=== PATIENT | female | born 1975 | race Two or more races ===

== ENCOUNTER 2021-03-31 11:03 | Outpatient (REF) | payer OTHER, SELFPAY ==
[2021-03-31 14:01] LABS: MANUAL DIFF FLAG NO
[2021-03-31 14:10] LABS: Basophils Percent Auto 0.3 % (0-2); Eosinophils Absolute Auto 0.2 X10*3/uL (0.0-0.4); Eosinophils Percent Auto 2.6 % (0-4); Hematocrit 41.7 % (37-47); Hemoglobin 14.5 g/dl (12.0-16.0); Imm Gran Abs Auto 0.04 X10*3/uL (0.00-0.03); Imm Gran Pct Auto 0.5 % (0.0-0.4); Lymphocytes Percent Auto 34.3 % (20-40); Mean Corpuscular HGB Conc 34.8 g/dl (31.0-35.0); Mean Corpuscular Hemoglobin 31.8 pg (27.0-33.0); Mean Corpuscular Volume 91.4 fL (80-98); Mean Platelet Volume 10.2 fL (9.4-12.3); Monocytes Absolute Auto 0.6 X10*3/uL (0.1-1.2); Monocytes Percent Auto 6.4 % (2-11); Neutrophils Absolute Auto 4.9 X10*3/uL (2.0-8.3); Neutrophils Percent Auto 55.9 % (45-73); Platelet Count 331 X10*3/uL (160-400); Red Blood Count 4.56 X10*6/uL (4.20-5.50); Red Cell Distribution Width 13.2 % (11.0-16.0); White Blood Count 8.7 X10*3/uL (4.8-10.8)
[2021-03-31 14:22] LABS: Alanine Aminotransferase 17 U/L (0-31); Anion Gap 13 (12-20); Aspartate Amino Transferase 17 U/L (5-31); Blood Urea Nitrogen 10 mg/dL (9-16); Calcium 9.4 mg/dL (8.4-10.2); Carbon Dioxide 21 mmol/L (22-29); Chloride 107 mmol/L (96-108); Cholesterol 233 mg/dL; Estimated Glomerular Filt Rate > 60; Glucose Fasting 114 mg/dL (60-99); HDL Cholesterol 26 mg/dL; Potassium 3.9 mmol/L (3.3-5.1); Sodium 137 mmol/L (135-145); Triglycerides 992 mg/dL
[2021-03-31 14:36] LABS: TSH reflex Free T4 0.35 uIU/mL (0.32-4.0); Vitamin D 25-OH Total 14.8 ng/mL (>30)
== END 2021-03-31 11:04 | disposition home or self-care (01) ==
LOC: HO.HMGCLDS 11:03
PROVIDERS: PCP Internal Medicine; Visit Provider Internal Medicine
DX: E66.01 Morbid (severe) obesity due to excess calories (principal); I10 Essential (primary) hypertension; R73.01 Impaired fasting glucose; E78.01 Familial hypercholesterolemia; Z00.01 Encounter for general adult medical examination with abnormal findings
CPT/HCPCS: 36415; 80048; 80061; 82306; 84443; 84450; 84460; 85025

== ENCOUNTER 2021-09-06 12:15 | Outpatient (REF) | payer OTHER, SELFPAY ==
[2021-09-06 14:06] LABS: Estimated Average Glucose 114 mg/dL; Hemoglobin A1c % 5.6 %
[2021-09-06 14:36] LABS: Alanine Aminotransferase 21 U/L (0-31); Anion Gap 13 (12-20); Aspartate Amino Transferase 18 U/L (5-31); Blood Urea Nitrogen 8 mg/dL (9-16); Calcium 9.5 mg/dL (8.4-10.2); Carbon Dioxide 22 mmol/L (22-29); Chloride 106 mmol/L (96-108); Cholesterol 228 mg/dL; Estimated Glomerular Filt Rate > 60; Glucose Fasting 120 mg/dL (60-99); HDL Cholesterol 31 mg/dL; Sodium 137 mmol/L (135-145); Triglycerides 607 mg/dL
[2021-09-07 13:46] LABS: LDL Cholesterol Direct 94 mg/dL (<100)
== END 2021-09-06 12:16 | disposition home or self-care (01) ==
LOC: HO.HMGCLDS 12:15
PROVIDERS: PCP Internal Medicine; Visit Provider Internal Medicine
DX: E66.01 Morbid (severe) obesity due to excess calories (principal); E78.01 Familial hypercholesterolemia; I10 Essential (primary) hypertension; R73.01 Impaired fasting glucose; E55.9 Vitamin D deficiency, unspecified
CPT/HCPCS: 36415; 80048; 80061; 82306; 83036; 83721; 84450; 84460

== ENCOUNTER 2022-03-24 10:16 | Outpatient (REF) | payer OTHER, SELFPAY ==
[2022-03-24 11:34] LABS: Estimated Average Glucose 103 mg/dL; Hemoglobin A1c % 5.2 %
[2022-03-24 11:46] LABS: Alanine Aminotransferase 21 U/L (0-31); Anion Gap 10 (12-20); Aspartate Amino Transferase 16 U/L (5-31); Blood Urea Nitrogen 8 mg/dL (9-16); Calcium 9.6 mg/dL (8.4-10.2); Carbon Dioxide 26 mmol/L (22-29); Chloride 105 mmol/L (96-108); Cholesterol 254 mg/dL; Estimated Glomerular Filt Rate > 60; Glucose Fasting 98 mg/dL (60-99); HDL Cholesterol 37 mg/dL; LDL Cholesterol Calculated 186 mg/dl; Sodium 137 mmol/L (135-145); Triglycerides 155 mg/dL
[2022-03-24 12:10] LABS: Vitamin D 25-OH Total 29.5 ng/mL (>30)
[2022-03-24 12:11] LABS: Folate > 20.0 ng/mL (> or = 4.0); Vitamin B12 660 pg/mL (200-900)
== END 2022-03-24 10:17 | disposition home or self-care (01) ==
LOC: HO.HMGCLDS 10:16
PROVIDERS: PCP Internal Medicine; Visit Provider Internal Medicine
DX: E55.9 Vitamin D deficiency, unspecified (principal); E78.1 Pure hyperglyceridemia; I10 Essential (primary) hypertension; R73.01 Impaired fasting glucose; Z98.84 Bariatric surgery status
CPT/HCPCS: 36415; 80048; 80061; 82306; 82607; 82746; 83036; 84450; 84460

== ENCOUNTER 2022-10-04 11:14 | Outpatient (REF) | payer OTHER, SELFPAY ==
[2022-10-04 13:50] LABS: MANUAL DIFF FLAG NO
[2022-10-04 13:58] LABS: Basophils Percent Auto 0.5 % (0-2); Eosinophils Absolute Auto 0.1 X10*3/uL (0.0-0.4); Eosinophils Percent Auto 1.9 % (0-4); Hematocrit 41.7 % (37.0-47.0); Hemoglobin 14.1 g/dl (12.0-16.0); Imm Gran Abs Auto 0.02 X10*3/uL (0.00-0.03); Imm Gran Pct Auto 0.3 % (0.0-0.4); Lymphocytes Absolute Auto 1.2 X10*3/uL (1.2-4.9); Lymphocytes Percent Auto 18.5 % (20-40); Mean Corpuscular HGB Conc 33.8 g/dl (31.0-35.0); Mean Corpuscular Hemoglobin 31.5 pg (27.0-33.0); Mean Corpuscular Volume 93.3 fL (80.0-98.0); Mean Platelet Volume 9.6 fL (9.4-12.3); Monocytes Absolute Auto 0.7 X10*3/uL (0.1-1.2); Monocytes Percent Auto 10.5 % (2-11); Neutrophils Absolute Auto 4.2 x10*3/uL (2.0-8.3); Neutrophils Percent Auto 68.3 % (45-73); Platelet Count 302 X10*3/uL (160-400); Red Blood Count 4.47 X10*6/uL (4.20-5.50); Red Cell Distribution Width 12.5 % (11.0-16.0); White Blood Count 6.2 X10*3/uL (4.8-10.8)
[2022-10-04 14:30] LABS: Cholesterol 256 mg/dL; HDL Cholesterol 41 mg/dL; LDL Cholesterol Calculated 186 mg/dl; TSH reflex Free T4 0.16 uIU/mL (0.32-4.0); Triglycerides 146 mg/dL; Vitamin D 25-OH Total 41.1 ng/mL (>30)
[2022-10-04 14:41] LABS: Folate 10.2 ng/mL (> or = 4.0); Vitamin B12 742 pg/mL (200-900)
[2022-10-04 15:42] LABS: Free T4 (Free Thyroxine) 0.87 ng/dL (0.71-1.85)
== END 2022-10-04 11:15 | disposition home or self-care (01) ==
LOC: HO.HMGCLDS 11:14
PROVIDERS: PCP Internal Medicine; Visit Provider Internal Medicine
DX: Z00.01 Encounter for general adult medical examination with abnormal findings (principal); E78.01 Familial hypercholesterolemia; F41.1 Generalized anxiety disorder; G47.00 Insomnia, unspecified; M25.50 Pain in unspecified joint; E55.9 Vitamin D deficiency, unspecified
CPT/HCPCS: 36415; 80061; 82306; 82607; 82746; 84439; 84443; 85025

== ENCOUNTER 2023-01-29 08:55 | Outpatient (REF) | payer OTHER, SELFPAY ==
[2023-01-29 12:16] LABS: Alanine Aminotransferase 14 U/L (0-31); Aspartate Amino Transferase 12 U/L (5-31); Cholesterol 276 mg/dL; Glucose Fasting 85 mg/dL (60-99); HDL Cholesterol 45 mg/dL; LDL Cholesterol Calculated 185 mg/dl; Triglycerides 231 mg/dL
[2023-01-29 12:38] LABS: Folate 7.7 ng/mL (> or = 4.0); Vitamin B12 868 pg/mL (200-900); Vitamin D 25-OH Total 36.8 ng/mL (>30)
== END 2023-01-29 08:56 | disposition home or self-care (01) ==
LOC: HO.HMGCLDS 08:55
PROVIDERS: PCP Internal Medicine; Visit Provider Internal Medicine
DX: E78.5 Hyperlipidemia, unspecified (principal); Z90.3 Acquired absence of stomach [part of]
CPT/HCPCS: 36415; 80061; 82306; 82607; 82746; 82947; 84450; 84460

== ENCOUNTER 2023-07-26 14:40 | Outpatient (AMB) | payer OTHER, SELFPAY ==
[2023-07-26 15:30] VITALS: BP 120/78; PULSE 67; O2SAT 96; BMI 28.7
--- NOTE | 2023-07-26 15:30 | A.OFFPC_ITS ---
Vital Signs 07/26/23 15:30 Height 5 ft 6 in Weight 178 lb BMI 28.7 BP 120/78 Blood Pressure Location Rt brachial Position Sitting Pulse 67 Pulse Source Pulse Oximeter Pulse Oximetry (%) 96 Oxygen Delivery Method Room Air Intake Visit Reasons: Anxiety follow up Intake Note: pt is here follow up for her anxiety Allergies acetaminophen [From PERCOCET] Allergy (Severe, Verified 07/26/23 16:03) ANAPHYLAXIS morphine [MORPHINE] Allergy (Severe, Verified 07/26/23 16:03) ANAPHYLAXIS, hives, redness and itching oxycodone [From PERCOCET] Allergy (Severe, Verified 07/26/23 16:03) ANAPHYLAXIS barium sulfate Adverse Reaction (Unknown, Verified 07/26/23 16:03) couldn't sleep, weird dreams, sleep walking eszopiclone [From Lunesta] Adverse Reaction (Verified 07/26/23 16:03) Vomiting Lipitor Allergy (Mild, Uncoded 07/26/23 16:03) hives Medication List - Last Reconciled 07/26/23 by Mayela Armijo MD cholecalciferol (vitamin D3) 250 mcg PO lorazepam 1 mg PO DAILY PRN pantoprazole 20 mg PO DAILY PRN rosuvastatin 5 mg PO DAILY triamcinolone acetonide 0.1% 1 appl topical BID 10 days zolpidem ER 12.5 mg PO BEDTIME PRN Tobacco use date assessed: 07/26/23 Dental Screening Dental Screen Date: 07/26/23 Did you have a dental visit in the last 12 months?: Yes Did you have a dental problem in the last 6 months where you did not have access to dental care?: No Was dental information given to patient?: Patient has dentist HPI Anxiety follow up HPI Details 47-year-old lady here today for follow-u p regarding her generalized anxiety disorder. She has tried SSRIs in the past, but that has not helped and is afraid of the side effects of the medication, and also has tried buspirone in the past which has not helped . She has just been taking lorazepam 1 mg per tablet, sometimes would take half a tablet sometimes would take a whole tablet usually at night to help her relax and help her sleep. There are days when she would not take it. Patient is aware of the addictive potential of the medication. [facility] Medical History Dyslipidemia Condyloma acuminata Flexor tenosynovitis of finger Insomnia Generalized anxiety disorder Family history of lupus erythematosus Polyarthralgia Eczema Vitamin D deficiency Familial hypercholesterolemia Morbid obesity due to excess calories Surgical History S/P gastric sleeve procedure History of loop electrical excision procedure (LEEP) History of tonsillectomy Hx of colonoscopy Family History Father Ischemic heart disease Diabetes mellitus Mental health disorder Brother Mental health disorder Mother Mental health disorder Sister Mental health disorder Social History Housing: House Patient Tobacco Use Status: Current someday Tobacco user Cigarettes Per Day: 10 e-Cigarette/Vaping Use: Never Used service: No Current occupational status: employed Current occupation: Home [employer] Current occupational exposures/hazards: Yes Cognitive needs: No Hearing needs: No Vision needs: No Questionnaire PHQ-9 Over the last 2 weeks, how often have you been bothered by any of the following problems? 1. Little interest or pleasure in doing things: not at all 2. Feeling down, depressed, or hopeless: not at all 3. Trouble falling or staying asleep, or sleeping too much: several days 4. Feeling tired or having little energy: not at all 5. Poor appetite or overeating: several days 6. Feeling bad about yourself - or that you are a failure or have let yourself or your family down: not at all 7. Trouble concentrating on things, such as reading the newspaper or watching television: not at all 8. Moving or speaking so slowly that other people could have noticed. Or the opposite - being so fidgety or restless that you have been moving around a lot more than usual: not at all 9. Thoughts that you would be better off or of hurting yourself in some way: not at all Total score: 2 Depression Screening Interpretation: Negative Depression Screening Done: Yes 44689 - PHQ-9 Billing: Yes Source: Developed by Drs. Rito Jamil, Myah BSukhdeep Guerrero and colleagues, with an educational zaki from [employer]. Thrive Questionnaire Date Thrive assessed: 03/30/23 NITA-7 AMB Questionnaire NITA-7 Date NITA - 7 assessed: 07/26/23 Feeling nervous, anxious, or on edge: 1 = Several days Not being able to stop or control worryin = Several days Worrying too much about different things: 1 = Several days Trouble relaxin = Not at all Being so restless that it is hard to sit still: 0 = Not at all Becoming easily annoyed or irritable: 0 = Not at all Feeling afraid as if something awful might happen: 0 = Not at all Total NITA-7 score (0-4 normal; 5-9 mild; 10-14 moderate; 15-21 severe): 3 Source: Developed by Drs. Rito Jamil, Sukhdeep Connolly and colleagues, with an educational zaki from [employer]. NITA-7 Assessment Billing NITA-7 Assessment Tool: NITA-7 Assessment 24365 Review of Systems Const All systems reviewed & are unremarkable except as noted in HPI and below ENT Reports Normal hearing present Neuro Reports Normal hearing present and Denies Sensory deficit (Neuro) Physical exam (Primary Care) Vital Signs: Last Vital Signs Pulse 67 07/26/23 15:30 BP 120/78 07/26/23 15:30 Pulse Ox 96 07/26/23 15:30 Oxygen Delivery Method Room Air 07/26/23 15:30 BMI result Body Mass Index 28.7 Tobacco/Smoking Status: Tobacco use Status Tobacco use date assessed 07/26/23 07/26/23 15:55 Patient Tobacco Use Status Current someday Tobacco 07/26/23 15:30 e-Cigarette/Vaping Use Never Used 07/26/23 15:30 Depression Screening Interpretation: Negative Thrive Assessment: Date of Thrive Assessment Date Thrive assessed 03/30/23 07/26/23 15:30 Const General: comfortable and no acute distress Nutritional Appearance: overweight Orientation/consciousness: patient oriented x3 HENMT Head: Yes normocephalic and Yes atraumatic General nose exam: Normal external nose present Mouth: moist mucous membranes Eyes General: appearance normal, both eyes and all related structures Neck Other: Supple, no lymphadenopathy, thyroid gland nonpalpable Neck: Yes full ROM and Yes supple Thyroid: Thyroid normal (Nonpalpable) Resp Auscultation: clear to auscultation bilaterally Cardio Other: S1-S2 present regular rate and rhythm GI Other: well healed laparoscopic sx scar for gastric sleeve procedure Palpation (GI): Soft to palpation, nontender and no guarding Auscultation: normal bowel sounds General: Yes no CVA tenderness Back/Spine/Pelvis Back: no CVA tenderness and No back tenderness Neuro General: patient oriented x3, gait normal, tone normal, moves all extremities, Normal light touch and pain sensation and no focal motor deficits Cranial nerves: Yes Normal hearing present Sensory Exam: No Sensory deficit (Neuro) Extrem Other: No gross bone deformity or joint swelling seen, slight ulnar deviation of fingers in both hands Psych Appearance: grossly normal and well kempt Mental Status: mental status grossly normal Speech and movement: Normal speech and movement present Affect: normal affect Attitude: cooperative Thought process: Normal thought process present Thought content: Normal thought content present Assessment and Plan Assessment & Plan (1) Generalized anxiety disorder: Code(s): F41.1 - Generalized anxiety disorder Plan: Does not want to start taking any maintenance medication at this time, afraid of taking SSRIs and her possible side effects. Has tried buspirone in the past which has not been effective in controlling anxiety attacks. Prescription sent for lorazepam 1 mg per tablet, to take half a tablet to a whole tablet, only as needed for acute anxiety attacks anxiety and insomnia, discussed use and side effects of medication, Pt instructed to take medicines exactly as directed and that these medications can be habit forming. Declined referral for counseling Discussed other ways to relieve stress including : exercise or a massage, Get enough rest, Avoid alcohol, caffeine, nicotine, and illegal drugs which can increase your anxiety level and cause sleep problems. Medications: Refilled lorazepam 1 mg PO DAILY PRN 30 tabs 0RF anxiety Coding Level of Care Code Est Pt Level 3 (96730) Diagnoses Generalized anxiety disorder F41.1 Additional Codes NITA-7 Assessment Billing - NITA-7 Assessment Tool: NITA-7 Assessment 20879 ([id number])
== END 2023-07-26 16:20 | disposition home or self-care (01) ==
PROVIDERS: PCP Internal Medicine; Visit Provider Internal Medicine
DX: F41.1 Generalized anxiety disorder (principal)
CPT/HCPCS: 99213

== ENCOUNTER 2023-11-12 11:29 | Outpatient (AMB) | payer OTHER, SELFPAY ==
[2023-11-12 12:18] VITALS: BP 110/68; PULSE 70; O2SAT 97; BMI 29.7
--- NOTE | 2023-11-12 12:18 | MHC.PC.OV ---
Vital Signs 11/12/23 12:18 Height 5 ft 6 in Weight 184 lb BMI 29.7 BP 110/68 Blood Pressure Location Rt brachial Position Sitting Pulse 70 Pulse Source Pulse Oximeter Pulse Oximetry (%) 97 Oxygen Delivery Method Room Air Intake Visit Reasons: FMLA-Anxiety Intake Note: Pt is here today for a FMLA/ anxiety Allergies acetaminophen [From PERCOCET] Allergy (Severe, Verified 11/12/23 12:34) ANAPHYLAXIS morphine [MORPHINE] Allergy (Severe, Verified 11/12/23 12:34) ANAPHYLAXIS, hives, redness and itching oxycodone [From PERCOCET] Allergy (Severe, Verified 11/12/23 12:34) ANAPHYLAXIS barium sulfate Adverse Reaction (Unknown, Verified 11/12/23 12:34) couldn't sleep, weird dreams, sleep walking eszopiclone [From Lunesta] Adverse Reaction (Verified 11/12/23 12:34) Vomiting Lipitor Allergy (Mild, Uncoded 11/12/23 12:34) hives Medication List - Last Reconciled 11/12/23 by Mayela Armijo MD cholecalciferol (vitamin D3) 250 mcg PO lorazepam 1 mg PO DAILY PRN pantoprazole 20 mg PO DAILY PRN rosuvastatin 5 mg PO DAILY triamcinolone acetonide 0.1% 1 appl topical BID 10 days zolpidem 10 mg PO BEDTIME PRN Tobacco use date assessed: 11/12/23 Dental Screening Dental Screen Date: 11/12/23 Did you have a dental visit in the last 12 months?: Yes Did you have a dental problem in the last 6 months where you did not have access to dental care?: No Was dental information given to patient?: Patient has dentist HPI FMLA-Anxiety HPI Details 48 year old lady with generalized anxiety disorder, currently taking only lorazepam 1 mg once a day as needed, has primary insomnia currently taking zolpidem 10 mg at bedtime as needed, which he states is not helping anymore, here for follow-up visit and to get her FMLA application completed.. 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 [facility] Medical History Dyslipidemia Condyloma acuminata Flexor tenosynovitis of finger Insomnia Generalized anxiety disorder Family history of lupus erythematosus Polyarthralgia Eczema Vitamin D deficiency Familial hypercholesterolemia Morbid obesity due to excess calories Surgical History S/P gastric sleeve procedure History of loop electrical excision procedure (LEEP) History of tonsillectomy Hx of colonoscopy Family History Father Ischemic heart disease Diabetes mellitus Mental health disorder Brother Mental health disorder Mother Mental health disorder Sister Mental health disorder Social History Housing: House Patient Tobacco Use Status: Current someday Tobacco user Cigarettes Per Day: 10 e-Cigarette/Vaping Use: Never Used service: No Current occupational status: employed Current occupation: Home [employer] Current occupational exposures/hazards: Yes Cognitive needs: No Hearing needs: No Vision needs: No Questionnaire PHQ-9 Over the last 2 weeks, how often have you been bothered by any of the following problems? 1. Little interest or pleasure in doing things: several days 2. Feeling down, depressed, or hopeless: several days 3. Trouble falling or staying asleep, or sleeping too much: nearly every day 4. Feeling tired or having little energy: nearly every day 5. Poor appetite or overeating: not at all 6. Feeling bad about yourself - or that you are a failure or have let yourself or your family down: several days 7. Trouble concentrating on things, such as reading the newspaper or watching television: more than half the days 8. Moving or speaking so slowly that other people could have noticed. Or the opposite - being so fidgety or restless that you have been moving around a lot more than usual: several days 9. Thoughts that you would be better off or of hurting yourself in some way: not at all Total score: 12 Depression Screening Interpretation: Positive Depression Screening Done: Yes 27751 - PHQ-9 Billing: Yes Source: Developed by Drs. Rito Jamil, Myah Mora, Sukhdeep Dailey and colleagues, with an educational zaki from [employer]. Thrive Questionnaire Date Thrive assessed: 11/12/23 I am a: Patient Within the past 12 months, did the food you bought not last and you didn't have the money to get more?: Never true Within the past 12 months, did you worry whether your food would run out before you got money to buy more?: Never true Do you have trouble paying for medicines?: No Do you have trouble getting transportation to medical appointments?: No Do you have trouble paying your heating and electricity bill?: No Do you have trouble taking care of your child, family member or friend?: No Do you have trouble with day-to-day activities such as bathing, preparing meals, shopping, managing finances, etc.?: No Are you currently unemployed and looking for a job?: No Are you interested in more education?: No THRIVE Score: 0 AUDIT C Alcohol Use Questionnaire (AUDIT-C) 1. How often do you have a drink containing alcohol?: Never Total Score: 0 NITA-7 AMB Questionnaire NITA-7 Date NITA - 7 assessed: 11/12/23 Feeling nervous, anxious, or on edge: 3 = Nearly every day Not being able to stop or control worryin = Nearly every day Worrying too much about different things: 3 = Nearly every day Trouble relaxin = Nearly every day Being so restless that it is hard to sit still: 2 = More than half the days Becoming easily annoyed or irritable: 2 = More than half the days Feeling afraid as if something awful might happen: 0 = Not at all Total NITA-7 score (0-4 normal; 5-9 mild; 10-14 moderate; 15-21 severe): 16 Source: Developed by Drs. Rito Jamil, Myah Mora, Sukhdeep Dailey and colleagues, with an educational zaki from [employer]. NITA-7 Assessment Billing NITA-7 Assessment Tool: NITA-7 Assessment 86632 Review of Systems Const All systems reviewed & are unremarkable except as noted in HPI and below ENT Reports Normal hearing present Card Denies chest pain at rest, Denies chest pain with activity, Reports rapid heart rate, Denies irregular heart rhythm and Reports lightheadedness Resp Reports no additional complaints GI Reports no additional complaints Reports no additional complaints Musc Denies abnormal gait Neuro Reports Normal hearing present, Denies abnormal gait, Denies behavioral changes and Denies Sensory deficit (Neuro) Psych Denies behavioral changes Endo Reports no additional complaints Physical exam (Primary Care) Vital Signs: Last Vital Signs Pulse 70 11/12/23 12:18 BP 110/68 11/12/23 12:18 Pulse Ox 97 11/12/23 12:18 Oxygen Delivery Method Room Air 11/12/23 12:18 BMI result Body Mass Index 29.7 Tobacco/Smoking Status: Tobacco use Status Tobacco use date assessed 11/12/23 11/12/23 12:19 Patient Tobacco Use Status Current someday Tobacco 11/12/23 12:19 e-Cigarette/Vaping Use Never Used 11/12/23 12:19 PHQ-9: PHQ-9 Score PHQ-9: Total score 16 11/12/23 13:10 Depression Screening Interpretation: Positive Thrive Assessment: Date of Thrive Assessment Date Thrive assessed 11/12/23 11/12/23 13:10 Const General: comfortable and no acute distress Nutritional Appearance: overweight Orientation/consciousness: patient oriented x3 HENMT Head: Yes normocephalic and Yes atraumatic General nose exam: Normal external nose present Mouth: moist mucous membranes Eyes General: appearance normal, both eyes and all related structures Neck Other: Supple, no lymphadenopathy, thyroid gland nonpalpable Neck: Yes full ROM and Yes supple Thyroid: Thyroid normal (Nonpalpable) Resp Auscultation: clear to auscultation bilaterally Cardio Other: S1-S2 present regular rate and rhythm GI Other: well healed laparoscopic sx scar for gastric sleeve procedure Palpation (GI): Soft to palpation, nontender and no guarding Auscultation: normal bowel sounds General: Yes no CVA tenderness Back/Spine/Pelvis Back: no CVA tenderness and No back tenderness Neuro General: patient oriented x3, gait normal, tone normal, moves all extremities, Normal light touch and pain sensation and no focal motor deficits Cranial nerves: Yes Normal hearing present Sensory Exam: No Sensory deficit (Neuro) Extrem Other: No gross bone deformity or joint swelling seen, slight ulnar deviation of fingers in both hands Psych Appearance: grossly normal and well kempt Mental Status: mental status grossly normal Speech and movement: Normal speech and movement present Affect: normal affect Attitude: cooperative Thought process: Normal thought process present Thought content: Normal thought content present Assessment and Plan Assessment & Plan (1) Generalized anxiety disorder: Code(s): F41.1 - Generalized anxiety disorder Plan: Will continue on lorazepam 1 mg to take once a day only for acute attacks of anxiety, declines starting any new medication at present time, total about different behavioral techniques to control her anxiety symptoms. FMLA application discussed with patient and completed today on this visit and given back to her. (2) Insomnia: Code(s): G47.00 - Insomnia, unspecified Qualifiers: Insomnia type: primary Qualified Code(s): F51.01 - Primary insomnia Plan: Discontinue zolpidem and will try on eszopiclone 3 mg per tablet to take 1 tablet at bedtime as needed for insomnia Medications: New eszopiclone 3 mg PO BEDTIME 30 tabs 0RF insomnia Refilled lorazepam 1 mg PO DAILY PRN 30 tabs 0RF anxiety Discontinued zolpidem Discontinued Reason: Doctor's Order 10 mg PO BEDTIME PRN 30 tabs 0RF sleep Coding Level of Care Code Est Pt Level 3 (08657) Diagnoses Generalized anxiety disorder F41.1 Primary insomnia F51.01 Insomnia type: primary Additional Codes NITA-7 Assessment Billing - NITA-7 Assessment Tool: NITA-7 Assessment 16900 ([id number])
== END 2023-11-12 13:00 | disposition home or self-care (01) ==
PROVIDERS: PCP Internal Medicine; Visit Provider Internal Medicine
DX: F41.1 Generalized anxiety disorder (principal); F51.01 Primary insomnia
CPT/HCPCS: 99213

== ENCOUNTER 2024-04-02 09:07 | Outpatient (AMB) | payer OTHER, SELFPAY ==
--- NOTE | 2024-04-02 10:34 | A.OFFPC_ITS ---
Vital Signs 04/02/24 10:36 Height 5 ft 6 in Weight 185 lb BMI 29.9 BP 136/90 H Blood Pressure Location Lt brachial Position Sitting Pulse 84 Pulse Source Pulse Oximeter Pulse Oximetry (%) 98 Oxygen Delivery Method Room Air Intake Visit Reasons: Annual PE Intake Note: Pt is here today for her PE: cologuard 04/13/22, /12/21 Allergies morphine [MORPHINE] Allergy (Severe, Verified 04/02/24 10:36) ANAPHYLAXIS, hives, redness and itching barium sulfate Adverse Reaction (Unknown, Verified 04/02/24 11:17) couldn't sleep, weird dreams, sleep walking Lipitor Allergy (Mild, Uncoded 04/02/24 11:17) hives Medication List - Last Reconciled 04/02/24 by Mayela Armijo MD buspirone 5 mg PO TID cholecalciferol (vitamin D3) 250 mcg PO eszopiclone 2 mg PO BEDTIME lorazepam 1 mg PO DAILY PRN triamcinolone acetonide 0.1% 1 appl topical BID 10 days zolpidem 10 mg PO BEDTIME PRN Tobacco use date assessed: 04/02/24 Dental Screening Dental Screen Date: 04/02/24 Did you have a dental visit in the last 12 months?: Yes Did you have a dental problem in the last 6 months where you did not have access to dental care?: No Was dental information given to patient?: Patient has dentist HPI Annual PE HPI Details 48-year-old lady here today for physical exam. She is up-to-date with her cervical cancer screening, done last 2020, and had colon cancer screening by [facility] testing done 04/13/2022 with negative findings. Patient however is overdue to get her screening mammogram, states that she gets it at [facility] ordered by her OBGYN. She has history of vertical sleeve gastrectomy, found to have a type 1 paraesophageal hernia and underwent laparoscopic paraesophageal hernia repair with partial gastrectomy completed on 03/01/2024. She is currently feeling well at present with no complaints. She has chronic insomnia, and was on zolpidem in the past which has not really been helping. It most likely is due to the medication not getting well absorbed due to her paraesophageal hernia. Would like to get off zolpidem and will try eszopiclone again. She has generalized anxiety disorder, currently taking lorazepam 1 mg almost on a daily basis. No maintenance medication for anxiety. [facility] Medical History Dyslipidemia Condyloma acuminata Flexor tenosynovitis of finger Insomnia Generalized anxiety disorder Family history of lupus erythematosus Polyarthralgia Eczema Vitamin D deficiency Familial hypercholesterolemia Morbid obesity due to excess calories Surgical History S/P gastric sleeve procedure History of loop electrical excision procedure (LEEP) History of tonsillectomy Hx of colonoscopy Family History Father Ischemic heart disease Diabetes mellitus Mental health disorder Brother Mental health disorder Mother Mental health disorder Sister Mental health disorder Social History Housing: House Patient Tobacco Use Status: Current someday Tobacco user Cigarettes Per Day: 10 e-Cigarette/Vaping Use: Never Used service: No Current occupational status: employed 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 1. Little interest or pleasure in doing things: several days 2. Feeling down, depressed, or hopeless: several days 3. Trouble falling or staying asleep, or sleeping too much: nearly every day 4. Feeling tired or having little energy: nearly every day 5. Poor appetite or overeating: not at all 6. Feeling bad about yourself - or that you are a failure or have let yourself or your family down: several days 7. Trouble concentrating on things, such as reading the newspaper or watching television: more than half the days 8. Moving or speaking so slowly that other people could have noticed. Or the opposite - being so fidgety or restless that you have been moving around a lot more than usual: several days 9. Thoughts that you would be better off or of hurting yourself in some way: not at all Total score: 12 Depression Screening Interpretation: Positive Depression Screening Done: Yes 61509 - PHQ-9 Billing: Yes Source: Developed by Drs. Rito Jamil, Myah Mora, Sukhdeep Dailey and colleagues, with an educational zaki from [employer]. Thrive Questionnaire Date Thrive assessed: 04/02/24 I am a: Patient What is your living situation today?: I have a steady place to live Within the past 12 months, did the food you bought not last and you didn't have the money to get more?: Never true Within the past 12 months, did you worry whether your food would run out before you got money to buy more?: Never true Do you have trouble paying for medicines?: No Do you have trouble getting transportation to medical appointments?: No Do you have trouble paying your heating and electricity bill?: No Do you have trouble taking care of your child, family member or friend?: No Do you have trouble with day-to-day activities such as bathing, preparing meals, shopping, managing finances, etc.?: No Are you currently unemployed and looking for a job?: No Are you interested in more education?: No Please select the resources that you would like help with: None THRIVE Score: 0 AUDIT C Alcohol Use Questionnaire (AUDIT-C) 1. How often do you have a drink containing alcohol?: Monthly or less 2. How many drinks containing alcohol do you have on a typical day when you are drinking?: 1 or 2 3. How often do you have six or more drinks on one occasion?: Never Total Score: 1 NITA-7 AMB Questionnaire NITA-7 Date NITA - 7 assessed: 04/02/24 Feeling nervous, anxious, or on edge: 2 = More than half the days Not being able to stop or control worryin = More than half the days Worrying too much about different things: 2 = More than half the days Trouble relaxin = Nearly every day Being so restless that it is hard to sit still: 3 = Nearly every day Becoming easily annoyed or irritable: 2 = More than half the days Feeling afraid as if something awful might happen: 1 = Several days Total NITA-7 score (0-4 normal; 5-9 mild; 10-14 moderate; 15-21 severe): 15 Source: Developed by Drs. Rito Jamil, Myah Mora, Sukhdeep Dailey and colleagues, with an educational zaki from [employer]. NITA-7 Assessment Billing NITA-7 Assessment Tool: NITA-7 Assessment 82745 Review of Systems Const All systems reviewed & are unremarkable except as noted in HPI and below Eyes Denies change in vision ENT Reports no additional complaints and Reports Normal hearing present Card Denies chest pain, Denies chest pain at rest, Denies chest pain with activity, Denies rapid heart rate, Denies irregular heart rhythm and Denies lightheadedne ss Resp Reports no additional complaints GI Reports as per HPI Reports no additional complaints and Denies nipple discharge Musc Denies abnormal gait Skin/Breast Denies breast pain, Denies breast mass, Denies lesions, Denies nipple discharge and Denies rash Neuro Reports Normal hearing present, Denies abnormal gait and Denies Sensory deficit (Neuro) Psych Reports as per HPI Endo Reports no additional complaints Nando/Lymph Reports no additional complaints Aller/Immun Reports no additional complaints Physical exam (Primary Care) Vital Signs: Last Vital Signs Pulse 84 04/02/24 10:36 BP 136/90 H 04/02/24 10:36 Pulse Ox 98 04/02/24 10:36 Oxygen Delivery Method Room Air 04/02/24 10:36 BMI result Body Mass Index 29.9 Tobacco/Smoking Status: Tobacco use Status Tobacco use date assessed 04/02/24 04/02/24 10:38 Patient Tobacco Use Status Current someday Tobacco 04/02/24 10:34 e-Cigarette/Vaping Use Never Used 04/02/24 10:34 Depression Screening Interpretation: Positive Thrive Assessment: Date of Thrive Assessment Date Thrive assessed 04/02/24 04/02/24 10:57 Const General: comfortable and no acute distress Nutritional Appearance: overweight Orientation/consciousness: patient oriented x3 HENMT Head: Yes normocephalic and Yes atraumatic General nose exam: Normal external nose present Mouth: moist mucous membranes Eyes General: appearance normal, both eyes and all related structures Neck Other: Supple, no lymphadenopathy, thyroid gland nonpalpable Neck: Yes full ROM and Yes supple Thyroid: Thyroid normal (Nonpalpable) Chest Breast/axilla palpation: normal palpation of the breasts Resp Auscultation: clear to auscultation bilaterally Cardio Other: S1-S2 present regular rate and rhythm GI Other: well healed laparoscopic sx scar for gastric sleeve procedure Palpation (GI): Soft to palpation, nontender and no guarding Auscultation: normal bowel sounds General: Yes no CVA tenderness Back/Spine/Pelvis Back: no CVA tenderness and No back tenderness Skin General skin exam: no rashes or lesions noted Neuro General: patient oriented x3, gait normal, tone normal, moves all extremities, Normal light touch and pain sensation and no focal motor deficits Cranial nerves: Yes Normal hearing present Sensory Exam: No Sensory deficit (Neuro) Extrem Other: No gross bone deformity or joint swelling seen, slight ulnar deviation of fingers in both hands Psych Appearance: grossly normal and well kempt Mental Status: mental status grossly normal Speech and movement: Normal speech and movement present Affect: normal affect Attitude: cooperative Thought process: Normal thought process present Thought content: Normal thought content present Assessment and Plan Assessment & Plan (1) Annual visit for general adult medical examination with abnormal findings: Code(s): Z00.01 - Encounter for general adult medical examination with abnormal findings Plan: Will check appropriate labs. Continued record dental visit every 6 months and regular eye exams, at least every 2 years. Take adequate calcium in diet and vitamin-D 3 at 2000 IU per cap once a day, in addition to weight-bearing exercises to help maintain good muscle tone and weight control. Instructed to do self-breast exam, and recommended to get yearly mammogram, . She sees Dr. Soliz for her routine Pap and pelvic exam currently up-to-date . Colon cancer screening by [facility] is up-to-date. Has had COVID vaccinations in the past but does not want to booster, up-to-date with her flu shot and Tdap (2) Generalized anxiety disorder: Code(s): F41.1 - Generalized anxiety disorder Plan: Will start on buspirone 5 mg per tablet to take 1 tablet 3 times a day, may initially start taking just once at night and increase as needed up to 3 times a day. Take lorazepam only as needed for acute anxiety attacks.. Schedule telehealth in 4 weeks to see how she is doing on buspirone (3) Dyslipidemia: Code(s): E78.5 - Hyperlipidemia, unspecified Plan: Fasting lipid panel ordered (4) Insomnia: Code(s): G47.00 - Insomnia, unspecified Qualifiers: Insomnia type: primary Qualified Code(s): F51.01 - Primary insomnia Plan: Discontinue zolpidem and prescription sent for eszopiclone 2 mg per tablet to take 1 tablet at bedtime Orders: Orders 2 Complete Blood Count Auto Diff 04/02/24 E78.5 - Hyperlipidemia, unspecified, F41.1 - Generalized anxiety disorder, F51.01 - Primary insomnia Lipid Panel 04/02/24 E78.5 - Hyperlipidemia, unspecified, F41.1 - Generalized anxiety disorder, F51.01 - Primary insomnia Vitamin D 25-OH Total 04/02/24 E78.5 - Hyperlipidemia, unspecified, F41.1 - Generalized anxiety disorder, F51.01 - Primary insomnia TSH reflex Free T4 04/02/24 E78.5 - Hyperlipidemia, unspecified, F41.1 - Generalized anxiety disorder, F51.01 - Primary insomnia Comprehensive Singer. Panel Fast 04/02/24 E78.5 - Hyperlipidemia, unspecified, F41.1 - Generalized anxiety disorder, F51.01 - Primary insomnia Medications: New eszopiclone 2 mg PO BEDTIME 30 tabs 0RF buspirone 5 mg PO TID 90 tabs 0RF Coding Level of Care Code Est Pt Prev Care 40-64y(37083) Diagnoses Annual visit for general adult medical examination with abnormal findings Z00.01 Generalized anxiety disorder F41.1 Dyslipidemia E78.5 Primary insomnia F51.01 Insomnia type: primary Additional Codes NITA-7 Assessment Billing - NITA-7 Assessment Tool: NITA-7 Assessment [id number] ([id number])
[2024-04-02 10:36] VITALS: BP 136/90; PULSE 84; O2SAT 98; BMI 29.9
== END 2024-04-02 14:38 | disposition home or self-care (01) ==
PROVIDERS: PCP Internal Medicine; Visit Provider Internal Medicine
DX: Z00.01 Encounter for general adult medical examination with abnormal findings (principal); F41.1 Generalized anxiety disorder; E78.5 Hyperlipidemia, unspecified; F51.01 Primary insomnia
CPT/HCPCS: 96127; 99213; 99396

== ENCOUNTER 2024-04-23 10:04 | Outpatient (REF) | payer OTHER, SELFPAY ==
[2024-04-23 13:31] LABS: Alanine Aminotransferase 16 U/L (0-31); Albumin Level 4.1 g/dL (3.5-5.0); Alkaline Phosphatase 77 U/L (39-117); Anion Gap 9 (12-20); Aspartate Amino Transferase 12 U/L (5-31); Bilirubin Total 0.5 mg/dL (0.0-1.0); Blood Urea Nitrogen 13 mg/dL (9-16); Carbon Dioxide 27 mmol/L (22-29); Chloride 106 mmol/L (96-108); Cholesterol 230 mg/dL (<200); Estimated Glomerular Filt Rate > 60; Glucose Fasting 97 mg/dL (60-99); HDL Cholesterol 56 mg/dL (>40); LDL Cholesterol Calculated 150 mg/dL (<100); Potassium 4.3 mmol/L (3.3-5.1); Sodium 138 mmol/L (135-145); Total Protein 6.6 g/dL (6.5-8.0); Triglycerides 122 mg/dL (<150)
[2024-04-23 14:33] LABS: TSH reflex Free T4 0.37 uIU/mL (0.32-4.0); Vitamin D 25-OH Total 32.1 ng/mL (>30)
== END 2024-04-23 10:05 | disposition home or self-care (01) ==
LOC: HO.HMGCLDS 10:04
PROVIDERS: PCP Internal Medicine; Visit Provider Internal Medicine
DX: F41.1 Generalized anxiety disorder (principal); E78.5 Hyperlipidemia, unspecified; F51.01 Primary insomnia
CPT/HCPCS: 36415; 80053; 80061; 82306; 84443

== ENCOUNTER 2024-05-02 08:23 | Outpatient (AMB) | payer OTHER, SELFPAY ==
--- OUTSIDE RECORDS SUMMARY | 2024-05-02 08:24 | XMS_ITS | Continuity of Care Document ---
Author Organization [facility] Address [address] [place] [address]- Care Team Providers Care Statistical Geneticist Name Role Phone Ashwin PALMA, Audrey Primary Care Physician Encounter [facility] [id number] Date(s): 10/28/23 - 11/04/23 [facility] [address] [place] [address]- Attending Physician: Leticia Cole MD Referring Physician: Audrey Christopher MD Allergies, Adverse Reactions, Alerts Substance Reaction Severity Status morphine Hives Active oxycodone Hives Active scopolamine burning of skin Active Ortho-Novum 07/18 hives, rash, vomiting A ctive Percocet hives Active Medications Ambien 10 mg oral tablet 2 tablet = 20 mg, By Mouth, Daily at bedtime, 0 Refills, Maintenance, 05/28/14 5:52:54 EDT, Tablet Start Date: 05/28/14 Status: Ordered Colace sodium 100 mg oral capsule 100 mg, 1, capsule, By Mouth, 2 times a day, PRN, # 20 capsule, Refills 0, Tot. Refills 0, Maintenance, for constipation, 12/18/21 8:09:00 EDT, Route to Pharmacy Electronically, [facility], Partial fill upon patient request if the prescr... Start Date: 12/18/21 Stop Date: 12/28/21 Status: Ordered Lorazepam 0 Refills, Maintenance, 10/28/23 13:06:00 EST, Partial fill upon patient request if the prescription is for a schedule II opioid drug. Start Date: 10/28/23 Status: Ordered omeprazole 20 mg oral enteric coated capsule 1 capsule = 20 mg, By Mouth, Daily, PRN Indigestion, Maintenance, 11/25/20 18:23:00 EST, EC Capsule, Partial fill upon patient request if the prescription is for a schedule II opioid drug. Start Date: 11/25/20 Status: Ordered ondansetron 4 mg oral tablet, disintegrating 1 tablet = 4 mg, By Mouth, Every 8 hours, PRN as needed for nausea/vomiting, # 10 tablet, 0 Refills, Maintenance, 02/24/23 12:33:00 EDT, DIS Tablet, [facility], Partial fill upon patient request if the prescription is for a schedule II o... Start Date: 02/24/23 Status: Ordered pantoprazole 20 mg oral delayed release tablet 2 tablet = 40 mg, By Mouth, Daily, # 60 tablet, 0 Refills, Maintenance, 12/18/21 8:09:00 EDT, EC Tablet, 168, cm, 12/18/21 5:11:00 EDT, Height, 111.3, kg, 12/16/21 9:02:00 EST, Dry Weight Start Date: 12/18/21 Stop Date: 01/17/22 Status: Ordered Problem List Condition Confirmation Course Effective Dates Status H ealth Status Informant GERD (gastroesophageal reflux disease) Confirmed Active Hydronephrosis Confirmed Active Obese class II Confirmed Active Prediabetes Confirmed Active Vital Signs Most recent to oldest [Reference Range]: 1 Height 168 cm (10/28/23 1:07 PM) Oxygen Saturation [94-100 %] 98 % (10/28/23 1:07 PM) Pulse Rate [55-90 bpm] 103 bpm *H* (10/28/23 1:07 PM) Blood Pressure [90-138/55-84 mm Hg] 90/6 0mm Hg (10/28/23 1:07 PM) Respiratory Rate [16-30 br/min] 20 br/mi n (10/28/23 1:07 PM) Temperature [96.8-100.4 DegF] 99.2 DegF (10/28/23 1:07 PM) Mode of Delivery (Oxygen) Room air (10/28/23 1:07 PM) Blood pressure sites Arm, left (10/28/23 1:07 PM) Temperature Route Oral (10/28/23 1:07 PM) Social History Social History Type Response Smoking Status 5-9 cigarettes (betw een 1/4 to 1/2 pack)/day in last 30 days entered on: 12/08/19 Sex Note * Marly Golden: PERFORM, SIGN, VERIFY Event Display: Patient Education/Instruction Authored Date: [id number] [facility] *[facility] Clinical Summary Name OLIVIA MENDOZA Age 48 Years 1975 PCP Ashwin PALMA, Audrey PCP Visit Date 10/28/2023 12:15:00 Additional Instructions: Recommend drinking 8-10 8 ounce glasses of water daily. Taking Tylenol and ibuprofen as needed for pain and fever. Use Vicks medicated chest rub and Mucinex DM for cough and congestion. Use saline nasal spray for nasal congestion. For any worsening symptoms of high fever confusion worsening headache dizziness difficulty swallowing chest pain shortness breath nausea vomiting diarrhea follow-up forrepeat evaluation here in the ER. Scheduled Appointments?? Future Appointments ?No Future Appointments Scheduled Follow-Up Instructions ?? Diagnosis Medications: Please continue your medications until treatment is completed or stopped by your provider. Discuss any questions related to medications with your provider. Medications to Continue with No Changes These medications were not printed or sent to your pharmacy Docusate (Colace sodium 100 mg oral capsule) 1 capsule Oral twice a day as needed for constipation for 10 Days. Refills: 0. Next Dose: Lorazepam Next Dose: Omeprazole (omeprazole 20 mg oral enteric coated capsule) 1 capsule Oral Daily as needed Indigestion. Next Dose: Ondansetron (ondansetron 4 mg oral tablet, disintegrating) 1 tab(s) Oral every 8 hours as needed asneeded for nausea/vomiting. Refills: 0. Next Dose: Pantoprazole (pantoprazole 20 mg oral delayed release tablet) 2 tab(s) Oral Daily for 30 Days. Refills: 0. Next Dose: Zolpidem (Ambien 10 mg oral tablet) 2 tab(s) Oral Daily at Bedtime. Next Dose: Allergy Info:?? Percocet /325; Ortho-Novum 07/18; scopolamine; oxycodone; morphine Medications Given This Visit Future Orders ?COVID-19, RSV, and Flu A/B, Rapid PCR? Order Date:10/28/23?- Complete on or after?10/28/23 Vital Signs Height 168 cm Weight BMI Blood Pressure 90 mm Hg/60 mm Hg Temperature 99.2 DegF Pulse Rate 103 bpm Respiratory Rate 20 br/min 02 Sat Mode of Delivery 98 %/Room air You can now view a summary of your hospital visit from the comfort of your home through a free online portal called [employer]. [employer] is a website that allows you to securely view your medical information including discharge summary, medications and follow-up visits. ??You can alsosend a secure electronic message to your doctor???s office to request appointments, renew medications or just ask a question. You can enroll at [email or web address] or register during your next office visit. Disclaimer:?? The information provided is of a general nature and is intended to be used in conjunction with the recommendations and advice of your health care practitioner. ??Every effort has been made to ensure that the information provided is accurate and complete at the time it is provided to you however, as your needs change, or, as new ??information becomes available, different or additional instructions may be required. If you have questions, please consult with your primary care provider or pharmacist, as appropriate. ??This information is not intended to serve as substitution for assessment and evaluation by a qualified health care provider. If you do not have a primary care provider, you may find a [facility] provider by calling [facility] [employer] Link at [phone]. [facility], in keeping with [facility] guidance, no longer requires face masks for staff, patientsor visitors in most situations. Similar to time spent indoors at other locations, there is the chance that you were exposed to respiratory viruses during your time with us (such as flu or COVID-19).? If you develop symptoms concerning for a viral respiratory infection, please seek testing (and treatment if indicated) from your medical provider or home test kit. For information about the plan of care including goals and instructions for your diagnosis, please see the patient education orders section of this document. Patient Education Materials?? The content of this educational material or handout may have been modified, supplemented, or adapted from its original content and format to support your individualized medical care. Viral Upper Respiratory Illness (Adult) You have a viral upper respiratory illness (URI), which is another term for the common cold. This illness is contagious during the first few days. It is spread through the air by coughing and sneezing. It may also be spread by direct contact (touching the sick person and then touching your own eyes, nose, or mouth). Frequent handwashing will decrease risk of spread. Most viral illnesses go away within 7 to 10 days with rest and simple home remedies. Sometimes the illness may last for several weeks. Antibiotics will not kill a virus, and they are generally not prescribed for this condition. Home care ??? If symptoms are severe, rest at home for the first 2 to 3 days. When you resume activity, don'tlet yourself get too tired. ??? Avoid being exposed to cigarette smoke (yours or others???). ??? You may use acetaminophen or ibuprofen to control pain and fever, unless another medicine was prescribed. (Note: If you have chronic liver or kidney disease, have ever had a stomach ulcer or gastrointestinal bleeding, or are taking blood-thinning medicines, talk with your healthcare provider before using these medicines.) Aspirin should never be given to anyone under 18 years of age who is ill with a viral infection or fever. It may cause severe liver or brain damage. ??? Your appetite may be poor, so a light diet is fine. Avoid dehydration by drinking 6 to 8 glasses of fluids per day (water, soft drinks, juices, tea, or soup). Extra fluids will help loosen secretions in the nose and lungs. ??? Hlle-xjx-uepbrha cold medicines will not shorten the length of time you???re sick, but they maybe helpful for the following symptoms: cough, sore throat, and nasal and sinus congestion. (Note: Do not use decongestants if you have high blood pressure.) Follow-up care Follow up with your healthcare provider, or as advised. When to seek medical advice Call your healthcare provider right away if any of these occur: ??? Cough with lots of colored sputum (mucus) ??? Severe headache; face, neck, or ear pain ??? Difficulty??swallowing??due to throat pain ??? Fever of 100.4??F (38??C) Call 911, or get immediate medical care Call emergency services right away if any of these occur: ??? Chest pain, shortness of breath, wheezing, or difficulty breathing ??? Coughing up blood ??? Inability to swallow due to throat pain ?? 4688-0061 [employer]. [address] [place] [address]. All rights reserved. This information is not intended as a substitute for professional medical care. Always follow your healthcare professional's instructions. * aMrly Golden: PERFORM, SIGN, VERIFY Event Display: Patient Education/Instruction Authored Date: [id number] [facility] *[facility] Clinical Summary Name OLIVIA MENDOZA Age 48 Years 1975 PCP Ashwin PALMA, Asma PCP Visit Date 10/28/2023 12:15:00 Additional Instructions: Scheduled Appointments?? Future Appointments ?No Future Appointments Scheduled Follow-Up Instructions ?? Diagnosis Medications: Please continue your medications until treatment is completed or stopped by your provider. Discuss any questions related to medications with your provider. Medications to Continue with No Changes These medications were not printed or sent to your pharmacy Docusate (Colace sodium 100 mg oral capsule) 1 capsule Oral twice a day as needed for constipation for 10 Days. Refills: 0. Next Dose: Omeprazole (omeprazole 20 mg oral enteric coated capsule) 1 capsule Oral Daily as needed Indigestion. Next Dose: Ondansetron (ondansetron 4 mg oral tablet, disintegrating) 1 tab(s) Oral every 8 hours as needed asneeded for nausea/vomiting. Refills: 0. Next Dose: Pantoprazole (pantoprazole 20 mg oral delayed release tablet) 2 tab(s) Oral Daily for 30 Days. Refills: 0. Next Dose: Zolpidem (Ambien 10 mg oral tablet) 2 tab(s) Oral Daily at Bedtime. Next Dose: Allergy Info:?? Percocet ; Ortho-Novum 07/18; scopolamine; oxycodone; morphine Medications Given This Visit Future Orders ?No future orders Vital Signs Height Weight BMI Blood Pressure / Temperature Pulse Rate Respiratory Rate 02 Sat Mode of Delivery / You can now view a summary of your hospital visit from the comfort of your home through a free online portal called [employer]. [employer] is a website that allows you to securely view your medical information including discharge summary, medications and follow-up visits. ??You can alsosend a secure electronic message to your doctor???s office to request appointments, renew medications or just ask a question. You can enroll at [email or web address] or register during your next office visit. Disclaimer:?? The information provided is of a general nature and is intended to be used in conjunction with the recommendations and advice of your health care practitioner. ??Every effort has been made to ensure that the information provided is accurate and complete at the time it is provided to you however, as your needs change, or, as new ??information becomes available, different or additional instructions may be required. If you have questions, please consult with your primary care provider or pharmacist, as appropriate. ??This information is not intended to serve as substitution for assessment and evaluation by a qualified health care provider. If you do not have a primary care provider, you may find a [facility] provider by calling [facility] Link at [phone]. [facility], in keeping with [facility] guidance, no longer requires face masks for staff, patientsor visitors in most situations. Similar to time spent indoors at other locations, there is the chance that you were exposed to respiratory viruses during your time with us (such as flu or COVID-19).? If you develop symptoms concerning for a viral respiratory infection, please seek testing (and treatment if indicated) from your medical provider or home test kit. For information about the plan of care including goals and instructions for your diagnosis, please see the patient education orders section of this document. Patient Education Materials?? The content of this educational material or handout may have been modified, supplemented, or adapted from its original content and format to support your individualized medical care. Patient Care team information Care Team Personnel Name: Audrey Christopher MD Position: [facility] Physician - Primary Care Member Role: PCP Address: Address: [address] [place], [place] [address] Name: Govind Meyers RN Position: S RN Member Role: Primary Care Nurse Name: Priti Montaño RN Position: S RN Member Role: Primary Care Nurse Care Team Related Persons Name: CALVIN REYES Address: home [address] [place] [address] Name: JB UMAÑA Address: [address] [place] [address] Name: SORAYA ORTIZ Address: home [address] [place] [address]
--- OUTSIDE RECORDS SUMMARY | 2024-05-02 08:25 | XMS_ITS | Continuity of Care Document ---
Author Organization [facility] Address [address] [place] [address]- Care Team Providers Care Engineering Project Designer Name Role Phone Aleksander PALMA, Mayela Pisano Primary Care Physician Encounter [facility] Date(s): 02/24/23 - 02/24/[address] [address]- Discharge Disposition: A-D/C Home Attending Physician: Trenton Tovar DO Admitting Physician: Trenton Tovar DO Referring Physician: Not on Staff, Referring MD Allergies, Adverse Reactions, Alerts Substance Reaction [...] 12/18/21 8:09:00 EDT, Route to Pharmacy Electronically, [facility], Partial fill upon patient request if the prescr... Start Date: 12/18/21 Stop Date: 12/28/21 Status: Ordered omeprazole 20 mg oral enteric [...] Refills, Maintenance, 02/24/23 12:33:00 EDT, DIS Tablet, [facility], Partial fill upon patient request [...] Most recent to oldest [Reference Range]: 1 2 3 Oxygen Saturation [94-100 %] 100 % (02/24/23 12:39 PM) 97 % (02/24/23 11:38 AM) 100 % (02/24/23 10:17 AM) Pulse Rate [55-90 bpm] 78 bpm (02/24/23 12:39 PM) 95 bpm *H* (02/24/23 11:38 AM) 112 bpm *H* (02/24/23 10:17 AM) Blood Pressure [90-138/55-84 mm Hg] 123/98mm Hg (02/24/23 12:39 PM) 118/74mm Hg (02/24/23 11:38 AM) 125/74mm Hg (02/24/23 10:17 AM) Respiratory Rate [16-30 br/min] 18 br/min (02/24/23 12:39 PM) 18 br/min (02/24/23 11:38 AM) 18 br/min (02/24/23 10:17 AM) Temperature [96.8-100.4 DegF] 99.2 DegF (02/24/23 12:39 PM) 99.6 DegF (02/24/23 11:38 AM) 98.5 DegF (02/24/23 10:17 AM) Mode of Delivery (Oxygen) Room air (02/24/23 12:39 PM) Room air (02/24/23 11:38 AM) Room air (02/24/23 10:17 AM) Blood pressure sites Arm, left (02/24/23 12:39 PM) Arm, right (02/24/23 11:38 AM) Arm, left (02/24/23 10:17 AM) Temperature Route Oral (02/24/23 12:39 PM) Oral (02/24/23 11:38 AM) Oral (02/24/23 10:17 AM) Social History Social History Type Response Smoking Status 5-9 cigarettes (betw een 1/4 to 1/2 pack)/day in last 30 days entered on: 12/08/19 Sex Note * Julien Armijo DO: PERFORM Event Display: Patient Education Leaflets Authored Date: Viral Gastroenteritis (Adult) ?? [id number] Viral Gastroenteritis (Adult) Gastroenteritis is often called the stomach flu. But it has nothing to do with influenza. It's mostoften caused by a virus that affects the stomach and intestinal tract. Most bouts last from 2 to 7 days. Common viruses causing gastroenteritis include norovirus, rotavirus, and hepatitis A. Nonviralcauses of gastroenteritis include bacteria, parasites, and toxins. The danger from repeated vomiting or diarrhea is dehydration. This is when the body loses too??muchfluid. When this occurs, you must replace the body fluids. Antibiotics aren't an effective treatment for this condition because it's caused by a virus. Symptoms of viral gastroenteritis may include: ??? Watery, loose stools ??? Stomach pain or belly (abdominal) cramps ??? Fever and chills ??? Nausea and vomiting ??? Loss of bowel control ??? Headache Home care Gastroenteritis is spread by contact with the stool or vomit of an infected person. This can occur from person to person or from contact with a contaminated surface. Follow these guidelines when caring for yourself at home: ??? If symptoms are severe, rest at home for the next 24 hours or until you are feeling better. ???Wash your hands with soap and clean, running water or use alcohol-based director auto to prevent the spread of infection. Wash your hands after touching anyone who is sick. ??? Wash your hands or use alcohol-based director auto after using the toilet and before meals. Clean the toilet after each use. Remember these tips when preparing food: ??? People with diarrhea should not prepare or serve food??to others. When preparing foods, wash your hands before and after. ??? Wash your hands after using cutting boards, counter tops, knives, or utensils??that have been in contact with raw food. ??? Dry your hands with a single-use disposable towel. ??? Keep uncooked meats away from cooked and lppiy-jf-iej foods. Medicine Use acetaminophen or nonsteroidal anti-inflammatory drugs (NSAID) such as ibuprofen or naproxen to control fever, unless another medicine was given. If you have chronic liver or kidney disease, talk with your healthcare provider before using these medicines. Also talk with your provider if you've??had a stomach ulcer or??gastrointestinal bleeding. Don't give aspirin??to anyone under 18 years of age who is ill with a fever. It may result in a serious illness called Sherrie syndrome that may cause severe liver damage or even . Don't use NSAIDS if you're already taking one for another condition (like arthritis) or are on aspirin (such as for heart disease or after a stroke). If medicines for vomiting or diarrhea are prescribed, take these only as directed. Nausea and diarrhea medicines are generally OK unless you have bleeding, fever, or severe abdominal pain. Diet Follow these guidelines for??food: ??? Water and liquids are important so you don't get dehydrated. Drink small amounts often or suck on ice chips as tolerated if you are vomiting. ??? If you eat, stay away from fatty, greasy, spicy, or fried foods. ??? Don't eat dairy if you have diarrhea. This can make diarrhea worse. ??? Avoid tobacco, alcohol, and caffeine. These may worsen symptoms. During the first 24 hours (the first full day), follow the diet below: ??? Beverages. Sip sports drinks, soft drinks without caffeine, dariana jani, mineral water (plain orflavored), decaffeinated tea and coffee. If you are very dehydrated, sports drinks aren't a good choice. They have too much sugar and not enough electrolytes. In this case, use products called oral rehydration solutions. You can buy these at pharmacies and grocery stores. ??? Soups. Eat clear broth, consomm??, and bouillon. ??? Desserts. Eat gelatin, ice pops, and fruit juice bars. During the next 24 hours (the second day), you may add the following to the above: ??? Hot cereal, plain toast, bread, rolls, and crackers ??? Plain noodles, rice, mashed potatoes, chicken noodle or rice soup ??? Unsweetened canned fruit (avoid pineapple), bananas ??? Limit fat intake to less than 15 grams per day. Do this by avoiding margarine, butter, oils, mayonnaise, sauces, gravies, fried foods, peanut butter, meat, poultry, and fish. ??? Limit fiber and avoid raw or cooked vegetables, fresh fruits (except bananas), and bran cereals. ??? Limit caffeine and chocolate. Don't use spices or seasonings other than salt. ??? Limit dairy products. ??? Avoid alcohol. During the next 24 hours: ??? Gradually resume a normal diet as you feel better and your symptoms improve. ??? If at any time it starts getting worse again, go back to clear liquids until you feel better. ?? Follow-up care Follow up with your healthcare provider, or??as advised. Call your provider if you don't get betterwithin 24 hours or if diarrhea lasts more than a few days. It's also important to follow up if you can't keep down liquids, which can lead to becoming dehydrated. If a stool (diarrhea) sample was taken, call as directed for the results. ?? Call 911 Call 911 if any of these occur: ??? Trouble breathing ??? Chest pain ??? Confused ??? Severe drowsiness or trouble awakening ??? Fainting or loss of consciousness ??? Rapid heart rate ??? Seizure ???Stiff neck ?? When to get medical advice Call your healthcare provider right away if any of these occur: ??? Abdominal pain that gets worse ??? Continued vomiting (can't keep liquids down) ??? Frequent diarrhea (more than 5 times a day) ???Blood in vomit or stool (black or red color) ??? Dark urine, reduced urine output, or extreme thirst ??? Weakness or dizziness ??? Drowsiness ??? Fever of 100.4??F (38??C)??or higher, or as advised by your provider ??? New rash ?? Last Reviewed Date: 2021 ?? 3228-2382 [employer]. All rights reserved. This information is not intended as a substitute for professional medical care. Always follow your healthcare professional's instructions. ?? Patient Care team information Care Team Personnel Name: Aleksander PALMA , Mayela Pisano Position: Reference Physician Member Role: PCP Address: Address: [address] [place] [address]- Name: Govind Meyers RN Position: [facility] RN Member Role: Primary Care Nurse Name: Priti Montaño RN Position: [facility] RN Member Role: Primary Care Nurse Name: Azucena Gomez RN Position: [facility] RN Member Role: Primary Care Nurse Name: Trenton Tovar DO Position: [facility] ED Medicine MD Member Role: Admitting Physician Address: Address: [address] [place] [id number] Name: Albert Brooks Position: [facility] ED [facility] Member Role: Tank Car Cleaner Name: Julien Armijo DO Position: [facility] Resident Member Role: ED Resident Address: Address: [address] [place] [id number] Care Team Related Persons Name: CALVIN REYES Address: home [address] [place] [address] Name: JB UMAÑA Address: [address] [place] [address] Name: SORAYA ORTIZ Address: [address] [place] [address]
--- OUTSIDE RECORDS SUMMARY | 2024-05-02 08:25 | XMS_ITS | Continuity of Care Document ---
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 Name Role Phone Ashwin PALMA, Asma Primary Care Physician [phone] Encounter [facility] [place] Date(s): 10/28/23 - 11/27/23 [facility] [address] [place] [address]- Attending Physician: Te Dave Admitting Physician: AdmTe salgado Referring Physician: AdmtrTe Allergies, Adverse Reactions, Alerts Substance Reaction Severity [...] 12/18/21 8:09:00 EDT, Route to Pharmacy Electronically, [facility], Partial fill upon patient [...] Refills, Maintenance, 02/24/23 12:33:00 EDT, DIS Tablet, [facility], Partial fill upon patient request if [...] class II Confirmed Active Prediabetes Confirmed Active Social History Social History Type Response Smoking Status 5-9 cigarettes (betw een 1/4 to 1/2 pack)/day in last 30 days entered on: 12/08/19 Sex Patient Care team information Care Team Personnel Name: Ashwin PALMA, Audrey Position: [facility] Physician - Primary Care Member Role: PCP Address: Address: [address] [place] [address]- Name: Govind Meyers RN Position: S RN Member Role: Primary Care Nurse Name: Priti Montaño RN Position: S RN Member Role: Primary Care Nurse Care Team Related Persons Name: CALVIN REYES Address: home [address] [place] [address] Name: LEEROY JB Address: [address] [place] [address] Name: SORAYA ORTIZ Address: [address] [place] [address]
--- OUTSIDE RECORDS SUMMARY | 2024-05-02 08:25 | XMS_ITS | Continuity of Care Document ---
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 Name Role Phone Ashwin PALMA, Audrey Primary Care Physician Encounter [facility] Date(s): 12/26/23 - 01/02/24 [facility] [address] [place] [address]- Encounter Diagnosis URI (upper respiratory infection)(Discharge Diagnosis) - 12/26/23 Attending Physician: Stephen PALMA, Augusta Y Referring Physician: Ashwin PALMA, Audrey Allergies, Adverse Reactions, Alerts Substance Reaction Severity [...] 12/18/21 8:09:00 EDT, Route to Pharmacy Electronically, [facility], Partial fill upon patient [...] 11/25/20 Status: Ordered ondansetron 4 mg oral tablet 1 tablet = 4 mg, By Mouth, Every 8 hours, PRN Nausea, # 12 tablet, 0 Refills, Maintenance, 12/25/2412:22:00 EDT, Tablet, [id number], Partial fill upon patient request if the prescription is for a schedule II opioid drug., 168, cm, 03... Start Date: 12/26/23 Status: Ordered ondansetron 4 mg oral tablet, disintegrating 1 tablet = 4 mg, By Mouth, Every 8 hours, PRN as needed for nausea/vomiting, # 10 tablet, 0 Refills, Maintenance, 02/24/23 12:33:00 EDT, DIS Tablet, [facility], Partial fill upon patient request [...] class II Confirmed Active Prediabetes Confirmed Active Diagnosis Diagnosis Type Effective Dates Health Status Clinical Service Informant URI (upper respiratory infection) Discharge Diagnosis 12/26/23 Vital Signs Most recent to oldest [Reference Range]: 1 2 Height 168 cm (12/26/23 1:23 PM) 168 cm (12/26/23 12:55 PM) Oxygen Saturation [94-100 %] 100 % (12/26/23 12:55 PM) Pulse Rate [55-90 bpm] 94 bpm *H* (12/26/23 12:55 PM) Blood Pressure [90-138/55-84 mm Hg] 124/ 72mm Hg (12/26/23 1:23 PM) 89/60mm Hg *L* (12/26/23 12:55 PM) Respiratory Rate [16-30 br/min] 18 br/mi n (12/26/23 12:55 PM) Temperature [96.8-100.4 DegF] 99.1 DegF (12/26/23 12:55 PM) Mode of Delivery (Oxygen) Room air (12/26/23 12:55 PM) Blood pressure sites Arm, right (12/26/23 12:55 PM) Temperature Route Temporal (12/26/23 12:55 PM) Social History Social History Type Response Smoking Status 5-9 cigarettes (betw een 1/4 to 1/2 pack)/day in last 30 days entered on: 12/08/19 Sex Note * Marly Golden: PERFORM, SIGN, VERIFY Event Display: Patient Education/Instruction Authored Date: [id number] [facility] *[facility] Clinical Summary Name OLIVIA UMAÑA Age 48 Years 1975 PCP Ashwin PALMA, Audrey PCP Visit Date 12/26/2023 10:45:00 Additional Instructions: Scheduled Appointments?? Future Appointments ?No Future Appointments Scheduled Follow-Up Instructions ?? Diagnosis Acute upper respiratory infection, unspecified Medications: Please continue your medications until treatment is completed or stopped by your provider. Discuss any questions related to medications with your provider. New Medications [email or web address] #[email or web address], [address], [place] [id number], [phone] Amoxicillin-Clavulanate (amoxicillin-clavulanate 875 mg-125 mg oral tablet) 1 tab(s) Oral twice a day for 5 Days. Refills: 0. Next Dose: Medications to Continue Taking That Have Changed [email or web address] #[email or web address], [address], [place] [id number], [phone] - Ondansetron (ondansetron 4 mg oral tablet) 1 tab(s) Oral every 8 hours as needed Nausea. Refills:0. Next Dose: These medications were not printed or sent to your pharmacy - Ondansetron (ondansetron 4 mg oral tablet, disintegrating) 1 tab(s) Oral every 8 hours as needed as needed for nausea/vomiting. Refills: 0. Next Dose: Medications to Continue with No Changes These medications were not printed or sent to your pharmacy Docusate (Colace sodium 100 mg oral capsule) 1 capsule Oral twice a day as needed for constipation for 10 Days. Refills: 0. Next Dose: Lorazepam Next Dose: Omeprazole (omeprazole 20 mg oral enteric coated capsule) 1 capsule Oral Daily as needed Indigestion. Next Dose: Pantoprazole (pantoprazole 20 mg oral delayed release tablet) 2 tab(s) Oral Daily for 30 Days. Refills: 0. Next Dose: Zolpidem (Ambien 10 mg oral tablet) 2 tab(s) Oral Daily at Bedtime. Next Dose: Allergy Info:?? Percocet 5/325; Ortho-Novum 10/11; scopolamine; oxycodone; morphine Medications Given This Visit Future Orders ?No future orders Future Orders ?COVID-19, RSV, and Flu A/B, Rapid PCR? Order Date:12/26/23?- Complete within? Vital Signs Height 168 cm Weight BMI Blood Pressure 124 mm Hg/72 mm Hg Temperature 99.1 DegF Pulse Rate 94 bpm Respiratory Rate 18 br/min 02 Sat Mode of Delivery 100 %/Room air You can now view a summary of your hospital visit from the comfort of your home through a free online portal called [employer]. [employer] is a website that allows you to securely view your medical information including discharge summary, medications and follow-up visits. ??You can alsosend a secure electronic message to your doctor???s office to request appointments, renew medications or just ask a question. You can enroll at [email or web address] or register during your next office visit. [...] primary care provider, you may find a [facility] provider by calling [email or web address] Link at [phone]. [facility], in keeping with [facility] guidance, no longer requires face masks [...] Team Personnel Name: Audrey Christopher MD Position: [facility] Physician - Primary Care Member Role: PCP Address: Address: [address] [place], [place] [address] Name: Govind Meyers RN Position: S RN Member Role: Primary Care Nurse Name: Priti Montaño RN Position: S RN Member Role: Primary Care Nurse Care Team Related Persons Name: ERIC CALVIN Address: [address] [place] [address] Name: JB UMAÑA Address: [address] [place] [address] Name: SORAYA ORTIZ Address: [address] [place] [address]
--- OUTSIDE RECORDS SUMMARY | 2024-05-02 08:25 | XMS_ITS | Continuity of Care Document ---
Author Organization [facility] Address [address] [place] [address]- Care Team Providers Care Community Service Coordinator Name Role Phone Ashwin PALMA, Asma Primary Care Physician Encounter [facility] Date(s): 12/26/23 - 01/25/24 [facility] [address] [place] [address]- Attending Physician: Admnaomi, Mode8 Admitting Physician: Admtr, Ar8 Referring Physician: Admtr, Ar8 Allergies, Adverse Reactions, Alerts Substance Reaction Severity [...] 12/18/21 8:09:00 EDT, Route to Pharmacy Electronically, [facility], Partial fill upon patient request if [...] tablet, 0 Refills, Maintenance, 12/25/2412:22:00 EDT, [id number], Partial fill upon patient request if the prescription is for a schedule II opioid drug., 168, cm, 03... Start Date: 12/26/23 Status: Ordered ondansetron 4 mg oral tablet, disintegrating 1 tablet = 4 mg, By Mouth, Every 8 hours, PRN as needed for nausea/vomiting, # 10 tablet, 0 Refills, Maintenance, 02/24/23 12:33:00 EDT, DIS Tablet, [facility] 3, Partial fill upon patient request [...] Team Personnel Name: Ashwin PALMA, Audrey Position: S Physician - Primary Care Member Role: PCP Address: Address: [place] [address]- Name: Govind Meyers RN Position: [facility] RN Member Role: Primary Care Nurse Name: Priti Montaño RN Position: S RN Member Role: Primary Care Nurse Care Team Related Persons Name: CALVIN REYES Address: [address] [place] [address] Name: UMAÑA JB Address: [address] [place] [address] Name: SORAYA ORTIZ Address: [address] [place] [address]
--- OUTSIDE RECORDS SUMMARY | 2024-05-02 08:25 | XMS_ITS | Continuity of Care Document ---
Author Organization [facility] ter Address [address] [place] [id number]- Care Team Providers Care Activity Leader Name Role Phone Aleksander PALMA, Mayela Pisano Primary Care Physician [place] [facility] [place](s): 02/29/24 - 03/01/[address] [address]- Discharge Disposition: A-D/C Home Attending Physician: Raeann NY MD (Surgeon), Wili Admitting Physician: Raeann NY MD (Surgeon), Wili Referring Physician: Raeann NY MD (Surgeon), Wili Allergies, Adverse Reactions, Alerts Substance Reaction Severity Status morphine Hives Active scopolamine burning of skin Active Ortho-Novum 07/18 hives, rash, vomiting A ctive Percocet hives Active Medications acetaminophen 325 mg oral tablet 975 mg, Tablet, By Mouth, 03/01/24 6:00:00 EDT Start Date: 03/01/24 Stop Date: 03/01/24 Status: Completed acetaminophen 325 mg oral tablet 975 mg, By Mouth, Every 6 hours, Refills 0, Maintenance, 03/01/24 8:22:00 EDT, Partial fill upon patient request if the prescription is for a schedule II opioid drug. Start Date: 03/01/24 Status: Ordered Ambien 10 mg oral tablet 2 tablet = 20 mg, By Mouth, Daily at bedtime, 0 Refills, Maintenance, 05/28/14 5:52:54 EDT, Tablet Start Date: 05/28/14 Status: Ordered Colace sodium 100 mg oral capsule 100 mg, 1, capsule, By Mouth, 2 times a day, PRN, # 20 capsule, Refills 0, Tot. Refills 0, Maintenance, for constipation, 12/18/21 8:09:00 EDT, Route to Pharmacy Electronically, [facility], Partial fill upon patient request if the prescr... Start Date: 12/18/21 Stop Date: 12/28/21 Status: Ordered Lorazepam = 1 mg, By Mouth, Daily at bedtime, 0 Refills, Maintenance, 10/28/23 13:06:00 EST, Partial fill upon patient request if the prescription is for a schedule II opioid drug. Start Date: 10/28/23 Status: Ordered ondansetron 4 mg oral tablet 1 tablet = 4 mg, By Mouth, Every 8 hours, PRN Nausea, # 20 tablet, 0 Refills, Acute 03/27/24 8:21:00 EDT, 03/01/24 8:21:00 EDT, Tablet, [facility], Partial fill upon patient request if the prescription is for a schedule II opioid drug.,... Start Date: 03/01/24 Stop Date: 03/27/24 Status: Ordered oxyCODONE 5 mg oral tablet 10 mg, Tablet, By Mouth, Every 4 hours, PRN for Pain , Moderate, Routine, 02/29/24 15:48:00 EDT Start Date: 02/29/24 Stop Date: 03/01/24 Status: Discontinued oxyCODONE 5 mg oral tablet 10 mg, By Mouth, Every 6 hours, PRN, # 16 tablet, Refills 0, Tot. Refills 0, Acute 03/18/24 8:19:00EDT, Pain , Severe, 03/01/24 8:18:00 EDT, Route to Pharmacy Electronically, [facility], Partial fill upon patient request if the prescrip... Start Date: 03/01/24 Stop Date: 03/18/24 Status: Ordered pantoprazole 20 mg oral delayed [...] reflux disease) Confirmed Active Hydronephrosis Confirmed Active Prediabetes Confirmed Active Vital Signs Most recent to oldest [Reference Range]: 1 2 3 Height 168 cm (03/01/24 7:22 AM) 168 cm (03/01/24 5:00 AM) 168 cm (03/01/24 12:50 AM) Weight 84.4 kg (02/29/24 6:03 PM) 84.4 kg (02/29/24 11:22 AM) 84 kg (02/26/24 2:33 PM) Oxygen Saturation [94-100 %] 97 % (03/01/24:22 AM) 98 % (03/01/24 5:00 AM) 100 % (03/01/24 12:50 AM) Pulse Rate [55-90 bpm] 61 bpm (03/01/24:22 AM) 57 bpm (03/01/24 5:00 AM) 69 bpm (03/01/24 12:50 AM) Body Mass Index [18.5-24.99 kg/m2] 29.9 kg/m2 *H* (02/29/24 6:03 PM) 29.9 kg/m2 *H* (02/29/24 11:22 AM) 29.76 kg/m2 *H* (02/26/24 2:33 PM) Blood Pressure [90-138/55-84 mm Hg] 144/86mm Hg *H* (03/01/24 7:22 AM) 143/87mm Hg *H* (03/01/24 5:00 AM) 138/97mm Hg (03/01/24 12:50 AM) Respiratory Rate [16-30 br/min] 16 br/min (03/01/24 7:29 AM) 16 br/min (03/01/24 7:29 AM) 17 br/min (03/01/24 7:22 AM) Temperature [96.8-100.4 DegF] 98.1 DegF (03/01/24 7:22 AM) 98 DegF (03/01/24 5:00 AM) 98.2 DegF (02/29/24 7:25 PM) Liters per Minute 4 L/min (02/29/24 3:15 PM) Mode of Delivery (Oxygen) Room air (03/01/24 7:22 AM) Room air (03/01/24 5:00 AM) Room air (03/01/24 12:50 AM) Blood pressure sites Arm, left (03/01/24 7:22 AM) Arm, left (03/01/24 5:00 AM) Arm, right (03/01/24 12:50 AM) Temperature Route Oral (03/01/24 7:22 AM) Oral (03/01/24 5:00 AM) Oral (02/29/24 7:25 PM) Dry Weight 84.4 kg (02/29/24 6:03 PM) 84.4 kg (02/29/24 11:22 AM) 84 kg (02/26/24 2:33 PM) Weight Obtained Via Patient/family state d (02/26/24 2:33 PM) Dry Weight Obtained Via Standing scale (02/29/24 11:22 AM) Patient/family stated (02/26/24 2:33 PM) Social History Social History Type Response Smoking Status 5-9 cigarettes (betw een 1/4 to 1/2 pack)/day in last 30 days entered on: 12/08/19 Sex History and physical note * Event Display: History and Physical Hospital Authored Date: * Event Display: History and Physical Hospital Authored Date: Cardiology * Event Display: Cardiac Rhythm Strips Authored Date: Hospital Progress note * Cass Garcia RN: PERFORM, SIGN, VERIFY Event Display: Progress Note Hospital Authored Date: Patient: OLIVIA UMAÑA Age: 48 years Sex: Female : 1975 Associated Diagnoses: None Author: Cass Garcia RN Findings Evaluation Patient alert and oriented x 4. VSS, Reports 4/10 pain. Oxycodone given with adequate relief. Lungsare clear to auscultation bilaterally. Denies chest pain/SOB. Demonstrates proper use of incentive spirometer. Denies numbness/tingling. + pedal pulses, + CMS, no edema noted in bilateral upper/lowerextremities. Abdomen is soft, round and tender with + bowel sounds x 4. + flatus. Denies vomiting. Reports nausea. Zofran given with adequate relief. Last bowel movement 02/27. Ambulates independentlyin room and around unit. Voiding adequate amounts of CYU. Abdomen with 5 lap sites and Band-Aids all c/d/i. Patient resting comfortably in bed with call alves within reach. Bed in lowest locked position.. Discharge Information Case Management Discharge Plan : Case Management Discharge Plan Data 03/01/2024 11:50 EDT Discharge Level of Care at Discharge Home/Skilled Nursing/Foster Care * Mildred Pagan RN: PERFORM, MODIFY, SIGN, VERIFY Event Display: Progress Note Hospital Authored Date: [id number] Patient: OLIVIA UMAÑA Age: 48 years Sex: Female : 1975 Associated Diagnoses: None Author: Mildred Pagan RN Findings Problem Related to Alteration in Gastrointestinal : Alteration in Gastrointestinal Func/new 02/29/2024 20:00 EDT Alteration in GI status Related to Other: Hiatal hernia repair +partial gastrectomy 03/01 (Modified) Goals & Outcomes, Gastrointestinal Establish a regular pattern of elimination for pt, Nutritional intake is adequate for metabolic needs, Pt will achieve normal/improved fluid balance, Pt will have a bowel movement prior to discharge, Pt will maintain adequate GI function appropriate for pt, Ptwill maintain normal elimination patterns, Pt will resume/maintain adequate hemodynamic status, Pt w ill tolerate age appropriate diet prior to discharge Interventions, Gastrointestinal Assess/monitor abdomen for distention, tenderness, Assess/monitor abdominal girth & bowel function, Assess/monitor bowel pattern, bowel sounds, flatus, Assess/monitor number of bowel movements, Assess/monitor color, quantity, quality, consistency of stoo, Assess/monitor pt for nausea, vomiting, Assess/monitor effects of re-hydration, Assess/monitor intake &output, Assess if pt tolerating diet, DVT prophylaxis as ordered, Taking PO: Encourage/monitor intake & swallowing ability, Teach/encourage deep breath & cough exercises, Teach/encourage use of incentive spirometer Goals/Interventions, Gastrointestinal Yes Gastrointestinal, Problem Start 02/29/2024 19:55 Reviewed plan with, Gastrointestinal Patient Patient Progression, Gastrointestinal Plan Initiation . Narrative/Incidental P: Alteration to Gastrointestinal Function I: See interventions listed above E: Pt is alert and oriented x4, VSS. Pain 10/10, see MAR for medications given. Denies dizziness, numbness, and tingling. Positive CMS, good capillary refill and pedal pulses. No edema present, SCDs not in use however fully ambulatory. Lungs were clear to auscultation, denies shortness of breath and chest pain. Pt seen using IS frequently. Hypoactive bowel sounds. Abdomen soft, round, and tender to all 4 quadrants. Passing gas, denies nausea and vomiting. Tolerating p.o fluid intake, last bowelmovement 02/27. Pt is voiding and ambulates independently with a steady gait. Pt has ambulated x8 around the unit thus far overnight. x5 abdominal lap sites with Band-Aids, clean dry and intact. Per MD Gagnon, IVF can be d/c and additional pain meds added as pain is uncontrolled at this time. Pt is currently resting comfortably. See CIS for full assessment. Call alves is within reach and bed set to the lowest position.. * Brea Gagnon MD: PERFORM, SIGN, VERIFY Event Display: Progress Note Hospital Authored Date: Patient: OLIVIA UMAÑA Age: 48 years Sex: Female : 1975 Associated Diagnoses: None Author: Brea Gagnon MD Subjective Patient seen and examined at bedside for post-op check. Tolerated procedure well with no apparent complications. Still endorsing significant pain despite oral pain medications. Tolerating clear liquids without nausea or vomiting. Voiding without difficulty. Has been OOB and ambulating.??Denies nausea, vomiting, fever, chills, chest pain, shortness of breath. Objective General: no acute distress, awake, alert HEENT: trachea midline Cardio: RRR Pulm: no increased work of breathing Abd: soft, nondistended, appropriate marie-incisional tenderness to palpation, bandaids over port sites c/d/i Ext: no bilateral LE edema, moving all extremities equally Neuro: AAOx3 Assessment Patient is a 48 year old female, now s/p laparoscopic hiatal hernia repair and partial gastrectomy with Dr. Cary (02/28). Patient tolerated the procedure well without complications. Overall, she is recovering well with appropriate post- operative pain. Plan - CLD - Transition to soft diet x2 wks on discharge - D/c IVFs - Pain control PRN - Anti-emetics PRN - Home meds as appropriate - OOB, ambulation - DVT ppx [facility] [id number] Note * Cass Garcia RN: PERFORM Event Display: Discharge/Transfer Note Hospital Authored Date: [id number] Nursing Discharge Note Entered On: 03/01/2024 11:50 EDT Performed On: 03/01/2024 11:50 EDT by Cass Garcia RN Nursing Discharge Note 2 Discharge Time : 03/01/2024 11:45 EDT Discharge Level of Care at Discharge : Home/Skilled Nursing/Foster Care Patient Left Unit Via : Ambulatory Patient Accompanied Off Unit with : Significant other DC Instructions Provided & Signed by Pt : Yes Patient Understands D/C Instructions : Yes Patient Instructions Discharge Signed : Yes Did Pt have Specialty Bed or Wound Vac : No Cass Garcia RN - 03/01/2024 11:50 EDT * Cam Nick MD: PERFORM Event Display: Discharge/Transfer Note Hospital Authored Date: [id number] Patient: ??OLIVIA UMAÑA ? Age:??48 Years?Sex:??Female?:??1975?? Admit Date Admission Date: 02/29/2024 Discharge Date March 01, 2024 Discharge Diagnoses Hiatal hernia Hospital Course [facility]??is a 48-year-old woman with past medical history of vertical sleeve gastrectomy.?? She wasfound to have a type I paraesophageal hernia.?? Therefore, a laparoscopic paraesophageal??hernia repair with partial gastrectomy??was completed??on March 01, 2024.?? Postoperatively, she did recover??well. ??She is utilizing multimodal symptom management regimen. ??She was ambulating??without difficulty. ??She tolerated??clears thus far. ??She understands??instructions for??soft diet x 2 weeks.?? She is excited to go home.?? Of note,??leukocytosis on day of discharge is attributed to??postoperative status. Objective/Physical Exam on Day of Discharge Vitals & Measurements T:??98.1?F?? HR:??61??(Peripheral)?? RR:??16?? RR:??16?? BP:??144/86?? SpO2:??97%?? HT:??168??cm?? WT:??84.4??kg?? BMI:??29.9?? General: no acute distress, awake, alert, standing without difficulty HEENT: trachea midline Cardio: Regular rate Pulm: no increased work of breathing Abd: soft, nondistended, appropriate marie-incisional tenderness to palpation, bandaids over port sites c/d/i Ext: no bilateral LE edema, moving all extremities equally, ambulating without difficulty Neuro: AAOx3 Assessment/Plan Status post elective paraesophageal hernia repair with partial gastrectomy. ??Tolerated procedure well. ??Hemodynamically stable and appropriate for discharge.?? Multimodal symptom management continued at time of discharge.?? Soft diet x 2 weeks. ?? Future Appointments Please attend your follow-up as scheduled. ??If there is no follow-up scheduled, please call office. PCP Follow-Up/Heads-Up Status post paraesophageal hernia repair Patient Discharge Condition Improved Discharge Disposition Home Procedures Performed This Visit Repair Hernia Hiatal Laparoscopic Inpatient Medications Medications (12) Active SCHEDULED: (4) Acetaminophen 325 mg Tablet (acetaminophen 325 mg oral tablet) ??975 mg, By Mouth, Every 6 hours Enoxaparin 40 mg Inj (Enoxaparin Inj) ??40 mg 0.4 mL, Subcutaneous Injection, Daily Lorazepam 1 mg Tablet (Ativan 1 mg oral tablet) ??1 mg, By Mouth, Daily at bedtime Pantoprazole 40 mg EC Tablet (pantoprazole 20 mg oral delayed release tablet) ??40 mg, By Mouth, Daily CONTINUOUS: (0) PRN: (8) diphenhydrAMINE 50 mg/mL Inj (DiphenhydrAMINE Inj (PACU ONLY)) ??12.5 mg 0.25 mL, IV Push, Once diphenhydrAMINE 50 mg/mL Inj (DiphenhydrAMINE Inj) ??12.5 mg 0.25 mL, IV Push, Every 6 hours Docusate Sodium 100 mg Capsule (Colace sodium 100 mg oral capsule) ??100 mg 1 capsule, By Mouth, 2 times a day Haloperidol Lactate 5 mg/mL Inj (1 mL) (Haloperidol LACTATE Inj) ??1 mg 0.2 mL, IV Push, Every 6 hours nalOXONE ??400mcg/mL Inj (nalOXONE Inj) ??0.04 mg 0.1 mL, IV Push, Every 5 minutes Ondansetron 2mg/mL Inj (2mL Vial) (Ondansetron Inj) ??4 mg, IV Push, Every 6 hours OxyCODONE 5 mg IR Tablet (oxyCODONE 5 mg oral tablet) ??10 mg, By Mouth, Every 4 hours Zolpidem 5 mg Tablet (Ambien 5 mg oral tablet) ??10 mg, By Mouth, Daily at bedtime Discharge Medications Acetaminophen (acetaminophen 325 mg oral tablet)?975?Milligram?By Mouth?Every 6 hours Docusate (Colace sodium 100 mg oral capsule)?100?Milligram?1?capsule?By Mouth?2 times a day?as needed?for 10?Days?for constipation Lorazepam?1?Milligram?By Mouth?Daily at bedtime Ondansetron (ondansetron 4 mg oral tablet)?1?tab(s)?4?Milligram?By Mouth?Every 8 hours?as needed?Nausea Oxycodone (oxyCODONE 5 mg oral tablet)?10?Milligram?By Mouth?Every 6 hours?as needed?Pain , Severe Pantoprazole (pantoprazole 20 mg oral delayed release tablet)?2?tab(s)?40?Milligram?By Mouth?Daily?for 30?Days Zolpidem (Ambien 10 mg oral tablet)?2?tab(s)?20?Milligram?By Mouth?Daily at bedtime Labs Last 24 Hours BLOOD COUNT & DIFF ? Event Name?? Event Result?? Date/Time?? WBC 16.8 k/mm3??High 03/01/24 04:57:00 RBC 4.57 m/mm3 03/01/24 04:57:00 Hgb 14.4 Gm/dL 03/01/24 04:57:00 Hct 41.8 % 03/01/24 04:57:00 MCV 91.5 femtoliters 03/01/24 04:57:00 MCH 31.5 pg 03/01/24 04:57:00 MCHC 34.4 g/dL 03/01/24 04:57:00 Platelet Count 316 k/mm3 03/01/24 04:57:00 MPV 8.9 femtoliters??Low 03/01/24 04:57:00 Nucleated RBC (Automated) 0 #/100 WBC'S 03/01/24 04:57:00 ? CHEM GENERAL ? Event Name?? Event Result?? Date/Time?? Sodium 137 mmol/L 03/01/24 04:57:00 Chloride 103 mmol/L 03/01/24 04:57:00 Bicarbonate Level 22 mmol/L 03/01/24 04:57:00 Anion Gap 12 03/01/24 04:57:00 BUN 8 mg/dL 03/01/24 04:57:00 Creatinine-Blood 0.73 mg/dL 03/01/24 04:57:00 ? Patient Instructions Discharge Instructions? If you develop fever, chills, increased pain, nausea, vomiting, bleeding, or increased redness or pus around the wound please call??Dr. Cary's office at [phone]. ?? A narcotic was prescribed to help reduce your pain. Take only as needed for your pain; you may choose to fill the prescription in a lesser amount. When taking opioids, there is an increase chance of abuse and/or overdose. Other side effects/complications include nausea, vomiting, difficulty breathing, sedation and constipation.? You may continue to take Tylenol. ?? You??may remove the bandages??48 hours after surgery. ??If Steri-Strips are in place, they will fall off with time. ?? Please continue a??soft??diet for 2 weeks. ??Please attend your scheduled follow-up. ?? Activity Instructions ?? -No heavy lifting >10 lbs -Increase activity as tolerated -Encourage coughing and deep breathing, use of incentive spirometer -No tub baths until incision(s) has/have healed -No driving until off narcotics and cleared by Surgery?? * Cass Garcia RN: PERFORM Event Display: Patient Education/Instruction Authored Date: [id number] Inpatient Adult Discharge Instructions. [address] [address] Name: OLIVIA UMAÑA : 1975?? Visit: 02/29/2024 10:00?? Current Date: 03/01/2024 08:32 ?? Account: [id number]?? Inpatient Adult Discharge Instructions We would like to thank you for allowing us to assist you with your healthcare needs. The following includes patient education materials and information regarding your injury/illness. Our entire staffstrives to provide an excellent experience for our patients and their families. PLEASE ENSURE YOU FOLLOW-UP PER THE INSTRUCTIONS BELOW! ?? YOUR OPINION IS IMPORTANT TO US! Please complete the survey you may receive by mail or email. Your feedback will be used to make improvements to the healthcare experiences of our patients and their families. Surveys are administered by [employer] ?? If further treatment with your primary care physician or another doctor is recommended, it is important for you to keep the appointment. Call your primary care physician or return to the Emergency Department immediately if your condition worsens, fails to improve, or new symptoms develop. If you need to find a doctor, you can call [facility] for a referral at [phone] or toll free at [phone] [phone]) or log in to [email or web address].. ?? [facility], in keeping with [facility] guidance, no longer requires face masks for staff, patientsor visitors in most situations. Similiar to time spent indoors at other locations, there is the chance that you were exposed to repiratory viruses during your time with us (such as flu or COVID-19). If you develop symptoms concerning for a viral respiratory infection, please seek testing (and treatment if indicated) from your medical provider or home test kit. ?? You can view and manage your care through the patient portal or by using a health care cullen of your choosing. [employer] is a website that allows you to securely view your medical information including your hospital discharge summary, office visit summaries, medications and follow-up visits. You can also request appointments, renew medications, and request access to your medical information using a health care cullen of your choosing, or just ask a question. You can enroll at [email or web address] or register during your next office visit. You have been discharged from [facility], Patient Care Unit: SW6??. If you have any questions regarding these instructions, including results of studies pending, afteryou leave, please call us and we will be happy to assist you 30/04. [facility] Your Care Team Attending Physician Raeann NY MD (Surgeon), Wili?? Consulting Providers Raeann NY MD (Surgeon)Wili?? Discharging Providers Cam Nick MD Tests Performed Below is a partial list of the tests performed during your hospitalization. You may have had other tests and procedures not included in this list. Please discuss all test results with your provider. BUN CBC w/ Differential Creatinine Electrolytes CBC?? Pathology Tissue Request ()?? Primary Care Provider Aleksander PALMA , Mayela Pisano? Advance Directive Health Care Proxy on File Yes - Health Care Proxy Discharge Vitals Temperature: 98.1 DegF Height: 168 cm Pulse Rate: 61 bpm Weight: 84.4 kg Respiratory Rate: 16 br/min Body Mass Index:??29.9 kg/m2??High Respiratory Rate: 16 br/min Body surface area: 1.98 Systolic Blood Pressure:??144 mm Hg??High ?? Diastolic Blood Pressure:??86 mm Hg??High ?? Oxygen Saturation: 97 % ?? Studies Pending All studies ordered during this hospital stay have been completed unless listed below. Please discuss all pending results with your provider listed above in these instructions. ?? CBC?? Pathology Tissue Request ()?? What to do next Instructions From Your Doctor Discharge Instructions? If you develop fever, chills, increased pain, nausea, vomiting, bleeding, or increased redness or pus around the wound please call??Dr. Cary's office at [phone]. ?? A narcotic was prescribed to help reduce your pain. Take only as needed for your pain; you may choose to fill the prescription in a lesser amount. When taking opioids, there is an increase chance of abuse and/or overdose. Other side effects/complications include nausea, vomiting, difficulty breathing, sedation and constipation.? You may continue to take Tylenol. ?? You??may remove the bandages??48 hours after surgery. ??If Steri-Strips are in place, they will fall off with time. ?? Please continue a??soft??diet for 2 weeks. ??Please attend your scheduled follow-up. ?? Activity Instructions ?? -No heavy lifting >10 lbs -Increase activity as tolerated -Encourage coughing and deep breathing, use of incentive spirometer -No tub baths until incision(s) has/have healed -No driving until off narcotics and cleared by Surgery? Orders? 03/01/24 8:30:00 EDT?? Discharge Medications OLIVIA UMAÑA :1975 Visit Date:02/29/2024 Medications: Please continue your medications until treatment is completed or stopped by your provider. Medications not listed below should be discontinued. Discuss any questions related to medications with your provider. What How Much When Instructions Next Dose New Acetaminophen (acetaminophen 325 mg oral tablet) 975 Milligram Oral Every 6 hours as needed New Oxycodone (oxyCODONE 5 mg oral tablet) 10 Milligram Oral Every 6 hours as needed for Pain , Severe Pickup at [place] [address] 03/01 1230 Unchanged Docusate (Colace sodium 100 mg oral capsule) 1 capsule Oral Twice a day as needed for for constipation Duration: 10 Days as ordered Unchanged Lorazepam 1 Milligram Oral Daily at Bedtime as ordered Unchanged Ondansetron (ondansetron 4 mg oral tablet) 1 tab(s) Oral Every 8 hours as needed for Nausea Pickup at [place] [address] 03/01 1630 Unchanged Pantoprazole (pantoprazole 20 mg oral delayed release tablet) 2 tab(s) Oral Daily Duration: 30 Days 03/02 Unchanged Zolpidem (Ambien 10 mg oral tablet) 2 tab(s) Oral Daily at Bedtime 03/01 Pharmacy Information [facility]: [address], [place] [id number] [phone] Prescription Given During Visit Ondansetron (ondansetron 4 mg oral tablet) - 1 tablet = 4 mg, By Mouth, Every 8 hours, # 20 tablet,0 Refills, [facility], [address] [place] [phone]?? Oxycodone (oxyCODONE 5 mg oral tablet) - 10 mg, By Mouth, Every 6 hours, # 16 tablet, 0 Refills, [facility], [address] [place] [phone]?? Laboratory Results Below is a partial list of the most recent Laboratory test results done prior to this discharge. You may have had other tests and procedures not included in this list. Please discuss all test resultswith your provider. Est Creatinine Clearance - 89.68 mL/min (03/01/2024) BUN (03/01/2024) ???BUN - 8 mg/dL CBC w/ Differential (03/01/2024) ???WBC - 16.8 k/mm3???RBC - 4.57 m/mm3???Hgb - 14.4 Gm/dL???Hct - 41.8 %???MCV - 91.5 femtoliters???MCH - 31.5 pg???MCHC - 34.4 g/dL???Platelet Count - 316 k/mm3???RDW-SD - 46.0 femtoliters???MPV - 8.9 femtoliters???Nucleated RBC (Automated) - 0.0 #/100 WBC'S???Abs. NRBC - 0.0 k/mm3???Abs. Neut - 13.6 k/mm3???Abs. Lymph - 2.2 k/mm3???Abs. [place] - 1.0 k/mm3???Abs. Eo - 0.0 k/mm3???Abs. Baso - 0.0 k/mm3???Neut % - 80.8 %???Lymph % - 12.8 %???[place] % - 5.6 %???Eos % - 0.1 %???Baso % - 0.2 %???Imm Gran - 0.5 %???Abs. Imm Gran - 0.1 k/mm3 Creatinine (03/01/2024) ???Creatinine-Blood - 0.73 mg/dL???Estimated GFR Creatinine - 102 ML/MIN/1.73 M2 Electrolytes (03/01/2024) ???Sodium - 137 mmol/L???Potassium - 4.6 mmol/L???Chloride - 103 mmol/L???Bicarbonate Level - 22 mmol/L???Anion Gap - 12 Allergies (NKA means No Known Allergies) Ortho-Novum 07/18??(hives, rash, vomiting) Percocet ??(hives) morphine??(Hives) scopolamine??(burning of skin) Problems Active Problems??(3) GERD (gastroesophageal reflux disease)?? Hydronephrosis?? Prediabetes?? Education Materials Below is the list of Educational Leaflet Providered with your Discharge Instructions. Valuables and Belongings I fully understand and agree that [facility] accepts no responsibility for all my personal property including clothing, toilet articles, radios, jewelry, dentures, hearing aids, rings, money, or any other property that is in my possession or is brought to me after admission. I understand certain valuables may be placed in a hospital safe for a short period of time. I understand that the hospital is not liable for loss or damage due to accident, fire, or other natural occurrence while said property is in the safe. I accept full responsibility for any personal property that I keep with me, and will not hold the hospital responsible in case of loss or disappearance. I acknowledge that i have been encouraged to send valuables and belongings home. ?? Review of Valuable and Belonging List: With patient Disposition of Belongings: Other: PACU Date for Pt to Sign Valuables/Belongings: 02/29/24 18:01:00 ?? Other Discharge Information ? Pulmonary Rehab Status?? Pulmonary Rehab Discharge Status?? Respiratory Rate: 16 br/min Respiratory Rate: 16 br/min ? Common Emergency Awareness Tips IS IT A STROKE? Act FAST and Check for these signs: FACE Does the face look uneven? ARM Does one arm drift down? SPEECH Does their speech sound strange? TIME Call at any sign of stroke ?? Heart Attack Signs Chest discomfort: Most heart attacks involve discomfort in the center of the chest and lasts more than a few minutes, or goes away and comes back. It can feel like uncomfortable pressure, squeezing, fullness or pain. Discomfort in upper body: Symptoms can include pain or discomfort in one or both arms, back, neck, jaw or stomach. Shortness of breath: With or without discomfort. Other signs: Breaking out in a cold sweat, nausea, or lightheaded. Remember, MINUTES DO MATTER. If you experience any of these heart attack warning signs, call to get immediate medical attention! ?? Smoking can increase your chances of developing chronic health problems and can cause harmful effects to other family members in your house. If you smoke, you are strongly encouraged to quit. Please call [facility] Consumer Link at [phone] or 1-476-877Cartour ([phone]) or log in to [email or web address] for referrals to smoking cessation programs. ?? 822 Suicide & Crisis Lifeline is available 30/04 if you or someone you know needs to find a reason to keep living. By calling 495 you'll be connected to a skilled, trained counselor at a crisis center in your area. INPATIENT DISCHARGE INSTRUCTIONS SIGNATURE PAGE OLIVIA UMAÑA Location:[facility] Registration Date and Time:02/29/2024 10:00 EDT Primary Care Physician: Aleksander PALMA , Mayela Pisano, Attending Physician: Raeann NY MD (Surgeon), Wili, I OLIVIA UMAÑA, have received the above patient education materials/instructions and have verbalized understanding. If ambulance or transport services are being used I further acknowledge being given a choice of service. ?? If you need to contact me, please call me at this number: . Patient/Procedures Tech Name: Patient/Procedures Tech Signature: Relationship to Patient: Witness Name/Signature: Date: Patient Care team information Care Team Personnel Name: Aleksander PALMA , Mayela Pisano Position: Reference Physician Member Role: PCP Address: Address: [address] Name: Govind Meyers RN Position: S RN Member Role: Primary Care Nurse Name: Priti Montaño RN Position: S RN Member Role: Primary Care Nurse Name: Gus Bang RN Position: S RN Member Role: Primary Care Nurse Care Team Related Persons Name: CALVIN REYES Address: [address] [place] [address] Name: JB UMAÑA Address: [address] [place] [address] Name: SORAYA ORTIZ Address: [address] [place] [address]
--- OUTSIDE RECORDS SUMMARY | 2024-05-02 08:25 | XMS_ITS | Continuity of Care Document ---
Author Organization [facility] ter Address [address] [place] [address]- Care Team Providers Care Director Business Development Name Role Phone Aleksander PALMA, Mayela Pisano Primary Care Physician Encounter [facility] Date(s): 08/25/23 - 08/25/[address] [address]- Encounter Diagnosis Left thumb sprain(Final) - 08/25/23 Discharge Disposition: A-D/C Home Attending Physician: Kenan Almonte MD Admitting Physician: Kenan Almonte MD Referring Physician: Not on Staff, Referring MD [...] 12/18/21 8:09:00 EDT, Route to Pharmacy Electronically, [facility], Partial fill upon patient [...] Refills, Maintenance, 02/24/23 12:33:00 EDT, DIS Tablet, [facility], Partial fill upon patient request if [...] class II Confirmed Active Prediabetes Confirmed Active Results Radiology Reports * Exam Date Time Procedure Performing Provider Status 08/25/23 12:46 PM XR Hip w/Pelvis 2-3 View Left Razia Stringer; Eladia (Verified) Notes: (XR Hip w/Pelvis 2-3 View Left) Reason For Exam: With Pain;Trauma RESULT: XR Hip w/Pelvis 2-3 View Left XR Hip w/Pelvis 2-3 View Left Hx of Present Illness: pt states she was working on the floor was assisiting a patient bed was unlocked and pt fell no LOC no thinners pt c o left shoulder, left hip and left rib pain.; Reason: Trauma; With Pain; Clinical Question(s): Fracture COMPARISON: None. FINDINGS: There is no fracture or dislocation at the hip joint. No pelvic ring disruption. Mild degenerative changes at the sacroiliac joints and lower lumbar spine. Postsurgical changes at the lumbosacral junction, intervertebral disc level. IMPRESSION: No fracture or dislocation of the left hip. WSN: [id number] Ordering Physician: Carin Mccracken Dictated By: Sandra Mcpherson MD Dictated Date/Time: 08/25/23 12:56 p Reviewed By: Sandra Mcpherson MD Signed By: Sandra Mcpherson MD Signed Date/Time: 08/25/23 12:56 pm Transcribed By: JYOTI Transcribed Date/Time: 08/25/23 12:55 pm * Exam Date Time Procedure Performing Provider Status 08/25/23 12:46 PM Finger Thumb Left Hand Muna Bowen; Auth (Verified) Notes: (Finger Thumb Left Hand) Reason For Exam: with Pain;Trauma RESULT: Finger Thumb Left Hand Finger Thumb Left Hand, 3 views Hx of Present Illness: pt states she was working on the floor was assisiting a patient bed was unlocked and pt fell no LOC no thinners pt c o left shoulder, left hip and left rib pain.; Reason: Trauma; with Pain; Clinical Question(s): Fracture COMPARISON: None. FINDINGS: No fractures or bone lesions. Mild degenerative changes at the first carpometacarpal joint and minimal degenerative changes at the interphalangeal joint. Normal soft tissues. IMPRESSION: No acute fracture. WSN: [id number] Ordering Physician: Carin Mccracken Dictated By: Sandra Mcpherson MD Dictated Date/Time: 08/25/23 12:54 p Reviewed By: Sandra Mcpherson MD Signed By: Sandra Mcpherson MD Signed Date/Time: 08/25/23 12:54 pm Transcribed By: JYOTI Transcribed Date/Time: 08/25/23 12:53 pm * Exam Date Time Procedure Performing Provider Status 08/25/23 12:46 PM Elbow Min 3 Views Left Muna Bowen; Auth (Verified) Notes: (Elbow Min 3 Views Left) Reason For Exam: with Pain;Trauma RESULT: Elbow Min 3 Views Left Elbow Min 3 Views Left, 3 views Hx of Present Illness: pt states she was working on the floor was assisiting a patient bed was unlocked and pt fell no LOC no thinners pt c o left shoulder, left hip and left rib pain.; Reason: Trauma; with Pain; Clinical Question(s): Fracture COMPARISON: None. FINDINGS: There is no evidence of acute fracture or dislocation. There are minimal osteoarthritic changes with mild spurring. No joint effusion. IMPRESSION: Minimal osteoarthritic changes without evidence of acute fracture or dislocation. WSN: [id number] Ordering Physician: Carin Mccracken Dictated By: Phylicia Davis MD Dictated Date/Time: 08/25/23 12:52 p Reviewed By: Phylicia Davis MD Signed By: Phylicia Davis MD Signed Date/Time: 08/25/23 12:52 pm Transcribed By: JYOTI Transcribed Date/Time: 08/25/23 12:50 pm * Exam Date Time Procedure Performing Provider Status 08/25/23 12:46 PM Clavicle Complete Left Muna Bowen; Auth (Verified) Notes: (Clavicle Complete Left) Reason For Exam: with Pain;Trauma RESULT: Clavicle Complete Left Clavicle Complete Left Hx of Present Illness: pt states she was working on the floor was assisiting a patient bed was unlocked and pt fell no LOC no thinners pt c o left shoulder, left hip and left rib pain.; Reason: Trauma; with Pain; Clinical Question(s): Fracture COMPARISON: None. FINDINGS: No fractures or bone lesions. Mild to moderate acromial clavicular degenerative changes. No abnormal widening. Normal surrounding soft tissues. IMPRESSION: No acute fracture or abnormality. WSN: [id number] Ordering Physician: Carin Mccracken Dictated By: Sandra Mcpherson MD Dictated Date/Time: 08/25/23 1:29 pm Reviewed By: Sandra Mpcherson MD Signed By: Sandra Mcpherson MD Signed Date/Time: 08/25/23 1:29 pm Transcribed By: JYOTI Transcribed Date/Time: 08/25/23 12:49 pm * Exam Date Time Procedure Performing Provider Status 08/25/23 12:46 PM Shoulder Min 2 Views Left Razia Bowen; Auth (Verified) Notes: (Shoulder Min 2 Views Left) Reason For Exam: with Pain;Trauma RESULT: Shoulder Min 2 Views Left Shoulder Min 2 Views Left, 2 views Hx of Present Illness: pt states she was working on the floor was assisiting a patient bed was unlocked and pt fell no LOC no thinners pt c o left shoulder, left hip and left rib pain.; Reason: Trauma; with Pain; Clinical Question(s): Fracture COMPARISON: 08/18/2020 FINDINGS: No fracture or dislocation. Mild glenohumeral joint space narrowing and marginal spurring. Mild to moderate degenerative changes of the AC joint. The portion of the clavicle included on the exam is normal. Calcific density at the rotator cuff which can be seen with prior tendinosis or tendinitis. IMPRESSION: No acute fracture or dislocation. WSN: [id number] Ordering Physician: Carin Mccracken Dictated By: Sandra Mcpherson MD Dictated Date/Time: 08/25/23 12:49 p Reviewed By: Sandra Mcpherson MD Signed By: Sandra Mcpherson MD Signed Date/Time: 08/25/23 12:49 pm Transcribed By: JYOTI Transcribed Date/Time: 08/25/23 12:47 pm Vital Signs Most recent to oldest [Reference Range]: 1 2 3 Oxygen Saturation [94-100 %] 98 % (08/25/23 1:54 PM) 99 % (08/25/23 11:42 AM) 100 % (08/25/23 10:46 AM) Pulse Rate [55-90 bpm] 63 bpm (08/25/23 1:54 PM) 71 bpm (08/25/23 11:42 AM) 70 bpm (08/25/23 10:46 AM) Blood Pressure [90-138/55-84 mm Hg] 117/73mm Hg (08/25/23 1:54 PM) 127/78mm Hg (08/25/23 11:42 AM) 129/81mm Hg (08/25/23 10:46 AM) Respiratory Rate [16-30 br/min] 18 br/min (08/25/23 11:42 AM) 18 br/min (08/25/23 10:46 AM) 20 br/min (08/25/23 8:36 AM) Temperature [96.8-100.4 DegF] 98.1 DegF (08/25/23 1:54 PM) 98.6 DegF (08/25/23 10:46 AM) 98.6 DegF (08/25/23 8:36 AM) Mode of Delivery (Oxygen) Room air (08/25/23 1:54 PM) Room air (08/25/23 11:42 AM) Room air (08/25/23 10:46 AM) Blood pressure sites Arm, left (08/25/23 1:54 PM) Arm, right (08/25/23 11:42 AM) Arm, right (08/25/23 10:46 AM) Temperature Route Oral (08/25/23 1:54 PM) Oral (08/25/23 10:46 AM) Oral (08/25/23 8:36 AM) Social History Social History Type Response Smoking Status 5-9 cigarettes (betw een 1/4 to 1/2 pack)/day in last 30 days entered on: 12/08/19 Sex Note * Carin Martinez: PERFORM Event Display: Patient Education Leaflets Authored Date: [id number] Shoulder Sprain ?? [id number] Shoulder Sprain A sprain is a stretching or tearing of the ligaments that hold a joint together. A sprain may take up to 8 weeks or longer to fully heal, depending on how severe it is. Moderate to severe shoulder sprains are treated with a sling or shoulder immobilizer. Minor sprains can be treated without any special support. Home care The following guidelines will help you care for your injury at home: ??? If a sling was given to you, leave it in place for the time advised by your healthcare provider. If you aren???t sure how longto wear it, ask for advice. If the sling becomes loose, adjust it so that your forearm is parallel to the ground. Your shoulder should feel well supported. ??? Put an ice pack on the injured area for20 minutes every 1 to 2 hours the first day. You can make your own ice pack by putting ice cubes mayte plastic bag. A bag of frozen peas or something similar works well too. Wrap the bag in a thin towel. Continue with ice packs 3 to 4 times a day for the next 2 to 3 days. Then use the pack as neededto ease pain and swelling. ??? You may use acetaminophen or ibuprofen to control pain, unless another pain medicine was prescribed.??If you have chronic liver or kidney disease, talk with your healthcare provider before using these medicines. Also talk with your provider if you???ve had a stomach ulcer, have gastrointestinal bleeding, or take a blood thinner. ??? Shoulder joints become stiff if left in a sling for too long. You should start range of motion exercises usually about 7 to 10 days after the injury. Talk with your provider to find out what type of exercises to do and how soon to start. ?? Follow-up care Follow up with your healthcare provider, or as advised. Any X-rays you had today don???t show any broken bones, breaks, or fractures. Sometimes fractures don???t show up on the first X-ray. Bruises and sprains can sometimes hurt as much as a fracture. These injuries can take time to heal completely. If your symptoms don???t improve or they get worse, talk with your provider. You may need repeat X-rays or other treatments. ?? When to seek medical advice Call your healthcare provider right away??if any of the following occur: ??? Shoulder pain or swelling in your arm that gets worse ??? Fingers become cold, blue, numb, or tingly ??? Large amount of bruising of the shoulder or upper arm ??? Fever or chills ?? Last Reviewed Date: 2022 ?? 6315-4823 [employer]. All rights reserved. This information is not intended as a substitute for professional medical care. Always follow your healthcare professional's instructions. ?? * Carin Martinez: PERFORM Event Display: Patient Education Leaflets Authored Date: [id number] Finger Sprain ?? [id number] Finger Sprain A sprain is a stretching or tearing of the ligaments that hold a joint together. There are no broken bones. Sprains take 3 to 6 weeks or more to heal. A sprained finger may be treated with a splint or moon tape. This is when you tape the injured finger to the one next to it for support. Minor sprains may require no additional support. Home care ??? Keep your hand raised (elevated) to reduce pain and swelling. This is very important during the first 48 hours. ??? Apply an ice pack over the injured area for 15 to 20 minutes every 3 to 6 hours. You should do this for the first 24 to 48 hours. You can make an ice pack by filling a plastic bag that seals at the top with ice cubes and then wrapping it with a thin towel. Continue theuse of ice packs for relief of pain and swelling as needed. As the ice melts, be careful to avoid getting any wrap or splint wet. After 48 to 72 hours, or as directed by your healthcare provider, apply heat (warm shower or warm bath) for 15 to 20 minutes several times a day. Or you can switch between ice and heat. ??? If moon tape was applied and it becomes wet or dirty, change it. You may replace it with paper, plastic or cloth tape. Cloth tape and paper tapes must be kept dry. Apply gauze orcotton padding between the fingers, especially at the webbed space. This will help prevent the skinfrom getting moist and breaking down. Keep the moon tape in place for at least 4 weeks, or as instructed by your healthcare provider. ??? If a splint was applied, wear it for the time advised. ??? You may use jspw-wip-gldexlq pain medicine to control pain, unless another pain medicine was prescribed. If you have long-term (chronic) liver or kidney disease, ever had a stomach ulcer or gastrointestinal bleeding, or take blood thinners, talk with your healthcare provider before using these medicines. ?? Follow-up care Follow up with your healthcare provider as directed. Finger joints will become stiff if immobile for too long. If a splint was applied, ask your healthcare provider when it's safe to begin wwcms-vs-lovugs exercises. Sometimes fractures don???t show up on the first X-ray. Bruises and sprains can sometimes hurt as much as a fracture. These injuries can take time to heal completely. If your symptoms don???t improveor they get worse, talk with your healthcare provider. You may need a repeat X-ray. If X-rays were taken, you'll be told of any new findings that may affect your care. ?? When to get medical advice Call your healthcare provider right away if any of these occur: ??? Pain or swelling increases ??? Fingers or hand becomes cold, blue, numb, or tingly ?? Last Reviewed Date: 2021 ?? 6234-5896 [employer]. All rights reserved. This information is not intended as a substitute for professional medical care. Always follow your healthcare professional's instructions. ?? Patient Care team information Care Team Personnel Name: Aleksander PALMA , Mayela Pisano Position: Reference Physician Member Role: PCP Address: Address: [address] [place] [address]- Name: Govind Meyers RN Position: [facility] RN Member Role: Primary Care Nurse Name: Priti Montaño RN Position: [facility] RN Member Role: Primary Care Nurse Name: Milena Chase LPN Position: [facility] ED RN W/OE and Tasks Member Role: Patient Care Provider Name: Carin Martinez Position: [facility] Associate Professional Member Role: Physician Fish Straightener Address: Address: [address] [place] [address]- Name: Evangelina Nuñez Position: [facility] ED TA [facility] Member Role: Patient Care Provider Name: Kenan Almonte MD Position: [facility] ED Medicine MD Member Role: Admitting Physician Address: Address: [address] [place] [address]- Care Team Related Persons Name: ERIC CALVIN Address: home [address] [place] [address] Name: KENAN UMAÑA Address: [address] [place] [address] Name: SORAYA ORTIZ Address: [address] [place] [address]
--- OUTSIDE RECORDS SUMMARY | 2024-05-02 08:25 | XMS_ITS | Continuity of Care Document ---
Author Organization [facility] ter Address [address] [place] [address]- Care Team Providers Care Fitter Armament Name Role Phone Ashwin PALAM, Asma Primary Care Physician [phone] [id number] - 12/23/[address] [address]- Attending Physician: Alexander , Yudith Admitting Physician: Alexander Provider Referring Physician: Alexander , Provider Allergies, Adverse Reactions, Alerts Substance Reaction Severity [...] 12/18/21 8:09:00 EDT, Route to Pharmacy Electronically, [facility], Partial fill upon patient [...] Refills, Maintenance, 02/24/23 12:33:00 EDT, DIS Tablet, [facility], Partial fill upon patient request [...] Team Personnel Name: Ashwin PALMA, Audrey Position: [facility] Physician - Primary Care Member Role: PCP Address: Address: [address] [place] [address]- Name: Govind Meyers RN Position: S RN Member Role: Primary Care Nurse Name: Priti Montaño RN Position: S RN Member Role: Primary Care Nurse Care Team Related Persons Name: CALVIN REYES Address: home [address] [place] [address] Name: LEEROY JB Address: [address] [place] [address] Name: SORAYA ORTIZ Address: [address] [place] [address]
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
== END 2024-05-02 17:41 | disposition home or self-care (01) ==
LOC: HO.HMGC 08:23
PROVIDERS: PCP Internal Medicine; Visit Provider Internal Medicine
DX: M25.50 Pain in unspecified joint (principal); Z84.0 Family history of diseases of the skin and subcutaneous tissue; F51.01 Primary insomnia; F41.9 Anxiety disorder, unspecified; F32.A Depression, unspecified
CPT/HCPCS: 96127; 99214

== ENCOUNTER 2024-06-30 09:04 | Outpatient (AMB) | payer OTHER, SELFPAY ==
--- NOTE | 2024-06-30 09:15 | MHC.OFFVISPS ---
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 Allergies morphine [MORPHINE] Allergy (Severe, Verified 05/02/24 09:21) ANAPHYLAXIS, hives, redness and itching barium sulfate Adverse Reaction (Unknown, Verified 05/02/24 09:21) couldn't sleep, weird dreams, sleep walking Lipitor Allergy (Mild, Uncoded 05/02/24 09:21) hives Medication List - Last Reconciled 06/30/24 by Yvrose Franco APRN buspirone 10 mg PO BID 30 days cholecalciferol (vitamin D3) 250 mcg PO eszopiclone 3 mg PO BEDTIME PRN fluconazole 50 mg PO DAILY 14 days lorazepam 1 mg PO DAILY PRN triamcinolone acetonide 0.1% 1 appl topical BID 10 days HPI- Psychiatric Chief Complaint: consultation HPI Narrative: pt reports she is struggling with not sleeping; she is always on the go, works 12 hour shifts, her head /mind is always racing; she is thinking about all the things she has to do and her mind won't shut off; she is distracted, goes from one activity to another. she can not fall sleep at night for days at a time; she will rest but often doesn't fall into deep sleep. she was diagnosed with PTSD and ADHD as a child. Her mother did not want her to take medication as a child so her ADHD was never treated; she had therapy as a child. her mother had her in every sport when she was young to keep her active and busy; her days were highly structure and she did well with that. she got good grades and excelled in track, football, swim team. She had more trouble with restlessness and hyperactivity as a teen. 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 Pt tried buspar for anxiety but it made her gfeel flat and like a zombie. she felt overmedicated. she stopped it 2 weeks ago. she has taken ambien in the past and sleeps at least 4 hors with it; she has tried OTC meds including unisom, benadryl and melatonin and combinations fot these without any positive benefit; the Benadryl has caused a paradoxical effect and kept her awake and twitching. She has tried lunesta up to 3 mg without benefit and stopped this as well. she tried wellbutrin inpast for ADHD but it gave her terrible headaches. she tried trazodne for sleep but it made her tired all da . hydroxyzine caused a paradoxical effect. lorazepam helped her sleep longer but she doesn't want to take every day. Past Psychiatric History: outpatient during childhood- psychiatry and therapy; no IPLOC Subjective Subjective Subjective Medication Compliance: No Side effects from medications: Yes Review of Systems Medical Review of Systems: unchanged Mental Status Exam Mental Status Exam Patient Appearance: Well Grooomed and Appropriate Patient Orientation: Person, Place, Time and Situation Level of Consciousness: Awake, Appropriate and Alert Patient Behavior: Appropriate, Guarded, Talkative and Restless Mood Description: Anxious, Sad and Expansive Affect Description: Anxious, Sad and Expansive Patient Cognition Impaired: No Ability to Follow Directions: Fair Speech Pattern: Spontaneous Speech, Rapid (interrupts ) and Excessive Memory Description: Intact Hallucinations: None Delusions: Not Present Thought Process: Intact and Goal Oriented Thought Content: positive for Intact, positive for Goal Oriented and positive for Loose Associations Judgement: Good Assessment and Plan Assessment & Plan (1) Generalized anxiety disorder: Status: Acute Code(s): F41.1 - Generalized anxiety disorder (2) ADHD (attention deficit hyperactivity disorder), combined type: Status: Acute Code(s): F90.2 - Attention-deficit hyperactivity disorder, combined type Plan discussed option for treating ADHD including risk of stimulants worsening anxiety and alternatives to stimulants; discussed options for sleep; pt is reluctant to treat anxiety first as she believes the anxiety and even sleeplessness is due to untreated ADHD which may in fact be accurate; discussed risk vs benefits of treating ADHD first and agreed that we will try that and if not tolerated will need to circel back and treat anxiety first. Plan is to trial adderall IR 10mg bid 4 hours apart restart ambien 10mg at bedtime follow up in 3 weeks conside guanfacine if stimulants not helpful consider low dose lexapro if anxiety persists Medications: New zolpidem (Ambien) 10 mg PO BEDTIME 30 tabs 0RF sleep dextroamphetamine-amphetamine 10 mg (Adderall) administer doses at least 4 hours apart; Partial Fill upon patient request. 10 mg PO BID 60 tabs 0RF Discontinued eszopiclone Discontinued Reason: Doctor's Order 3 mg PO BEDTIME PRN 30 tabs 0RF insomnia F51.01 - Primary insomnia buspirone Discontinued Reason: Doctor's Order 10 mg PO BID 30 days 60 tabs 0RF Counseling and coordination of Care Pt. Self Management counseling: Exercise, Maintenance-social rhythm, Mindfulness, Mod caffeine/ETOH intake, Sleep hygiene, Behavior activation, Cognitive restructuring, General coping skills and Problem solving Medication management counseling: Effectiveness, Side effects, Dosing range, Duration, Drug interaction and Adherence Diagnosis and Prognosis Counseling: Accuracy of diagnosis, Prognosis over time, Impact of diagnosis on life functions, Impact of family relationship, Problematic behaviors secondary to diagnosis and Adequacy of current interventions Details: I spent 70 minutes reviewing the record, seeing the patient and documenting in the medical record. Counseling provided to the patient/caregiver as outlined below. Addressed patient/caregiver concerns regarding current medication regime including effective adherence. Addressed patient/caregiver concerns regarding diagnosis and prognosis including accuracy of diagnosis, prognosis over time, impact of diagnosis. Addressed patient/caregiver concerns regarding impact of recent stressors. [facility] Medical History Knee osteoarthritis Anxiety and depression Dyslipidemia Condyloma acuminata Flexor tenosynovitis of finger Insomnia Generalized anxiety disorder Family history of lupus erythematosus Polyarthralgia Eczema Vitamin D deficiency Familial hypercholesterolemia Morbid obesity due to excess calories Surgical History History of lumbar fusion History of carpal tunnel surgery Hx of lumbar discectomy History of S/P gastric sleeve procedure History of loop electrical excision procedure (LEEP) History of tonsillectomy Hx of colonoscopy Family History Father Ischemic heart disease Diabetes mellitus Mental health disorder Brother Mental health disorder Mother Mental health disorder Sister Mental health disorder Social History Housing: House Patient Tobacco Use Status: Current someday Tobacco user Cigarettes Per Day: 10 e-Cigarette/Vaping Use: Never Used service: No Current occupational status: employed Current occupation: Home [employer] Current occupational exposures/hazards: Yes Cognitive needs: No Hearing needs: No Vision needs: No Social History: lives with ; has 2 adult children and one 4 yo granddaughter Substance History: none Trauma History: yes Coding Level of Care Code Psych Diag Eval w/Med (53268) Diagnoses Generalized anxiety disorder F41.1 ADHD (attention deficit hyperactivity disorder), combined type F90.2
== END 2024-06-30 10:10 | disposition home or self-care (01) ==
LOC: HO.HOP 09:04
PROVIDERS: PCP Internal Medicine; Visit Provider Clinical Nurse Specialist Psychiatric/Mental Health
DX: F41.1 Generalized anxiety disorder (principal); F90.2 Attention-deficit hyperactivity disorder, combined type
CPT/HCPCS: 90792

== ENCOUNTER → 2024-06-30 09:04 | Outpatient (BNVA) | payer OTHER, SELFPAY | PROVIDERS: PCP Internal Medicine; Visit Provider Clinical Nurse Specialist Psychiatric/Mental Health | DX: F41.1 Generalized anxiety disorder (principal); F90.2 Attention-deficit hyperactivity disorder, combined type | CPT/HCPCS: 90792 ==

== ENCOUNTER 2024-07-24 09:46 | Outpatient (AMB) | payer OTHER, SELFPAY ==
--- NOTE | 2024-07-24 10:08 | A.OFFPSYCH_ITS ---
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 Allergies morphine [MORPHINE] Allergy (Severe, Verified 05/02/24 09:21) ANAPHYLAXIS, hives, redness and itching barium sulfate Adverse Reaction (Unknown, Verified 05/02/24 09:21) couldn't sleep, weird dreams, sleep walking Lipitor Allergy (Mild, Uncoded 05/02/24 09:21) hives Medication List - Last Reconciled 07/24/24 by Yvrose Franco APRN cholecalciferol (vitamin D3) 250 mcg PO dextroamphetamine-amphetamine 10 mg (Adderall) 10 mg PO BID fluconazole 50 mg PO DAILY 14 days lorazepam 1 mg PO DAILY PRN triamcinolone acetonide 0.1% 1 appl topical BID 10 days zolpidem (Ambien) 10 mg PO BEDTIME HPI- Psychiatric Chief Complaint: follow up HPI Narrative: Patient reports much better functioning with focus and concentration and completing tasks from starting the Adderall. She is taking Adderall 10 mg twice a day she is much calmer during the daytime she is able to start tasks but also not over focus and become obsessive or go from 1 activity to the other without finishing. No side effects from the Adderall. She is still not sleeping which has been a long and chronic problem she is taking Ambien 10 mg at bedtime. She states that she has even taken 20 mg since she still only sleeps 3-4 hours despite long days at work and feeling tired. She has good sleep hygiene. She does not use caffeine. She has tried hydroxyzine Benadryl trazodone. She has had a paradoxical were reaction to hydroxyzine and Benadryl and felt wide awake and agitated. On the trazodone she slept better but felt tired all day long and could not function. She has had a sleep study which showed no sleep apnea and no restless legs syndrome. Past Psychiatric History: outpatient during childhood- psychiatry and therapy; no IPLOC Subjective Subjective Subjective Medication Compliance: Yes Side effects from medications: No Review of Systems Medical Review of Systems: unchanged Mental Status Exam Mental Status Exam Patient Appearance: Well Grooomed and Appropriate Patient Orientation: Person, Place, Time and Situation Level of Consciousness: Awake and Appropriate Patient Behavior: Appropriate and Good Eye Contact Mood Description: Cheerful and Anxious Affect Description: Cheerful and Anxious Patient Cognition Impaired: No Ability to Follow Directions: Good Speech Pattern: Clear and Appropriate Memory Description: Intact Hallucinations: None Delusions: Not Present Thought Process: Intact and Goal Oriented Thought Content: positive for Intact and positive for Goal Oriented Judgement: Good Assessment and Plan Assessment & Plan (1) ADHD (attention deficit hyperactivity disorder), combined type: Status: Acute Code(s): F90.2 - Attention-deficit hyperactivity disorder, combined type (2) Insomnia: Status: Acute Qualifiers: Insomnia type: primary Qualified Code(s): F51.01 - Primary insomnia Code(s): G47.00 - Insomnia, unspecified Plan Discontinue the lorazepam as she is not using it Discontinue zolpidem IR 10 mg as it is ineffective Continue Adderall 10 mg b.i.d. Start clonidine 0.1 mg 2 hours before bedtime Start Ambien CR 12.5 mg 20-30 minutes before sleep. Encourage small snack and 4-6 oz of water before bedtime to reduce dehydration and low blood pressure. Medications: New zolpidem ER (Ambien CR) 12.5 mg PO BEDTIME 30 tabs 1RF clonidine HCl 0.1 mg PO BEDTIME 30 tabs 1RF Refilled dextroamphetamine-amphetamine 10 mg (Adderall) administer doses at least 4 hours apart; Partial Fill upon patient request. 10 mg PO BID 60 tabs 0RF Discontinued lorazepam Discontinued Reason: Doctor's Order 1 mg PO DAILY PRN 30 tabs 0RF anxiety Counseling and coordination of Care Pt. Self Management counseling: Maintenance-social rhythm, Mod caffeine/ETOH intake, Sleep hygiene, Behavior activation, Cognitive restructuring, General coping skills and Problem solving Medication management counseling: Effectiveness, Side effects, Dosing range, Duration, Drug interaction, Adherence and Other (review of sleep hygiene ) Diagnosis and Prognosis Counseling: Accuracy of diagnosis, Prognosis over time, Impact of diagnosis on life functions, Impact of family relationship, Problematic behaviors secondary to diagnosis and Adequacy of current interventions Details: I spent 45 minutes reviewing the record, seeing the patient and documenting in the medical record. Counseling provided to the patient/caregiver as outlined below. Addressed patient/caregiver concerns regarding current medication regime including effective adherence. Addressed patient/caregiver concerns regarding diagnosis and prognosis including accuracy of diagnosis, prognosis over time, impact of diagnosis. Addressed patient/caregiver concerns regarding impact of recent stressors. [facility] Medical History Knee osteoarthritis Anxiety and depression Dyslipidemia Condyloma acuminata Flexor tenosynovitis of finger Insomnia Generalized anxiety disorder Family history of lupus erythematosus Polyarthralgia Eczema Vitamin D deficiency Familial hypercholesterolemia Morbid obesity due to excess calories Surgical History History of lumbar fusion History of carpal tunnel surgery Hx of lumbar discectomy History of S/P gastric sleeve procedure History of loop electrical excision procedure (LEEP) History of tonsillectomy Hx of colonoscopy Family History Father Ischemic heart disease Diabetes mellitus Mental health disorder Brother Mental health disorder Mother Mental health disorder Sister Mental health disorder Social History Housing: House Patient Tobacco Use Status: Current someday Tobacco user Cigarettes Per Day: 10 e-Cigarette/Vaping Use: Never Used service: No Current occupational status: employed 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
== END 2024-07-24 10:54 | disposition home or self-care (01) ==
LOC: HO.HOP 09:46
PROVIDERS: PCP Internal Medicine; Visit Provider Clinical Nurse Specialist Psychiatric/Mental Health
DX: F90.2 Attention-deficit hyperactivity disorder, combined type (principal); F51.01 Primary insomnia
CPT/HCPCS: 90833; 99214

== ENCOUNTER → 2024-07-24 09:46 | Outpatient (BNVA) | payer OTHER, SELFPAY | PROVIDERS: PCP Internal Medicine; Visit Provider Clinical Nurse Specialist Psychiatric/Mental Health ==

== ENCOUNTER 2024-07-31 15:47 | Outpatient (AMB) | payer OTHER, SELFPAY ==
--- NOTE | 2024-07-31 16:16 | A.OFFPSYCH_ITS ---
Intake Intake Visit Reasons: f/u consultation Allergies morphine [MORPHINE] Allergy (Severe, Verified 05/02/24 09:21) ANAPHYLAXIS, hives, redness and itching barium sulfate Adverse Reaction (Unknown, Verified 05/02/24 09:21) couldn't sleep, weird dreams, sleep walking Lipitor Allergy (Mild, Uncoded 05/02/24 09:21) hives Medication List - Last Reconciled 07/31/24 by Yvrose Franco APRN cholecalciferol (vitamin D3) 250 mcg PO dextroamphetamine-amphetamine 10 mg (Adderall) 10 mg PO BID fluconazole 50 mg PO DAILY 14 days mirtazapine 7.5 mg PO BEDTIME triamcinolone acetonide 0.1% 1 appl topical BID 10 days zolpidem 10 mg PO BEDTIME PRN HPI- Psychiatric Chief Complaint: f/u consultation HPI Narrative: pt tried ambien CR 12.5 mg for past 4 days and has not slept at all; she called for sooner than scheduled appt due to lack of sleep effecting her functioning; she is very anxios; she has tried ambien, ambien CR, trazodone, benadryl, clonidine, propranolol, amitriptyline and hydroxyzine- none of whcih calmed her down or helped her sleep; she had paradoxical effect from benadryl and hydroxyzine; trazodone was too sedating in adaytime. Past Psychiatric History: outpatient during childhood- psychiatry and therapy; no IPLOC Subjective Subjective Subjective Medication Compliance: Yes Side effects from medications: No Review of Systems Medical Review of Systems: unchanged Mental Status Exam Mental Status Exam Patient Appearance: Well Grooomed and Appropriate Patient Orientation: Person, Place, Time and Situation Level of Consciousness: Awake Patient Behavior: Cooperative Mood Description: Anxious and Sad Affect Description: Anxious and Sad Patient Cognition Impaired: No Ability to Follow Directions: Good Speech Pattern: Clear Memory Description: Intact Hallucinations: None Delusions: Not Present Thought Process: Intact and Goal Oriented Thought Content: positive for Intact and positive for Goal Oriented Judgement: Fair Telehealth Telehealth Telehealth Platform: Other (please specify) ([email or web address]) Location of provider rendering services: practice address Location of patient: other (workplace in the [facility]) Patient Identification confirmed using: Name, : Yes Telehealth method: video Patient verbally consented to treatment: Yes Patient verbally consented to billing insurance company: Yes Patient informed of any privacy concerns related to visit: Yes Minutes spent on Phone/Video with Pt.: 20 Assessment and Plan Assessment & Plan (1) Insomnia: Status: Acute Qualifiers: Insomnia type: primary Qualified Code(s): F51.01 - Primary insomnia Code(s): G47.00 - Insomnia, unspecified Plan d/c clonidine and ambien cr restart ambien 10mg at bedtime trial of mirtazepine 7.5mg at bedtime consider low dose mood stabilizer if still can't sleep Medications: Discontinued zolpidem ER (Ambien CR) Discontinued Reason: Doctor's Order 12.5 mg PO BEDTIME 30 tabs 1RF clonidine HCl Discontinued Reason: Doctor's Order 0.1 mg PO BEDTIME 90 tabs 0RF Counseling and coordination of Care Pt. Self Management counseling: Mod caffeine/ETOH intake and Sleep hygiene Medication management counseling: Effectiveness, Side effects, Dosing range, Duration, Drug interaction and Adherence Diagnosis and Prognosis Counseling: Accuracy of diagnosis and Adequacy of current interventions Details: I spent 30 minutes reviewing the record, seeing the patient and documenting in the medical record. Counseling provided to the patient/caregiver as outlined below. Addressed patient/caregiver concerns regarding current medication regime including effective adherence. Addressed patient/caregiver concerns regarding diagnosis and prognosis including accuracy of diagnosis, prognosis over time, impact of diagnosis. Addressed patient/caregiver concerns regarding impact of recent stressors. [facility] Medical History Knee osteoarthritis Anxiety and depression Dyslipidemia Condyloma acuminata Flexor tenosynovitis of finger Insomnia Generalized anxiety disorder Family history of lupus erythematosus Polyarthralgia Eczema Vitamin D deficiency Familial hypercholesterolemia Morbid obesity due to excess calories Surgical History History of lumbar fusion History of carpal tunnel surgery Hx of lumbar discectomy History of S/P gastric sleeve procedure History of loop electrical excision procedure (LEEP) History of tonsillectomy Hx of colonoscopy Family History Father Ischemic heart disease Diabetes mellitus Mental health disorder Brother Mental health disorder Mother Mental health disorder Sister Mental health disorder Social History Housing: House Patient Tobacco Use Status: Current someday Tobacco user Cigarettes Per Day: 10 e-Cigarette/Vaping Use: Never Used service: No Current occupational status: employed Current occupation: Home [employer] Current occupational exposures/hazards: Yes Cognitive needs: No Hearing needs: No Vision needs: No Social History: lives with ; has 2 adult children and one 4 yo granddaughter Substance History: none Trauma History: yes Coding Level of Care Code Tele Est Pt Level 4 (50792) Diagnoses Primary insomnia F51.01 Insomnia type: primary
== END 2024-07-31 15:47 | disposition home or self-care (01) ==
LOC: HO.HOP 15:47
PROVIDERS: PCP Internal Medicine; Visit Provider Clinical Nurse Specialist Psychiatric/Mental Health
DX: F51.01 Primary insomnia (principal)
CPT/HCPCS: 99214

== ENCOUNTER → 2024-07-31 15:47 | Outpatient (BNVA) | payer OTHER, SELFPAY | PROVIDERS: PCP Internal Medicine; Visit Provider Clinical Nurse Specialist Psychiatric/Mental Health ==

== ENCOUNTER 2024-08-11 09:48 | Outpatient (AMB) | payer OTHER, SELFPAY ==
--- NOTE | 2024-08-11 09:58 | MHC.OFFVISPS ---
Intake Intake Visit Reasons: f/u consultation Provider Education Specialist Required: No Allergies morphine [MORPHINE] Allergy (Severe, Verified 05/02/24 09:21) ANAPHYLAXIS, hives, redness and itching barium sulfate Adverse Reaction (Unknown, Verified 05/02/24 09:21) couldn't sleep, weird dreams, sleep walking Lipitor Allergy (Mild, Uncoded 05/02/24 09:21) hives Medication List - Last Reconciled 08/11/24 by Yvrose Franco APRN cholecalciferol (vitamin D3) 250 mcg PO dextroamphetamine-amphetamine 10 mg (Adderall) 10 mg PO BID fluconazole 50 mg PO DAILY 14 days mirtazapine 7.5 mg PO BEDTIME triamcinolone acetonide 0.1% 1 appl topical BID 10 days zolpidem 10 mg PO BEDTIME PRN HPI- Psychiatric Chief Complaint: f/u consultation HPI Narrative: pt struggling with chronic insomnia; has been taking ambien for 15 years; she can only sleep 4 hours if she takes 20mg at bedtime and then she is awake for the rest of the night. Pt can not sleep at all without it; 3 weeks ago she went 4 days without sleeping. ambien CR did not work at all; she has tried ambien, ambien CR, trazodone, benadryl, clonidine, propranolol, amitriptyline and hydroxyzine- none of whcih calmed her down or helped her sleep; she had paradoxical effect from benadryl and hydroxyzine; trazodone was too sedating in daytime. discussed sleep hygiene; pt having no caffeine or stimulant after 3 pm. Past Psychiatric History: outpatient during childhood- psychiatry and therapy; no IPLOC Subjective Subjective Subjective Medication Compliance: Yes Side effects from medications: No Review of Systems Medical Review of Systems: unchanged Mental Status Exam Mental Status Exam Patient Appearance: Well Grooomed and Appropriate Patient Orientation: Person, Place, Time and Situation Level of Consciousness: Awake, Appropriate and Alert Patient Behavior: Appropriate and Cooperative Mood Description: Anxious Affect Description: Anxious Patient Cognition Impaired: No Ability to Follow Directions: Good Speech Pattern: Clear Memory Description: Intact Hallucinations: None Delusions: Not Present Thought Process: Intact Thought Content: positive for Intact Depressive Symptoms: Increased Anxiety Judgement: Good Assessment and Plan Assessment & Plan (1) ADHD (attention deficit hyperactivity disorder), combined type: Status: Acute Code(s): F90.2 - Attention-deficit hyperactivity disorder, combined type (2) Insomnia: Status: Acute Qualifiers: Insomnia type: primary Qualified Code(s): F51.01 - Primary insomnia Code(s): G47.00 - Insomnia, unspecified (3) Anxiety about health: Status: Acute Code(s): R45.89 - Other symptoms and signs involving emotional state Plan increased anxiety about not sleeping contiue good sleep hygiene behaviors stop ambien trial of rozerem 8 mg at bedtime ativan 1 mg take 1/2 tab 30 minutes before bedtime and may take an additional tablet daily prn panic consider CBT to address insomnia if not improved Medications: New ramelteon (Rozerem) 8 mg PO BEDTIME 30 tabs 1RF lorazepam (Ativan) 1 mg orally take 1/2 tablet 30 minutes before bedtime and take 1 tablet daily prn panic 45 tabs 2RF anxiety Refilled dextroamphetamine-amphetamine 10 mg (Adderall) administer doses at least 4 hours apart; Partial Fill upon patient request. 10 mg PO BID 60 tabs 0RF Discontinued mirtazapine Discontinued Reason: Doctor's Order 7.5 mg PO BEDTIME 30 tabs 0RF Counseling and coordination of Care Pt. Self Management counseling: Maintenance-social rhythm, Mod caffeine/ETOH intake and Sleep hygiene Medication management counseling: Effectiveness, Side effects, Dosing range, Duration, Drug interaction and Adherence Details-Med Mgmt counseling: sleep hygien counsleing Diagnosis and Prognosis Counseling: Accuracy of diagnosis, Prognosis over time, Impact of diagnosis on life functions, Impact of family relationship, Problematic behaviors secondary to diagnosis and Adequacy of current interventions Details: I spent 35 minutes reviewing the record, seeing the patient and documenting in the medical record. Counseling provided to the patient/caregiver as outlined below. Addressed patient/caregiver concerns regarding current medication regime including effective adherence. Addressed patient/caregiver concerns regarding diagnosis and prognosis including accuracy of diagnosis, prognosis over time, impact of diagnosis. Addressed patient/caregiver concerns regarding impact of recent stressors. [facility] Medical History Knee osteoarthritis Anxiety and depression Dyslipidemia Condyloma acuminata Flexor tenosynovitis of finger Insomnia Generalized anxiety disorder Family history of lupus erythematosus Polyarthralgia Eczema Vitamin D deficiency Familial hypercholesterolemia Morbid obesity due to excess calories Surgical History History of lumbar fusion History of carpal tunnel surgery Hx of lumbar discectomy History of S/P gastric sleeve procedure History of loop electrical excision procedure (LEEP) History of tonsillectomy Hx of colonoscopy Family History Father Ischemic heart disease Diabetes mellitus Mental health disorder Brother Mental health disorder Mother Mental health disorder Sister Mental health disorder Social History Housing: House Patient Tobacco Use Status: Current someday Tobacco user Cigarettes Per Day: 10 e-Cigarette/Vaping Use: Never Used service: No Current occupational status: employed Current occupation: [employer] Current occupational exposures/hazards: Yes Cognitive needs: No Hearing needs: No Vision needs: No Social History: lives with ; has 2 adult children and one 4 yo granddaughter Substance History: none Trauma History: yes Coding Level of Care Code Est Pt Level 4 (65510) Therapy 30m w/E&M (82205) Diagnoses ADHD (attention deficit hyperactivity disorder), combined type F90.2 Primary insomnia F51.01 Insomnia type: primary Anxiety about health R45.89
== END 2024-08-11 15:52 | disposition home or self-care (01) ==
LOC: HO.HOP 09:48
PROVIDERS: PCP Internal Medicine; Visit Provider Clinical Nurse Specialist Psychiatric/Mental Health
DX: F90.2 Attention-deficit hyperactivity disorder, combined type (principal); F51.01 Primary insomnia; R45.89 Other symptoms and signs involving emotional state
CPT/HCPCS: 90833; 99214

== ENCOUNTER → 2024-08-11 09:48 | Outpatient (BNVA) | payer OTHER, SELFPAY | PROVIDERS: PCP Internal Medicine; Visit Provider Clinical Nurse Specialist Psychiatric/Mental Health ==

== ENCOUNTER 2024-09-08 09:47 | Outpatient (AMB) | payer OTHER, SELFPAY ==
--- NOTE | 2024-09-08 10:04 | MHC.OFFVISPS ---
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 Allergies morphine [MORPHINE] Allergy (Severe, Verified 05/02/24 09:21) ANAPHYLAXIS, hives, redness and itching barium sulfate Adverse Reaction (Unknown, Verified 05/02/24 09:21) couldn't sleep, weird dreams, sleep walking Lipitor Allergy (Mild, Uncoded 05/02/24 09:21) hives Medication List - Last Reconciled 09/08/24 by Yvrose Franco APRN cholecalciferol (vitamin D3) 250 mcg PO dextroamphetamine-amphetamine 10 mg (Adderall) 10 mg PO BID fluconazole 50 mg PO DAILY 14 days lorazepam (Ativan) 1 mg PO BID-TID PRN ondansetron HCl 4 mg PO Q8H PRN triamcinolone acetonide 0.1% 1 appl topical BID 10 days zolpidem 10 mg PO BEDTIME PRN HPI- Psychiatric Chief Complaint: depression HPI Narrative: pt reports no change in sleep; rozerem not helpful. restarted ambiain but still only sleeps 4 hours despite taking 20mg at night. pt taking her adderall coniccitenly more than 4 hours before bedtime; pt has good sleep hygiene; she struggles with worried thinking related to sleep; she has hx of sleep problems since age 13. we reviewwd sleep meds she has tried inpast trazodone- too sedatng in am rozerem - ineffective benadryl and hydroxyzine - paradoxical effect clonidine - dropped BP seroquel - excesssive sedating lunesta- partially effective then stops working ambien- needs hghre than recommended dose propranolol- negtive remeron- negative Past Psychiatric History: outpatient during childhood- psychiatry and therapy; no IPLOC Subjective Subjective Subjective Medication Compliance: Yes Side effects from medications: No Review of Systems Medical Review of Systems: unchanged Mental Status Exam Mental Status Exam Patient Appearance: Well Grooomed, Fatigued and Appropriate Patient Orientation: Person, Place, Time and Situation Level of Consciousness: Awake and Appropriate Patient Behavior: Appropriate, Cooperative and Anxious Mood Description: Anxious Affect Description: Anxious Patient Cognition Impaired: No Ability to Follow Directions: Good Speech Pattern: Clear and Appropriate Memory Description: Intact Hallucinations: None Delusions: Not Present Thought Process: Intact and Goal Oriented Thought Content: positive for Intact and positive for Perseveration Judgement: Good Assessment and Plan Assessment & Plan (1) Anxiety about health: Status: Acute Code(s): R45.89 - Other symptoms and signs involving emotional state (2) ADHD (attention deficit hyperactivity disorder), combined type: Status: Acute Code(s): F90.2 - Attention-deficit hyperactivity disorder, combined type (3) Insomnia: Status: Acute Qualifiers: Insomnia type: primary Qualified Code(s): F51.01 - Primary insomnia Code(s): G47.00 - Insomnia, unspecified Plan stop ambiaien start daridorexant 25mg daily 30 minutes before bedtime restart lunesta 3 mg at bedtime prn sleep Medications: New daridorexant 25 mg PO BEDTIME 30 tabs 1RF eszopiclone (Lunesta) 3 mg PO BEDTIME 30 tabs 0RF Discontinued zolpidem Discontinued Reason: Doctor's Order 10 mg PO BEDTIME PRN 30 tabs 0RF sleep Counseling and coordination of Care Pt. Self Management counseling: Mod caffeine/ETOH intake, Sleep hygiene and General coping skills Medication management counseling: Effectiveness, Side effects, Dosing range, Duration, Drug interaction and Adherence Diagnosis and Prognosis Counseling: Accuracy of diagnosis, Impact of diagnosis on life functions, Impact of family relationship, Problematic behaviors secondary to diagnosis and Adequacy of current interventions Details: I spent 40 minutes reviewing the record, seeing the patient and documenting in the medical record. Counseling provided to the patient/caregiver as outlined below. Addressed patient/caregiver concerns regarding current medication regime including effective adherence. Addressed patient/caregiver concerns regarding diagnosis and prognosis including accuracy of diagnosis, prognosis over time, impact of diagnosis. Addressed patient/caregiver concerns regarding impact of recent stressors. [facility] Medical History Knee osteoarthritis Anxiety and depression Dyslipidemia Condyloma acuminata Flexor tenosynovitis of finger Insomnia Generalized anxiety disorder Family history of lupus erythematosus Polyarthralgia Eczema Vitamin D deficiency Familial hypercholesterolemia Morbid obesity due to excess calories Surgical History History of lumbar fusion History of carpal tunnel surgery Hx of lumbar discectomy History of S/P gastric sleeve procedure History of loop electrical excision procedure (LEEP) History of tonsillectomy Hx of colonoscopy Family History Father Ischemic heart disease Diabetes mellitus Mental health disorder Brother Mental health disorder Mother Mental health disorder Sister Mental health disorder Social History Housing: House Patient Tobacco Use Status: Current someday Tobacco user Cigarettes Per Day: 10 e-Cigarette/Vaping Use: Never Used service: No Current occupational status: employed Current occupation: [employer] Current occupational exposures/hazards: Yes Cognitive needs: No Hearing needs: No Vision needs: No Social History: lives with ; has 2 adult children and one 4 yo granddaughter Substance History: none Trauma History: yes Coding Level of Care Code Est Pt Level 4 (60073) Therapy 30m w/E&M (26826) Diagnoses Anxiety about health R45.89 ADHD (attention deficit hyperactivity disorder), combined type F90.2 Primary insomnia F51.01 Insomnia type: primary
== END 2024-09-08 15:24 | disposition home or self-care (01) ==
LOC: HO.HOP 09:47
PROVIDERS: PCP Internal Medicine; Visit Provider Clinical Nurse Specialist Psychiatric/Mental Health
DX: F90.2 Attention-deficit hyperactivity disorder, combined type (principal); F51.01 Primary insomnia; R45.89 Other symptoms and signs involving emotional state
CPT/HCPCS: 90833; 99214

== ENCOUNTER → 2024-09-08 09:47 | Outpatient (BNVA) | payer OTHER, SELFPAY | PROVIDERS: PCP Internal Medicine; Visit Provider Clinical Nurse Specialist Psychiatric/Mental Health ==

== ENCOUNTER 2024-09-22 10:45 | Outpatient (AMB) | payer OTHER, SELFPAY ==
--- NOTE | 2024-09-22 10:52 | A.OFFPSYCH_ITS ---
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 Allergies morphine [MORPHINE] Allergy (Severe, Verified 05/02/24 09:21) ANAPHYLAXIS, hives, redness and itching suvorexant [From Belsomra] Allergy (Severe, Verified 09/22/24 11:14) Facial Swelling daridorexant [From Quviviq] Allergy (Verified 09/22/24 11:14) Facial Swelling barium sulfate Adverse Reaction (Unknown, Verified 05/02/24 09:21) couldn't sleep, weird dreams, sleep walking Lipitor Allergy (Mild, Uncoded 05/02/24 09:21) hives Medication List - Last Reconciled 09/22/24 by Yvrose Franco APRN cholecalciferol (vitamin D3) 250 mcg PO dextroamphetamine-amphetamine 10 mg (Adderall) 10 mg PO BID lorazepam (Ativan) 1 mg PO BID-TID PRN ondansetron HCl 4 mg PO Q8H PRN triamcinolone acetonide 0.1% 1 appl topical BID 10 days HPI- Psychiatric Chief Complaint: f/u consultation HPI Narrative: pt worsened; had allergic reaction to belsomra; lips and face swelling with rash; took benadryl which helped; she had sleep paralysis from it too. she feels scared to try anything else; she met with her GI surgeon and he told her she can take extended release medications now that is has been 3 yrs since bariatric s urgery no SI or HI. Past Psychiatric History: outpatient during childhood- psychiatry and therapy; no IPLOC Subjective Subjective Subjective Medication Compliance: Yes Side effects from medications: No Review of Systems Medical Review of Systems: unchanged Mental Status Exam Mental Status Exam Patient Appearance: Well Grooomed and Appropriate Patient Orientation: Person, Place, Time and Situation Level of Consciousness: Awake, Appropriate and Alert Patient Behavior: Appropriate and Cooperative Mood Description: Appropriate Affect Description: Appropriate Patient Cognition Impaired: No Ability to Follow Directions: Good Speech Pattern: Clear Memory Description: Intact Hallucinations: None Delusions: Not Present Thought Process: Intact and Goal Oriented Thought Content: positive for Intact and positive for Goal Oriented Judgement: Good Assessment and Plan Assessment & Plan (1) Generalized anxiety disorder: Status: Acute Code(s): F41.1 - Generalized anxiety disorder (2) ADHD (attention deficit hyperactivity disorder), combined type: Status: Acute Code(s): F90.2 - Attention-deficit hyperactivity disorder, combined type (3) Insomnia: Status: Acute Qualifiers: Insomnia type: primary Qualified Code(s): F51.01 - Primary insomnia Code(s): G47.00 - Insomnia, unspecified (4) Anxiety about health: Status: Acute Code(s): R45.89 - Other symptoms and signs involving emotional state Plan stop daridorexant 25mg daily 30 minutes before bedtime trial ambien CR 12.5 mg at bedtime if can't sleep more than 5=4 hours that can take temazepam 7.5mg at bedtime and then take ambien 30-60 min after do not take ativan within 4 hours of bedtime meds Medications: New temazepam 7.5 mg PO BEDTIME PRN 30 caps 2RF sleep zolpidem ER (Ambien CR) 12.5 mg PO BEDTIME 30 tabs 2RF Counseling and coordination of Care Pt. Self Management counseling: Mod caffeine/ETOH intake, Sleep hygiene and General coping skills Medication management counseling: Effectiveness, Side effects, Dosing range, Duration, Drug interaction and Adherence Diagnosis and Prognosis Counseling: Accuracy of diagnosis, Impact of diagnosis on life functions, Impact of family relationship, Problematic behaviors secondary to diagnosis and Adequacy of current interventions Details: I spent 35 minutes reviewing the record, seeing the patient and documenting in the medical record. Counseling provided to the patient/caregiver as outlined below. Addressed patient/caregiver concerns regarding current medication regime including effective adherence. Addressed patient/caregiver concerns regarding diagnosis and prognosis including accuracy of diagnosis, prognosis over time, impact of diagnosis. Addressed patient/caregiver concerns regarding impact of recent stressors. [facility] Medical History Knee osteoarthritis Anxiety and depression Dyslipidemia Condyloma acuminata Flexor tenosynovitis of finger Insomnia Generalized anxiety disorder Family history of lupus erythematosus Polyarthralgia Eczema Vitamin D deficiency Familial hypercholesterolemia Morbid obesity due to excess calories Surgical History History of lumbar fusion History of carpal tunnel surgery Hx of lumbar discectomy History of S/P gastric sleeve procedure History of loop electrical excision procedure (LEEP) History of tonsillectomy Hx of colonoscopy Family History Father Ischemic heart disease Diabetes mellitus Mental health disorder Brother Mental health disorder Mother Mental health disorder Sister Mental health disorder Social History Housing: House Patient Tobacco Use Status: Current someday Tobacco user Cigarettes Per Day: 10 e-Cigarette/Vaping Use: Never Used service: No Current occupational status: employed Current occupation: [employer] Current occupational exposures/hazards: Yes Cognitive needs: No Hearing needs: No Vision needs: No Social History: lives with ; has 2 adult children and one 4 yo granddaughter Substance History: none Trauma History: yes Coding Level of Care Code Est Pt Level 4 (84186) Diagnoses Generalized anxiety disorder F41.1 ADHD (attention deficit hyperactivity disorder), combined type F90.2 Primary insomnia F51.01 Insomnia type: primary Anxiety about health R45.89
== END 2024-09-22 11:21 | disposition home or self-care (01) ==
LOC: HO.HOP 10:45
PROVIDERS: PCP Internal Medicine; Visit Provider Clinical Nurse Specialist Psychiatric/Mental Health
DX: F41.1 Generalized anxiety disorder (principal); F90.2 Attention-deficit hyperactivity disorder, combined type; F51.01 Primary insomnia; R45.89 Other symptoms and signs involving emotional state
CPT/HCPCS: 99214

== ENCOUNTER 2024-10-20 09:52 | Outpatient (AMB) | payer OTHER, SELFPAY ==
--- NOTE | 2024-10-20 10:05 | A.OFFPSYCH_ITS ---
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 Allergies morphine [MORPHINE] Allergy (Severe, Verified 05/02/24 09:21) ANAPHYLAXIS, hives, redness and itching suvorexant [From Belsomra] Allergy (Severe, Verified 09/22/24 11:14) Facial Swelling daridorexant [From Quviviq] Allergy (Verified 09/22/24 11:14) Facial Swelling barium sulfate Adverse Reaction (Unknown, Verified 05/02/24 09:21) couldn't sleep, weird dreams, sleep walking Lipitor Allergy (Mild, Uncoded 05/02/24 09:21) hives Medication List - Last Reconciled 10/20/24 by Yvrose Franco APRN cholecalciferol (vitamin D3) 250 mcg PO dextroamphetamine-amphetamine 10 mg (Adderall) 10 mg PO BID lorazepam (Ativan) 1 mg PO BID-TID PRN ondansetron HCl 4 mg PO Q8H PRN triamcinolone acetonide 0.1% 1 appl topical BID 10 days zolpidem ER (Ambien CR) 12.5 mg PO BEDTIME HPI- Psychiatric Chief Complaint: f/u consultation HPI Narrative: Pt is more anxious; temazepam may be causing rebound anxiety; pt sleeping 4 hours with ambien CR; she feels able to function with 4 hours despite not ideal; she is fearful of trying any new meds at this time. no SI or HI; PHQ9=13 and GAD7 = 3 Past Psychiatric History: outpatient during childhood- psychiatry and therapy; no IPLOC Subjective Subjective Subjective Medication Compliance: Yes Side effects from medications: No Review of Systems Medical Review of Systems: unchanged Mental Status Exam Mental Status Exam Patient Appearance: Well Grooomed and Appropriate Patient Orientation: Person, Place, Time and Situation Level of Consciousness: Awake, Appropriate and Alert Patient Behavior: Appropriate and Cooperative Mood Description: Appropriate Affect Description: Appropriate Patient Cognition Impaired: No Ability to Follow Directions: Good Speech Pattern: Clear and Appropriate Memory Description: Intact Hallucinations: None Delusions: Not Present Thought Process: Intact and Goal Oriented Thought Content: positive for Intact and positive for Goal Oriented Judgement: Fair Assessment and Plan Assessment & Plan (1) ADHD (attention deficit hyperactivity disorder), combined type: Status: Acute Code(s): F90.2 - Attention-deficit hyperactivity disorder, combined type (2) Generalized anxiety disorder: Status: Acute Code(s): F41.1 - Generalized anxiety disorder Plan d/c temazepam continue ativan 1 mg TID and ambien CR 12.5 mg at bedtime continue adderall 10 mmg BID consider TMS as pt is med resisitant and has chronic insomnia Medications: Changed From lorazepam (Ativan) 1 mg PO BID-TID PRN anxiety/insomnia To lorazepam (Ativan) 1 mg PO BID-TID PRN 90 tabs 2RF anxiety/insomnia Refilled zolpidem ER (Ambien CR) 12.5 mg PO BEDTIME 30 tabs 2RF dextroamphetamine-amphetamine 10 mg (Adderall) administer doses at least 4 hours apart; Partial Fill upon patient request. 10 mg PO BID 60 tabs 0RF Counseling and coordination of Care Pt. Self Management counseling: Mod caffeine/ETOH intake, Sleep hygiene, General coping skills and Problem solving Medication management counseling: Effectiveness, Side effects, Dosing range, Duration, Drug interaction and Adherence Diagnosis and Prognosis Counseling: Accuracy of diagnosis, Prognosis over time, Impact of diagnosis on life functions, Impact of family relationship, Problematic behaviors secondary to diagnosis and Adequacy of current interventions Details: I spent 35 minutes reviewing the record, seeing the patient and documenting in the medical record. Counseling provided to the patient/caregiver as outlined below. Addressed patient/caregiver concerns regarding current medication regime including effective adherence. Addressed patient/caregiver concerns regarding diagnosis and prognosis including accuracy of diagnosis, prognosis over time, impact of diagnosis. Addressed patient/caregiver concerns regarding impact of recent stressors. [facility] Medical History Knee osteoarthritis Anxiety and depression Dyslipidemia Condyloma acuminata Flexor tenosynovitis of finger Insomnia Generalized anxiety disorder Family history of lupus erythematosus Polyarthralgia Eczema Vitamin D deficiency Familial hypercholesterolemia Morbid obesity due to excess calories Surgical History History of lumbar fusion History of carpal tunnel surgery Hx of lumbar discectomy History of S/P gastric sleeve procedure History of loop electrical excision procedure (LEEP) History of tonsillectomy Hx of colonoscopy Family History Father Ischemic heart disease Diabetes mellitus Mental health disorder Brother Mental health disorder Mother Mental health disorder Sister Mental health disorder Social History Housing: House Patient Tobacco Use Status: Current someday Tobacco user Cigarettes Per Day: 10 e-Cigarette/Vaping Use: Never Used service: No Current occupational status: employed Current occupation: Home [employer] Current occupational exposures/hazards: Yes Cognitive needs: No Hearing needs: No Vision needs: No Social History: lives with ; has 2 adult children and one 4 yo g randdaughter Substance History: none Trauma History: yes Coding Level of Care Code Est Pt Level 4 (52163) Diagnoses ADHD (attention deficit hyperactivity disorder), combined type F90.2 Generalized anxiety disorder F41.1
== END 2024-10-20 10:26 | disposition home or self-care (01) ==
LOC: HO.HOP 09:52
PROVIDERS: PCP Internal Medicine; Visit Provider Clinical Nurse Specialist Psychiatric/Mental Health
DX: F90.2 Attention-deficit hyperactivity disorder, combined type (principal); F41.1 Generalized anxiety disorder
CPT/HCPCS: 99214

== ENCOUNTER → 2024-10-20 09:52 | Outpatient (BNVA) | payer OTHER, SELFPAY | PROVIDERS: PCP Internal Medicine; Visit Provider Clinical Nurse Specialist Psychiatric/Mental Health ==

== ENCOUNTER → 2024-11-13 10:40 | Outpatient (BNVA) | payer OTHER, SELFPAY | PROVIDERS: PCP Internal Medicine; Visit Provider Clinical Nurse Specialist Psychiatric/Mental Health | DX: R45.89 Other symptoms and signs involving emotional state (principal); F90.2 Attention-deficit hyperactivity disorder, combined type; F51.01 Primary insomnia; G47.00 Insomnia, unspecified; F41.1 Generalized anxiety disorder; M25.50 Pain in unspecified joint; Z71.89 Other specified counseling; Z84.0 Family history of diseases of the skin and subcutaneous tissue | CPT/HCPCS: 99212 ==

== ENCOUNTER → 2024-11-13 10:40 | Outpatient (AMB) | payer OTHER, SELFPAY ==
--- NOTE | 2024-11-13 11:09 | A.OFFPSYCH_ITS ---
Intake Intake Visit Reasons: consultation Allergies morphine [MORPHINE] Allergy (Severe, Verified 05/02/24 09:21) ANAPHYLAXIS, hives, redness and itching suvorexant [From Belsomra] Allergy (Severe, Verified 09/22/24 11:14) Facial Swelling daridorexant [From Quviviq] Allergy (Verified 09/22/24 11:14) Facial Swelling barium sulfate Adverse Reaction (Unknown, Verified 05/02/24 09:21) couldn't sleep, weird dreams, sleep walking Lipitor Allergy (Mild, Uncoded 05/02/24 09:21) hives Medication List - Last Reconciled 11/13/24 by Yvrose Franco APRN cholecalciferol (vitamin D3) 250 mcg PO dextroamphetamine-amphetamine 10 mg (Adderall) 10 mg PO BID lorazepam (Ativan) 1 mg PO BID-TID PRN ondansetron HCl 4 mg PO Q8H PRN triamcinolone acetonide 0.1% 1 appl topical BID 10 days zolpidem ER (Ambien CR) 12.5 mg PO BEDTIME HPI- Psychiatric Chief Complaint: consultation HPI Narrative: pt not sleeping at night; has slept only 1- 2 hours with ambien CR. Temazepam was ineffective. he also tried buspar, lunesta, belsomra clonidine, trazodone, rozerem, mirtazepine all with side effects or ineffective. She does not want tot monie an SSRI or SNRI due to potential side effects and fears withdrawal syndrome from them; she is in pain and has swelling of hands. 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 her mother and maternal grandmother both dx with lupus. Pt is in weekly psychotherapy. Her PHQ(= 10 and her GAD7 = 9. she does not want to take tegretol or depakote but did agree to a very low dose of lithium to see if that would help her sleep at night; she will stop the ambine cr and restart the Ambien 10 mg which let her sleep 4-5 hours. She is having more trouble functioning due to not sleeping and missed 2 days of work due to not sleeping. She reports she does not feel depressed and feels her mood is secondary to not sleeping well. We reviewed the sleep hygiene practices and she follow s all the protocols. She is also in weekly therapy to address sleep. Past Psychiatric History: outpatient during childhood- psychiatry and therapy; no IPLOC Subjective Subjective Subjective Medication Compliance: Yes Side effects from medications: No Review of Systems Medical Review of Systems: unchanged Mental Status Exam Mental Status Exam Patient Appearance: Well Grooomed and Appropriate Patient Orientation: Person, Place, Time and Situation Level of Consciousness: Awake, Appropriate and Alert Patient Behavior: Appropriate Mood Description: Anxious and Sad Affect Description: Anxious and Sad Patient Cognition Impaired: No Ability to Follow Directions: Good Speech Pattern: Clear Memory Description: Intact Hallucinations: None Delusions: Not Present Thought Process: Intact and Goal Oriented Thought Content: positive for Intact and positive for Goal Oriented Judgement: Good Assessment and Plan Assessment & Plan (1) Anxiety about health: Status: Acute Code(s): R45.89 - Other symptoms and signs involving emotional state (2) ADHD (attention deficit hyperactivity disorder), combined type: Status: Acute Code(s): F90.2 - Attention-deficit hyperactivity disorder, combined type (3) Insomnia: Status: Acute Qualifiers: Insomnia type: primary Qualified Code(s): F51.01 - Primary insomnia Code(s): G47.00 - Insomnia, unspecified (4) Generalized anxiety disorder: Status: Acute Code(s): F41.1 - Generalized anxiety disorder (5) Polyarthralgia: Status: Acute Code(s): M25.50 - Pain in unspecified joint (6) Family history of lupus erythematosus: Status: Acute Code(s): Z84.0 - Family history of diseases of the skin and subcutaneous tissue Plan pt to stop ambien CR due to ineffective. discussed gastric sleeve may be effecting the metabolism re-start ambien 10mg at bedtime trial of very low dose lithium to see if can relax patient and help sleep more soundly as she has tried a number of other meds in different classes referral to rheumatology Medications: New zolpidem (Ambien) 10 mg PO BEDTIME PRN 30 tabs 2RF sleep lithium carbonate 150 mg PO BEDTIME 30 caps 2RF Refilled lorazepam (Ativan) 1 mg PO BID-TID PRN 90 tabs 2RF anxiety/insomnia dextroamphetamine-amphetamine 10 mg (Adderall) administer doses at least 4 hours apart; Partial Fill upon patient request. 10 mg PO BID 60 tabs 0RF Discontinued zolpidem ER (Ambien CR) Discontinued Reason: Doctor's Order 12.5 mg PO BEDTIME 30 tabs 2RF Orders: Referrals Rheumatology Referral M25.50 - Pain in unspecified joint Counseling and coordination of Care Pt. Self Management counseling: Breathing, Exercise, Maintenance-social rhythm, Mod caffeine/ETOH intake, Muscle relaxation, Nutrition education and improvement, Sleep hygiene and General coping skills Details-Self Mgmt counseling: marj and Grazyna reviewed the Clinical Guidelines for eval and mgt of chronic insomnia in adults; she will take a copy and read at home as well. Medication management counseling: Effectiveness, Side effects, Dosing range, D uration, Drug interaction and Adherence Diagnosis and Prognosis Counseling: Accuracy of diagnosis, Prognosis over time, Impact of diagnosis on life functions, Impact of family relationship, Problematic behaviors secondary to diagnosis and Adequacy of current interventions Details: I spent 45 minutes reviewing the record, seeing the patient and documenting in the medical record. Counseling provided to the patient/caregiver as outlined below. Addressed patient/caregiver concerns regarding current medication regime including effective adherence. Addressed patient/caregiver concerns regarding diagnosis and prognosis including accuracy of diagnosis, prognosis over time, impact of diagnosis. Addressed patient/caregiver concerns regarding impact of recent stressors. [facility] Medical History (Updated 11/13/24 @ 14:39 by Yvrose Franco APRN) Knee osteoarthritis Anxiety and depression Dyslipidemia Condyloma acuminata Flexor tenosynovitis of finger Insomnia Generalized anxiety disorder Family history of lupus erythematosus Polyarthralgia Eczema Vitamin D deficiency Familial hypercholesterolemia Morbid obesity due to excess calories Surgical History History of lumbar fusion History of carpal tunnel surgery Hx of lumbar discectomy History of S/P gastric sleeve procedure History of loop electrical excision procedure (LEEP) History of tonsillectomy Hx of colonoscopy Family History Father Ischemic heart disease Diabetes mellitus Mental health disorder Brother Mental health disorder Mother Mental health disorder Sister Mental health disorder Social History Housing: House Patient Tobacco Use Status: Current someday Tobacco user Cigarettes Per Day: 10 e-Cigarette/Vaping Use: Never Used service: No Current occupational status: employed Current occupation: Home [employer] Current occupational exposures/hazards: Yes Cognitive needs: No Hearing needs: No Vision needs: No Social History: lives with ; has 2 adult children and one 4 yo granddaughter Substance History: none Trauma History: yes Coding Level of Care Code Est Pt Level 5 (98753) Diagnoses Anxiety about health R45.89 ADHD (attention deficit hyperactivity disorder), combined type F90.2 Primary insomnia F51.01 Insomnia type: primary Generalized anxiety disorder F41.1 Polyarthralgia M25.50 Family history of lupus erythematosus Z84.0
== END | disposition home or self-care (01) ==
PROVIDERS: PCP Internal Medicine; Visit Provider Clinical Nurse Specialist Psychiatric/Mental Health
CPT/HCPCS: 99215

== ENCOUNTER 2024-12-15 08:57 | Outpatient (AMB) | payer OTHER, SELFPAY ==
--- NOTE | 2024-12-15 09:19 | A.OFFPSYCH_ITS ---
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 Allergies morphine [MORPHINE] Allergy (Severe, Verified 05/02/24 09:21) ANAPHYLAXIS, hives, redness and itching suvorexant [From Belsomra] Allergy (Severe, Verified 09/22/24 11:14) Facial Swelling daridorexant [From Quviviq] Allergy (Verified 09/22/24 11:14) Facial Swelling barium sulfate Adverse Reaction (Unknown, Verified 05/02/24 09:21) couldn't sleep, weird dreams, sleep walking Lipitor Allergy (Mild, Uncoded 05/02/24 09:21) hives Medication List - Last Reconciled 12/15/24 by Yvrose Franco APRN cholecalciferol (vitamin D3) 250 mcg PO dextroamphetamine-amphetamine 10 mg (Adderall) 10 mg PO BID lorazepam (Ativan) 1 mg PO BID-TID PRN ondansetron HCl 4 mg PO Q8H PRN triamcinolone acetonide 0.1% 1 appl topical BID 10 days zolpidem (Ambien) 10 mg PO BEDTIME PRN HPI- Psychiatric Chief Complaint: f/u consultation HPI Narrative: pt reports little change; still no sleeping well; periodically the ambien works but then it stops working and she gets 1-2 hours a sleep; she is taking the lithium but it has not changed her sleep; she thinks maybe it helps her mood a little bit. she worries slightly less. she takes her adderall 6+ hours before bedtime; she stops caffeine after a morning cup of coffee. she reports she has always bee high energy. no SI or Hi. Past Psychiatric History: outpatient during childhood- psychiatry and therapy; no IPLOC Subjective Subjective Subjective Medication Compliance: Yes Side effects from medications: No Review of Systems Medical Review of Systems: unchanged Mental Status Exam Mental Status Exam Patient Appearance: Well Grooomed Patient Orientation: Person, Place, Time and Situation Level of Consciousness: Awake and Appropriate Patient Behavior: Appropriate and Cooperative Mood Description: Appropriate and Anxious Affect Description: Appropriate and Anxious Patient Cognition Impaired: No Ability to Follow Directions: Good Speech Pattern: Clear Memory Description: Intact Hallucinations: None Delusions: Not Present Thought Process: Intact and Goal Oriented Thought Content: positive for Intact and positive for Goal Oriented Judgement: Good Assessment and Plan Assessment & Plan (1) Anxiety about health: Status: Acute Code(s): R45.89 - Other symptoms and signs involving emotional state (2) ADHD (attention deficit hyperactivity disorder), combined type: Status: Acute Code(s): F90.2 - Attention-deficit hyperactivity disorder, combined type (3) Insomnia: Status: Acute Qualifiers: Insomnia type: primary Qualified Code(s): F51.01 - Primary insomnia Code(s): G47.00 - Insomnia, unspecified Plan start lunesta 3 mg at bedtime continueadderall 10mg BID contine ativan 1mg BID - tid prn anxiety/insomnia continue vit d weekly will alternate lunesta with ambien as needed return in 6 months Medications: New eszopiclone (Lunesta) 3 mg PO BEDTIME 30 tabs 2RF Changed From cholecalciferol (vitamin D3) 250 mcg PO To cholecalciferol (vitamin D3) 250 mcg (2 x 125 mcg (5,000 unit)) PO DAILY 30 tabs 2RF Refilled 2 dextroamphetamine-amphetamine 10 mg (Adderall) administer doses at least 4 hours apart; Partial Fill upon patient request. 10 mg PO BID 60 tabs 0RF lorazepam (Ativan) 1 mg PO BID-TID PRN 90 tabs 2RF anxiety/insomnia Counseling and coordination of Care Pt. Self Management counseling: Exercise, Maintenance-social rhythm, Mod caffeine/ETOH intake, Nutrition education and improvement, Sleep hygiene and Behavior activation Medication management counseling: Effectiveness, Side effects, Dosing range, Duration, Drug interaction and Adherence Diagnosis and Prognosis Counseling: Accuracy of diagnosis, Prognosis over time, Impact of diagnosis on life functions, Impact of family relationship, Problematic behaviors secondary to diagnosis and Adequacy of current interventions Details: I spent 30 minutes reviewing the record, seeing the patient and documenting in the medical record. Counseling provided to the patient/caregiver as outlined below. Addressed patient/caregiver concerns regarding current medication regime including effective adherence. Addressed patient/caregiver concerns regarding diagnosis and prognosis including accuracy of diagnosis, prognosis over time, impact of diagnosis. Addressed patient/caregiver concerns regarding impact of recent stressors. [facility] Medical History (Updated 11/13/24 @ 14:39 by Yvrose Franco APRN) Knee osteoarthritis Anxiety and depression Dyslipidemia Condyloma acuminata Flexor tenosynovitis of finger Insomnia Generalized anxiety disorder Family history of lupus erythematosus Polyarthralgia Eczema Vitamin D deficiency Familial hypercholesterolemia Morbid obesity due to excess calories Surgical History History of lumbar fusion History of carpal tunnel surgery Hx of lumbar discectomy History of S/P gastric sleeve procedure History of loop electrical excision procedure (LEEP) History of tonsillectomy Hx of colonoscopy Family History Father Ischemic heart disease Diabetes mellitus Mental health disorder Brother Mental health disorder Mother Mental health disorder Sister Mental health disorder Social History Housing: House Patient Tobacco Use Status: Current someday Tobacco user Cigarettes Per Day: 10 e-Cigarette/Vaping Use: Never Used service: No Current occupational status: employed Current occupation: [employer] Current occupational exposures/hazards: Yes Cognitive needs: No Hearing needs: No Vision needs: No Social History: lives with ; has 2 adult children and one 4 yo granddaughter Substance History: none Trauma History: yes Coding Level of Care Code Est Pt Level 4 (72973) Diagnoses Anxiety about health R45.89 ADHD (attention deficit hyperactivity disorder), combined type F90.2 Primary insomnia F51.01 Insomnia type: primary
--- OUTSIDE RECORDS SUMMARY | 2024-12-15 09:25 | XMS_ITS | Data Portability ---
Author Organization [facility], [facility] Address [address] [place] [address] Care Team Providers Care Pharm Tech Name Role Phone VALERIE DUPONT Primary Care Provider [phone] Assessment Encounter Date Assessment Date Assessment LastModified by Organization Details LastModified Time 06/03/2024 06/03/2024 A: Mild ITB tightness with Mod edema in knee by end of tx. Diffiuclty with asc L4 box step. 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 The pain for about a year and a half. Cortisone has not been helpful. Status post arthroscopy in April which unfortunately did not help and also showed grade 4 changes laterally. Her knee has now become unstable. She is unable to work. She is taking oxycodone for discomfort. Pain level X/10. She reports pain at rest and significant limitations in activities including difficulty with stairs and getting out of a chair. She is unable to kneel. She is unable to squat. PMH/PSH/MEDS/ALL/F MH/SOC HX/ROS are reviewed in detail per my medical intake sheet. General Exam: Vital signs are as noted below Mental status: Alert and lucid. Normal insight, affect and grooming. 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 No spasticity or clonus noted. Extremities: Calves are soft nontender, skin intact Orthopedic Examination: Right Knee: Neutral alignment. Full range of motion. No instability or effusion. No tenderness or crepitus. Left Knee: Valgus alignment. Range of motion 3-105. Mild to moderate effusion. Mild to moderate instability. Severe tenderness and crepitus laterally. Antalgic gait pattern favoring the left side. Full strength and sensation distally X-rays: Radiographs ordered and obtained today including a standing AP, Betancourt view, nonweightbearing lateral views, and merchant view. These radiographs demonstrate end-stage valgus osteoarthrits of the left knee. There is ctnt-ze-ezef articulation, subchondral sclerosis, and osteophyte formation. There is significant progression noted since previous films Assessment: End-stage osteoarthritis of the left knee which has failed greater than 3 months of nonoperative treatment including medication, activity modification, arthroscopy, and injections. The patient is in too much discomfort to participate in any meaningful physical therapy. PLAN: The patient was thoroughly counseled today regarding their knee condition, its natural history and the options, both operative and non-operative. The nature of knee replacement surgery, the potential risks, benefits, and complications, the magnitude of the surgery, the intensity of postoperative recovery as well as its elective nature were explained at length today. Although it is impossible to list all of the possible complications of any operation or procedure, I explained that some of the major complications that may arise include the following: Blood loss requiring transfusion, infection (early or late), blood clots, dislocation, pain (persistent or new), scars numbness or tenderness, unequal leg lengths, weakness, stiffness, loss of motion, clicking of implant, calcification, fracture of bone, instability of leg, nerve damage (paralysis or numbness), blood vessel damage, implant loosening, implant breakage, wearing of the implant, need for future surgery, allergic reaction, metal toxicity, medical complications including confusion, heart attack, stroke, or ). Issues regarding lifelong infection and activity precautions were reviewed. The longevity of the implants was discussed. The patient understands the potential need for revision surgery. We discussed performing the surgery in either an inpatient or outpatient setting as well as the pros and cons of both. The patient has elected to proceed in a outpatient setting. The patient will require clearance from a medical doctor prior to surgery. The patient wishes to schedule an elective total knee replacement at the [facility]. Next planned follow-up is at the history and physical. The patient knows I will be happy to meet with them at any time in order to review any additional questions or concerns that they might have. [email or web address] Not available 12/01/2024 15:12:29 12/02/2024 12/02/2024 Assessment: Patient presents with symptoms that are consistent with knee OA. Demonstrates good understanding of home program, post-operative mechanics for gait and stairs, and expectations following surgery. Plan: Continue with one more prehab PT visit focusing on patient education for post-operative functional mobility then follow up with patient post-operatively. [email or web address] Not available 12/02/2024 14:32:20 12/05/2024 12/05/2024 PRIMARY DIAGNOSI S: Osteoarthritis of the left knee. REASON FOR ADMISSION: The patient is being admitted for left total knee arthroplasty with Dr. Bernard Bryant on 12/18/2024. HISTORY OF PRESENT ILLNESS: The patient is a 49-year-old female presenting today with left knee pain. She is having the pain for about a year and a half. Cortisone has not been helpful. Status post arthroscopy in April which unfortunately did not help and also showed grade 4 changes laterally. Her knee has now become unstable. She is unable to work. She is taking oxycodone for discomfort. She reports pain at rest and significant limitations in activities including difficulty with stairs and getting out of a chair. She is unable to kneel. She is unable to squat. She states that she is now ready for left total knee arthroplasty with Dr. Bryant on 12/18/2024. PAST MEDICAL HISTORY: 1. Osteoarthritis of the left knee. 2. GERD 3. Hydronephrosis 4. Pre-diabetes 5. Anxiety 6. COVID 19 7. Tobacco Abuse PAST SURGICAL HISTORY: 1. Hiatal Hernia Repair 2. Sleeve Gastrectomy 2021 3. Carpal Tunnel Release 4. Discectomy 5. Lysis of Adhesions 6. Tubal Ligation 7. C Section 8. Umbilical Hernia 1992 9. Left knee scope CURRENT MEDICATION LIST: 1. Ambien 10mg daily at HS PRN 2. Adderall 10mg twice daily (4 hours apart) 3. Ondansetron 4mg PRN 4. Oxycodone 5mg, 1 tablet every 4 hours as needed. She will be trying her best to hold x 1 week prior to surgery. ALLERGIES: The patient is allergic to Morphine, statins, scopolamine patch, Novum 777. There is an allergy to Percocet. She is tolerating Oxycodone. SOCIAL HISTORY: The patient is and lives at home with her . 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 She is a social alcohol user. She denies illicit drug use. She smokes 1/2 ppd. PHYSICIANS: Her primary care provider is Joanna Faust MD REVIEW OF SYSTEMS: 12 point review of systems negative unless mentioned in HPI. PHYSICAL EXAMINATION: VITAL SIGNS: weight 177 pounds GENERAL: The patient is alert and oriented. Normal insight, affect, and grooming. HEENT: Normocephalic. Conjunctivae pink. Sclerae are anicteric. SKIN: Intact without rash or lesions. Nails without clubbing or cyanosis. ABDOMEN: Soft Extremities: Calves are soft nontender, skin intact Orthopedic Examination: Right Knee: Neutral alignment. Full range of motion. No instability or effusion. No tenderness or crepitus. Left Knee: Valgus alignment. Range of motion 3-105. Mild to moderate effusion. Mild to moderate instability. Severe tenderness and crepitus laterally. Antalgic gait pattern favoring the left side. Full strength and sensation distally. PREOPERATIVE DIAGNOSTIC DATA: X-rays: Radiographs ordered and obtained today including a standing AP, Betancourt view, nonweightbearing lateral views, and merchant view. These radiographs demonstrate end-stage valgus osteoarthrits of the left knee. There is eucl-jl-zpnn articulation, subchondral sclerosis, and osteophyte formation. There is significant progression noted since previous films EKG to be done at medicine preop clinic 12/11/2024 LABORATORY DATA: CBC, chemistry panel and coagulation studies reviewed and satisfactory for surgery. HgA1c 5.8. Glucose 65. ASSESSMENT AND PLAN: The patient has advanced osteoarthritis of the left knee and is now scheduled for left total knee arthroplasty with Dr. Bryant on 12/18/2024. The patient will be seen by the medical consultative preoperative clinic for risk assessment and this note will be updated after reviewing their documentation. The patient will receive intravenous tranexamic acid. She will be on Aspirin postoperatively for DVT prophylaxis. Discharge plans will be to home the day of surgery. The patient has been counseled regarding the risks and benefits of proposed surgery. All questions have been answered. She acknowledges understanding. The patient wishes to proceed with surgery. She has met with PT. She will bring her walker and knee immobilizer the day of surgery. Prescriptions for Celebrex, Oxycodone, Zofran and pantoprazole were sent to the patient's pharmacy today. The patient reports she will get Aspirin over the counter. She was made aware of dosing. She will not take until after surgery. She also has Colace. She did not want Tramadol as it caused severe N/V in the past. She will take pantoprazole, APAP and Celebrex the AM of surgery. CONTACTS: Her Kenan, with a cell phone number [phone]. [email or web address] Not available 12/05/2024 13:51:43 Plan of Treatment Reminders Order Date Submit Date Provider Last Modified By Organization Details Last Modified Time Details Appointments None recorded. Lab None recorded. Referral None recorded. Procedures None recorded. Surgeries None recorded. Imaging XR, knee, 4 or more view - 210 l knee 4v [email or web address] [facility], [address] [facility] [address], [place], [address], 5 11:54:10 Medication Orders oxycodone 5 mg tablet 2024 025 [id number], [address] [place] [address], [id number], 5 12:58:51 Celebrex 200 mg capsule [address] [facility]453, [address] [place] [address], [id number], 5 13:47:42 pantoprazol e 40 mg tablet,nurys yed release 2024 [address] [facility] [facility] [address] [facility], [address] [place] [address], [id number], 5 13:47:42 ondansetron 4 mg disintegrat ing tablet 2024 [address] [facility] [facility] [address] [facility], [facility] [place], [place], [id number], 13:47:42 oxycodone 5 mg tablet 2024 025 [facility], [address] [place], [place], [id number], 14:22:01 Patient TargetsNo targets recorded. Patient InstructionsNo instructions recorded. Reason for Referral None Reported. Results Created Date Observation Date Name Description Value Unit Range Abnormal Flag Note LastModifiedBy Organization Detail LastModifiedTime 12/02/1912/02/2024 PROTH ROMBI N TIME (PT) INR 1.0 0.9-1. 1 Not Available [address], [address], 12/02/2024 12:41:57 12/02/1912/02/2024 PROTH ROMBI N TIME (PT) prothrombin time 10.9 sec 9.2-11 .4 normal Not Available [address], [address], 12/02/2024 12:41:57 12/02/1912/02/2024 PTT, ACTIV ATED APTT 27.2 sec 23.4-3 3.1 normal For patie nts needi ng highe r than usual dose of hepar in to achie ve thera peuti c range use UFH anti Xa level s for monit oring . Not Available [address], [address], 12/02/2024 12:41:58 12/02/1912/02/2024 CBC WITH DIFFE RENTI AL/PL ATELE T WBC 8.1 x10e3 /uL 3.4-10 .8 normal Not Available [facility] ([facility]) [address] [facility], [place], [address], 12/03/2024 06:05:44 12/02/1912/02/2024 CBC WITH DIFFE RENTI AL/PL ATELE T RBC 4.87 x10e6 /uL 3.77-5 .28 normal Not Available [facility] ([facility]) [address] [place], [address], 12/03/2024 06:05:44 12/02/1912/02/2024 CBC WITH DIFFE RENTI AL/PL ATELE T hemoglobin 15.4 g/dL 11.1-1 5.9 normal Not Available [facility] ([facility]) [address] [place], [address], 12/03/2024 06:05:44 12/02/1912/02/2024 CBC WITH DIFFE RENTI AL/PL ATELE T hematocrit 46.4 % 34.0-4 6.6 normal Not Available [facility] ([facility]) [address] [place], [address], 12/03/2024 06:05:44 12/02/1912/02/2024 CBC WITH DIFFE RENTI AL/PL ATELE T MCV 95 fL 79-97 normal Not Available [facility] ([facility]) [address] [place], [address], 12/03/2024 06:05:44 12/02/19 25 12/02/2024 CBC WITH DIFFE RENTI AL/PL ATELE T MCH 31.6 pg 26.6-3 3.0 normal Not Available [facility] ([facility]) [address] [place], [address], 12/03/2024 06:05:44 12/02/19 25 12/02/2024 CBC WITH DIFFE RENTI AL/PL ATELE T MCHC 33.2 g/dL 31.5-3 5.7 normal Not Available [facility] ([facility]) [address] [place], [address], 12/03/2024 06:05:44 12/02/19 25 12/02/2024 CBC WITH DIFFE RENTI AL/PL ATELE T RDW 13.1 % 11.7-1 5.4 Not Available [facility] ([facility]) [address] [place], [address], 12/03/2024 06:05:44 12/02/19 25 12/02/2024 CBC WITH DIFFE RENTI AL/PL ATELE T platelets 339 x10e3 /uL 150-45 0 normal Not Available [facility] ([facility]) [address] [place], [address], 12/03/2024 06:05:44 12/02/1912/02/2024 CBC WITH DIFFE RENTI AL/PL ATELE T neutrophils 54 % not estab. normal Not Available [facility] ([facility]) [address] [facility], [place], [address], 12/03/2024 06:05:44 12/02/19 25 12/02/2024 CBC WITH DIFFE RENTI AL/PL ATELE T lymphs 36 % not estab. normal Not Available [facility] ([facility]) [address] [place], [address], 12/03/2024 06:05:44 12/02/19 25 12/02/2024 CBC WITH DIFFE RENTI AL/PL ATELE T monocytes 7 % not estab. normal Not Available [facility] ([facility]) [address] [facility], [place], [address], 12/03/2024 06:05:44 12/02/19 25 12/02/2024 CBC WITH DIFFE RENTI AL/PL ATELE T eos 3 % not estab. normal Not Available [facility] ([facility]) [address] [place], [address], 12/03/2024 06:05:44 12/02/19 25 12/02/2024 CBC WITH DIFFE RENTI AL/PL ATELE T basos 0 % not estab. normal Not Available [facility] ([facility]) [address] [facility], [place], [address], 12/03/2024 06:05:44 12/02/1912/02/2024 CBC WITH DIFFE RENTI AL/PL ATELE T immature cells [employer] Not Available [facility] ([facility]) [address] [facility], [place], [address], 12/03/2024 06:05:44 12/02/19 25 12/02/2024 CBC WITH DIFFE RENTI AL/PL ATELE T neutrophils (absolute) 4.4 x10e3 /uL 1.4-7. 0 normal Not Available [facility] ([facility]) [address] [facility], [place], [address], 12/03/2024 06:05:44 12/02/19 25 12/02/2024 CBC WITH DIFFE RENTI AL/PL ATELE T lymphs (absolute) 2.9 x10e3 /uL 0.7-3. 1 normal Not Available [facility] ([facility]) [address] [place], [address], 12/03/2024 06:05:44 12/02/19 25 12/02/2024 CBC WITH DIFFE RENTI AL/PL ATELE T monocytes(ab solute) 0.5 x10e3 /uL 0.1-0. 9 normal Not Available [facility] ([facility]) [address] [place], [address], 12/03/2024 06:05:44 12/02/19 25 12/02/2024 CBC WITH DIFFE RENTI AL/PL ATELE T eos (absolute) 0.2 x10e3 /uL 0.0-0. 4 normal Not Available [facility] ([facility]) [address] [place], [address], 12/03/2024 06:05:44 12/02/19 25 12/02/2024 CBC WITH DIFFE RENTI AL/PL ATELE T baso (absolute) 0.0 x10e3 /uL 0.0-0. 2 normal Not Available [facility] ([facility]) [address] [place], [address], 12/03/2024 06:05:44 12/02/19 25 12/02/2024 CBC WITH DIFFE RENTI AL/PL ATELE T immature granulocytes 0 % not estab. Not Available [facility] ([facility]) [address] [place], [address], 12/03/2024 06:05:44 12/02/19 25 12/02/2024 CBC WITH DIFFE RENTI AL/PL ATELE T immature grans (abs) 0.0 x10e3 /uL 0.0-0. 1 Not Available [facility] ([facility]) [address] [place], [address], 12/03/2024 06:05:44 12/02/19 25 12/02/2024 CBC WITH DIFFE RENTI AL/PL ATELE T NRBC [employer] Not Available [facility] ([facility]) [address] [place], [address], 12/03/2024 06:05:44 12/02/19 25 12/02/2024 CBC WITH DIFFE RENTI AL/PL ATELE T hematology comments: [employer] Not Available [facility] ([facility]) [address] [place], [address], 12/03/2024 06:05:44 12/02/19 25 12/03/2024 ELECT ROLYT E PANEL sodium 140 mmol/ L 134-14 4 normal Not Available [facility] ([facility]) [address] [place], [address], 12/03/2024 06:05:45 12/02/19 25 12/03/2024 ELECT ROLYT E PANEL potassium 4.2 mmol/ L 3.5-5. 2 normal Not Available [facility] ([facility]) [address] [place], [address], 12/03/2024 06:05:45 12/02/1912/03/2024 ELECT ROLYT E PANEL chloride 101 mmol/ L 96-106 normal Not Available [facility] ([facility]) [address] [place], [address], 12/03/2024 06:05:45 12/02/19 25 12/03/2024 ELECT ROLYT E PANEL carbon dioxide, total 23 mmol/ L 20-29 normal Not Available [facility] ([facility]) [address] [place], [address], 12/03/2024 06:05:45 12/02/1912/03/2024 BUN+C REAT BUN 8 mg/dL 6-24 normal Not Available [facility] ([facility]) [address] [place], [address], 12/03/2024 06:05:46 12/02/19 25 12/03/2024 BUN+C REAT creatinine 0.84 mg/dL 0.57-1 .00 normal Not Available [facility] ([facility]) [address] [place], [address], 12/03/2024 06:05:46 12/02/1912/03/2024 BUN+C REAT eGFR 86 mL/mi n/1.7 3 >59 normal Not Available [facility] ([facility]) [address] [place], [address], 12/03/2024 06:05:46 12/02/1912/03/2024 BUN+C REAT BUN/creatini ne ratio 10 9-23 normal Not Available [facility] ([facility]) [address] [place], [address], 12/03/2024 06:05:46 12/02/19 25 12/03/2024 HEMOG LOBIN A1C hemoglobin A1C 5.8 % 4.8-5. 6 above high normal Predi abete s: 5.7 - 6.4 Diabe girma: >6.4 Glyce joel contr ol for adult s with diabe girma: <7.0 Not Available [facility] ([facility]) [address] [facility], [place], [address], 12/03/2024 06:05:47 12/02/1912/03/2024 GLUCO SE glucose 65 mg/dL 70-99 below low normal Not Available [facility] ([facility]) [address] [facility], [place], [address], 12/03/2024 06:05:47 06/07/2007/11/2022 imagi ng/di agnos tic resul t No observ ation record ed. [email or web address] Not Available 05/10 02:30:51 06/07/2001/30/2020 imagi ng/di agnos tic resul t No observ ation record ed. [email or web address] Not Available 05/10 02:31:03 12/01/1912/01/2024 XR, knee, 4 or more view [email or web address] ?Encry pted=s hAaTro YD8dLq bEUv6g %2BXZw aYqtaq 0bqfl% 2Fg9IQ a4ajBk vP9nXo QUaueC m3YtLR FvZlgJ JJ8mAn HZtai3 0w9097 AC0Kqb X6EVqa hKiQtr MwF INTERFACE [facility] [address] [facility] [facility] [address], [place], [address], 12/01/2024 14:49:31 12/01/19 25 12/01/2024 XR, knee, 4 or more view [email or web address] ?Encry pted=s hAaTro YD8dLq bEUv6g %2BXZw aYqtaq 0bqfl% 2Fg9IQ a4ajBk vP9nXo QUaueC m3YtLR FvZlgJ JJ8mAn HZtai3 1k3564 AC0Kqb X6EVqa hKiQtr MwF INTERFACE [facility] [address], [place], [address], 12/01/2024 14:49:33 Result Notes None recorded. Problems Name Problem SNOMED Code Status Onset Date Resolution Date Notes Provider Name and Address Organization Details Recorded Time No complaints 755701655 Active Status : 'A'; Not Available [facility] 4 09:19:12 Acute tear of lateral meniscus of left knee 1234516919844 9105 [facility] 4 10:17:30 Pain of left knee joint 7801922087592 07 Active [facility] 5 14:42:07 Tear of medial meniscus of knee 767592659 Active 2023 Cass Gonzalez PA-C [address], [place], [address] , [facility] 4 09:41:29 Tear of medial meniscus of knee 817931310 Active 2023 DYLAN moncada [facility] 4 09:52:37 Osteoarthr itis of left knee joint 4040442123151 09 Active 2023 Csas Gonzalez PA-C [address], [place], [address] , [facility] 4 15:21:08 Notes:Some problems listed i n Document: #[id number] could not be added to this patient's chart. Please review this document and add these problems to the patient's chart manually as needed. Problem Notes None recorded. Procedures Surgical History Date Name Laterality Status Provider Name and Address Organization Details Recorded Time 5 12223 Therapeutic Exercise (1:1) completed Chris Mastorakis, DPT [address], [place], [address], [facility] 12/02/2024 14:35:44 5 48620: Low complexity PT Eval completed MUKESH MarinT [address], [place], [address], [facility] 12/02/2024 14:35:46 4 72937 Therapeutic Exercise (1:1) cancelled Ashli Salinas PTA [address], [place], [address], [facility] 06/13/2024 08:45:17 4 37900: Manual therapy cancelled Ashli Salinas PTA [address], [place], [address], [facility] 06/13/2024 08:45:17 4 85732 Therapeutic Exercise (1:1) cancelled Ashli HALIMA Salinas [address], [place], [address], [facility] 06/04/2024 07:09:56 4 51347: Manual therapy cancelled Ashli HALIMA Salinas [address], [place], [address], [facility] 06/04/2024 07:09:56 4 [id number] Therapeutic Exercise (1:1) completed Ashli Salinas PTA [address], [place], [address], [facility] 06/03/2024 14:44:28 4 52055: Manual therapy completed Ashli Salinas PTA [address], [place], [address], [facility] 06/03/2024 14:44:26 4 Knee Kenalog 40mg 1cc Asp & Inj, L/R completed Chase Anne MD [address], [place], [address], [facility] 05/29/2024 10:51:54 4 98735 Therapeutic Exercise (1:1) cancelled Ashli Salinas PTA [address], [place], [address], [facility] 05/28/2024 12:58:55 4 77382: Manual therapy cancelled Ashli Salinas PTA [address], [place], [address], [facility] 05/28/2024 12:58:55 4 49522 Therapeutic Exercise (1:1) cancelled Ashli Salinas PTA [address], [place], [address], [facility] 05/26/2024 15:18:04 4 89084: Manual therapy cancelled Ashli Salinas PTA [address], [place], [address], [facility] 05/26/2024 15:18:04 4 84937 Therapeutic Exercise (1:1) completed Ashli Salinas PTA [address], [place], [address], [facility] 05/22/2024 13:52:19 4 71803: Manual therapy completed Ashli Salinas PTA [address], [place], [address], [facility] 05/22/2024 13:52:19 4 19743 Therapeutic Exercise (1:1) cancelled Ashli Salinas PTA [address], [place], [address], [facility] 05/19/2024 15:13:23 4 72751: Manual therapy cancelled Ashli Salinas PTA [address], [place], [address], [facility] 05/19/2024 15:13:23 4 [id number] Therapeutic Exercise (1:1) completed Ashli Salinas PTA [address] [facility], [place], [address], [facility] 05/15/2024 18:07:31 4 16287: Manual therapy completed Ashli Salinas PTA [address], [place], [address], [facility] 05/15/2024 18:07:34 4 [id number] Therapeutic Exercise (1:1) completed Chris Loaiza DPT [address] [facility], [place], [address], [facility] 05/14/2024 15:25:07 4 51250: Low complexity PT Eval completed Chris Loaiza DPT [address] [facility], [place], [address], [facility] 05/14/2024 15:27:32 4 Knee Kenalog 40mg 1cc Asp & Inj, L/R completed Chase Anne MD [address] [facility], [place], [address], [facility] 04/11/2024 10:56:12 4 Sports Knee 4&1 completed Cass Gonzalez PA-C [address] [facility], [place], [address], [facility] 02/12/2024 15:26:06 4 Trigger Finger Kenalog Injection completed Edwige Meza PA-C [address] [facility], [place], [address], [facility] 01/31/2024 17:39:25 Imaging Results Imaging Date Name Status LastModified by Organiz ation Details LastModified Time 07/11/2022 imaging/diag nostic result completed Information not available 06/07/2024 02:30:51 01/30/2020 imaging/diag nostic result completed Information not available 06/07/2024 02:31:03 12/01/2024 XR, knee, 4 or more view completed [facility] [address], [place], [address], 12/01/2024 14:49:31 12/01/2024 XR, knee, 4 or more view completed [facility] [address], [place], [address], 12/01/2024 14:49:33 Procedure Notes None recorded. Medical Equipment None Reported. Allergies Allergen ID Allergen Name Allergen Category Reaction Reaction Severity Criticality Documentation Date Start Date Code Code System Note Provider Name and Address Organization Details Recorded Time 882707 Product containin g 3-hydroxy -3-methyl glutaryl- coenzyme A reductase inhibitor (product) medicatio n Not available Not available Not available 01/11/2024 23966 009 SNOMED DYLAN moncada [place] - [facility] 4 09:22:06 39585 morphine sulfate medicatio n Not available Not available Not available 12/10/20232009 07860 RxNorm Aller gyRea ction : 'Naus ea/Vo mitin g/Hedy rrhea '; Not Available [facility] 4 15:13:05 56328 acetamino phen / oxycodone medicatio n Not available Not available Not available 12/10/20232009 82665 3 RxNorm NEDRA moncada [place] - [facility] 5 14:36:53 Medications Name Sig Start Date Stop Date Status Note LastModified by Organization Details LastModified Time Prescriptio n - Change active Not Available Not Available N ot Available buspirone 5 mg tablet TAKE 1 TABLET BY MOUTH THREE TIMES DAILY 11/19 completed Not Available Not Available Not Available clonidine HCl 0.1 mg tablet TAKE 1 TABLET BY MOUTH AT BEDTIME 11/19 completed Not Available Not Available Not Available benzonatate 200 mg capsule TAKE 1 CAPSULE BY MOUTH 2 TO 3 TIMES PER DAY FOR COUGH 12/01 completed Not Available Not Available Not Available ondansetron HCl 4 mg tablet TAKE 1 TABLET BY MOUTH EVERY 8 HOURS NEEDED FOR NAUSEA OR VOMITING active Not Available Not Available No t Available dextroamphe tamine-amph etamine 10 mg tablet TAKE 1 TABLET BY MOUTH TWICE DAILY 4 HOURS APART active Not Available Not Available No t Available lithium carbonate 150 mg capsule TAKE 1 CAPSULE BY MOUTH AT BEDTIME 12/01 completed Not Available Not Available Not Available tramadol 50 mg tablet TAKE 1 TABLET BY MOUTH EVERY 6 HOURS 11/19 completed Not Available Not Available Not Available triamcinolo ne acetonide 0.1 % topical cream APPLY TOPICALLY TO AFFECTED AREA TWO TIMES A DAY FOR 10 DAYS 01/30 completed Not Available Not Available Not Available temazepam 7.5 mg capsule TAKE 1 CAPSULE BY MOUTH AT BEDTIME NEEDED FOR SLEEP 12/01 completed Not Available Not Available Not Available pantoprazol e 20 mg tablet,nurys yed release TAKE 1 TABLET BY MOUTH EVERY DAY NEEDED FOR HEARTBURN 12/01 completed Not Available Not Available Not Available Celebrex 200 mg capsule Take 1 capsule every day by oral route as directed for 33 days, for START 3 DAYS BEFORE SURGERY. 2024 active Not Available Not Available Not Avai lable amoxicillin 875 mg tablet TAKE 1 TABLET BY MOUTH TWICE DAILY FOR 7 DAYS 12/01 completed Not Available Not Available Not Available temazepam 15 mg capsule TAKE 1 CAPSULE BY MOUTH AT BEDTIME 12/01 completed Not Available Not Available Not Available pantoprazol e 40 mg tablet,nurys yed release Take 1 tablet every day by oral route as directed for 30 days, for PO DAILY. 2024 active Not Available Not Available Not Avai lable fluconazole 50 mg tablet TAKE 1 TABLET BY MOUTH DAILY FOR 14 DAYS 11/19 completed Not Available Not Available Not Available pseudoephed rine-guaife nesin ER 80-700 mg tablet,exte nded release Percocet 5-325MG Tablet 1 every bedtime 07/10 completed Statu s: 'Disc ontin ued'; Not Available Not Available Not Available buspirone 10 mg tablet TAKE 1 TABLET BY MOUTH TWICE DAILY 11/19 completed Not Available Not Available Not Available lorazepam 1 mg tablet TAKE 1 TABLET BY MOUTH 2 TO 3 TIMES A DAY NEEDED FOR ANXIETY OR INSOMNIA active Not Available Not Available No t Available zolpidem 10 mg tablet TAKE 1 TABLET BY MOUTH AT BEDTIME NEEDED FOR SLEEP active Not Available Not Available No t Available albuterol sulfate HFA 90 mcg/actuati on aerosol inhaler INHALE 1 PUFF BY MOUTH FOUR TIMES DAILY NEEDED FOR COUGH. 12/01 completed Not Available Not Available Not Available ondansetron 4 mg disintegrat ing tablet DISSOLVE ONE TABLET BY MOUTH THREE TIMES DAILY NEEDED FOR NAUSEA FOR 7 DAYS active Not Available Not Available No t Available naproxen 500 mg tablet TAKE 1 TABLET BY MOUTH TWICE DAILY 05/02 completed Not Available Not Available Not Available amoxicillin 875 mg-potassiu m clavulanate 125 mg tablet TAKE 1 TABLET BY MOUTH TWICE DAILY FOR 5 DAYS 01/30 completed Not Available Not Available Not Available oxycodone 5 mg tablet TAKE 1 TABLET BY MOUTH EVERY 4 HOURS FOR 7 DAYS NEEDED active Not Available Not Available No t Available rosuvastati n 5 mg tablet TAKE 1 TABLET BY MOUTH EVERY DAY 11/19 completed Not Available Not Available Not Available mirtazapine 7.5 mg tablet TAKE 1 TABLET BY MOUTH AT BEDTIME 11/19 completed Not Available Not Available Not Available eszopiclone 3 mg tablet TAKE 1 TABLET BY MOUTH AT BEDTIME 11/19 completed Not Available Not Available Not Available eszopiclone 2 mg tablet TAKE 1 TABLET BY MOUTH AT BEDTIME 05/02 completed Not Available Not Available Not Available ramelteon 8 mg tablet TAKE 1 TABLET BY MOUTH AT BEDTIME 11/19 completed Not Available Not Available Not Available zolpidem ER 12.5 mg tablet,exte nded release,mul tiphase TAKE 1 TABLET BY MOUTH AT BEDTIME 11/19 completed Not Available Not Available Not Available lorazepam 05/02 completed Not Available Not Available Not Available Ambien 06/24 completed Not Available Not Available Not Available Belsomra 10 mg tablet TAKE 1 TABLET BY MOUTH AT BEDTIME 12/01 completed Not Available Not Available Not Available Vitals Date Recorded Body height Body mass index (BMI) Body weight Provider Name and Address Organization Details Last Updated DateTime 12/01/2024 165.74 cm 28.7 kg/m2 10107.07 g NEDRA CANTU [place] - [facility] 12/01/2024 14:37:24 Date Recorded Body height Body mass index (BMI) Body weight Provider Name and Address Organization Details Last Updated DateTime 12/05/2024 165.74 cm 29.2 kg/m2 90604.85 g MARTITA WILDE [facility] 12/05/2024 12:59:29 Social History None recorded. Functional Status None recorded. Mental Status None recorded. Family History Nothing Reported. Medical History Condition Response Anxiety/Depression Y Arthritis Y Cholesterol Y Gynecological HistoryNo gynecological history recorded. Obstetrics History GPAL:G 0 P 0 0 0 0 Past Encounters Encounter ID Performer Location Encounter Start Date Encounter Closed Date Diagnosis/Indication Diagnosis SNOMED-CT Code Diagnosis ICD10 Code Diagnosis Note [id number] Cass Gonzalez [place] [address] 01/11/2024 09:00:10 02/06/2024 15:11:14 Pain of left knee joint 4096348106 44599 M25.562 Tear of me dial meniscus of knee 529530902 S83.242A [id number] MAGY Cooper [address] [place] [address] 01/31/2024 17:07:47 02/22/2024 09:18:58 [id number] MAGY Rios [address] [place] [address] 02/12/2024 14:42:34 03/06/2024 18:22:56 Osteoarthritis of left knee joint 1017763737 59216 M17.12 [id number] EMILIA Olsen [address] [place] [address] 04/11/2024 09:36:11 05/13/2024 10:20:50 Acute tear of lateral meniscus of left knee 1604759260 2899446 S83.282A [id number] MAGY High [address] [place] [address] 05/02/2024 12:56:37 05/21/2024 10:57:48 Postoperative care 872096067 Z48.89 [id number] Chris Loaiza , DPT [facility] [address] [place] [address] 05/13/2024 17:35:09 05/13/2024 18:03:23 Tear of lateral meniscus of knee 121438677 S83.282D [id number] Chris Loaiza , DPT [facility] [address] [place] [address] 05/15/2024 16:51:31 05/15/2024 17:40:14 Tear of lateral meniscus of knee 535816159 S83.282D [id number] Kemi Ovalle, DPT [facility] [address] [place] [address] 05/23/2024 15:34:13 05/23/2024 16:23:09 Tear of lateral meniscus of knee 491799728 S83.282D [id number] Chase Anne MD [facility] [address] [place] [address] 05/29/2024 09:51:26 06/23/2024 11:07:24 Acute tear of lateral meniscus of left knee 5704947663 8954597 S83.282A [id number] Chris Loaiza , DPT [facility] [address] [place] [address] 06/03/2024 11:09:05 06/03/2024 12:11:37 Tear of lateral meniscus of knee 350994917 S83.282D [id number] MD SERGIO Jarvis - [facility] [address] [place] [address] 11/20/2024 13:41:28 12/10/2024 07:23:09 Osteoarthritis of left knee joint 1540100340 00037 M17.12 MD SERGIO Diehl - [facility] [address] [place] [address] 12/01/2024 14:04:58 12/11/2024 11:54:09 Pain of left knee joint 6344696927 45551 M25.562 Osteoarthr itis of left knee joint 1402652221 80448 M17.12 [id number] Chris Loaiza , DPT [facility] [address] [place] [address] 12/02/2024 10:45:29 12/02/2024 12:12:23 Osteoarthritis of knee 716317992 M17.12 [id number] [place] Nowak, [employer] SER[facility] [address] [place] [address] 12/05/2024 12:47:11 12/05/2024 13:51:55 Preprocedural examination done 6459038182 06553 Z01.818 Osteoarthr itis of left knee joint 4165169889 25854 M17.12 Health Concerns Section Related Observation LastModified by Organization Detai ls LastModified Time None Recorded Concern Status LastModified by Organization Details LastModified Time None Recorded Advance Directives Directive None Recorded Payers Encounter Date Sequence Insurance Name Policy Number Policy Sutton Covered Member ID Sutton Member ID Guarantor Name 06/03/2024 1 [facility] [id number] 23 [facility] [id number] [facility] 11/20/2024 1 [facility] [id number] 23 [facility] [id number] [facility] 12/01/2024 1 [facility] [id number] 23 [facility] [id number] [facility] 12/02/2024 1 [facility] [id number] 23 [facility] [id number] [facility] 12/05/2024 1 [facility] [id number] 23 [facility] [id number] [facility] Notes Date Note Type Note Provider Name and Address Organization Details Recorded Time 06/03/2024 text/html Pt reports 4/10 px with mild swelling after activities. Saw , drained and injected her knee and is feeling a little better since. Feels like taping her knee is helping to stabilize. RTW on 06/16 Ashli Salinas, [employer]ABLE [employer]ER [address], [place], [address], [facility] 06/03/2024 14:47:12 11/20/2024 text/html Chief ComplaintT he patient presents today for follow-up evaluation regarding the {{Left* Right Bilater al}} knee osteoarthritis. Is known to have knee arthritis treated conservatively to this point with relief of symptoms. Status post left knee arthroscopy partial lateral meniscectomy in April 2024. Was found to have diffuse grade 4 changes of the lateral compartment at the time of that surgical procedure. Patellofemoral and medial compartments are better maintained. Patient reports diminishing response to corticosteroid injections. Reports no substantial nor long-lasting benefit to her prior knee arthroscopy. 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 Past Medical/Surgical HistoryReviewed today, otherwise unchanged per intake sheet. Physical FindingsGeneral Appearance: Mild antalgic gait {{right left* Bilater al}}Knee exam findings note: restrictions are range of motion with pain at extremes, tenderness to palpation involving medial and lateral compartment with mild crepitance, trace effusion, extensor mechanism intact, no instability. calf supple non-tender HEENT- unremarkableH-RRR with no Murmurs, rubs, or gallopsA- Soft, Non-tender positive bowel soundsLungs clear to auscultation bilaterally Assessment? ? Osteoarthritis of {{Left* Right Bilater al}} knee PlanI discussed with the patient today regarding their knee condition to include all treatment options, conservation and operative, to include total knee replacement surgery which after further discussion, the patient does Want to consider total knee arthroplasty techniques. Referral has been made for evaluation and consideration of total joint arthroplasty. If she elects to delay this could consider injections in the future. Chase Anne MD [address] [place] [address] [address], [place], [address], [facility] - [facility] 11/20/2024 14:21:31 12/02/2024 text/html Patient is 49 ye ar old female, with chronic history of knee pain and OA. Presents today for first prehab visit for scheduled TKA at [facility] on 12/18/24. Arrives today ambulating with out AD. Reviewed post-operative mobility and mechanics with appropriate assistive device. Has 10 steps at home with railings. Demonstrates good understanding of post-operative expectations and HEP. 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 Patient goal is to return to work and restore function of L knee Chris Loaiza, DPT [address] [facility] [address], [place], [address], [facility] - [facility] 12/02/2024 14:36:37 OBGyn Episode No OBEpisode recorded.
--- OUTSIDE RECORDS SUMMARY | 2024-12-15 09:25 | XMS_ITS | Continuity of Care Document ---
Author Organization [facility], SERGIO Olsen 2nd floor Address [address] [place] [address] Care Team Providers Care Pump Service Supervisor Name Role Phone VALERIE DUPONT Primary Care Provider Assessment Encounter Date Assessment Date Assessment LastModified by Organization Details LastModified Time 12/05/2024 12/05/2024 PRIMARY DIAGNOSI S: Osteoarthritis of [...] osteoarthrits of the left knee. There is wmrx-nv-prcy articulation, subchondral sclerosis, and osteophyte formation. There [...] Her Kenan, with a cell phone number [phone]. [email or web address] Not available 12/05/2024 13:51:43 Plan of Treatment Reminders Order Date Submit Date Provider Last Modified By Organization Details Last Modified Time Details Appointments None recorded. Lab None recorded. Referral None recorded. Procedures None recorded. Surgeries None recorded. Imaging None recorded. Medication Orders oxycodone 5 mg tablet 2024 025 [id number], [address] [place], [place], [phone], 12:58:51 Celebrex 200 mg capsule 2024 025 [facility] [address] [facility] #59332, [address] [place] [address], [id number], 13:47:42 pantoprazol e 40 mg tablet,nurys yed release 2024 025 [employer] [facility]95505, [address] [place], [place], [phone], 13:47:42 ondansetron 4 mg disintegrat ing tablet 2024 025 [employer] [facility] [facility] #51825, [address] [place], [place], [phone], 13:47:42 Patient TargetsNo targets recorded. Patient InstructionsNo instructions recorded. Reason for Referral None Reported. Results Created Date Observation Date Name Description Value Unit Range Abnormal Flag Note LastModifiedBy Organization Detail LastModifiedTime 12/01/1912/01/2024 XR, knee, 4 or more view [email or web address] ?Encry pted=s hAaTro YD8dLq bEUv6g %2BXZw aYqtaq 0bqfl% 2Fg9IQ a4ajBk vP9nXo QUaueC m3YtLR FvZlgJ JJ8mAn HZtai3 1g2069 AC0Kqb X6EVqa hKiQtr MwF INTERFACE [facility] [address] [facility]e [employer] [facility] [address], [place], [address], 12/01/2024 14:49:31 12/01/19 25 12/01/2024 XR, knee, 4 or more view [email or web address]:/ [email or web address] ?Encry pted=s hAaTro YD8dLq bEUv6g %2BXZw aYqtaq 0bqfl% 2Fg9IQ a4ajBk vP9nXo QUaueC m3YtLR FvZl JJ8Hardaway HZtai 6q0100 AC0Kqb X6EVqa hKiQtr MwF INTERFACE [facility] Office [address], [address], 12/01/2024 14:49:33 Result Notes None recorded. Problems Name Problem SNOMED Code Status Onset Date Resolution Date Notes Provider Name and Address Organization Details Recorded Time No complaints 569971089 Active Status : 'A'; Not Available [facility] 4 09:19:12 Acute tear of lateral meniscus of left knee 4818488259995 9105 Active 2023 NATHEN moncada [place] - [facility] 4 10:17:30 Pain of left knee joint 5314584132564 07 Active 2023 NEDRA moncada, [facility] 5 14:42:07 Tear of medial meniscus of knee 761616128 Active 2023 Cass Gonzalez PA-C [address], [place], [address] , [facility] 4 09:41:29 Tear of medial meniscus of knee 370423329 Active 2023 DYLAN moncada, [facility] 4 09:52:37 Osteoarthr itis of left knee joint 9360691621770 09 Active 2023 Cass Gonzalez PA-C [address], [place], [address] , [facility] 4 15:21:08 Notes:Some problems listed i n Document: #[id number] could not be added to this patient's chart. Please review this document and add these problems to the patient's chart manually as needed. Problem Notes None recorded. Procedures Surgical History Date Name Laterality Status Provider Name and Address Organization Details Recorded Time 5 57356 Therapeutic Exercise (1:1) completed Chris Loaiza DPT [address], [place], [address], [facility] 12/02/2024 14:35:44 5 17496: Low complexity PT Eval completed Chris Loaiza DPT [address], [place], [address], [facility] 12/02/2024 14:35:46 4 35621 Therapeutic Exercise (1:1) cancelled Ashli Salinas PTA [address], [place], [address], [facility] 06/13/2024 08:45:17 4 40794: Manual therapy cancelled Ashli Salinas, COLLECTION CLERK [address], [place], [address], [facility] 06/13/2024 08:45:17 4 34205 Therapeutic Exercise (1:1) cancelled Ashli Salinas PTA [address], [place], [address], [facility] 06/04/2024 07:09:56 4 47386: Manual therapy cancelled Ashli Salinas PTA [address], [place], [address], [facility] 06/04/2024 07:09:56 4 45507 Therapeutic Exercise (1:1) completed Ashli Salinas PTA [address], [place], [address], [facility] 06/03/2024 14:44:28 4 88662: Manual therapy completed Ashli Salinas PTA [address], [place], [address], [facility] 06/03/2024 14:44:26 4 Knee Kenalog 40mg 1cc Asp & Inj, L/R completed Chase Anne MD [address] [facility], [place], [address], [facility] 05/29/2024 10:51:54 4 05942 Therapeutic Exercise (1:1) cancelled Ashli Salinas PTA [address], [place], [address], [facility] 05/28/2024 12:58:55 4 01970: Manual therapy cancelled Ashli Salinas PTA [address], [place], [address], [facility] 05/28/2024 12:58:55 4 49551 Therapeutic Exercise (1:1) cancelled Ashli Salinas PTA [address], [place], [address], [facility] 05/26/2024 15:18:04 4 27927: Manual therapy cancelled Ashli Salinas PTA [address], [place], [address], [facility] 05/26/2024 15:18:04 4 96510 Therapeutic Exercise (1:1) completed Ashli Salinas PTA [address], [place], [address], [facility] 05/22/2024 13:52:19 4 90137: Manual therapy completed Ashli Salinas PTA [address], [place], [address], [facility] 05/22/2024 13:52:19 4 87235 Therapeutic Exercise (1:1) cancelled Ashli Salinas PTA [address], [place], [address], [facility] 05/19/2024 15:13:23 4 97288: Manual therapy cancelled Ashli Salinas PTA [address], [place], [address], [facility] 05/19/2024 15:13:23 4 64912 Therapeutic Exercise (1:1) completed Ashli Salinas PTA [address], [place], [address], [facility] 05/15/2024 18:07:31 4 74445: Manual therapy completed Ashli Salinas PTA [address], [place], [address], [facility] 05/15/2024 18:07:34 4 99194 Therapeutic Exercise (1:1) completed Chris Loaiza DPT [address], [place], [address], [facility] 05/14/2024 15:25:07 4 46497: Low complexity PT Eval completed MUKESH MarinT [address], [place], [address], [facility] 05/14/2024 15:27:32 4 Knee Kenalog 40mg 1cc Asp & Inj, L/R completed Chase Anne MD [address], [place], [address], [facility] 04/11/2024 10:56:12 4 Sports Knee 4&1 completed Cass Gonzalez PA-C [address], [place], [address], [facility] 02/12/2024 15:26:06 4 Trigger Finger Kenalog Injection completed Edwige Meza PA-C [address], [place], [address], [facility] 01/31/2024 17:39:25 Imaging Results None recorded. Procedure Notes None recorded. Medical Equipment None Reported. Allergies Allergen ID Allergen Name Allergen Category Reaction Reaction Severity Criticality Documentation Date Start Date Code Code System Note Provider Name and Address Organization Details Recorded Time 042289 Product containin g 3-hydroxy -3-methyl glutaryl- coenzyme A reductase inhibitor (product) medicatio n Not available Not available Not available 01/11/2024 73671 009 SNOMED DYLAN moncada, [facility] 4 09:22:06 54001 morphine sulfate medicatio n Not available Not available Not available 12/10/20232009 91323 RxNorm Aller gyRea ction : 'Naus ea/Vo mitin g/Hedy rrhea '; Not Available [facility] 4 15:13:05 05589 acetamino phen / oxycodone medicatio n Not available Not available Not available 12/10/20232009 17344 3 RxNorm NEDRA moncada [facility] 5 14:36:53 Medications Name Sig Start [...] TABLET BY MOUTH DAILY FOR 14 DAYS 02/12 /2025 completed Not Available Not Available Not Available [...] Updated DateTime 12/05/2024 165.74 cm 29.2 kg/m2 03896.85 g MARTITA WILDE [place] - [facility] 12/05/2024 12:59:29 Social History None recorded. [...] SNOMED-CT Code Diagnosis ICD10 Code Diagnosis Note [id number] MD SERGIO Jarvis [address]nd [address] [place] [address] 11/20/2024 13:41:28 12/10/2024 07:23:09 Osteoarthritis of left knee joint 9062422961 90251 M17.12 MD SERGIO Diehl - [place] [address] [place] [address] 12/01/2024 14:04:58 12/11/2024 11:54:09 Pain of left knee joint 3707624936 52354 M25.562 Osteoarthr itis of left knee joint 5246735815 40777 M17.12 [id number] LEXUS MarinA - [facility] [address] [place] [address] 12/02/2024 10:45:29 12/02/2024 12:12:23 Osteoarthritis of knee 300358313 M17.12 [id number] JUAN ALBERTO Chavez - [place] [address] [place] [address] 12/05/2024 12:47:11 12/05/2024 13:51:55 Preprocedural examination done 4962876379 72633 Z01.818 Osteoarthr itis of left knee joint 9951811398 30353 M17.12 Health Concerns Section Related Observation LastModified by Organization Detai ls LastModified Time None Recorded Concern Status LastModified by Organization Details LastModified Time None Recorded Payers Encounter Date Sequence Insurance Name Policy Number Policy Sutton Covered Member ID Sutton Member ID Guarantor Name 12/05/2024 1 [facility] [id number] 23 Tarsha Mackenzie [id number] Tarsha Mackenzie OBGyn Episode No OBEpisode recorded.
--- OUTSIDE RECORDS SUMMARY | 2024-12-15 09:26 | XMS_ITS | Continuity of Care Document ---
Author Organization [place] - [facility], SERGIO Faustinovania 2nd floor Address [address] [place] [address] Care Team Providers Care Internal Sales Engineer Name Role Phone VALERIE DUPONT Primary Care Provider Assessment No assessment recorded. Plan of Treatment Reminders Order Date Submit Date Provider Last Modified By Organization Details Last Modified Time Details Appointments None recorded. Lab None recorded. Referral None recorded. Procedures None recorded. Surgeries None recorded. Imaging None recorded. Medication Orders oxycodone 5 mg tablet 2024 025 [facility] #40428, [address] [place], [place], [phone], 14:22:01 Patient TargetsNo targets recorded. Patient InstructionsNo instructions recorded. Reason for Referral None Reported. Results Created Date Observation Date Name Description Value Unit Range Abnormal Flag Note LastModifiedBy Organization Detail LastModifiedTime 12/01/19 25 12/01/2024 XR, knee, 4 or more view [email or web address] ?Encry pted=s hAaTro YD8dLq bEUv6g %2BXZw aYqtaq 0bqfl% 2Fg9IQ a4ajBk vP9nXo QUaueC m3YtLR FvZlgJ JJ8mAn HZtai3 7v3711 AC0Kqb X6EVqa hKiQtr MwF INTERFACE [facility] [address] [place] [address], [place], [address], 12/01/2024 14:49:31 12/01/19 25 12/01/2024 XR, knee, 4 or more view [email or web address] ?Encry pted=s Eveline YD8dLq bEUv6g %2BXZw aYqtaq 0bqfl% 2Fg9IQ a4ajBk vP9nXo QUaueC m3YtLR FvZlgJ JJ8mAn HZtai3 1c9513 AC0Kqb X6EVqa hKiQtr MwF INTERFACE [facility] [address], [place], [address], 12/01/2024 14:49:33 Result Notes None recorded. Problems Name Problem SNOMED Code Status Onset Date Resolution Date Notes Provider Name and Address Organization Details Recorded Time No complaints 696558221 Active Status : 'A'; Not Available [facility] 4 09:19:12 Acute tear of lateral meniscus of left knee 7170423774127 9105 Active 2023 NATHEN moncada [facility] 4 10:17:30 Pain of left knee joint 6513934311872 07 Active 2023 NEDRA moncada [facility] 5 14:42:07 Tear of medial meniscus of knee 288760077 Active 2023 Cass Gonzalez PA-C [address], [place], [address] , [facility] 4 09:41:29 Tear of medial meniscus of knee 735297258 Active 2023 DYLAN moncada [facility] 4 09:52:37 Osteoarthr itis of left knee joint 2598120987736 09 Active 2023 Cass Gonzalez PA-C [address], [place], [address] , [facility] 4 15:21:08 Notes:Some problems listed i n Document: #[id number] could not be added to this patient's chart. Please review this document and add these problems to the patient's chart manually as needed. Problem Notes None recorded. Procedures Surgical History Date Name Laterality Status Provider Name and Address Organization Details Recorded Time 5 40113 Therapeutic Exercise (1:1) completed MUKESH MarinT [address], [place], [address], [facility] 12/02/2024 14:35:44 5 52683: Low complexity PT Eval completed MUKESH MarinT [address], [place], [address], [facility] 12/02/2024 14:35:46 4 20201 Therapeutic Exercise (1:1) cancelled Ashli Salinas PTA [address], [place], [address], [facility] 06/13/2024 08:45:17 4 18249: Manual therapy cancelled Ashli Salinas PTA [address], [place], [address], [facility] 06/13/2024 08:45:17 4 28905 Therapeutic Exercise (1:1) cancelled Ashli Salinas PTA [address], [place], [address], [facility] 06/04/2024 07:09:56 4 68453: Manual therapy cancelled Ashli Salinas PTA [address], [place], [address], [facility] 06/04/2024 07:09:56 4 10723 Therapeutic Exercise (1:1) completed Ashli Salinas PTA [address], [place], [address], [facility] 06/03/2024 14:44:28 4 00455: Manual therapy completed Ashli Salinas PTA [address], [place], [address], [facility] 06/03/2024 14:44:26 4 Knee Kenalog 40mg 1cc Asp & Inj, L/R completed Chase Anne MD [address], [place], [address], [facility] 05/29/2024 10:51:54 4 54905 Therapeutic Exercise (1:1) cancelled Ashli Salinas PTA [address], [place], [address], [facility] 05/28/2024 12:58:55 4 26183: Manual therapy cancelled Ashli Salinas PTA [address], [place], [address], [facility] 05/28/2024 12:58:55 4 35515 Therapeutic Exercise (1:1) cancelled Ashli Salinas PTA [address], [place], [address], [facility] 05/26/2024 15:18:04 4 69287: Manual therapy cancelled Ahsli Salinas PTA [address], [place], [address], [facility] 05/26/2024 15:18:04 4 17806 Therapeutic Exercise (1:1) completed Ashli Salinas PTA [address], [place], [address], [facility] 05/22/2024 13:52:19 4 40292: Manual therapy completed Ashli Salinas PTA [address], [place], [address], [facility] 05/22/2024 13:52:19 4 34363 Therapeutic Exercise (1:1) cancelled Ashli Salinas PTA [address], [place], [address], [facility] 05/19/2024 15:13:23 4 12502: Manual therapy cancelled Ashli Salinas PTA [address] [facility], [place], [address], [facility] 05/19/2024 15:13:23 4 09484 Therapeutic Exercise (1:1) completed Ashli Salinas PTA [address], [place], [address], [facility] 05/15/2024 18:07:31 4 75894: Manual therapy completed Ashli Salinas PTA [address], [place], [address], [facility] 05/15/2024 18:07:34 4 36217 Therapeutic Exercise (1:1) completed Chris Loaiza DPT [address] [facility], [place], [address], [facility] 05/14/2024 15:25:07 4 29345: Low complexity PT Eval completed Chris Loaiza DPT [address], [place], [address], [facility] 05/14/2024 15:27:32 4 Knee Kenalog 40mg 1cc Asp & Inj, L/R completed Chase Anne MD [address] [facility], [place], [address], [facility] 04/11/2024 10:56:12 4 Sports Knee 4&1 completed Cass Gonzalez PA-C [address] [facility], [place], [address], [facility] 02/12/2024 15:26:06 4 Trigger Finger Kenalog Injection completed Edwige Meza PA-C [address], [place], [address], [facility] 01/31/2024 17:39:25 Imaging Results None recorded. Procedure Notes None recorded. Medical Equipment None Reported. Allergies Allergen ID Allergen Name Allergen Category Reaction Reaction Severity Criticality Documentation Date Start Date Code Code System Note Provider Name and Address Organization Details Recorded Time 059772 Product containin g 3-hydroxy -3-methyl glutaryl- coenzyme A reductase inhibitor (product) medicatio n Not available Not available Not available 01/11/2024 63257 009 SNOMED DYLAN moncada [place] - [facility] 4 09:22:06 30113 morphine sulfate medicatio n Not available Not available Not available 12/10/20232009 80012 RxNorm Aller gyRea ction : 'Naus ea/Vo mitin g/Hedy rrhea '; Not Available [facility] 4 15:13:05 15399 acetamino phen / oxycodone medicatio n Not available Not available Not available 12/10/20232009 94786 3 RxNorm NEDRA moncada [place] - [facility] 5 14:36:53 Medications Name Sig Start [...] Available Not Available Not Available amoxicillin 875 mg-elenita m clavulanate 125 mg tablet TAKE 1 [...] Not Available Not Available Not Available Vitals None Recorded Social History None recorded. Functional Status None recorded. Mental Status None recorded. Family History Nothing Reported. Medical History Condition Response Anxiety/Depression Y Arthritis Y Cholesterol Y Gynecological HistoryNo gynecological history recorded. Obstetrics History GPAL:G 0 P 0 0 0 0 Past Encounters Encounter ID Performer Location Encounter Start Date Encounter Closed Date Diagnosis/Indication Diagnosis SNOMED-CT Code Diagnosis ICD10 Code Diagnosis Note [id number] MD SERGIO Jarvis [address] [place], [place] [address] 11/20/2024 13:41:28 12/10/2024 07:23:09 Osteoarthritis of left knee joint 4879877459 65277 M17.12 Health Concerns Section Related Observation LastModified by Organization Detai ls LastModified Time None Recorded Concern Status LastModified by Organization Details LastModified Time None Recorded Payers Encounter Date Sequence Insurance Name Policy Number Policy Sutton Covered Member ID Sutton Member ID Guarantor Name 11/20/2024 1 [facility] [id number] 23 Tarsha Mackenzie [id number] Tarsha Mackenzie Notes Date Note Type Note Provider Name and Address Organization Details Recorded Time 11/20/2024 text/html Chief ComplaintT he patient presents [...] 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 Osteoarthritis of {{Left* Right Bilater al}} knee [...] injections in the future. Chase Anne MD [address] [place], [place] [address] [address], [place], [address], [facility] - [facility] [facility] 11/20/2024 14:21:31 OBGyn Episode No OBEpisode recorded.
== END 2024-12-15 17:32 | disposition home or self-care (01) ==
LOC: HO.HOP 08:57
PROVIDERS: PCP Internal Medicine; Visit Provider Clinical Nurse Specialist Psychiatric/Mental Health
DX: F90.2 Attention-deficit hyperactivity disorder, combined type (principal); R45.89 Other symptoms and signs involving emotional state; F51.01 Primary insomnia
CPT/HCPCS: 99214

== ENCOUNTER → 2024-12-15 08:57 | Outpatient (BNVA) | payer OTHER, SELFPAY | PROVIDERS: PCP Internal Medicine; Visit Provider Clinical Nurse Specialist Psychiatric/Mental Health ==

== ENCOUNTER 2025-02-19 08:02 | Outpatient (AMB) | payer OTHER, SELFPAY ==
--- OUTSIDE RECORDS SUMMARY | 2025-02-19 08:05 | XMS_ITS | Data Portability ---
Author Organization [facility], [facility] Address [address] [place] [address] Care Team Providers Care Repairer Veneer Sheet Name Role Phone VALERIE DUPONT Primary Care Provider [phone] Assessment Encounter Date Assessment Date Assessment LastModified by Organization Details LastModified Time 12/01/2024 12/01/2024 History: Patient is a 49-year-old [...] and lucid. Normal insight, affect and grooming. 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 No spasticity [...] osteoarthrits of the left knee. There is ulbn-tx-pfrw articulation, subchondral sclerosis, and osteophyte formation. There [...] an elective total knee replacement at the [facility]. Next planned follow-up is at the history and physical. The patient knows I will be happy to meet with them at any time in order to review any additional questions or concerns that they might have. [email or web address] Not available 12/01/2024 15:12:29 12/02/2024 12/02/2024 Assessment: [...] osteoarthrits of the left knee. There is uxqq-gc-cmxf articulation, subchondral sclerosis, and osteophyte formation. There [...] Her Kenan, with a cell phone number [phone]. [email or web address] Not available 12/05/2024 13:51:43 12/29/2024 12/29/2024 I am seeing the patient today under the supervision of Dr Bravo who was available but who did not see the patient. Patient is here today for knee injection. Patient reports no adverse reaction from previous injections. REASON FOR VISIT Edit Text Patient is here today for gel one injections of left knees. Patient reports no adverse reaction from previous injections. PHYSICAL FINDINGS Edit Text Evaluation of the knees reveals no evidence of infection, no significant joint effusion, no warmth, or erythema. The injection sites are benign. Calves are supple and nontender. 5/5 strength. Some discomfort with range of motion. ASSESSMENT ? ? ? Osteoarthritis of knee -left knees PLAN After meticulous sterile preparation, knee was aspirated and knee was injected with gel one. Post-injection precautions were reviewed. I recommend ice, restriction of activities. Not available 12/29/2024 09:22:56 02/03/2025 02/03/2025 Patient seen und er general supervision of Dr. Mcdermott who was available but who did not see the patient. HPI: 49-year-old female with left knee arthritis seen today for follow-up. Patient is followed with Dr. Anne, had also been scheduled for her TKA with Dr. Bryant. She decided she would prefer not to have a knee arthroplasty. She received a Visco supplementation injection 1 month ago which has provided minimal relief. She denies any new falls or trauma. Examination: 49-year-old female no acute distress. Examination left knee with arthroscopic portal incisions, no significant effusion noted. Tenderness about the raoul-joint line. Calf is soft. Impression: Left knee arthritis Plan: Treatment options reviewed. Role of steroid injection as well as that of TKA discussed. Patient does not wish to proceed with surgery therefore cortisone injection performed today. Follow-up [facility] speech recognition rfid developer software was used to create portions of this document. An attempt at proofreading has been made to minimize errors. Please call for corrections. Not available 02/03/2025 14:53:00 Plan of Treatment Reminders Order Date Submit Date Provider Last Modified By Organization Details Last Modified Time Details Appointments None recorded. Lab None recorded. Referral None recorded. Procedures None recorded. Surgeries None recorded. Imaging XR, knee, 4 or more view - 210 l knee 4v 2024 025 [email or web address] [facility], [address], [facility] [address], [place], [address], 5 11:54:10 Medication Orders oxycodone 5 mg tablet 2024 025 MOOK[id number], [address] [place] [address], [id number], 5 12:58:51 Celebrex 200 mg capsule [address] [facility]32695, [address] [place] [address], [id number], 5 13:47:42 pantoprazol e 40 mg tablet,nurys yed release [address] [facility]07605, [address] [place] [address], [id number], 5 13:47:42 ondansetron 4 mg disintegrat ing tablet [address] [facility] #36742, [address] [place] [address], [id number], 5 13:47:42 Patient TargetsNo targets recorded. Patient InstructionsNo instructions recorded. Reason for Referral None Reported. Results Created Date Observation Date Name Description Value Unit Range Abnormal Flag Note LastModifiedBy Organization Detail LastModifiedTime 12/02/19 25 12/02/2024 PROTH ROMBI N TIME (PT) INR 1.0 0.9-1. 1 Not Available [facility] [address] [place], [address], 12/02/2024 12:41:57 12/02/19 25 12/02/2024 PROTH ROMBI N TIME (PT) prothrombin time 10.9 sec 9.2-11 .4 normal Not Available [address], [address], 12/02/2024 12:41:57 12/02/1912/02/2024 PTT, ACTIV ATED APTT 27.2 sec 23.4-3 3.1 normal For patie nts needi ng highe r than usual dose of hepar in to achie ve thera peuti c range use UFH anti Xa level s for monit oring . Not Available [address], [address], 12/02/2024 12:41:58 12/02/19 25 12/02/2024 CBC WITH DIFFE RENTI AL/PL ATELE T WBC 8.1 x10e3 /uL 3.4-10 .8 normal Not Available [facility] ([facility]) [address] [place], [address], 12/03/2024 06:05:44 12/02/19 25 12/02/2024 CBC WITH DIFFE RENTI AL/PL ATELE T RBC 4.87 x10e6 /uL 3.77-5 .28 normal Not Available [facility] ([facility]) [address] [place], [address], 12/03/2024 06:05:44 12/02/19 25 12/02/2024 CBC WITH DIFFE RENTI AL/PL ATELE T hemoglobin 15.4 g/dL 11.1-1 5.9 normal Not Available [facility] ([facility]) [address] [place], [address], 12/03/2024 06:05:44 12/02/19 25 12/02/2024 CBC WITH DIFFE RENTI AL/PL ATELE T hematocrit 46.4 % 34.0-4 6.6 normal Not Available [facility] ([facility]) [address] [place], [address], 12/03/2024 06:05:44 12/02/19 25 12/02/2024 CBC WITH DIFFE RENTI AL/PL ATELE T MCV 95 fL 79-97 normal Not Available [facility] ([facility]) [address] [facility], [place], [address], 12/03/2024 06:05:44 12/02/1912/02/2024 CBC WITH DIFFE RENTI AL/PL ATELE T MCH 31.6 pg 26.6-3 3.0 normal Not Available [facility] ([facility]) [address] [place], [address], 12/03/2024 06:05:44 12/02/19 25 12/02/2024 CBC WITH DIFFE RENTI AL/PL ATELE T MCHC 33.2 g/dL 31.5-3 5.7 normal Not Available [facility] ([facility]) [address] [place], [address], 12/03/2024 06:05:44 12/02/19 25 12/02/2024 CBC WITH DIFFE RENTI AL/PL ATELE T RDW 13.1 % 11.7-1 5.4 Not Available [facility] ([facility]) [address] [place], [address], 12/03/2024 06:05:44 12/02/19 25 12/02/2024 CBC WITH DIFFE RENTI AL/PL ATELE T platelets 339 x10e3 /uL 150-45 0 normal Not Available [facility] ([facility]) [address] [place], [address], 12/03/2024 06:05:44 12/02/19 25 12/02/2024 CBC WITH DIFFE RENTI AL/PL ATELE T neutrophils 54 % not estab. normal Not Available [facility] ([facility]) [address] [place], [address], 12/03/2024 06:05:44 12/02/1912/02/2024 CBC WITH DIFFE RENTI AL/PL ATELE T lymphs 36 % not estab. normal Not Available [facility] ([facility]) [address] [place], [address], 12/03/2024 06:05:44 12/02/19 25 12/02/2024 CBC WITH DIFFE RENTI AL/PL ATELE T monocytes 7 % not estab. normal Not Available [facility] ([facility]) [address] [place], [address], 12/03/2024 06:05:44 12/02/19 25 12/02/2024 CBC WITH DIFFE RENTI AL/PL ATELE T eos 3 % not estab. normal Not Available [facility] ([facility]) [address] [place], [address], 12/03/2024 06:05:44 12/02/19 25 12/02/2024 CBC WITH DIFFE RENTI AL/PL ATELE T basos 0 % not estab. normal Not Available [facility] ([facility]) [address] [place], [address], 12/03/2024 06:05:44 12/02/1912/02/2024 CBC WITH DIFFE RENTI AL/PL ATELE T immature cells OYSTER GRADER Not Available [facility] ([facility]) [address] [place], [address], 12/03/2024 06:05:44 12/02/19 25 12/02/2024 CBC WITH DIFFE RENTI AL/PL ATELE T neutrophils (absolute) 4.4 x10e3 /uL 1.4-7. 0 normal Not Available [facility] ([facility]) [address] [place], [address], 12/03/2024 06:05:44 12/02/19 25 12/02/2024 CBC WITH DIFFE RENTI AL/PL ATELE T lymphs (absolute) 2.9 x10e3 /uL 0.7-3. 1 normal Not Available [facility] ([facility]) [address] [facility], [place], [address], 12/03/2024 06:05:44 12/02/19 25 12/02/2024 CBC WITH DIFFE RENTI AL/PL ATELE T monocytes(ab solute) 0.5 x10e3 /uL 0.1-0. 9 normal Not Available [facility] ([facility]) [address] [place], [address], 12/03/2024 06:05:44 12/02/19 25 12/02/2024 CBC WITH DIFFE RENTI AL/PL ATELE T eos (absolute) 0.2 x10e3 /uL 0.0-0. 4 normal Not Available [facility] ([facility]) [address] [place], [address], 12/03/2024 06:05:44 12/02/19 25 12/02/2024 CBC WITH DIFFE RENTI AL/PL ATELE T baso (absolute) 0.0 x10e3 /uL 0.0-0. 2 normal Not Available [facility] ([facility]) [address] [facility], [place], [address], 12/03/2024 06:05:44 12/02/1912/02/2024 CBC WITH DIFFE RENTI AL/PL ATELE T immature granulocytes 0 % not estab. Not Available [facility] ([facility]) [address] [place], [address], 12/03/2024 06:05:44 12/02/19 25 12/02/2024 CBC WITH DIFFE RENTI AL/PL ATELE T immature grans (abs) 0.0 x10e3 /uL 0.0-0. 1 Not Available [facility] ([facility]) [address] [facility], [place], [address], 12/03/2024 06:05:44 12/02/1912/02/2024 CBC WITH DIFFE RENTI AL/PL ATELE T NRBC OYSTER GRADER Not Available [facility] ([facility]) [address] [facility], [place], [address], 12/03/2024 06:05:44 12/02/1912/02/2024 CBC WITH DIFFE RENTI AL/PL ATELE T hematology comments: OYSTER GRADER Not Available [facility] ([facility]) [address] [facility], [place], [address], 12/03/2024 06:05:44 12/02/1912/03/2024 ELECT ROLYT E PANEL sodium 140 mmol/ L 134-14 4 normal Not Available [facility] ([facility]) [address] [place], [address], 12/03/2024 06:05:45 12/02/1912/03/2024 ELECT ROLYT E PANEL potassium 4.2 mmol/ L 3.5-5. 2 normal Not Available [facility] ([facility]) [address] [facility], [place], [address], 12/03/2024 06:05:45 12/02/1912/03/2024 ELECT ROLYT E PANEL chloride 101 mmol/ L 96-106 normal Not Available [facility] ([facility]) [address] [place], [address], 12/03/2024 06:05:45 12/02/1912/03/2024 ELECT ROLYT E PANEL carbon dioxide, total 23 mmol/ L 20-29 normal Not Available [facility] ([facility]) [address] [place], [address], 12/03/2024 06:05:45 12/02/1912/03/2024 BUN+C REAT BUN 8 mg/dL 6-24 normal Not Available [facility] ([facility]) [address] [place], [address], 12/03/2024 06:05:46 12/02/1912/03/2024 BUN+C REAT creatinine 0.84 mg/dL 0.57-1 .00 normal Not Available [facility] ([facility]) [address] [place], [address], 12/03/2024 06:05:46 12/02/1912/03/2024 BUN+C REAT eGFR 86 mL/mi n/1.7 3 >59 normal Not Available [facility] ([facility]) [address] [place], [address], 12/03/2024 06:05:46 12/02/1912/03/2024 BUN+C REAT BUN/creatini ne ratio 10 9-23 normal Not Available [facility] ([facility]) [address] [place], [address], 12/03/2024 06:05:46 12/02/1912/03/2024 HEMOG LOBIN A1C hemoglobin A1C 5.8 % 4.8-5. 6 above high normal Predi abete s: 5.7 - 6.4 Diabe girma: >6.4 Glyce joel contr ol for adult s with diabe girma: <7.0 Not Available [facility] ([facility]) [address] [place], [address], 12/03/2024 06:05:47 12/02/1912/03/2024 GLUCO SE glucose 65 mg/dL 70-99 below low normal Not Available [facility] ([facility]) [address] [place], [address], 12/03/2024 06:05:47 12/01/1912/01/2024 XR, knee, 4 or more view [email or web address] ?Encry pted=s hAaTro YD8dLq bEUv6g %2BXZw aYqtaq 0bqfl% 2Fg9IQ a4ajBk vP9nXo QUaueC m3YtLR FvZlgJ JJ8mAn HZtai3 9v1963 AC0Kqb X6EVqa hKiQtr MwF INTERFACE [facility] [address], [place], [address], 12/01/2024 14:49:31 12/01/19 25 12/01/2024 XR, knee, 4 or more view [email or web address] ?Encry pted=s hAaTro YD8dLq bEUv6g %2BXZw aYqtaq 0bqfl% 2Fg9IQ a4ajBk vP9nXo QUaueC m3YtLR FvZlgJ JJ8mAn HZtai3 7t7926 AC0Kqb X6EVqa hKiQtr MwF INTERFACE [facility] [address], [place], [address], 12/01/2024 14:49:33 Result Notes None recorded. Problems Name Problem SNOMED Code Status Onset Date Resolution Date Notes Provider Name and Address Organization Details Recorded Time No complaints 537523346 Active Status : 'A'; Not Available [facility] 4 09:19:12 Acute tear of lateral meniscus of left knee 4722765629057 9105 Active 2023 NATHEN moncada [place] - [facility] 4 10:17:30 Pain of left knee joint 3132850369227 07 Active 2023 NEDRA moncada [place] - [facility] 5 14:42:07 Tear of medial meniscus of knee 543104393 Active 2023 Cass Gonzalez PA-C [address], [place], [address] , [facility] 4 09:41:29 Tear of medial meniscus of knee 600098434 Active 2023 DYLAN moncada, [facility] 4 09:52:37 Osteoarthr itis of left knee joint 7707370711752 09 Active 2023 Cass Gonzalez PA-C [address], [place], [address] , [facility] 4 15:21:08 Notes:Some problems listed i n Document: #[id number] could not be added to this patient's chart. Please review this document and add these problems to the patient's chart manually as needed. Problem Notes None recorded. Procedures Surgical History Date Name Laterality Status Provider Name and Address Organization Details Recorded Time 5 JZKNEE INJ completed Balaji Whyte PA-C [address], [place], [address], [facility] 02/03/2025 14:51:06 5 Gel-One Knee Injection completed Balaji Whyte PA-C [address], [place], [address], [facility] 12/29/2024 09:21:33 5 JZ Knee Aspiration completed Balaji Whyte PA-C [address], [place], [address], [facility] 12/29/2024 09:21:51 5 48663 Therapeutic Exercise (1:1) completed Chris Loaiza DPT [address], [place], [address], [facility] 12/02/2024 14:35:44 5 34874: Low complexity PT Eval completed Chris Loaiza DPT [address], [place], [address], [facility] 12/02/2024 14:35:46 4 56395 Therapeutic Exercise (1:1) cancelled Ashli Salinas PTA [address], [place], [address], [facility] 06/13/2024 08:45:17 4 63610: Manual therapy cancelled Ashli Salinas PTA [address], [place], [address], [facility] 06/13/2024 08:45:17 4 47437 Therapeutic Exercise (1:1) cancelled Ashli Salinas PTA [address], [place], [address], [facility] 06/04/2024 07:09:56 4 74235: Manual therapy cancelled Ashli Salinas PTA [address], [place], [address], [facility] 06/04/2024 07:09:56 4 25728 Therapeutic Exercise (1:1) completed Ashli Salinas PTA [address], [place], [address], [facility] 06/03/2024 14:44:28 4 01198: Manual therapy completed Ashli Salinas PTA [address], [place], [address], [facility] 06/03/2024 14:44:26 4 Knee Kenalog 40mg 1cc Asp & Inj, L/R completed Chase Anne MD [address], [place], [address], [facility] 05/29/2024 10:51:54 4 30118 Therapeutic Exercise (1:1) cancelled Ashli Salinas PTA [address], [place], [address], [facility] 05/28/2024 12:58:55 4 93273: Manual therapy cancelled Ashli Salinas PTA [address], [place], [address], [facility] 05/28/2024 12:58:55 4 88042 Therapeutic Exercise (1:1) cancelled Ashli Salinas PTA [address], [place], [address], [facility] 05/26/2024 15:18:04 4 26531: Manual therapy cancelled Ashli Salinas PTA [address], [place], [address], [facility] 05/26/2024 15:18:04 4 13755 Therapeutic Exercise (1:1) completed Ashli SalinasHALIMA [address], [place], [address], [facility] 05/22/2024 13:52:19 4 51311: Manual therapy completed Ashli SalinasHALIMA [address], [place], [address], [facility] 05/22/2024 13:52:19 4 77575 Therapeutic Exercise (1:1) cancelled Ashli Salinas PTA [address], [place], [address], [facility] 05/19/2024 15:13:23 4 38704: Manual therapy cancelled Ashli Salinas FORM SETTER [address], [place], [address], [facility] 05/19/2024 15:13:23 4 19224 Therapeutic Exercise (1:1) completed Ashli Salinas PTA [address], [place], [address], [facility] 05/15/2024 18:07:31 4 64556: Manual therapy completed Ashli Salinas PTA [address], [place], [address], [facility] 05/15/2024 18:07:34 4 64258 Therapeutic Exercise (1:1) completed Chris Loaiza DPT [address] [facility], [place], [address], [facility] 05/14/2024 15:25:07 4 13436: Low complexity PT Eval completed Chris Loaiza DPT [address] [facility], [place], [address], [facility] 05/14/2024 15:27:32 4 Knee Kenalog 40mg 1cc Asp & Inj, L/R completed Chase Anne MD [address] [facility], [place], [address], [facility] 04/11/2024 10:56:12 4 Sports Knee 4&1 completed Cass Gonzalez PA-C [address] [facility], [place], [address], [facility] 02/12/2024 15:26:06 4 Trigger Finger Kenalog Injection completed Edwige Mzea PA-C [address] [facility], [place], [address], [facility] 01/31/2024 17:39:25 Imaging Results Imaging Date Name Status LastModified by Organiz ation Details LastModified Time 12/01/2024 XR, knee, 4 or more view completed INTERFACE [facility] [address] [place] [address], [address], 12/01/2024 14:49:31 12/01/2024 XR, knee, 4 or more view completed INTERFACE [facility] [address] [facility], [place], [address], 12/01/2024 14:49:33 Procedure Notes None recorded. Medical Equipment None Reported. Allergies Allergen ID Allergen Name Allergen Category Reaction Reaction Severity Criticality Documentation Date Start Date Code Code System Note Provider Name and Address Organization Details Recorded Time 310682 Product containin g 3-hydroxy -3-methyl glutaryl- coenzyme A reductase inhibitor (product) medicatio n Not available Not available Not available 01/11/2024 97092 009 SNOMED DYLANDIANNE moncada [place] - [facility] 4 09:22:06 26806 morphine sulfate medicatio n Not available Not available Not available 12/10/20232009 13887 RxNorm Aller gyRea ction : 'Naus ea/Vo mitin g/Hedy rrhea '; Not Available [facility] 4 15:13:05 90406 acetamino phen / oxycodone medicatio n Not available Not available Not available 12/10/20232009 62823 3 RxNorm Jose Roberto moncada [place] - [facility] 5 08:56:48 Medications Name Sig Start Date Stop Date Status Note LastModified by Organization Details LastModified Time Prescriptio n - Change active Not Available Not Available N ot Available vitamin d3 5000iu gummies CHEW AND SWALLOW 2 GUMMIES BY MOUTH DAILY active Not Available Not Available No t Available buspirone 5 mg tablet TAKE 1 [...] TAKE 1 CAPSULE BY MOUTH AT BEDTIME active Not Available Not Available No t Available tramadol 50 mg tablet TAKE 1 [...] pantoprazol e 20 mg tablet,nurys yed release active Not Available Not Available Not Available Celebrex [...] TAKE 1 TABLET BY MOUTH AT BEDTIME active Not Available Not Available No t Available eszopiclone 2 mg tablet TAKE 1 [...] completed Not Available Not Available Not Available Adderall (10mg) 2023 active Not Available Not Available Not Avai lable Ambien 08/27 completed Not Available Not Available Not Available Belsomra 10 mg tablet TAKE 1 TABLET BY MOUTH AT BEDTIME 12/01 completed Not Available Not Available Not Available Vitals Date Recorded Body height Body mass index (BMI) Body weight Provider Name and Address Organization Details Last Updated DateTime 12/01/2024 165.74 cm 28.7 kg/m2 39534.07 g NEDRA CANTU [facility] 12/01/2024 14:37:24 Date Recorded Body height Body mass index (BMI) Body weight Provider Name and Address Organization Details Last Updated DateTime 12/05/2024 165.74 cm 29.2 kg/m2 00718.85 g MARTITA WILDE [facility] 12/05/2024 12:59:29 Date Recorded Body height Body mass index (BMI) Body weight Provider Name and Address Organization Details Last Updated DateTime 12/29/2024 165.74 cm 29.2 kg/m2 22360.85 g Jose Roberto Howard [facility] 12/29/2024 08:56:58 Date Recorded Body height Body mass index (BMI) Body weight Provider Name and Address Organization Details Last Updated DateTime 02/03/2025 165.74 cm 29.2 kg/m2 11648.85 g JAXON HARTMAN [place] - [facility] 02/03/2025 14:43:02 Social History None recorded. Functional Status None recorded. Mental Status None recorded. Family History Nothing Reported. Medical History Condition Response Anxiety/Depression Y Arthritis Y Cholesterol Y Gynecological HistoryNo gynecological history recorded. Obstetrics History GPAL:G 0 P 0 0 0 0 Past Encounters Encounter ID Performer Location Encounter Start Date Encounter Closed Date Diagnosis/Indication Diagnosis SNOMED-CT Code Diagnosis ICD10 Code Diagnosis Note [id number] Cass Gonzalez PA-C [facility] [place] [address] 01/11/2024 09:00:10 02/06/2024 15:11:14 Pain of left knee joint [id number] 02437 M25.562 Tear of me dial meniscus of knee [id number] S83.242A [id number] MAGY Cooper [address] [place] [address] 01/31/2024 17:07:47 02/22/2024 09:18:58 [id number] MAGY Rios [address]rd floor [address] [place] [address] 02/12/2024 14:42:34 03/06/2024 18:22:56 Osteoarthritis of left knee joint [id number] M17.12 [id number] MD Pretty Jarvis [address] [place] [address] 04/11/2024 09:36:11 05/13/2024 10:20:50 Acute tear of lateral meniscus of left knee [id number] S83.282A [id number] MAGY High [address]nd floor [address] [place] [address] 05/02/2024 12:56:37 05/21/2024 10:57:48 Postoperative care [id number] Z48.89 [id number] Chris Mastorakis , DPT [facility] [address] [place] [address] 05/13/2024 17:35:09 05/13/2024 18:03:23 Tear of lateral meniscus of knee [id number] S83.282D [id number] Ashli Salinas, FORM SETTER [facility] [address] [place] [address] 05/15/2024 16:51:31 05/15/2024 17:40:14 Tear of lateral meniscus of knee [id number] S83.282D [id number] Ashli Salinas, FORM SETTER [facility] [address] [place] [address] 05/23/2024 15:34:13 05/23/2024 16:23:09 Tear of lateral meniscus of knee [id number] S83.282D [id number] Chase Anne MD [facility] [address] [place] [address] 05/29/2024 09:51:26 06/23/2024 11:07:24 Acute tear of lateral meniscus of left knee [id number] S83.282A [id number] Ashli Salinas, FORM SETTER [facility] [address] [place] [address] 06/03/2024 11:09:05 06/03/2024 12:11:37 Tear of lateral meniscus of knee [id number] S83.282D [id number] Chase Anne MD [facility] [address] [place] [address] 11/20/2024 13:41:28 12/10/2024 07:23:09 Osteoarthritis of left knee joint [id number] 17405 M17.12 Bernard Bryant MD [facility] [address] [place] [address] 12/01/2024 14:04:58 12/11/2024 11:54:09 Pain of left knee joint [id number] 00776 M25.562 Osteoarthr itis of left knee joint [id number] 00895 M17.12 [id number] Chris Loaiza , DPT [facility] [address] [place] [address] 12/02/2024 10:45:29 12/02/2024 12:12:23 Osteoarthritis of knee [id number] M17.12 [id number] Nicole Adams APRN [facility] [address] [place] [address] 12/05/2024 12:47:11 12/23/2024 11:55:11 Preprocedural examination done [id number] 69626 Z01.818 Osteoarthr itis of left knee joint [id number] 08703 M17.12 [id number] Balaji Whyte PA-C [facility] [address] [place] [address] 12/29/2024 08:46:49 01/12/2025 07:50:43 Osteoarthritis of left knee joint [id number] 20906 M17.12 Osteoarthr itis of right knee joint [id number] 74116 M17.11 [id number] Balaji Whyte PA-C [facility] [address] [place] [address] 02/03/2025 14:27:33 02/09/2025 08:24:28 Osteoarthritis of left knee joint [id number] 01783 M17.12 Health Concerns Section Related Observation LastModified by Organization Detai ls LastModified Time None Recorded Concern Status LastModified by Organization Details LastModified Time None Recorded Advance Directives Directive None Recorded Payers Encounter Date Sequence Insurance Name Policy Number Policy Sutton Covered Member ID Sutton Member ID Guarantor Name 12/01/2024 1 [facility] [id number] 23 Tarsha C Mackenzie [id number] [facility] 12/02/2024 1 [facility] [id number] 23 Tarsha C Mackenzie [id number] [facility] 12/05/2024 1 [facility] [id number] 23 Tarsha C Mackenzie [id number] [facility] 12/29/2024 1 [facility] [id number] 23 Tarsha C Mackenzie [id number] [facility] 02/03/2025 1 [facility] [id number] 23 Tarsha C Mackenzie [id number] Tarsha Mackenzie Notes Date Note Type Note Provider Name and Address Organization Details Recorded Time 12/02/2024 text/html Patient is 49 ye ar old female, with chronic history of knee pain and OA. Presents today for first prehab visit for scheduled TKA at [facility] on 12/18/24. Arrives today ambulating with [...] of L knee Chris Loaiza, DPT [address] [facility] [address], [place], [address], [facility] 12/02/2024 14:36:37 OBGyn Episode No OBEpisode recorded.
--- NOTE | 2025-02-19 08:20 | MHC.PC.OV ---
Vital Signs 02/19/25 08:24 Height 5 ft 6 in Weight 172 lb BMI 27.8 BP 132/84 Blood Pressure Location Lt brachial Position Sitting Respiration 16 Pulse 93 Pulse Source Pulse Oximeter Temp 98.1 F Temp Source Oral Pulse Oximetry (%) 99 Oxygen Delivery Method Room Air Intake Visit Reasons: night sweats Intake Note: Pt is here today c/o night sweats Allergies morphine [MORPHINE] Allergy (Severe, Verified 02/19/25 09:03) ANAPHYLAXIS, hives, redness and itching suvorexant [From Belsomra] Allergy (Severe, Verified 02/19/25 09:03) Facial Swelling daridorexant [From Quviviq] Allergy (Verified 02/19/25 09:03) Facial Swelling barium sulfate Adverse Reaction (Unknown, Verified 02/19/25 09:03) couldn't sleep, weird dreams, sleep walking Lipitor Allergy (Mild, Uncoded 02/19/25 09:03) hives Medication List - Last Reconciled 02/19/25 by Mayela Armijo MD cholecalciferol (vitamin D3) 250 mcg (2 x 125 mcg (5,000 unit)) PO DAILY dextroamphetamine-amphetamine 10 mg (Adderall) 10 mg PO BID eszopiclone 3 mg PO BEDTIME lorazepam (Ativan) 1 mg PO BID-TID PRN ondansetron HCl 4 mg PO Q8H PRN triamcinolone acetonide 0.1% 1 appl topical BID 10 days Tobacco use date assessed: 02/19/25 Dental Screening Dental Screen Date: 02/19/25 Did you have a dental visit in the last 12 months?: Yes Did you have a dental problem in the last 6 months where you did not have access to dental care?: No Was dental information given to patient?: Patient has dentist HPI night sweats HPI Details 49-year-old lady with history of abnormal uterine bleeding previously was being seen by Dr. Soliz who did a uterine ablation almost 20 years ago, has not had a period since then, here today complaining of progressive hot flashes. She has been tried on black cohosh which has not been effective patient states that she called her OBGYN but was told that he has retired. She is also due for cervical cancer screening, last Pap smear was done 2 years ago per patient which came back with normal findings. Patient however has had several abnormal Paps and underwent colposcopy before. She is now requesting referral to a new OBGYN provider. [facility] Medical History Cervical cancer screening Vasomotor symptoms due to menopause History of abnormal uterine bleeding Knee osteoarthritis Anxiety and depression Dyslipidemia Condyloma acuminata Flexor tenosynovitis of finger Insomnia Generalized anxiety disorder Family history of lupus erythematosus Polyarthralgia Eczema Vitamin D deficiency Familial hypercholesterolemia Morbid obesity due to excess calories Surgical History History of lumbar fusion History of carpal tunnel surgery Hx of lumbar discectomy History of S/P gastric sleeve procedure History of loop electrical excision procedure (LEEP) History of tonsillectomy Hx of colonoscopy Family History Father Ischemic heart disease Diabetes mellitus Mental health disorder Brother Mental health disorder Mother Mental health disorder Sister Mental health disorder Social History Housing: House Patient Tobacco Use Status: Current someday Tobacco user Cigarettes Per Day: 10 e-Cigarette/Vaping Use: Never Used service: No Current occupational status: employed Current occupation: [employer] Current occupational exposures/hazards: Yes Cognitive needs: No Hearing needs: No Vision needs: No Questionnaire PHQ-9 Over the last 2 weeks, how often have you been bothered by any of the following problems? 1. Little interest or pleasure in doing things: several days 2. Feeling down, depressed, or hopeless: several days 3. Trouble falling or staying asleep, or sleeping too much: several days 4. Feeling tired or having little energy: nearly every day 5. Poor appetite or overeating: not at all 6. Feeling bad about yourself - or that you are a failure or have let yourself or your family down: several days 7. Trouble concentrating on things, such as reading the newspaper or watching television: several days 8. Moving or speaking so slowly that other people could have noticed. Or the opposite - being so fidgety or restless that you have been moving around a lot more than usual: not at all 9. Thoughts that you would be better off or of hurting yourself in some way: not at all Total score: 8 Depression Screening Interpretation: Positive (Currently followed by psychiatry, sees Yvrose Garcia) Depression Screening Follow-up: Existing condition, In treatment and Community Mental Health Worker F/U Depression Screening Done: Yes 03039 - PHQ-9 Billing: Yes Source: Developed by Drs. Rito Jamil, Myah Mora, Sukhdeep Dailey and colleagues, with an educational zaki from [employer]. Thrive Questionnaire Date Thrive assessed: 02/19/25 I am a: Patient What is your living situation today?: I have a steady place to live Within the past 12 months, did the food you bought not last and you didn't have the money to get more?: Never true Within the past 12 months, did you worry whether your food would run out before you got money to buy more?: Never true Do you have trouble paying for medicines?: No Do you have trouble getting transportation to medical appointments?: No Do you have trouble paying your heating and electricity bill?: No Do you have trouble taking care of your child, family member or friend?: No Do you have trouble with day-to-day activities such as bathing, preparing meals, shopping, managing finances, etc.?: No Are you currently unemployed and looking for a job?: No Are you interested in more education?: No Please select the resources that you would like help with: None Currently or been in a relationship where the following occur: No concerns reported THRIVE Score: 0 AUDIT C Alcohol Use Questionnaire (AUDIT-C) 1. How often do you have a drink containing alcohol?: Monthly or less 2. How many drinks containing alcohol do you have on a typical day when you are drinking?: 1 or 2 3. How often do you have six or more drinks on one occasion?: Never Total Score: 1 NITA-7 AMB Questionnaire NITA-7 Date NITA - 7 assessed: 02/19/25 Feeling nervous, anxious, or on edge: 1 = Several days Not being able to stop or control worryin = Several days Worrying too much about different things: 1 = Several days Trouble relaxin = Several days Being so restless that it is hard to sit still: 1 = Several days Becoming easily annoyed or irritable: 1 = Several days Feeling afraid as if something awful might happen: 0 = Not at all Total NITA-7 score (0-4 normal; 5-9 mild; 10-14 moderate; 15-21 severe): 6 Source: Developed by Drs. Rito Jamil, Myah Mora, Sukhdeep Dailey and colleagues, with an educational zaki from [employer]. NITA-7 Assessment Billing NITA-7 Assessment Tool: NITA-7 Assessment 50203 Review of Systems Const All systems reviewed & are unremarkable except as noted in HPI and below ENT Reports no additional complaints and Reports Normal hearing present Card Denies chest pain, Denies rapid heart rate, Denies irregular heart rhythm and Denies lightheadedness Resp Reports no additional complaints GI Reports as per HPI Reports no additional complaints Musc Details: Polyarthralgia, and intermittent joint swelling mainly in fingers hands wrists, has an appointment to see Dr. Shane in June Neuro Reports no additional complaints, Reports Normal hearing present and Denies Sensory deficit (Neuro) Psych Reports as per HPI Endo Reports no additional complaints Nando/Lymph Reports no additional complaints Aller/Immun Reports no additional complaints Physical exam (Primary Care) Vital Signs: Last Vital Signs Temp 98.1 F 02/19/25 08:24 Pulse 93 02/19/25 08:24 Resp 16 02/19/25 08:24 BP 132/84 02/19/25 08:24 Pulse Ox 99 02/19/25 08:24 Oxygen Delivery Method Room Air 02/19/25 08:24 BMI result Body Mass Index 27.8 Tobacco/Smoking Status: Tobacco use Status Tobacco use date assessed 02/19/25 02/19/25 08:23 Patient Tobacco Use Status Current someday Tobacco 02/19/25 08:23 e-Cigarette/Vaping Use Never Used 02/19/25 08:23 PHQ-9: PHQ-9 Score PHQ-9: Total score 8 02/19/25 08:23 Depression Screening Interpretation: Positive (Currently followed by psychiatry, seenidia Garcia) Depression Screening Follow-up: Existing condition, In treatment and Community Mental Health Worker F/U Thrive Assessment: Date of Thrive Assessment Date Thrive assessed 02/19/25 02/19/25 08:23 Currently or been in a relationship where the following occur: No concerns reported Const General: comfortable and no acute distress Nutritional Appearance: overweight Orientation/consciousness: patient oriented x3 HENMT Head: Yes normocephalic General nose exam: Normal external nose present Mouth: moist mucous membranes Eyes General: appearance normal, both eyes and all related structures Neck Other: Supple, no lymphadenopathy, thyroid gland nonpalpable Neck: Yes full ROM Resp Auscultation: clear to auscultation bilaterally Cardio Other: S1-S2 present regular rate and rhythm GI Other: well healed laparoscopic sx scar for gastric sleeve procedure Palpation (GI): Soft to palpation, nontender and no guarding Auscultation: normal bowel sounds Neuro General: patient oriented x3, gait normal, tone normal, moves all extremities, Normal light touch and pain sensation and no focal motor deficits Cranial nerves: Yes Normal hearing present Sensory Exam: No Sensory deficit (Neuro) Extrem Other: Slight puffiness on fingers of both hands, and tenderness over MCP joint bilateral Psych Appearance: grossly normal and well kempt Mental Status: mental status grossly normal Speech and movement: Normal speech and movement present Affect: normal affect Attitude: cooperative Thought process: Normal thought process present Thought content: Normal thought content present Coding Level of Care Code Est Pt Level 4 (32447) Diagnoses History of abnormal uterine bleeding Z87.42 Vasomotor symptoms due to menopause N95.1 Cervical cancer screening Z12.4 Additional Codes PHQ-9 - 04470 - PHQ-9 Billing: Yes ([id number]) NITA-7 Assessment Billing - NITA-7 Assessment Tool: NITA-7 Assessment 15253 ([id number]) Assessment & Plan Assessment & Plan (1) History of abnormal uterine bleeding: Comment: s/p ablation , done by Dr Soliz , stopped having menses at age 31 Code(s): Z87.42 - Personal history of other diseases of the female genital tract Category: Medical (2) Vasomotor symptoms due to menopause: Code(s): N95.1 - Menopausal and female climacteric states Category: Medical (3) Cervical cancer screening: Code(s): Z12.4 - Encounter for screening for malignant neoplasm of cervix Category: Medical Plan Referred [place] [facility] for further evaluation management of possible menopausal vasomotor symptoms, patient is also due for her cervical cancer screening, requesting referral to a new OBGYN has not her previous OBGYN, Dr. Soliz has retired Orders: Referrals [employer]ANCE [employer]ENT Referral N95.1 - Menopausal and female climacteric states, Z12.4 - Encounter for screening for malignant neoplasm of cervix, Z87.42 - Personal history of other diseases of the female genital tract
[2025-02-19 08:24] VITALS: BP 132/84; PULSE 93; RESP 16; TEMP 36.7; O2SAT 99; BMI 27.8
== END 2025-02-19 09:46 | disposition home or self-care (01) ==
LOC: HO.HMCC 08:03
PROVIDERS: PCP Internal Medicine; Visit Provider Internal Medicine
DX: Z87.42 Personal history of other diseases of the female genital tract (principal); N95.1 Menopausal and female climacteric states; Z12.4 Encounter for screening for malignant neoplasm of cervix

== ENCOUNTER → 2025-02-19 08:02 | Outpatient (BNVA) | payer OTHER, SELFPAY | PROVIDERS: PCP Internal Medicine; Visit Provider Internal Medicine | DX: N95.1 Menopausal and female climacteric states (principal); Z87.42 Personal history of other diseases of the female genital tract | CPT/HCPCS: 96127 ==

== ENCOUNTER 2025-05-11 12:04 | Outpatient (REF) | payer OTHER, SELFPAY ==
[2025-05-11 16:23] LABS: Hematocrit 44.2 % (37.0-47.0); Hemoglobin 14.8 g/dl (12.0-16.0)
[2025-05-11 16:51] LABS: Alanine Aminotransferase 16 U/L (0-31); Anion Gap 11 (12-20); Aspartate Amino Transferase 21 U/L (5-31); Blood Urea Nitrogen 9 mg/dL (9-16); Calcium 9.8 mg/dL (8.4-10.2); Carbon Dioxide 27 mmol/L (22-29); Chloride 106 mmol/L (96-108); Cholesterol 294 mg/dL (<200); Estimated Glomerular Filt Rate > 60; HDL Cholesterol 55 mg/dL (>40); Potassium 4.3 mmol/L (3.3-5.1); Sodium 140 mmol/L (135-145); Triglycerides 194 mg/dL (<150)
[2025-05-12 07:33] LABS: Follicle Stimulating Hormone 105.7 mIU/mL
[2025-05-24 08:28] LABS: Estradiol Ultra Sensitive 4 pg/mL
== END 2025-05-11 12:05 | disposition home or self-care (01) ==
LOC: HO.HMGCLDS 12:04
PROVIDERS: PCP Internal Medicine; Visit Provider Internal Medicine
DX: Z00.01 Encounter for general adult medical examination with abnormal findings (principal); E78.2 Mixed hyperlipidemia; F41.1 Generalized anxiety disorder; E78.5 Hyperlipidemia, unspecified; F90.2 Attention-deficit hyperactivity disorder, combined type; F51.04 Psychophysiologic insomnia; N95.1 Menopausal and female climacteric states; M79.3 Panniculitis, unspecified
CPT/HCPCS: 36415; 80048; 80061; 82306; 82670; 83001; 84450; 84460; 85014; 85018

== ENCOUNTER 2025-05-11 12:04 | Outpatient (AMB) | payer OTHER, SELFPAY ==
--- NOTE | 2025-05-11 12:36 | MHC.PC.OV ---
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 Press Operator Required: No Accompanied by: Self / Same As Patient Allergies morphine (MORPHINE) Allergy (Severe, Verified 05/11/25 13:00) ANAPHYLAXIS, hives, redness and itching suvorexant (From Belsomra) Allergy (Severe, Verified 05/11/25 13:00) Facial Swelling daridorexant (From Quviviq) Allergy (Verified 05/11/25 13:00) Facial Swelling barium sulfate Adverse Reaction (Unknown, Verified 05/11/25 13:00) couldn't sleep, weird dreams, sleep walking Lipitor Allergy (Mild, Uncoded 05/11/25 13:00) hives Medication List - Last Reconciled 05/11/25 by Mayela Armijo MD cholecalciferol (vitamin D3) 250 mcg (2 x 125 mcg (5,000 unit)) PO DAILY dextroamphetamine-amphetamine 10 mg (Adderall) 10 mg PO BID lorazepam (Ativan) 1 mg PO BID-TID PRN ondansetron HCl 4 mg PO Q8H PRN triamcinolone acetonide 0.1% 1 appl topical BID 10 days zolpidem (Ambien) 10 mg PO BEDTIME PRN Tobacco use date assessed: 02/19/25 Dental Screening Dental Screen Date: 02/19/25 HPI Annual PE HPI Details - The patient is a 49-year-old female here today for her physical exam. - has chronic Insomnia , managed with Zolpidem for 18 years, with no adverse effects like sleepwalking reported. Previous medications such as eszopiclone and Belsomra were ineffective, with Belsomra causing severe side effects. - Anxiety and ADHD are chronic issues, , currently controlled with dextroamphetamine/amphetamine, followed by psychiatry. -has hyperlipidemia currently on pravastatin -has Menopausal symptoms consisting of hot flashes. She was being followed by Dr. Soliz, who has now retired. Has had uterine ablation due to abnormal uterine bleeding at age 31 and stopped having her periods since then - Osteoarthritis affects the knee, with a history of hyaluronic acid injections and a recent fall resulting in stitches, currently being seen at [facility] orthopedics. - has been experiencing recurrent sores on lower abdominal fold, which started after losing weight after bariatric surgery. FOR[facility]LY [facility] Medical History (Updated 05/12/25 @ 13:54 by Mayela Armijo MD) Mixed dyslipidemia Panniculitis History of weight loss Chronic insomnia Cervical cancer screening Vasomotor symptoms due to menopause History of abnormal uterine bleeding Knee osteoarthritis Anxiety and depression Dyslipidemia Condyloma acuminata Flexor tenosynovitis of finger Insomnia Generalized anxiety disorder Family history of lupus erythematosus Polyarthralgia Eczema Vitamin D deficiency Familial hypercholesterolemia Morbid obesity due to excess calories Surgical History History of lumbar fusion History of carpal tunnel surgery Hx of lumbar discectomy History of S/P gastric sleeve procedure History of loop electrical excision procedure (LEEP) History of tonsillectomy Hx of colonoscopy Family History Father Ischemic heart disease Diabetes mellitus Mental health disorder Brother Mental health disorder Mother Mental health disorder Sister Mental health disorder Social History Housing: House Patient Tobacco Use Status: Current someday Tobacco user Cigarettes Per Day: 10 e-Cigarette/Vaping Use: Never Used service: No Current occupational status: employed 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 Depression Screening Interpretation: Positive (Currently followed by psychiatry, jennifer Garcia) Depression Screening Follow-up: Existing condition, In treatment and Community Mental Health Worker F/U Depression Screening Done: Yes Source: Developed by Drs. Rito Jamil, Myah Mora, Sukhdeep Dailey and colleagues, with an educational zaki from [employer]. Thrive Questionnaire Date Thrive assessed: 05/11/25 I am a: Patient What is your living situation today?: I have a steady place to live Within the past 12 months, did the food you bought not last and you didn't have the money to get more?: Never true Within the past 12 months, did you worry whether your food would run out before you got money to buy more?: Never true Do you have trouble paying for medicines?: No Do you have trouble getting transportation to medical appointments?: No Do you have trouble paying your heating and electricity bill?: No Do you have trouble taking care of your child, family member or friend?: No Do you have trouble with day-to-day activities such as bathing, preparing meals, shopping, managing finances, etc.?: No Are you currently unemployed and looking for a job?: No Are you interested in more education?: No Please select the resources that you would like help with: None Currently or been in a relationship where the following occur: No concerns reported THRIVE Score: 0 AUDIT C Alcohol Use Questionnaire (AUDIT-C) 1. How often do you have a drink containing alcohol?: Monthly or less 2. How many drinks containing alcohol do you have on a typical day when you are drinking?: 1 or 2 3. How often do you have six or more drinks on one occasion?: Never Total Score: 1 Score Reviewed/Action Taken: Yes NITA-7 AMB Questionnaire NITA-7 Date NITA - 7 assessed: 02/19/25 Source: Developed by Drs. Rito Jamil, Myah Mora, Sukhdeep Dailey and colleagues, with an educational zaki from [employer]. Review of Systems Const All systems reviewed & are unremarkable except as noted in HPI and below Eyes Details: goes to [facility] Reports no additional complaints and Reports Normal hearing present Card Denies chest pain, Denies rapid heart rate, Denies irregular heart rhythm and Denies lightheadedness Resp Reports no additional complaints GI Reports as per HPI Reports no additional complaints Musc Details: Polyarthralgia, and intermittent joint swelling mainly in fingers hands wrists, has an appointment to see Dr. Shane in June Skin/Breast Reports as per HPI Neuro Reports no additional complaints, Reports Normal hearing present and Denies Sensory deficit (Neuro) Psych Reports as per HPI Endo Reports no additional complaints Nando/Lymph Reports no additional complaints Aller/Immun Reports no additional complaints Physical exam (Primary Care) Vital Signs: Last Vital Signs Temp 98.0 F 05/11/25 12:37 Pulse 82 05/11/25 12:37 BP 118/80 05/11/25 12:37 Pulse Ox 99 05/11/25 12:37 Oxygen Delivery Method Room Air 05/11/25 12:37 BMI result Body Mass Index 27.0 Tobacco/Smoking Status: Tobacco use Status Tobacco use date assessed 02/19/25 05/11/25 12:37 Patient Tobacco Use Status Current someday Tobacco 05/11/25 12:37 e-Cigarette/Vaping Use Never Used 05/11/25 12:37 Depression Screening Interpretation: Positive (Currently followed by psychiatry, jennifer Garcia) Depression Screening Follow-up: Existing condition, In treatment and Community Mental Health Worker F/U Thrive Assessment: Date of Thrive Assessment Date Thrive assessed 05/11/25 05/11/25 12:43 Currently or been in a relationship where the following occur: No concerns reported Const General: comfortable and no acute distress Nutritional Appearance: overweight Orientation/consciousness: patient oriented x3 HENMT Head: Yes normocephalic General nose exam: Normal external nose present Mouth: moist mucous membranes Eyes General: appearance normal, both eyes and all related structures Neck Other: Supple, no lymphadenopathy, thyroid gland nonpalpable Neck: Yes full ROM Chest Chest palpation & inspection: normal inspection of the chest Breast/axilla palpation: normal palpation of the breasts Resp Auscultation: clear to auscultation bilaterally Cardio Other: S1-S2 present regular rate and rhythm GI Other: well healed laparoscopic sx scar for gastric sleeve procedure Inspection: Yes Abdominal panniculus present Palpation (GI): Soft to palpation, nontender and no guarding Auscultation: normal bowel sounds General: Yes no CVA tenderness and Yes deferred Back/Spine/Pelvis Back: no CVA tenderness and No back tenderness Skin General skin exam: no rashes or lesions noted Neuro General: patient oriented x3, gait normal, tone normal, moves all extremities, Normal light touch and pain sensation and no focal motor deficits Cranial nerves: Yes Normal hearing present Sensory Exam: No Sensory deficit (Neuro) Extrem General: Yes full ROM, Yes no clubbing, cyanosis or edema and Yes normal gait Psych Appearance: grossly normal and well kempt Mental Status: mental status grossly normal Speech and movement: Normal speech and movement present Affect: normal affect Attitude: cooperative Coding Level of Care Code Est Pt Prev Care 40-64y(61674) Diagnoses Annual visit for general adult medical examination with abnormal findings Z00.01 Mixed dyslipidemia E78.2 Generalized anxiety disorder F41.1 Dyslipidemia E78.5 ADHD (attention deficit hyperactivity disorder), combined type F90.2 Chronic insomnia F51.04 Vasomotor symptoms due to menopause N95.1 Panniculitis M79.3 Assessment & Plan Assessment & Plan (1) Annual visit for general adult medical examination with abnormal findings: Code(s): Z00.01 - Encounter for general adult medical examination with abnormal findings (2) Mixed dyslipidemia: Code(s): E78.2 - Mixed hyperlipidemia Category: Medical (3) Generalized anxiety disorder: Code(s): F41.1 - Generalized anxiety disorder Category: Medical (4) Dyslipidemia: Code(s): E78.5 - Hyperlipidemia, unspecified Category: Medical (5) ADHD (attention deficit hyperactivity disorder), combined type: Comment: Jennifer Garcia RN Code(s): F90.2 - Attention-deficit hyperactivity disorder, combined type Category: Medical (6) Chronic insomnia: Code(s): F51.04 - Psychophysiologic insomnia Category: Medical (7) Vasomotor symptoms due to menopause: Code(s): N95.1 - Menopausal and female climacteric states Category: Medical (8) Panniculitis: Code(s): M79.3 - Panniculitis, unspecified Category: Medical Plan The patient will continue using Zolpidem for insomnia, with a sleep study planned to support ongoing treatment. Anxiety and ADHD controlled with dextroamphetamine/amphetamine, currently followed by her psychiatrist Regular cholesterol monitoring will continue to manage hyperlipidemia, FSH and estradiol levels ordered to assess menopausal status. To follow up with an autism motor specialist for osteoarthritis management A referral to a plastic surgeon will be made for pannculitis treatment. Routine health maintenance will include scheduling a mammogram and Pap smear, fasting labs ordered today, advised to continue with regular dental exam every 6 months and eye exam every 2 years. Up-to-date with Tdap and pneumonia vaccine, reminded to get yearly flu shots Patient was informed and verbally consented to the use of an ambient scribe for clinic note documentation during this visit. Orders: Orders Lipid Panel 05/11/25 E78.5 - Hyperlipidemia, unspecified, F41.1 - Generalized anxiety disorder, F51.04 - Psychophysiologic insomnia, F90.2 - Attention-deficit hyperactivity disorder, combined type Hemoglobin and Hematocrit 05/11/25 E78.5 - Hyperlipidemia, unspecified, F41.1 - Generalized anxiety disorder, F51.04 - Psychophysiologic insomnia, F90.2 - Attention-deficit hyperactivity disorder, combined type Alanine Aminotransferase 05/11/25 E78.5 - Hyperlipidemia, unspecified, F41.1 - Generalized anxiety disorder, F51.04 - Psychophysiologic insomnia, F90.2 - Attention-deficit hyperactivity disorder, combined type Follicle Stimulating Hormone 05/11/25 N95.1 - Menopausal and female climacteric states Aspartate Amino Transferase 05/11/25 E78.5 - Hyperlipidemia, unspecified, F41.1 - Generalized anxiety disorder, F51.04 - Psychophysiologic insomnia, F90.2 - Attention-deficit hyperactivity disorder, combined type Vitamin D 25-OH Total 05/11/25 E78.5 - Hyperlipidemia, unspecified, F41.1 - Generalized anxiety disorder, F51.04 - Psychophysiologic insomnia, F90.2 - Attention-deficit hyperactivity disorder, combined type Basic Metabolic Panel Fasting 05/11/25 E78.5 - Hyperlipidemia, unspecified, F41.1 - Generalized anxiety disorder, F51.04 - Psychophysiologic insomnia, F90.2 - Attention-deficit hyperactivity disorder, combined type Estradiol Ultra Sensitive 05/11/25 N95.1 - Menopausal and female climacteric states Referrals Plastic Surgery Referral M79.3 - Panniculitis, unspecified, Z87.898 - Personal history of other specified conditions Medications: New pravastatin 20 mg PO BEDTIME 90 tabs 1RF E78.2 - Mixed hyperlipidemia
[2025-05-11 12:37] VITALS: BP 118/80; PULSE 82; TEMP 36.7; O2SAT 99; BMI 27.0
--- OUTSIDE RECORDS SUMMARY | 2025-05-11 12:46 | XMS_ITS ---
Author Name [facility] Organization Unknown History of Medication Use Medication Directions Dispensed Refills Start Date End Date Stat us lidocaine (PF) 10 mg/mL (1 %) injection solution Take 0.5 mL by injection route. 04/15/2025 active triamcinolone acetonide 40 mg/mL suspension for injection Take 20 mg by injection route. 04/15/2025 active Allergies Allergen Reaction Severity Comment Documented Date Source Statu s MORPHINE ENS_AONECT QUVIVIQ ENS_AONECT [id number] REDUCTASE INHIBITORS ENS_AONECT Encounters Encounter Type Encounter Reason Primary Diagnosis Location Date Ambulatory [facility] [place] 04/16/2025 Ambulatory [facility] [place] 04/15/2025 Ambulatory [facility] [place] 04/15/2025 Ambulatory [facility] [place] 04/15/2025 Ambulatory [facility] [place] 04/15/2025 Ambulatory [facility] [place] 04/15/2025 Ambulatory [facility] [place] 04/15/2025
== END 2025-05-11 14:35 | disposition home or self-care (01) ==
LOC: HO.HMCC 12:05
PROVIDERS: PCP Internal Medicine; Visit Provider Internal Medicine
DX: Z00.01 Encounter for general adult medical examination with abnormal findings (principal); E78.2 Mixed hyperlipidemia; F41.1 Generalized anxiety disorder; E78.5 Hyperlipidemia, unspecified; F90.2 Attention-deficit hyperactivity disorder, combined type; F51.04 Psychophysiologic insomnia; N95.1 Menopausal and female climacteric states; M79.3 Panniculitis, unspecified

== ENCOUNTER 2025-06-22 13:13 | Outpatient (AMB) | payer OTHER, SELFPAY ==
--- NOTE | 2025-06-22 13:40 | A.OFFPSYCH_ITS ---
Intake Intake Visit Reasons: f/u consultation Forest Resource Specialist Required: No Allergies morphine (MORPHINE) Allergy (Severe, Verified 07/22/25 14:07) ANAPHYLAXIS, hives, redness and itching suvorexant (From Belsomra) Allergy (Severe, Verified 07/22/25 14:07) Facial Swelling daridorexant (From Quviviq) Allergy (Verified 07/22/25 14:07) Facial Swelling barium sulfate Adverse Reaction (Unknown, Verified 07/22/25 14:07) couldn't sleep, weird dreams, sleep walking Lipitor Allergy (Mild, Uncoded 07/22/25 14:07) hives Medication List - Last Reconciled 06/22/25 by Yvrose Franco APRN cholecalciferol (vitamin D3) 250 mcg (2 x 125 mcg (5,000 unit)) PO DAILY dextroamphetamine-amphetamine 10 mg (Adderall) 10 mg PO BID lorazepam (Ativan) 1 mg PO BID-TID PRN ondansetron HCl 4 mg PO Q8H PRN pravastatin 20 mg PO BEDTIME triamcinolone acetonide 0.1% 1 appl topical BID 10 days zolpidem (Ambien) 10 mg PO BEDTIME PRN HPI- Psychiatric Chief Complaint: f/u consultation HPI Narrative: pt conitnue to struggle with sleep. can not sleep without medications; ambien 20 mg daily is the only thing that helps. NO SI or HI. failed trials of meds fro sleep; Belsomra: had allergic reaction to belsomra; lips and face swelling with rash; Benadryl: took benadryl which helped but she had sleep paralysis Trazodone-ineffective Clonidine-ineffective Lunesta- ineffective Temazepam was ineffective buspar- ineffective rozerem- ineffective mirtazepine-ineffective amitriptyline-ineffective lithium - ineffective Doxepin- ineffective Ambien CR-ineffective Past Psychiatric History: outpatient during childhood- psychiatry and therapy; no IPLOC Mental Status Exam Mental Status Exam Patient Appearance: Well Grooomed Patient Orientation: Person, Place, Time and Situation Level of Consciousness: Awake and Appropriate Patient Behavior: Appropriate and Cooperative Mood Description: Appropriate and Anxious Affect Description: Appropriate and Anxious Patient Cognition Impaired: No Ability to Follow Directions: Good Speech Pattern: Clear Memory Description: Intact Hallucinations: None Delusions: Not Present Thought Process: Intact and Goal Oriented Thought Content: positive for Intact and positive for Goal Oriented Judgement: Good Assessment and Plan Assessment & Plan (1) Anxiety about health: Status: Resolved Code(s): R45.89 - Other symptoms and signs involving emotional state (2) ADHD (attention deficit hyperactivity disorder), combined type: Status: Acute Code(s): F90.2 - Attention-deficit hyperactivity disorder, combined type (3) Insomnia: Status: Resolved Qualifiers: Insomnia type: primary Qualified Code(s): F51.01 - Primary insomnia Code(s): G47.00 - Insomnia, unspecified Plan ambien 10 mg take 1-2 at bedtime prn sleep continue adderall 10mg BID contine ativan 1mg BID - tid prn anxiety/insomnia continue vit d weekly will alternate lunesta with ambien as needed return in 6 months Medications: Changed From zolpidem 10 mg PO BEDTIME PRN 30 tabs 1RF sleep To zolpidem (Ambien) Take 1-2 tablet orally bedtime PRN; 60 tabs 1RF insomnia From dextroamphetamine-amphetamine 10 mg administer doses at least 4 hours apart; Partial Fill upon patient request. 10 mg PO BID 60 tabs 0RF F90.2 - Attention-deficit hyperactivity disorder, combined type To dextroamphetamine-amphetamine 10 mg (Adderall) administer doses at least 4 hours apart; Partial Fill upon patient request. 10 mg PO TID 90 tabs 0RF F90.2 - Attention-deficit hyperactivity disorder, combined type Refilled lorazepam (Ativan) 1 mg PO BID-TID PRN 90 tabs 2RF anxiety/insomnia Counseling and coordination of Care Pt. Self Management counseling: Exercise, Maintenance-social rhythm, Mod caffeine/ETOH intake, Nutrition education and improvement, Sleep hygiene and Behavior activation Medication management counseling: Effectiveness, Side effects, Dosing range, Duration, Drug interaction and Adherence Diagnosis and Prognosis Counseling: Accuracy of diagnosis, Prognosis over time, Impact of diagnosis on life functions, Impact of family relationship, Proble matic behaviors secondary to diagnosis and Adequacy of current interventions Details: I spent [] minutes reviewing the record, seeing the patient and documenting in the medical record. Counseling provided to the patient/caregiver as outlined below. Addressed patient/caregiver concerns regarding current medication regime including effective adherence. Addressed patient/caregiver concerns regarding diagnosis and prognosis including accuracy of diagnosis, prognosis over time, impact of diagnosis. Addressed patient/caregiver concerns regarding impact of recent stressors. [facility] Medical History (Updated 07/22/25 @ 14:11 by Mayela Armijo MD) Mixed dyslipidemia History of weight loss Chronic insomnia Vasomotor symptoms due to menopause History of abnormal uterine bleeding Knee osteoarthritis Condyloma acuminata Flexor tenosynovitis of finger Generalized anxiety disorder Family history of lupus erythematosus Polyarthralgia Eczema Vitamin D deficiency Familial hypercholesterolemia Surgical History (Updated 07/22/25 @ 14:11 by Mayela Armijo MD) History of lumbar fusion History of carpal tunnel surgery Hx of lumbar discectomy History of S/P gastric sleeve procedure History of loop electrical excision procedure (LEEP) History of tonsillectomy Hx of colonoscopy Family History Father Ischemic heart disease Diabetes Mental health disorder Brother Mental health disorder Mother Mental health disorder Diabetes Lupus (systemic lupus erythematosus) History of rheumatoid arthritis Sister Mental health disorder Social History Housing: House Patient Tobacco Use Status: Current someday Tobacco user Cigarettes Per Day: 10 e-Cigarette/Vaping Use: Never Used service: No Current occupational status: employed Current occupation: [employer] Current occupational exposures/hazards: Yes Cognitive needs: No Hearing needs: No Vision needs: No Social History: lives with ; has 2 adult children and one 4 yo granddaughter Substance History: none Trauma History: yes Coding Level of Care Code Est Pt Level 4 (05714) Diagnoses Anxiety about health R45.89 ADHD (attention deficit hyperactivity disorder), combined type F90.2 Primary insomnia F51.01 Insomnia type: primary
== END 2025-06-22 14:05 | disposition home or self-care (01) ==
LOC: HO.HOP 13:13
PROVIDERS: PCP Internal Medicine; Visit Provider Clinical Nurse Specialist Psychiatric/Mental Health
DX: R45.89 Other symptoms and signs involving emotional state (principal); F90.2 Attention-deficit hyperactivity disorder, combined type; F51.01 Primary insomnia
CPT/HCPCS: 99214

== ENCOUNTER 2025-06-24 13:15 | Outpatient (AMB) | payer OTHER, SELFPAY ==
--- NOTE | 2025-06-24 13:32 | A.OFFVIS_ITS ---
Vital Signs 06/24/25 13:45 Height 5 ft 6 in BP 140/88 H Blood Pressure Location Lt brachial Position Sitting Pulse 83 Pulse Source Pulse Oximeter Pulse Oximetry (%) 99 Oxygen Delivery Method Room Air Intake Visit Reasons: INP - Psychophysiologic insomnia Intake Note: Patient presents [employer]LECT[employer]IC [employer] Psychophysiological Insomnia. Has chronic Insomnia , managed with Zolpidem for 18 years, with no adverse effects like sleepwalking reported. Previous medications such as eszopiclone and Belsomra were ineffective, with Belsomra causing severe side effects. Accompanied by: Self / Same As Patient Allergies morphine (MORPHINE) Allergy (Severe, Verified 06/24/25 13:33) ANAPHYLAXIS, hives, redness and itching suvorexant (From Belsomra) Allergy (Severe, Verified 06/24/25 13:33) Facial Swelling daridorexant (From Quviviq) Allergy (Verified 06/24/25 13:33) Facial Swelling barium sulfate Adverse Reaction (Unknown, Verified 06/24/25 13:33) couldn't sleep, weird dreams, sleep walking Lipitor Allergy (Mild, Uncoded 05/11/25 13:00) hives HPI Comments Details: 49 year old female with Raynaud's/SLE is referred to us for sleep evaluation by her PCP. PMH of Raynauds, /SLE / VLAD inconclusive study for sleep apnea diagonsis. Interval med hx: locking of 4th digit r. hand surgery Jul [facility]. FH mom type I diabetic. 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 She wakes up at 3 am and is wide awake. Recently she was started on Adderal 6mg po at 8am, 10am, and 2pm, which has helped with her ADHD symptoms. She is alert and focused at work. 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 Goes to bed at 7pm and wakes up at 4:30 am. She completed labs with the PCP and has vasomotor symptoms, would like to start on HRT, however h/o DVT and smoking 1/2 pack of cigarettes daily. She is in menopause. She has pain bilaterally in her hands and trigger finger r. hand 4th digit pending surgery. She tried Ramelteon, Quivivic and Lunesta and extended release Ambien does not work. Her Ambien is now increased to 20mg po daily and that helps with sleep.She meditates uses the [facility], and sees a counselor bi-weekly for therapy. She works in her garden. Mood is stable, denies depression. She denies snoring, gasping clenching of jaws. [facility] Medical History Mixed dyslipidemia Panniculitis History of weight loss Chronic insomnia Cervical cancer screening Vasomotor symptoms due to menopause History of abnormal uterine bleeding Knee osteoarthritis Anxiety and depression Dyslipidemia Condyloma acuminata Flexor tenosynovitis of finger Insomnia Generalized anxiety disorder Family history of lupus erythematosus Polyarthralgia Eczema Vitamin D deficiency Familial hypercholesterolemia Morbid obesity due to excess calories Surgical History History of lumbar fusion History of carpal tunnel surgery Hx of lumbar discectomy History of S/P gastric sleeve procedure History of loop electrical excision procedure (LEEP) History of tonsillectomy Hx of colonoscopy Family History Father Ischemic heart disease Diabetes mellitus Mental health disorder Brother Mental health disorder Mother Mental health disorder Sister Mental health disorder Social History Housing: House Patient Tobacco Use Status: Current someday Tobacco user Cigarettes Per Day: 10 e-Cigarette/Vaping Use: Never Used service: No Current occupational status: employed Current occupation: [employer] Current occupational exposures/hazards: Yes Cognitive needs: No Hearing needs: No Vision needs: No Physical Exam Vital Signs: Last Vital Signs Pulse 83 06/24/25 13:45 BP 140/88 H 06/24/25 13:45 Pulse Ox 99 06/24/25 13:45 Oxygen Delivery Method Room Air 06/24/25 13:45 Const General: cooperative, comfortable and no acute distress Nutritional Appearance: average body habitus Orientation/consciousness: patient oriented x3 HEENT Head: Yes normocephalic Face and sinus: Yes face symmetric Teeth and gingiva: other (M[place]ampti score is 3) Eyes Pupils: Equal, round and reactive pupils present Neck Neck: Yes full ROM Resp Effort & Inspection: normal respiratory effort and able to speak in complete sentences Neuro General: patient oriented x3 and moves all extremities Cranial nerves: Yes Equal, round and reactive pupils present, Yes Normal accommodation reflex present, Yes Normal facial strength present, Yes Midline tongue present, Yes Ability to bilaterally rotate head present and Yes Ability to bilaterally elevate shoulders present Cognition (Neuro): normal cognition Gait exam (Neuro): Normal gait present Motor exam (neuro): 5/5 motor strength present throughout and Normal motor muscle tone present throughout Psych Appearance: grossly normal Mental Status: mental status grossly normal Thought process: Normal thought process present Thought content: Normal thought content present Assessment & Plan Assessment & Plan (1) Excessive daytime sleepiness: Code(s): G47.19 - Other hypersomnia Category: Medical (2) Mood complaints in sleep disorder: Code(s): G47.9 - Sleep disorder, unspecified Category: Medical (3) Raynauds disease: Code(s): I73.00 - Raynaud's syndrome without gangrene Category: Medical Plan HST r/o vlad will f/u with [facility] for prior studies. Labs to r/o deficiencies Orders: Orders Ferritin Today G47.19 - Other hypersomnia, G47.9 - Sleep disorder, unspecified, I73.00 - Raynaud's syndrome without gangrene Vitamin D 25-OH Total Today G47.19 - Other hypersomnia, G47.9 - Sleep disorder, unspecified, I73.00 - Raynaud's syndrome without gangrene Vitamin B6 Today G47.19 - Other hypersomnia, G47.9 - Sleep disorder, unspecified, I73.00 - Raynaud's syndrome without gangrene TSH reflex Free T4 Today G47.19 - Other hypersomnia, G47.9 - Sleep disorder, unspecified, I73.00 - Raynaud's syndrome without gangrene RT home sleep study Today G47.19 - Other hypersomnia Methylmalonic Acid Today G47.19 - Other hypersomnia, G47.9 - Sleep disorder, unspecified, I73.00 - Raynaud's syndrome without gangrene, R53.83 - Other fatigue Homocysteine Today G47.19 - Other hypersomnia, G47.9 - Sleep disorder, unspecified, I73.00 - Raynaud's syndrome without gangrene, R53.83 - Other fatigue Vitamin B12 and Folate Today G47.19 - Other hypersomnia, G47.9 - Sleep disorder, unspecified, I73.00 - Raynaud's syndrome without gangrene Vitamin B1 Today G47.19 - Other hypersomnia, G47.9 - Sleep disorder, unspecified, I73.00 - Raynaud's syndrome without gangrene Coding Level of Care Code New Pt Level 4 (99544) Diagnoses Excessive daytime sleepiness G47.19 Mood complaints in sleep disorder G47.9 Raynauds disease I73.00 Sleep Questionnaire Difficulty falling asleep: Yes Difficulty staying asleep?: Yes (1) Number of arousals: 1- at 3 am Snoring: No Witnessed apneas: No Gasping arousals: No Nocturia: No GERD: No Vivid dreams: Yes Acting out dreams: No Abnormal behavior in sleep: No Abnormal movements in sleep: No Morning headaches: No Excessive daytime sleepiness: Yes Daytime naps: No Restless legs: No Hallucinations: No Sleep paralysis: No Drop attacks: No Sleep Study: Yes CPAP: No
[2025-06-24 13:45] VITALS: BP 140/88; PULSE 83; O2SAT 99
== END 2025-06-24 14:46 | disposition home or self-care (01) ==
LOC: HO.HSMC 13:16
PROVIDERS: PCP Internal Medicine; Visit Provider Physician Assistant Medical
DX: G47.19 Other hypersomnia (principal); G47.9 Sleep disorder, unspecified; I73.00 Raynaud's syndrome without gangrene
CPT/HCPCS: 99204

== ENCOUNTER 2025-07-07 10:42 | Outpatient (REF) | payer OTHER, SELFPAY ==
--- OUTSIDE RECORDS SUMMARY | 2025-07-07 13:13 | XMS_ITS | Data Portability ---
Author Organization [facility], [facility] Address [address] [place] [address] Care Team Providers Care Nut Processing Supervisor Name Role Phone VALERIE DUPONT Primary Care Provider Assessment Encounter Date Assessment Date Assessment LastModified by Organization Details LastModified Time 12/02/2024 12/02/2024 Assessment: Patient presents with symptoms [...] osteoarthrits of the left knee. There is nzfv-cn-cthr articulation, subchondral sclerosis, and osteophyte formation. There [...] Her Kenan, with a cell phone number [phone]. [email or web address] Not available 12/05/2024 13:51:43 12/29/2024 12/29/2024 [...] Some discomfort with range of motion. ASSESSMENT Osteoarthritis of knee -left knees PLAN After [...] therefore cortisone injection performed today. Follow-up pjohn [facility] speech recognition firer glost kiln software was used to create portions of this document. An attempt at proofreading has been made to minimize errors. Please call for corrections. Not available 02/03/2025 14:53:00 05/15/2025 05/15/2025 Assessment: Riley t ring trigger finger recalcitrant to extensive conservative treatment with at least 3 prior cortisone injections Plan: she understands that no further injections are indicated at this time and there is a risk of tendon rupture if more injections are performed. She understands that the next step for treatment involves a surgical release. Booking sheet will be completed for right ring trigger finger release surgery. We discussed with involved with the surgery and the anticipated recovery. She will likely require some period of time out of work around the time of the surgery. We have discussed the postoperative recovery course for the recommended surgery. Risks of surgery include but are not limited to: Infection, bleeding, damage normal tissues, need for future surgeries, and recurrent or recalcitrant symptoms after surgery. Questions asked and answered to the patient's satisfaction; surgery to be scheduled with my executive legal secretary. angie Not available 05/15/2025 15:15:07 Plan of Treatment Reminders Order Date Submit Date Provider Last Modified By Organization Details Last Modified Time Details Appointments SURGERY @ [facility] 2024 07:30A Dana fuentes MD Not available Not available Not available POST OP 30 2024 10:00A M Viv Hanson, OTR/L,CHT Not available Not available Not available Lab None recorde d. Referral None recorde d. Procedures None recorde d. Surgeries tenosyn ovectom y (SURG) 2024 025 [email or web address] [facility], [address], [place], [address], 06/19/2025 14:17:12 Imaging None recorde d. Medication Orders oxycodo ne 5 mg tablet 2024 025 MOOKIE [id number], [address] [place] [address], [id number], 12/10/2024 12:58:51 Celebre x 200 mg capsule [address] [facility]72, [address] [place] [address], [id number], 12/05/2024 13:47:42 pantopr azole 40 mg tablet, delayed release [address] [facility] #78534, [address] [place] [address], [id number], 12/05/2024 13:47:42 ondanse bruce 4 mg disinte grating tablet [address] [facility]72870, [address] [place] [address], [id number], 12/05/2024 13:47:42 Patient TargetsNo targets recorded. Patient InstructionsNo instructions recorded. Reason for Referral None Reported. Results Created Date Observation Date Name Description Value Unit Range Abnormal Flag Note LastModifiedBy Organization Detail LastModifiedTime 12/02/19 25 12/02/2024 PROTH ROMBI N TIME (PT) INR 1.0 0.9-1. 1 Not Available [facility] [address] [place] [address], [address], 12/02/2024 12:41:57 12/02/19 25 12/02/2024 PROTH ROMBI N TIME (PT) prothrombin time 10.9 sec 9.2-11 .4 normal Not Available [address], [address], 12/02/2024 12:41:57 12/02/19 25 12/02/2024 PTT, ACTIV ATED APTT 27.2 sec 23.4-3 3.1 normal For patie nts needi ng highe r than usual dose of hepar in to achie ve thera peuti c range use UFH anti Xa level s for monit oring . Not Available [address], [address], 12/02/2024 12:41:58 12/02/19 25 12/02/2024 CBC WITH DIFFE RENTI AL/PL ATELE T WBC 8.1 x10e3 /uL 3.4-10 .8 normal Not Available [facility] ([facility]) [address] [place], [address], 12/03/2024 06:05:44 12/02/19 25 12/02/2024 CBC WITH DIFFE RENTI AL/PL ATELE T RBC 4.87 x10e6 /uL 3.77-5 .28 normal Not Available [facility] ([facility]) [address] [place], [address], 12/03/2024 06:05:44 12/02/19 25 12/02/2024 CBC WITH DIFFE RENTI AL/PL ATELE T hemoglobin 15.4 g/dL 11.1-1 5.9 normal Not Available [facility] ([facility]) [address] [place], [address], 12/03/2024 06:05:44 12/02/19 25 12/02/2024 CBC WITH DIFFE RENTI AL/PL ATELE T hematocrit 46.4 % 34.0-4 6.6 normal Not Available [facility] ([facility]) [address] [place], [address], 12/03/2024 06:05:44 12/02/1912/02/2024 CBC WITH DIFFE RENTI AL/PL ATELE T MCV 95 fL 79-97 normal Not Available [facility] ([facility]) [address] [place], [address], 12/03/2024 06:05:44 12/02/1912/02/2024 CBC WITH DIFFE RENTI AL/PL ATELE T MCH 31.6 pg 26.6-3 3.0 normal Not Available [facility] ([facility]) [address] [place], [address], 12/03/2024 06:05:44 12/02/1912/02/2024 CBC WITH DIFFE RENTI AL/PL ATELE T MCHC 33.2 g/dL 31.5-3 5.7 normal Not Available [facility] ([facility]) [address] [place], [address], 12/03/2024 06:05:44 12/02/19 25 12/02/2024 CBC WITH DIFFE RENTI AL/PL ATELE T RDW 13.1 % 11.7-1 5.4 Not Available [facility] ([facility]) [address] [place], [address], 12/03/2024 06:05:44 12/02/1912/02/2024 CBC WITH DIFFE RENTI AL/PL ATELE T platelets 339 x10e3 /uL 150-45 0 normal Not Available [facility] ([facility]) [address] [place], [address], 12/03/2024 06:05:44 12/02/19 25 12/02/2024 CBC WITH DIFFE RENTI AL/PL ATELE T neutrophils 54 % not estab. normal Not Available [facility] ([facility]) [address] [facility], [place], [address], 12/03/2024 06:05:44 12/02/19 25 12/02/2024 CBC WITH DIFFE RENTI AL/PL ATELE T lymphs 36 % not estab. normal Not Available [facility] ([facility]) [address] [facility], [place], [address], 12/03/2024 06:05:44 12/02/19 25 12/02/2024 CBC WITH DIFFE RENTI AL/PL ATELE T monocytes 7 % not estab. normal Not Available [facility] ([facility]) [address] [facility], [place], [address], 12/03/2024 06:05:44 12/02/19 25 12/02/2024 CBC WITH DIFFE RENTI AL/PL ATELE T eos 3 % not estab. normal Not Available [facility] ([facility]) [address] [facility], [place], [address], 12/03/2024 06:05:44 12/02/19 25 12/02/2024 CBC WITH DIFFE RENTI AL/PL ATELE T basos 0 % not estab. 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 0 normal Not Available [facility] ([facility]) [address] [place], [address], 12/03/2024 06:05:44 12/02/19 25 12/02/2024 CBC WITH DIFFE RENTI AL/PL ATELE T lymphs (absolute) 2.9 x10e3 /uL 0.7-3. 1 normal Not Available [facility] ([facility]) [address] [place], [address], 12/03/2024 06:05:44 12/02/19 25 12/02/2024 CBC WITH DIFFE RENTI AL/PL ATELE T monocytes(ab solute) 0.5 x10e3 /uL 0.1-0. 9 normal Not Available [facility] ([facility]) [address] [place], [address], 12/03/2024 06:05:44 12/02/19 25 12/02/2024 CBC WITH DIFFE RENTI AL/PL ATELE T eos (absolute) 0.2 x10e3 /uL 0.0-0. 4 normal Not Available [facility] ([facility]) [address] [place], [address], 12/03/2024 06:05:44 12/02/19 25 12/02/2024 CBC WITH DIFFE RENTI AL/PL ATELE T baso (absolute) 0.0 x10e3 /uL 0.0-0. 2 normal Not Available [facility] ([facility]) [address] [place], [address], 12/03/2024 06:05:44 12/02/19 25 12/02/2024 CBC WITH DIFFE RENTI AL/PL ATELE T immature granulocytes 0 % not estab. Not Available [facility] ([facility]) [address] [place], [address], 12/03/2024 06:05:44 12/02/19 25 12/02/2024 CBC WITH DIFFE RENTI AL/PL ATELE T immature grans (abs) 0.0 x10e3 /uL 0.0-0. 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 2 normal Not Available [facility] ([facility]) [address] [facility] [place], [address], 12/03/2024 06:05:45 12/02/1912/03/2024 ELECT ROLYT E PANEL chloride 101 mmol/ L 96-106 normal Not Available [facility] ([facility]) [address] [facility] [place], [address], 12/03/2024 06:05:45 12/02/1912/03/2024 ELECT ROLYT E PANEL carbon dioxide, total 23 mmol/ L 20-29 normal Not Available [facility] ([facility]) [address] [facility] [place], [address], 12/03/2024 06:05:45 12/02/1912/03/2024 BUN+C REAT BUN 8 mg/dL 6-24 normal Not Available [facility] ([facility]) [address] [place], [address], 12/03/2024 06:05:46 12/02/1912/03/2024 BUN+C REAT creatinine 0.84 mg/dL 0.57-1 .00 normal Not Available [facility] ([facility]) [address] [place], [address], 12/03/2024 06:05:46 12/02/1912/03/2024 BUN+C REAT eGFR 86 mL/mi n/1.7 3 >59 normal Not Available [facility] ([facility]) [address] [place], [address], 12/03/2024 06:05:46 12/02/1912/03/2024 BUN+C REAT BUN/creatini ne ratio 10 9-23 normal Not Available [facility] ([facility]) [address] [place], [address], 12/03/2024 06:05:46 12/02/1912/03/2024 HEMOG LOBIN A1C hemoglobin A1C 5.8 % 4.8-5. 6 above high normal Predi abete s: 5.7 - 6.4 Diabe girma: >6.4 Glyce joel contr ol for adult s with diabe girma: <7.0 Not Available [facility] ([facility]) [address] [place], [address], 12/03/2024 06:05:47 12/02/1912/03/2024 GLUCO SE glucose 65 mg/dL 70-99 below low normal Not Available [facility] ([facility]) [address] [place], [address], 12/03/2024 06:05:47 12/01/1912/01/2024 XR, knee, 4 or more view [email or web address] ?Encry pted=s hAaTro YD8dLq bEUv6g %2BXZw aYqtaq 0bqfl% 2Fg9IQ a4ajBk vP9nXo QUaueC m3YtLR FvZlgJ JJ8mAn HZtai3 5e5047 AC0Kqb X6EVqa hKiQtr MwF INTERFACE [facility] [address], [place], [address], 12/01/2024 14:49:31 12/01/19 25 12/01/2024 XR, knee, 4 or more view [email or web address] ?Encry pted=s hAaTro YD8dLq bEUv6g %2BXZw aYqtaq 0bqfl% 2Fg9IQ a4ajBk vP9nXo QUaueC m3YtLR FvZlgJ JJ8mAn HZtai3 4f5328 AC0Kqb X6EVqa hKiQtr MwF INTERFACE [facility] [address], [place], [address], 12/01/2024 14:49:33 Result Notes None recorded. Problems Name Problem SNOMED Code Status Onset Date Resolution Date Notes Provider Name and Address Organization Details Recorded Time No complaints 502871052 Active Status : 'A'; Not Available [facility] 4 09:19:12 Pain of left knee joint 7793834949111 07 Active 2023 NEDRA moncada [place] - [facility] 5 14:42:07 Tear of medial meniscus of knee 963112501 Active 2023 Cass Gonzalez PA-C [address], [place], [address] , [facility] - [facility] 4 09:41:29 Tear of medial meniscus of knee 601876257 Active 2023 DYLAN moncada [place] - [facility] 4 09:52:37 Osteoarthr itis of left knee joint 7772273347063 09 Active 2023 Cass Gonzalez PA-C [address], [place], [address] , [facility] 4 15:21:08 Acute tear of lateral meniscus of left knee 0219471445776 9105 Active 2023 NATHEN MATHEWSBROOK [facility] 4 10:17:30 Notes:Some problems listed i n Document: #[id number] could not be added to this patient's chart. Please review this document and add these problems to the patient's chart manually as needed. Problem Notes None recorded. Procedures Surgical History Date Name Laterality Status Provider Name and Address Organization Details Recorded Time 5 JZKNEE INJ completed Julien Khan PA-C [address], [place], [address], [facility] 05/21/2025 18:05:41 5 Gel-One Knee Injection completed Balaji Whyte PA-C [address] [facility], [place], [address], [facility] 12/29/2024 09:21:33 5 JZ Knee Aspiration completed Balaji Whyte PA-C [address], [place], [address], [facility] 12/29/2024 09:21:51 5 97074 Therapeutic Exercise (1:1) completed Chris Loaiza DPT [address], [place], [address], [facility] 12/02/2024 14:35:44 5 60913: Low complexity PT Eval completed Chris Loaiza DPT [address], [place], [address], [facility] 12/02/2024 14:35:46 4 03987 Therapeutic Exercise (1:1) cancelled Ashli Salinas [employer]ANCH GENERAL MANAGER [address], [place], [address], [facility] 06/13/2024 08:45:17 4 54464: Manual therapy cancelled Ashli Salinas PTA [address], [place], [address], [facility] 06/13/2024 08:45:17 4 34561 Therapeutic Exercise (1:1) cancelled Ashli Salinas [employer]CH GENERAL MANAGER [address], [place], [address], [facility] 06/04/2024 07:09:56 4 83556: Manual therapy cancelled Ashli Salinas PTA [address], [place], [address], [facility] 06/04/2024 07:09:56 4 94922 Therapeutic Exercise (1:1) completed Ashli Salinas PTA [address], [place], [address], [facility] 06/03/2024 14:44:28 4 38987: Manual therapy completed Ashli Salinas PTA [address], [place], [address], [facility] 06/03/2024 14:44:26 4 Knee Kenalog 40mg 1cc Asp & Inj, L/R completed Chase Anne MD [address], [place], [address], [facility] 05/29/2024 10:51:54 4 35337 Therapeutic Exercise (1:1) cancelled Ashli Salinas [employer]CH GENERAL MANAGER [address], [place], [address], [facility] 05/28/2024 12:58:55 4 41527: Manual therapy cancelled Ashli Salinas, [employer] GENERAL MANAGER [address], [place], [address], [facility] 05/28/2024 12:58:55 4 59955 Therapeutic Exercise (1:1) cancelled Ashli Salinas PTA [address], [place], [address], [facility] 05/26/2024 15:18:04 4 38551: Manual therapy cancelled Ashli Salinas PTA [address], [place], [address], [facility] 05/26/2024 15:18:04 4 49653 Therapeutic Exercise (1:1) completed Ashli Salinas PTA [address], [place], [address], [facility] 05/22/2024 13:52:19 4 56419: Manual therapy completed Ashli Salinas PTA [address], [place], [address], [facility] 05/22/2024 13:52:19 4 30523 Therapeutic Exercise (1:1) cancelled Ashli Salinas PTA [address], [place], [address], [facility] 05/19/2024 15:13:23 4 37205: Manual therapy cancelled Ashli Salinas PTA [address], [place], [address], [facility] 05/19/2024 15:13:23 4 96916 Therapeutic Exercise (1:1) completed Ashli Salinas PTA [address], [place], [address], [facility] 05/15/2024 18:07:31 4 77532: Manual therapy completed Ashli SalinasHALIMA [address], [place], [address], [facility] 05/15/2024 18:07:34 4 26878 Therapeutic Exercise (1:1) completed Chris Loaiza DPT [address] [facility], [place], [address], [facility] 05/14/2024 15:25:07 4 08999: Low complexity PT Eval completed Chris Loaiza DPT [address] [facility], [place], [address], [facility] 05/14/2024 15:27:32 4 Knee Kenalog 40mg 1cc Asp & Inj, L/R completed Chase Anne MD [address] [facility], [place], [address], [facility] 04/11/2024 10:56:12 4 Sports Knee 4&1 completed Cass Gonzalez PA-C [address] [facility], [place], [address], [facility] 02/12/2024 15:26:06 4 Trigger Finger Kenalog Injection completed Edwige Meza PA-C [address] [facility], [place], [address], [facility] 01/31/2024 17:39:25 Imaging Results None recorded. Procedure Notes None recorded. Medical Equipment None Reported. Allergies Allergen ID Allergen Name Allergen Category Reaction Reaction Severity Criticality Documentation Date Start Date Code Code System Note Provider Name and Address Organization Details Recorded Time 167883 Product containin g 3-hydroxy -3-methyl glutaryl- coenzyme A reductase inhibitor (product) medicatio n Not available Not available Not available 01/11/2024 75145 009 SNOMED DYALN moncada [facility] 4 09:22:06 03772 morphine sulfate medicatio n Not available Not available Not available 12/10/20232009 56807 RxNorm Aller gyRea ction : 'Naus ea/Vo mitin g/Hedy rrhea '; Not Available [facility] 4 15:13:05 21559 acetamino phen / oxycodone medicatio n Not available Not available Not available 12/10/20232009 41498 3 RxNorm Jose Roberto moncada [place] - [facility] 5 08:56:48 Medications Name Sig Start Date Stop Date Status Note LastModified by Organization Details LastModified Time vitamin d3 5000iu gummies CHEW AND SWALLOW [...] TAKE 1 TABLET BY MOUTH TWICE DAILY AT LEAST 4 HOURS APART active Not Available Not [...] ued'; Not Available Not Available Not Available neomycin-po lymyxin-dex ameth 3.5 mg/mL-10,00 0 unit/mL-0.1 % eye drops SHAKE LIQUID AND INSTILL 1 DROP IN BOTH EYES FOUR TIMES DAILY FOR 2 WEEKS THEN STOP 05/12 completed Not Available Not Available Not Available buspirone [...] Updated DateTime 12/05/2024 165.74 cm 29.2 kg/m2 72520.85 g MARTITA WILDE [facility] 12/05/2024 12:59:29 Date Recorded Body height Body mass index (BMI) Body weight Provider Name and Address Organization Details Last Updated DateTime 12/29/2024 165.74 cm 29.2 kg/m2 86515.85 g Jose Roberto Howard [facility] 12/29/2024 08:56:58 Date Recorded Body height Body mass index (BMI) Body weight Provider Name and Address Organization Details Last Updated DateTime 02/03/2025 165.74 cm 29.2 kg/m2 08602.85 g JAXON HARTMAN [facility] 02/03/2025 14:43:02 Date Recorded Body height Provider Name an d Address Organization Details Last Updated DateTime 05/15/2025 165.74 cm Corie Wright [facility] 05/15/2025 14:55:06 Social History None recorded. Functional Status None recorded. Mental Status None recorded. Family History Nothing Reported. Medical History Condition Response Anxiety/Depression Y Arthritis Y Cholesterol Y Gynecological HistoryNo gynecological history recorded. Obstetrics History GPAL:G 0 P 0 0 0 0 Past Encounters Encounter ID Performer Location Encounter Start Date Encounter Closed Date Diagnosis/Indication Diagnosis SNOMED-CT Code Diagnosis ICD10 Code Diagnosis IMO Codes Diagnosis Note [id number] Cass Gonzalez PA-C [facility] [address] [place], [place] [address] 01/11/2024 09:00:10 02/06/2024 15:11:14 Pain of left knee joint 2722090206 75300 M25.562 Tear of me dial meniscus of knee 965381206 S83.242A [id number] Edwige Meza PA-C [facility] [address] [place], [place] [address] 01/31/2024 17:07:47 02/22/2024 09:18:58 [id number] Cass Gonzalez PA-C [facility] [address] [place], [place] [address] 02/12/2024 14:42:34 03/06/2024 18:22:56 Osteoarthritis of left knee joint 9281879815 12651 M17.12 [id number] Chase Anne MD [facility] [address] [place], [place] [address] 04/11/2024 09:36:11 05/13/2024 10:20:50 Acute tear of lateral meniscus of left knee 1737338974 1505823 S83.282A [id number] Ashli Borrego PA-C [facility] [address] [place] [address] 05/02/2024 12:56:37 05/21/2024 10:57:48 Postoperative care 868493084 Z48.89 [id number] Chris Loaiza DPT [facility] [address] [place] [address] 05/13/2024 17:35:09 05/13/2024 18:03:23 Tear of lateral meniscus of knee 953976187 S83.282D [id number] Ashli Salinas PTA [facility] [address] [place], [place] [address] 05/15/2024 16:51:31 05/15/2024 17:40:14 Tear of lateral meniscus of knee 351959647 S83.282D [id number] Ashli Salinas PTA [facility] [address] [place] [address] 05/23/2024 15:34:13 05/23/2024 16:23:09 Tear of lateral meniscus of knee 049743323 S83.282D [id number] Chase Anne MD [facility] [address] [place] [address] 05/29/2024 09:51:26 06/23/2024 11:07:24 Acute tear of lateral meniscus of left knee 5120857954 7465163 S83.282A [id number] Ashli HALIMA Salinas [facility] [address] [place] [address] 06/03/2024 11:09:05 06/03/2024 12:11:37 Tear of lateral meniscus of knee 103389998 S83.282D [id number] Chase Anne MD [facility] [address] [place] [address] 11/20/2024 13:41:28 12/10/2024 07:23:09 Osteoarthritis of left knee joint [id number] 94527 M17.12 Bernard Bryant MD [facility] [address] [place] [address] 12/01/2024 14:04:58 12/11/2024 11:54:09 Pain of left knee joint 1123602427 44198 M25.562 857790 Osteoarthr itis of left knee joint 5206000225 79821 M17.12 [id number] Chris Loaiza DPT [facility] [address] [place] [address] 12/02/2024 10:45:29 12/02/2024 12:12:23 Osteoarthritis of knee 726583965 M17.12 [id number] Nicole Adams APRN [facility] [address] [place] [address] 12/05/2024 12:47:11 12/23/2024 11:55:11 Preprocedural examination done 5648099366 21850 Z01.818 320994 Osteoarthr itis of left knee joint 7178610367 56042 M17.12 [id number] Balaji Whyte PA-C [facility] [address] [place] [address] 12/29/2024 08:46:49 01/12/2025 07:50:43 Osteoarthritis of left knee joint 1732592088 22023 M17.12 Osteoarthr itis of right knee joint 7234214305 13047 M17.11 [id number] MAGY [facility] - [facility] [address] [place] [address] 02/03/2025 14:27:33 02/09/2025 08:24:28 Osteoarthritis of left knee joint 6711749449 68054 M17.12 [id number] MD [facility] [place] [address] [place] [address] 05/15/2025 14:43:53 05/22/2025 12:14:08 Triggering of digit 092155381 M65.30 [id number] Health Concerns Section Related Observation LastModified by Organization Detai ls LastModified Time None Recorded Concern Status LastModified by Organization Details LastModified Time None Recorded Advance Directives Directive None Recorded Payers Insurance Date Sequence Insurance Name Policy Number Policy Sutton Covered Member ID Sutton Member ID Guarantor Name 12/18/2024 PAYMENT PLAN [facility] 05/22/2025 1 [facility] [id number] 23 [facility] [id number] [facility] Notes Date Note Type Note Provider Name and Address Organization Details Recorded Time 12/02/2024 text/html Patient is 49 year old female, with chronic history of knee pain and OA. Presents today for first prehab visit for scheduled TKA at [facility] on 12/18/24. Arrives today ambulating with [...] and restore function of L knee Chris Loaiza DPT [address] [facility] [address], [place], [address], [facility] 12/02/2024 14:36:37 05/15/2025 text/html ROS as noted in the HPI 49 yo female seen for eval of right hand trigger finger, she has undergone prev cortisone injection (most recent injection in January 2024) she has had this problem since at least 2020, there is a documented note indicating that she had her first right ring trigger finger injection at that time. 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 Denia Mejia MD [address] [facility] [address], [place], [address], [facility] 05/15/2025 16:32:14 OBGyn Episode No OBEpisode recorded.
--- OUTSIDE RECORDS SUMMARY | 2025-07-07 13:13 | XMS_ITS | Data Portability ---
Author Organization [place] [facility] Rachel Burrows AONE [place] Address [address] [place] [address] Care Team Providers Care Produce Department Manager Name Role Phone VALERIE DUPONT Primary Care Provider [phone] VALERIE DUPONT Referring Provider Assessment Encounter Date Assessment Date Assessment LastModified by Organization Details LastModified Time 04/15/2025 04/15/2025 The above findin gs suggest a Right ring finger trigger finger. X-rays were review together on the computer. We discussed pathology and expected prognosis today. Treatment options include cortisone injection and sometimes surgical A1 cesar release. Cortisone helps decrease the swelling around the tendon and in most people alleviate the symptoms forever. Sometimes they require a second injection. If there is a recurrence of symptoms the patient is not interested in an injection , the A1 cesar release can be performed which is a small procedure to open the ceasr and allow the tendon to glide freely. After discussing these options the patient would like to proceed with a cortisone injection. Details of injection and as well as risks were discussed, including but not limited to infection, bleeding, nerve injury, no improvement, worsening of symptoms, flare reaction, skin depigmentation, and lipodystrophy. I let them know it can take 2 days to 2 weeks to start working and up to 6 weeks to take its full effect. They understand this and gave verbal consent. They tolerated the procedure well. She will schedule a follow-up in 2 to 3 months. She is looking to have surgery for a permanent solution. She will meet with Dr. Pratt to discuss surgery in more detail. When symptoms return she can move in that direction. All questions were answered today. No x-rays are needed at the next visit. Patient was seen and evaluated by Iraj Davies PA-C in indirect conjunction with Dr. Pratt . The provider agrees with the history, physical examination, recommended tests/diagnostic imaging, and treatment plan [email or web address] Not available 04/15/2025 13:30:13 06/27/2025 06/27/2025 Patient is a 49-year-old female with recurrent knee effusion. We discussed causes of joint effusion. There was calcification in the lateral compartment of the asymptomatic right knee. Chondrocalcinosis/ pseudogout is in the differential. She was eager for joint aspiration and possible corticosteroid injection. She was eager for the procedure. Patient tolerated the aspiration and injection well. Postinjection instructions given. Frequency of injection was reviewed. Synovial fluid analysis sent All questions answered to their satisfaction. Patient will follow-up in 3 to 4 weeks, sooner for any complications. She does not plan on returning to [facility] and would like to be seen by Dr. Hansen. Patient was recommended to obtain her MRI disc for review at her follow-up and any records from [facility] that would be helpful. ____ Patient was evaluated by Iraj Davies PA-C. I, Kristian Hansen MD, was present in the office or available for consultation. I reviewed the documentation, including history, exam, and test results, and I agree with the assessment and treatment plan as documented. [email or web address] Not available 06/27/2025 12:44:40 Plan of Treatment Reminders Order Date Submit Date Provider Last Modified By Organization Details Last Modified Time Details Appointments ESTABLISH ED/AONE REFERRAL 2024 10:15A M Carol saab MD Not available Not available Not available ESTABLISH ED/AONE REFERRAL 2024 09:15A M Kristian Hansen MD Not available Not available Not available Lab cell count w/ diff, synovial fluid 2024 025 [email or web address] Not available 07/06/2025 15:22:39 crystals, synovial fluid 2024 025 MOOKIE Not available 06/30/2025 09:23:27 culture, synovial fluid 2024 025 MOOKIE Not available 06/30/2025 09:23:16 gram stain, synovial fluid 2024 025 MOOKIE Not available 06/30/2025 09:23:38 Referral None recorded. Procedures None recorded. Surgeries None recorded. Imaging XR, knee, 3 view 2024 025 [facility], [address], [place], [address], 06/27/2025 16:08:29 Medication Orders lidocaine (PF) 10 mg/mL (1 %) injection solution 2024 025 [id number], [address] [place] [address], [id number], 06/27/2025 16:08:29 triamcino lone acetonide 40 mg/mL suspensio n for injection 2024 025 [facility], [address] [place] [address], [id number], 06/27/2025 16:08:29 lidocaine (PF) 10 mg/mL (1 %) injection solution 2024 025 [facility]75, [address] [place] [address], [id number], 04/16/2025 09:42:26 triamcino lone acetonide 40 mg/mL suspensio n for injection 2024 025 [facility]54, [address] [place] [address], [id number], 04/16/2025 09:42:26 Patient TargetsNo targets recorded. Patient Instructions Encounter Date Encounter Id Patient Instructions Last Modified By Organization Details Last Modified Time 06/27/2025 [id number] Radiographs: 3 views of the Left knee were obtained in the [place] office on 06/27/2025 including AP, lateral (weightbearing), and sunrise. X-rays demonstrated normal bony mineralization. Joint spaces mildlydecreased Laterally. No evidence of acute injury or fracture. Incidental chondrocalcinosis noted in the lateral right knee. X-ray interpretation by: Iraj Davies PA-C [email or web address] Not available 06/27/2025 12:43:08 Reason for Referral None Reported. Results Created Date Observation Date Name Description Value Unit Range Abnormal Flag Note LastModifiedBy Organization Detail LastModifiedTime Result Notes None recorded. Problems Name Problem SNOMED Code Status Onset Date Resolution Date Notes Provider Name and Address Organization Details Recorded Time Effusion of joint of left knee 48547114642077 5 Active 2024 IRAJ DAVIES PA-C [address], [place], [address] , [place] [facility] 12:32:58 Pain of left knee joint 34659693209286 7 Active 2024 Not Available [facility] 08:44:54 Problem Notes None recorded. Procedures Surgical History Date Name Laterality Status Provider Name and Address Organization Details Recorded Time JAC Knee Inj/Asp completed IRAJ DAVISE PA-C [address], [place], [address], [place] [facility] 06/27/2025 12:42:05 LES trigger finger/De Quervain's injection completed Trenton Thakkar [facility] 04/15/2025 13:22:48 section completed Namita Schmitt [facility] 04/15/2025 12:58:26 ligation of fallopian tube completed Namita Schmitt [facility] 04/15/2025 12:58:36 lumbar spinal fusion completed Namita Schmitt [facility] 04/15/2025 12:58:47 operative procedure on wrist completed Namita Schmitt [facility] 04/15/2025 12:59:02 Knee Surgery completed Namita Schmitt [facility] 04/15/2025 12:59:13 Imaging Results None recorded. Procedure Notes None recorded. Medical Equipment None Reported. Allergies Allergen ID Allergen Name Allergen Category Reaction Reaction Severity Criticality Documentation Date Start Date Code Code System Note Provider Name and Address Organization Details Recorded Time 37382 morphine medicatio n Not available Not available Not available 04/15/2025 7052 RxNorm Namita Mayen i [facility], [facility] 12:53:53 05118 Product containin g 3-hydroxy -3-methyl glutaryl- coenzyme A reductase inhibitor (product) medicatio n Not available Not available Not available 04/15/2025 67540 009 SNOMED Namitayayo Mayen i [facility], [facility] 12:54:19 94566 Quviviq medicatio n Not available Not available Not available 04/15/2025 34332 03 RxNorm Namita Costak i [facility], [facility], P 12:54:29 Medications Name Sig Start Date Stop Date Status Note LastModified by Organization Details LastModified Time triamcinolone acetonide 40 mg/mL suspension for injection Take 40 mg by injection route. 2024 active Not Available Not Available Not Avai lable lidocaine (PF) 10 mg/mL (1 %) injection solution Take 4 mL by injection route. 2024 active Not Available Not Available Not Avai lable Vitals Date Recorded Body height Body mass index (BMI) Body weight Provider Name and Address Organization Details Last Updated DateTime 04/15/2025 167.64 cm 27.1 kg/m2 77698.52 g Namita Schmitt [facility] 04/15/2025 12:54:48 Date Recorded Body height Body mass index (BMI) Body weight Provider Name and Address Organization Details Last Updated DateTime 06/27/2025 167.64 cm 27.1 kg/m2 34263.52 g Cyndee Sampson [facility] 06/27/2025 12:47:05 Social History None recorded. Functional Status Question Answer Note LastModified by Organizat ion Details LastModified Time Do you use any illicit or recreational drugs? No Information not available 04/15/2025 What is your level of alcohol consumption? Occasional Information not available 04/15/2025 Mental Status None recorded. Family History Relationship Description Onset Age of this Age Resolved Age Notes LastModified by Organization Details LastModified Time Father Malignant neoplastic disease [email or web address] Not available 06/2025 12:57:03 Father Diabetes mellitus [email or web address] Not available 06/2025 12:57:20 Father Heart disease [email or web address] Not available 06/2025 12:57:37 Father Hyperlipidem ia [email or web address] Not available 06/2025 12:57:55 Father Hypertensive disorder [email or web address] Not available 06/2025 12:58:09 Mother Diabetes mellitus [email or web address] Not available 06/2025 12:57:20 Mother Heart disease [email or web address] Not available 06/2025 12:57:37 Mother Hyperlipidem ia msolowinski Not available 06/2025 12:57:55 Mother Rheumatoid arthritis [email or web address] Not available 06/2025 12:58:19 Sister Hyperlipidem ia msolowinski Not available 06/2025 12:57:55 Sister Hypertensive disorder [email or web address] Not available 06/2025 12:58:09 Medical History Condition Response Hypothyroidism Y Rheumatoid Arthritis Osteoporosis Y Gynecological HistoryNo gynecological history recorded. Obstetrics History GPAL:G 0 P 0 0 0 0 Past Encounters Encounter ID Performer Location Encounter Start Date Encounter Closed Date Diagnosis/Indication Diagnosis SNOMED-CT Code Diagnosis ICD10 Code Diagnosis IMO Codes Diagnosis Note [id number] MAGY RANDOLPH [facility] [address] [facility],[address] [address] 04/15/2025 11:51:10 04/15/2025 13:29:05 Triggering of digit 978397287 M65.812 [id number] MAGY RANDOLPH [facility] [address] [place] [address] 06/27/2025 11:51:17 06/27/2025 12:29:56 Pain of left knee joint 8724048279 11958 M25.562 401405 Effusion o f joint of left knee 2086804466 25168 M25.543 [id number] Health Concerns Section Related Observation LastModified by Organization Detai ls LastModified Time None Recorded Concern Status LastModified by Organization Details LastModified Time None Recorded Advance Directives Directive None Recorded Payers Insurance Date Sequence Insurance Name Policy Number Policy Sutton Covered Member ID Sutton Member ID Guarantor Name 06/27/2025 1 [facility] [id number] [facility] [id number] [facility] 04/15/2025 1 [facility] [id number] [facility] [id number] [facility] Notes Date Note Type Note Provider Name and Address Organization Details Recorded Time 04/15/2025 text/html Patient is a 49-year-old female with recurrent right ring finger triggering. She has been treated in the past and doing orthopedics. She has received injections with good relief. Unfortunate symptoms continue to return. She is frustrated with her ongoing complaints. 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 She called [facility] and could not be seen. She cannot use her hand and is having constant discomfort. Past medical history significant for possible lupus. She has osteoarthritis in her knees. Previous lumbar fusion. Chronic knee pain. IRAJ DAVIES PA-C [address], [place], [address], [place] [facility] 04/15/2025 13:34:52 06/27/2025 text/html ROS as noted in the HPI Patient is a 49-year-old female who presents today with left knee pain. She had a traumatic injury and reports having tears to the medial lateral meniscus treated by Dr. Anne at [facility] in April 2024. Unfortunately she has ongoing symptoms since then. She has recurrent joint swelling and feels her knee is unstable. She has fallen on multiple occasions. She has had a knee drained and corticosteroid injections on multiple occasions. She last had a hyaluronic acid injection 6 months ago. She was last told she should have a knee replacement. She does not feel she is getting the attention she needs at [facility]. With her fall yesterday, she presents today for the [place] urgent care. 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 She has a history of lupus. IRAJ DAVIES PA-C [address], [place], [address], [place] [facility] 06/27/2025 12:49:13 OBGyn Episode No OBEpisode recorded.
[2025-07-07 18:13] LABS: Baso%MD 0.3 %; Eos%MD 1.7 %; Hematocrit 44.6 % (37.0-47.0); Hemoglobin 15.0 g/dl (12.0-16.0); IG%MD 0.5 %; Lymph%MD 29.7 %; Mean Corpuscular HGB Conc 33.6 g/dl (31.0-35.0); Mean Corpuscular Hemoglobin 31.8 pg (27.0-33.0); Mean Corpuscular Volume 94.5 fL (80.0-98.0); Mono%MD 4.6 %; NRBC Abs Auto 0.000 X10*3/uL (0.0-0.012); NRBC Pct Auto 0.0 /100WBC (0.0-0.2); Neut%MD 63.2 %; Platelet Count 354 X10*3/uL (160-400); Red Blood Count 4.72 X10*6/uL (4.20-5.50); White Blood Count 12.1 X10*3/uL (4.8-10.8)
[2025-07-07 18:24] LABS: Alanine Aminotransferase 26 U/L (0-31); Albumin Level 4.5 g/dL (3.5-5.0); Alkaline Phosphatase 70 U/L (39-117); Anion Gap 12 (12-20); Aspartate Amino Transferase 23 U/L (5-31); Blood Urea Nitrogen 9 mg/dL (9-16); Calcium 9.6 mg/dL (8.4-10.2); Carbon Dioxide 26 mmol/L (22-29); Chloride 109 mmol/L (96-108); Estimated Glomerular Filt Rate > 60; Potassium 4.1 mmol/L (3.3-5.1); Sodium 143 mmol/L (135-145); Total Protein 7.0 g/dL (6.5-8.0)
[2025-07-07 18:35] LABS: Appearance Urine Clear; Glucose Urine UA Negative (Negative); PH 5.5 (5.0-9.0); Specific Gravity - Urine 1.015 (1.005-1.025); UMIC TRIGGER UA YES
[2025-07-07 18:49] LABS: Total Protein Urine Random < 7 mg/dL (<12)
[2025-07-07 19:03] LABS: Atypical Lymph Absolute Manual 0.1 x10*3/uL; Atypical Lymphs Percent Manual 1 % (0-6); Eosinophils Absolute Manual 0.2 X10*3/uL (0.0-0.4); Eosinophils Percent Manual 2 % (0-4); Lymphocytes Absolute Manual 3.3 X10*3/uL (1.2-4.9); Lymphocytes Percent Manual 27 % (20-40); Monocytes Absolute Manual 1.0 X10*3/uL (0.1-1.2); Monocytes Percent Manual 8 % (2-11); Neutrophils Percent Manual 62 % (45-73)
[2025-07-07 19:05] LABS: Band Neutrophils Percent 0 % (3-5); Large Platelet PRESENT; Neutrophils Absolute Manual 7.5 X10*3/uL (2.0-8.3); RBC Morphology NORMAL
[2025-07-08 17:53] LABS: Anti Nuclear Antibody Screen NEGATIVE (NEGATIVE)
[2025-07-08 21:24] LABS: Antibody to SS-A Antigen <1.0 NEG AI (<1.0 NEG); Antibody to SS-B Antigen <1.0 NEG AI (<1.0 NEG); SM/Ribonucleoprotein Ab <1.0 NEG AI (<1.0 NEG); Smith Protein <1.0 NEG AI (<1.0 NEG)
== END 2025-07-07 10:43 | disposition home or self-care (01) ==
LOC: HO.HKASLDS 10:42
PROVIDERS: PCP Internal Medicine; Visit Provider Student in an Organized Health Care Education/Training Program
DX: M17.9 Osteoarthritis of knee, unspecified (principal); M32.9 Systemic lupus erythematosus, unspecified
CPT/HCPCS: 36415; 80053; 81001; 82570; 84156; 85007; 85027; 85652; 86038; 86140; 86160; 86225; 86235

== ENCOUNTER 2025-07-07 10:42 | Outpatient (AMB) | payer OTHER, SELFPAY ==
--- NOTE | 2025-07-07 10:50 | A.OFFVIS_ITS ---
Vital Signs 07/07/25 11:00 Height 5 ft 6 in Weight 170 lb 3.15 oz BMI 27.5 BP 132/80 Blood Pressure Location Lt brachial Position Sitting Pulse 71 Pulse Source Pulse Oximeter Pulse Oximetry (%) 98 Oxygen Delivery Method Room Air Intake Visit Reasons: joint pain/New Patient Intake Note: New patient presents for joint pain. Patient stated she was diagnose with Lupus. Patient c/o neck pain, bilateral shoulder pain, Lt elbow pain, bilateral hand pain, lt hip pain and bilateral knee pain. Patient stated she had had these symptoms for 30 years. Patient takes Motrin for pain. Allergies morphine (MORPHINE) Allergy (Severe, Verified 07/07/25 10:58) ANAPHYLAXIS, hives, redness and itching suvorexant (From Belsomra) Allergy (Severe, Verified 07/07/25 10:58) Facial Swelling daridorexant (From Quviviq) Allergy (Verified 07/07/25 10:58) Facial Swelling barium sulfate Adverse Reaction (Unknown, Verified 07/07/25 10:58) couldn't sleep, weird dreams, sleep walking Lipitor Allergy (Mild, Uncoded 05/11/25 13:00) hives Medication List - Last Reconciled 07/07/25 by Katiana Shane MD cholecalciferol (vitamin D3) 250 mcg (2 x 125 mcg (5,000 unit)) PO DAILY dextroamphetamine-amphetamine 10 mg (Adderall) 10 mg PO TID lorazepam (Ativan) 1 mg PO BID-TID PRN ondansetron HCl 4 mg PO Q8H PRN pravastatin 20 mg PO BEDTIME triamcinolone acetonide 0.1% 1 appl topical BID 10 days zolpidem (Ambien) Take 1-2 tablet orally bedtime PRN; HPI Comments Details: Patient is a 49-year-old female current every day smoker (1 pack per day) with hyperlipidemia, ADHD, generalized anxiety disorder, knee osteoarthritis, here today for evaluation of polyarthralgias States that she was diagnosed with kidney stones at the age of 13. She was evaluated by kidney specialists, was not given a specific diagnosis but was told to avoid milk and drink plenty of water and subsequently had no further stones. At around 20 she started having hand pain and was sent to an [employer] [facility] who did blood work and found a positive MAULIK and was told she had lupus. Did not follow up with a academic counselor. Her joint pain progressed to involve her left elbow (received epicondylitis injections) and left shoulder (rotator cuff) She then started having bilateral knee pain. Follows with [facility] and receives steroid injections and 1 course of gel injections but did not have any benefit. Has had to have fluid drained, and it came back non inflammatory without any crystals (results not seen). Of note left knee with medial and lateral meniscal tear that was repaired Hands - previous bilateral carpal tunnel release, but still complains of numbness in the hands Rashes - States she gets rashes over the knuckles of her hands and hives on her face Raynauds - fingers change to clue. No ulcers Currently take Motrin every 8 hours Denies alopecia, oral/nasal ulcers, sicca symptoms, lymphadenopathy, chest pain/shortness of breath, foamy urine, lower extremity edema, muscle weakness Also denies history of seizure, CVA, psychosis, history of cytopenias, history of VTE including PE or DVTs Family history: Mother with lupus/RA and OA [facility] Medical History Mixed dyslipidemia Panniculitis History of weight loss Chronic insomnia Cervical cancer screening Vasomotor symptoms due to menopause History of abnormal uterine bleeding Knee osteoarthritis Anxiety and depression Dyslipidemia Condyloma acuminata Flexor tenosynovitis of finger Insomnia Generalized anxiety disorder Family history of lupus erythematosus Polyarthralgia Eczema Vitamin D deficiency Familial hypercholesterolemia Morbid obesity due to excess calories Surgical History History of lumbar fusion History of carpal tunnel surgery Hx of lumbar discectomy History of S/P gastric sleeve procedure History of loop electrical excision procedure (LEEP) History of tonsillectomy Hx of colonoscopy Family History (Updated 07/07/25 @ 11:00 by DELFINA Dewitt) Father Ischemic heart disease Diabetes Mental health disorder Brother Mental health disorder Mother Mental health disorder Diabetes Lupus (systemic lupus erythematosus) History of rheumatoid arthritis Sister Mental health disorder Social History Housing: House Patient Tobacco Use Status: Current someday Tobacco user Cigarettes Per Day: 10 e-Cigarette/Vaping Use: Never Used service: No Current occupational status: employed Current occupation: [employer] Current occupational exposures/hazards: Yes Cognitive needs: No Hearing needs: No Vision needs: No Review of Systems Const Details: Review of Systems Constitutional: Denies fever, chills, weight loss ENT: Denies vision changes, eye pain or eye redness, dental caries, dry mouth GI: Denies nausea, vomiting, diarrhea, abdominal pain, change in BM Pulm: Denies SOB, WIN, hemoptysis, wheezing Cards: Denies chest pain, palpitations Skin: Denies nail changes BINDING CUTTER: Denies headaches, weakness, paresthesias, recurrent falls MSK: as per HPI All other systems reviewed and are unremarkable except noted above Physical Exam Exam Exam: Vital signs reviewed Physical Examination CONSTITUITIONAL Patient alert and cooperative. Well appearing and in no apparent painful distress MSK Hands * Right Hand: Able to make a fist. No swelling or tenderness to palpation of the MCPs, PIPs or DIPs. * Left Hand: Able to make a fist. No swelling or tenderness to palpation of the MCPs, PIPs or DIPs. * Herbedens nodes noted bilaterally * Ulnar deviation of the 2nd DIPs bilaterally Wrists * Right Wrist: Full ROM to flexion and extension. No swelling or TTP * Left Wrist: Full ROM to flexion and extension. No swelling or TTP Elbows * Right Elbow: Full ROM. No swelling or TTP. No TTP of the medial epicondyle. TTP of the lateral epicondyle * Left Elbow: Full ROM. No swelling or TTP. No TTP of the medial epicondyle. No TTP of the lateral epicondyle Shoulders * Right shoulder: Full ROM. No swelling noted. No TTP of the AC joint. No TTP of the subacromial bursa. No TTP of the posterior shoulder * Left shoulder: Full ROM. No swelling noted. No TTP of the AC joint. No TTP of the subacromial bursa. No TTP of the posterior shoulder Hip bursa: No tenderness to palpation bilaterally Knees * Right knee: Full ROM. No swelling noted. No TTP of the knee joint line. No TTP of pes anserine bursa * Left knee: Full ROM. Mild swelling. TTP of the knee joint line. No TTP of pes anserine bursa. * Crepitations felt bilaterally Ankles * Right ankle: Good ankle dorsiflexion and plantar flexion. No swelling. No TTP of the ankle joint * Left ankle: Good ankle dorsiflexion and plantar flexion. No swelling. No TTP of the ankle joint Feet * Right foot: Negative squeeze test * Left foot: Negative squeeze test Tender points? * No tenderness to palpation of the bilateral trapezius, supraspinatus, anterior costochondral junctions, bilateral suboccipital muscle insertions SKIN Blanchable erythema noted over the MCPs Normal nailfold capillaries Vital Signs: Last Vital Signs Pulse 71 07/07/25 11:00 BP 132/80 07/07/25 11:00 Pulse Ox 98 07/07/25 11:00 Oxygen Delivery Method Room Air 07/07/25 11:00 BMI result Body Mass Index 27.5 Results Reviewed Results Reviewed: No recent labs seen Assessment & Plan Assessment & Plan (1) Polyarthralgia: Code(s): M25.50 - Pain in unspecified joint Category: Medical Plan: #Polyarthralgias Patient is a 49 we are old female here today for evaluation of polyarthralgias. Exam and history seems more consistent with degenerative disease than autoimmune/inflammatory arthropathy. However there are no lab results in her chart to review so we will get lab work and x-rays and re-evaluate in 2 weeks Plan - Labs today: MAULIK, SSA/SSB, Jalloh, CBC, CMP, ESR, CRP, C3, C4, dsDNA, UA, UPC - XRs: Hands, Wrists, Knees and Feet - Gabapentin 100mg nightly - RTC 2 weeks Plan I spent 45 minutes reviewing the record and labs, taking a history, examining the patient, discussing the treatment plan, ordering diagnostic work up and documenting in the medical record Orders: Orders Comprehensive Met. Panel Today M32.9 - Systemic lupus erythematosus, unspecified C Reactive Protein Today M32.9 - Systemic lupus erythematosus, unspecified Erythrocyte Sedimentation Rate Today M32.9 - Systemic lupus erythematosus, unspecified Complement C4 Today M32.9 - Systemic lupus erythematosus, unspecified Protein Creatinine Ratio, Ur Today M32.9 - Systemic lupus erythematosus, unspecified Anti DNA DS Antibody Today M32.9 - Systemic lupus erythematosus, unspecified Sm Sm/LOSS PREVENTION SPECIALIST Antibodies Today M32.9 - Systemic lupus erythematosus, unspecified XR knee LT 3V Today M25.50 - Pain in unspecified joint XR wrist RT min 3V Today M25.50 - Pain in unspecified joint XR hand LT min 3V Today M25.50 - Pain in unspecified joint XR Foot Iam 3V Today M25.50 - Pain in unspecified joint Complete Blood Count Man Dif Today M32.9 - Systemic lupus erythematosus, unspecified Complement C3 Today M32.9 - Systemic lupus erythematosus, unspecified UA and rflx microscopic Today M32.9 - Systemic lupus erythematosus, unspecified MAULIK Reflex Titer and Pattern Today M32.9 - Systemic lupus erythematosus, unspecified Sjogren's Antibodies Today M32.9 - Systemic lupus erythematosus, unspecified XR knee RT 3V Today M25.50 - Pain in unspecified joint XR wrist LT min 3V Today M25.50 - Pain in unspecified joint XR hand RT min 3V Today M25.50 - Pain in unspecified joint Medications: New 2 gabapentin 100 mg PO BEDTIME 90 caps 1RF M17.9 - Osteoarthritis of knee, unspecified Coding Level of Care Code New Pt Level 4 (25425) Diagnoses Polyarthralgia M25.50
[2025-07-07 11:00] VITALS: BP 132/80; PULSE 71; O2SAT 98; BMI 27.5
--- OUTSIDE RECORDS SUMMARY | 2025-07-07 12:01 | XMS_ITS | Clinical Summary ---
Author Organization [facility] Address [address] [place] [phone] Phone Care Team Providers Care Can Runner Name Role Phone Mayela Armijo MD Primary Care Provider Social History Tobacco Use Types Packs/Day Years Used Date Smoking Tobacco: Never Assessed Education Answer Date Recorded Are you interested in more education? Not on toby e 06/25/2025 Are you concerned about learning? Not on file 06/25/2025 No 06/25/2025 No 06/25/2025 Digital Access Answer Date Recorded No 06/25/2025 No 06/25/2025 Reliable internet access at home? Not on file 06/25/2025 Device with a working camera? Not on file Comments Unknown Sex and Gender Information Value Date Recorded Sex Assigned at Not on file Legal Sex Female 10:22 AM EDT Gender Identity Not on file Sexual Orientation Not on file Plan of Treatment Upcoming Encounters Date Type Department Care Team (Late st Contact Info) Description 12/07/2025 2:30 PM EST Office Visit [facility] Plastic Surgery [address] [place] [id number] Agapito Bowling MD [address] [place] [address], [address] [id number] Health Maintenance Due Date Last Done Comments Adult Td,Tdap Booster 1976 LIPID PANEL 1976 DEPRESSION SCREENING 1988 SMOKING Hx and SMOKELESS TOB ACCO SCREENING 1989 HEPATITIS C SCREENING 1994 HIV ONE-TIME SCREENING (18-6 5 YEARS) 1994 PAP SMEAR 1997 MAMMOGRAM 2016 COLOGUARD 2021 COLONOSCOPY 2021 COLORECTAL CANCER SCREENING 2021 FIT TEST 2021 FOBT 2021 SIGMOIDOSCOPY 2021 VIRTUAL COLONOSCOPY 2021 INFLUENZA VACCINE (#1) 2025 COVID-19 VACCINE ( - 2023-2 5 season) 2025 HEPATITIS A VACCINES Aged Out No long er eligible based on patient's age to complete this topic HIB VACCINES Aged Out No longer eligi ble based on patient's age to complete this topic MENINGOCOCCAL VACCINES (ACWY) Aged Out No longer eligible based on patient's age to complete this topic MENINGOCOCCAL VACCINES (B) Aged Out N o longer eligible based on patient's age to complete this topic PNEUMOCOCCAL VACCINES (0-49 years) Aged Out No longer eligible based on patient's age to complete this topic Medical Devices Not on file Insurance [facility] PPO [employer] Care Teams Can Runner Relationship Specialty Start Date End Date Mayela Armijo MD [facility] [place] [id number] PCP - General Internal Medicine 06/25/25 Additional Source Comments The information contained in this document represents components of the legal health record. It is not the complete legal health record.[facility]
--- OUTSIDE RECORDS SUMMARY | 2025-07-07 12:01 | XMS_ITS | Clinical Summary ---
Author Organization [facility] Address [address] [place] [address] Phone Care Team Providers Care Associate Programmer Name Role Phone Physician, No Pcp Primary Care Provider Unavaila ble Encounters Date Type Department Care Team Description 06/27/2025 Lab Requisition [facility] Main Lab [address] [place] [address] Iraj Davies PA Effusion, left knee from Last 3 Months Social History Tobacco Use Types Packs/Day Years Used Date Smoking Tobacco: Never Assessed Comments Unknown Sex and Gender Information Value Date Recorded Sex Assigned at Not on file Legal Sex Female 5:44 PM EDT Gender Identity Not on file Sexual Orientation Not on file Plan of Treatment Health Maintenance Due Date Last Done Comments Breast Cancer Screening 1976 DTaP,Tdap,and Td Vaccines (1 - Tdap) 1995 Hepatitis B Vaccines (1 of 3 - 19+ 3-dose series) 1995 Cervical Cancer Screening: P ap Smear 1997 Depression Screening 10/08/2024 COVID-19 Vaccine ( - 2023-2 5 season) 2025 Influenza Vaccine (#1) 2025 Colorectal Cancer Screening: Colonoscopy 06/27/2025 HIV Screening 06/27/2025 Hepatitis C Screening 06/27/2025 Social Influencers of Health Screening 06/27/2025 RSV Immunization Adult Patie nts (1 - 1-dose 75+ series) 2051 HIB Vaccines Aged Out No longer eligi ble based on patient's age to complete this topic HPV Vaccines Aged Out No longer eligi ble based on patient's age to complete this topic Hepatitis A Vaccines Aged Out No long er eligible based on patient's age to complete this topic IPV Vaccines Aged Out No longer eligi ble based on patient's age to complete this topic MMR Vaccines Aged Out No longer eligi ble based on patient's age to complete this topic Meningococcal ACWY Vaccine Aged Out N o longer eligible based on patient's age to complete this topic Meningococcal B Vaccine Aged Out No l onger eligible based on patient's age to complete this topic Pneumococcal Vaccine: Pediat rics (0 to 5 Years) and At-Risk Patients (6 to 49 Years) Aged Out No longer eligible b ased on patient's age to complete this topic RSV Immunization Patients Un marc 20 months Aged Out No longer eligible b ased on patient's age to complete this topic Varicella Vaccines Aged Out No longer eligible based on patient's age to complete this topic Procedures Procedure Name Priority Date/Time Associated Diagnosis Comments DIFFERENTIAL BODY FLUID Routine 06/27/2025 12:00 PM EDT Effusion, left knee CRYSTAL IDENTIFICATION, BODY FLUID Routine 06/27/2025 12:00 PM EDT Effusion, left knee CELL COUNT WITH REFLEX DIFFERENTIAL, BODY FLUID Routine 06/27/2025 12:00 PM EDT Effusion, left knee CULTURE BODY FLUID WITH GRAM STAIN Routine 06/27/2025 12:00 PM EDT Effusion, left knee from Last 3 Months Results * (ABNORMAL) Cell count with reflex differential, body fluid (06/27/2025 12:00 PM EDT) Body Fluid Source Synovial 06/27/2025 6:16 PM EDT [facility] Body Fluid Clarity Slightly Hazy 06/27/2025 6:16 PM EDT [facility] Body Fluid Color Yellow 06/27/2025 6:16 PM EDT [facility] Body Fluid RBC 3,244(H) 0 - 1 /mm3 LAB HEMETOLOGY METHOD 06/27/2025 6:16 PM EDT [facility] Body Fluid Total Nucleated Cells 867(H) <150 /mm3 LAB HEMETOLOGY METHOD 06/27/2025 6:16 PM T [facility] Synovial Fluid Structure of left knee region / Unknown 06/27/2025 12:00 PM EDT 06/27/2025 5:56 PM EDT us Iraj [facility] BODY FLUIDS AND STOOLS OR DERABLES Final Result [facility] [address] [place] [address], [place] [phone] * (ABNORMAL) Differential body fluid (06/27/2025 12:00 PM EDT) Fluid Neutrophils 47.0(H) <25.0 % 06/27/2025 6:53 PM EDT [facility] Fluid Lymphocytes 27.0 <75.0 % 06/27/2025 6:53 PM EDT [facility] Fluid Monocytes/Macrop hages 23.0 <70.0 % 06/27/2025 6:53 PM EDT [facility] Fluid Lining Cells 3.0 % 06/27/2025 6:53 PM EDT [facility] Synovial Fluid Structure of left knee region / Unknown 06/27/2025 12:00 PM EDT 06/27/2025 5:56 PM EDT us Iraj [facility] BODY FLUIDS AND STOOLS OR DERABLES Final Result [facility] [address] [place] [address], [place] [phone] * Crystal identification, body fluid (06/27/2025 12:00 PM EDT) Crystals, Fluid Absent Absent 06/27/2025 6:34 PM EDT [facility] Synovial Fluid Structure of left knee region / Unknown 06/27/2025 12:00 PM EDT 06/27/2025 5:56 PM EDT us Iraj [facility] BODY FLUIDS AND STOOLS OR DERABLES Final Result [facility] [address] [place] [address], [place] [phone] from Last 3 Months Insurance [employer] [id number] Care Teams Associate Programmer Relationship Specialty Start Date End Date Physician, No Pcp PCP - General 06/27/25
--- OUTSIDE RECORDS SUMMARY | 2025-07-07 12:01 | XMS_ITS | Encounter Summary ---
Author Organization [facility] Address [address] [place] [address] Care Team Providers Care Civil Designer Name Role Phone Physician, No Pcp Primary Care Provider Unavaila ble Encounter Details Date Type Department Care Team (Late st Contact Info) Description 06/27/[address] [facility] Main Lab [address] [place] [address] Iraj Davies PA [address] [facility] [address] [place] [address] Effusion, left knee Social History Tobacco Use Types Packs/Day Years Used Date Smoking Tobacco: Never Assessed Comments Unknown Sex and Gender Information Value Date Recorded Sex Assigned at Not on file Legal Sex Female 5:44 PM EDT Gender Identity Not on file Sexual Orientation Not on file documented as of this encounter Plan of Treatment Pending Results Name Type Priority Associated Diagnoses Date /Time Culture body fluid with gram stain Microbiology Routine Effusion, left knee 06/27/2025 12:00 PM EDT documented as of this encounter Procedures Procedure Name Priority Date/Time Associated Diagnosis Comments CELL COUNT WITH REFLEX DIFFERENTIAL, BODY FLUID Routine 06/27/2025 12:00 PM EDT Effusion, left knee CULTURE BODY FLUID WITH GRAM STAIN Routine 06/27/2025 12:00 PM EDT Effusion, left knee DIFFERENTIAL BODY FLUID Routine 06/27/2025 12:00 PM EDT Effusion, left knee CRYSTAL IDENTIFICATION, BODY FLUID Routine 06/27/2025 12:00 PM EDT Effusion, left knee documented in this encounter Results * (ABNORMAL) Differential body fluid (06/27/2025 12:00 PM EDT) Fluid Neutrophils 47.0(H) <25.0 % 06/27/2025 6:53 PM EDT [facility] Fluid Lymphocytes 27.0 <75.0 % 06/27/2025 6:53 PM EDT [facility] Fluid Monocytes/Macrop hages 23.0 <70.0 % 06/27/2025 6:53 PM EDT [facility] Fluid Lining Cells 3.0 % 06/27/2025 6:53 PM EDT [facility] Synovial Fluid Structure of left knee region / Unknown 06/27/2025 12:00 PM EDT 06/27/2025 5:56 PM EDT us Iraj [facility] BODY FLUIDS AND STOOLS OR DERABLES Final Result Performing Organization Address City/[facility]/ZIP Co de Phone Number [facility] [address] [place] [id number], [place] [phone] * Crystal identification, body fluid (06/27/2025 12:00 PM EDT) Crystals, Fluid Absent Absent 06/27/2025 6:34 PM EDT [facility] Synovial Fluid Structure of left knee region / Unknown 06/27/2025 12:00 PM EDT 06/27/2025 5:56 PM EDT us Iraj [facility] BODY FLUIDS AND STOOLS OR DERABLES Final Result [facility] [address] [place] [address], [place] [phone] * (ABNORMAL) Cell count with reflex differential, body fluid (06/27/2025 12:00 PM EDT) Body Fluid Source Synovial 06/27/2025 6:16 PM EDT [facility] Body Fluid Clarity Slightly Hazy 06/27/2025 6:16 PM EDT [facility] Body Fluid Color Yellow 06/27/2025 6:16 PM EDT [facility] Body Fluid RBC 3,244(H) 0 - 1 /mm3 LAB HEMETOLOGY METHOD 06/27/2025 6:16 PM EDT [facility] Body Fluid Total Nucleated Cells 867(H) <150 /mm3 LAB HEMETOLOGY METHOD 06/27/2025 6:16 PM EDT [facility] Synovial Fluid Structure of left knee region / Unknown 06/27/2025 12:00 PM EDT 06/27/2025 5:56 PM EDT us Iraj [facility] BODY FLUIDS AND STOOLS OR DERABLES Final Result [facility] [address] [place] [address], [place] [phone] documented in this encounter Visit Diagnoses Diagnosis Effusion, left knee documented in this encounter Care Teams Civil Designer Relationship Specialty Start Date End Date Physician, No Pcp PCP - General 06/27/25 documented as of this encounter
== END 2025-07-07 11:45 | disposition home or self-care (01) ==
LOC: HO.RHES 10:43
PROVIDERS: PCP Internal Medicine; Visit Provider Student in an Organized Health Care Education/Training Program
DX: M25.50 Pain in unspecified joint (principal)
CPT/HCPCS: 99204

== ENCOUNTER 2025-07-10 10:14 | Outpatient (REF) | payer OTHER, SELFPAY ==
--- NOTE | ~2025-07-10 | XR_ITS ---
EXAMINATION: XR FOOT 3 OR MORE VIEWS BILATERAL HISTORY: M25.50 - Pain in unspecified joint COMPARISON: There are no prior studies available for comparison. FINDINGS: Six views of the bilateral feet are submitted. Osseous mineralization is normal. There is no fracture or dislocation. There is mild narrowing of the 1st MTP joint of the right foot. The remaining joint spaces are maintained. There are tiny bilateral plantar calcaneal spurs. The soft tissues are unremarkable. XR/XR Foot Iam 3V IMPRESSION: Mild narrowing of the 1st MTP joint of the right foot. Small bilateral plantar calcaneal spurs. Electronically signed by: Rito Antonio MD 07/10/2025 11:14 AM EDT
--- NOTE | ~2025-07-10 | XR_ITS ---
EXAMINATION: XR WRIST 3 OR MORE VIEWS BILATERAL HISTORY: M25.50 - Pain in unspecified joint COMPARISON: There are no prior studies available for comparison. FINDINGS: Eight views of the bilateral wrists including scaphoid views are submitted. Osseous mineralization is normal. There is no fracture or dislocation. The joint spaces are preserved. The soft tissues are unremarkable. XR/XR Wrist Iam min 3V IMPRESSION: Unremarkable examination of the bilateral wrists. Electronically signed by: Rito Antonio MD 07/10/2025 11:11 AM EDT
--- NOTE | ~2025-07-10 | XR_ITS ---
EXAMINATION: XR KNEE 3 VIEWS BILATERAL HISTORY: M25.50 - Pain in unspecified joint COMPARISON: There are no prior studies available for comparison. FINDINGS: Six views of the bilateral knees are submitted. Osseous mineralization is normal. There is no fracture or dislocation. On the right, there is mild narrowing of the patellofemoral compartment. On the left, there is mild narrowing of the medial and patellofemoral compartments. The soft tissues are unremarkable. XR/XR Knee Iam 3V IMPRESSION: Degenerative changes of the bilateral knees as described. Electronically signed by: Rito Antonio MD 07/10/2025 11:13 AM EDT
--- NOTE | ~2025-07-10 | XR_ITS ---
EXAMINATION: XR HAND 3 VIEWS BILATERAL HISTORY: M25.50 - Pain in unspecified joint COMPARISON: There are no prior studies available for comparison. FINDINGS: Six views of the bilateral hands are submitted. Osseous mineralization is normal. There is no fracture or dislocation. The joint spaces are preserved. The soft tissues are unremarkable. XR/XR Hand Bilat min 3v IMPRESSION: Unremarkable examination of the bilateral hands. Electronically signed by: Rito Antonio MD 07/10/2025 11:10 AM EDT
--- OUTSIDE RECORDS SUMMARY | 2025-07-10 11:06 | XMS_ITS | Clinical Summary ---
Author Organization [facility] Address [address] [place] [address] Phone Care Team Providers Care Sales Counselor Name Role Phone Physician, No Pcp Primary Care Provider Unavaila ble Encounters Date Type Department Care Team Description 06/27/2025 Lab Requisition [facility] Main Lab [address] [place] [address] Iraj Davies PA Effusion, left [...] Fluid Source Synovial 06/27/2025 6:16 PM EDT [facility] Body Fluid Clarity Slightly Hazy 06/27/2025 6:16 PM EDT [facility] Body Fluid Color Yellow 06/27/2025 6:16 PM EDT [facility] Body Fluid RBC 3,244(H) 0 - 1 /mm3 LAB HEMETOLOGY METHOD 06/27/2025 6:16 PM EDT [facility] Body Fluid Total Nucleated Cells 867(H) <150 /mm3 LAB HEMETOLOGY METHOD 06/27/2025 6:16 PM T [facility] Synovial Fluid Structure of left knee region / Unknown 06/27/2025 12:00 PM EDT 06/27/2025 5:56 PM EDT us Iraj AGUILAR LAB BODY FLUIDS AND STOOLS OR DERABLES Final Result [facility] [address] [place] [address], [place] [phone] * (ABNORMAL) Differential body fluid (06/27/2025 12:00 PM EDT) Fluid Neutrophils 47.0(H) <25.0 % 06/27/2025 6:53 PM EDT [facility] Fluid Lymphocytes 27.0 <75.0 % 06/27/2025 6:53 PM EDT [facility] Fluid Monocytes/Macrop hages 23.0 <70.0 % 06/27/2025 6:53 PM EDT [facility] Fluid Lining Cells 3.0 % 06/27/2025 6:53 PM EDT [facility] Synovial Fluid Structure of left knee region / Unknown 06/27/2025 12:00 PM EDT 06/27/2025 5:56 PM EDT us Iraj AGUILAR LAB BODY FLUIDS AND STOOLS OR DERABLES Final Result [facility] [address] [place] [address], [place] [phone] * Crystal identification, body fluid (06/27/2025 12:00 PM EDT) Crystals, Fluid Absent Absent 06/27/2025 6:34 PM EDT [facility] Synovial Fluid Structure of left knee region / Unknown 06/27/2025 12:00 PM EDT 06/27/2025 5:56 PM EDT us Iraj AGUILAR LAB BODY FLUIDS AND STOOLS OR DERABLES Final Result [facility] [address] [place] [address], [place] [phone] from Last 3 Months Insurance KYLE CABALLERO [id number] Care Teams Sales Counselor Relationship Specialty Start Date End Date Physician, No Pcp PCP - General 06/27/25
--- OUTSIDE RECORDS SUMMARY | 2025-07-10 11:06 | XMS_ITS | Clinical Summary ---
Author Organization [facility] Address [address] [facility] [address] [place] [address] Phone Care Team Providers Care Banking Services Officer Name Role Phone Mayela Armijo MD Primary [...] Description 12/07/2025 2:30 PM EST Office Visit [facility] [address] [place] [address] Agapito Bowling MD [address] [place] [address], [address] [address] Health Maintenance Due Date Last Done Comments [...] topic Medical Devices Not on file Insurance [facility] PPO [employer] Care Teams Banking Services Officer Relationship Specialty Start Date End Date Mayela Armijo MD [facility] [place] [phone] PCP - General Internal Medicine 06/25/25 Additional Source Comments The information contained in this document represents components of the legal health record. It is not the complete legal health record.[facility]
--- OUTSIDE RECORDS SUMMARY | 2025-07-10 11:06 | XMS_ITS | Encounter Summary ---
Author Organization [facility] Address [address] [place] [address] Care Team Providers Care Guest Room Inspector Name Role Phone Physician, No Pcp Primary Care Provider Unavaila ble Encounter Details Date Type Department Care Team (Late st Contact Info) Description 06/27/2025 Lab Requisition [facility] Main Lab [address] [place] [address] Iraj Davies PA [address] [facility] [address] [place] [address] Effusion, left knee Social History Tobacco Use [...] 47.0(H) <25.0 % 06/27/2025 6:53 PM EDT [facility] Fluid Lymphocytes 27.0 <75.0 % 06/27/2025 6:53 PM EDT [facility] Fluid Monocytes/Macrop hages 23.0 <70.0 % 06/27/2025 6:53 PM EDT [facility] Fluid Lining Cells 3.0 % 06/27/2025 6:53 PM EDT [facility] Synovial Fluid Structure of left knee region / Unknown 06/27/2025 12:00 PM EDT 06/27/2025 5:56 PM EDT us Iraj AGUILAR LAB BODY FLUIDS AND STOOLS OR DERABLES Final Result Performing Organization Address City/[facility]/ZIP Co de Phone Number [facility] [address] [place] [address], [place] [phone] * Crystal identification, body fluid (06/27/2025 12:00 PM EDT) Crystals, Fluid Absent Absent 06/27/2025 6:34 PM EDT [facility] Synovial Fluid Structure of left knee region / Unknown 06/27/2025 12:00 PM EDT 06/27/2025 5:56 PM EDT us Iraj AGUILAR LAB BODY FLUIDS AND STOOLS OR DERABLES Final Result [facility] [address] [place] [address], [place] [phone] * (ABNORMAL) Cell count with reflex differential, body fluid (06/27/2025 12:00 PM EDT) Body Fluid Source Synovial 06/27/2025 6:16 PM EDT [facility] Body Fluid Clarity Slightly Hazy 06/27/2025 6:16 PM EDT [facility] Body Fluid Color Yellow 06/27/2025 6:16 PM EDT [facility] Body Fluid RBC 3,244(H) 0 - 1 /mm3 LAB HEMETOLOGY METHOD 06/27/2025 6:16 PM EDT [facility] Body Fluid Total Nucleated Cells 867(H) <150 /mm3 LAB HEMETOLOGY METHOD 06/27/2025 6:16 PM EDT [facility] Synovial Fluid Structure of left knee region / Unknown 06/27/2025 12:00 PM EDT 06/27/2025 5:56 PM EDT us Iraj AGUILAR LAB BODY FLUIDS AND STOOLS OR DERABLES Final Result [facility] [address] [place] [address], [place] [phone] documented in this encounter Visit Diagnoses Diagnosis Effusion, left knee documented in this encounter Care Teams Guest Room Inspector Relationship Specialty Start Date End Date Physician, No Pcp PCP - General 06/27/25 documented as of this encounter
--- OUTSIDE RECORDS SUMMARY | 2025-07-10 11:06 | XMS_ITS | Data Portability ---
Author Organization [place] [facility] Rachel Burrows [facility] [place] Address [address] [place] [address] Care Team Providers Care University Manager Name Role Phone VALERIE DUPONT Primary Care Provider [phone] VALERIE DUPONT Referring Provider Assessment Encounter Date [...] is a small procedure to open the cesar and allow the tendon to glide freely. [...] examination, recommended tests/diagnostic imaging, and treatment plan Not available 04/15/2025 13:30:13 06/27/2025 06/27/2025 Patient [...] She does not plan on returning to [facility] and would like to be seen by Dr. Hansen. Patient was recommended to obtain her MRI disc for review at her follow-up and any records from [facility] that would be helpful. ____ Patient was evaluated by Iraj Davies PA-C. I, Kristian Hansen MD, was present in the office or available for consultation. I reviewed the documentation, including history, exam, and test results, and I agree with the assessment and treatment plan as documented. [email or web address] Not available 06/27/2025 12:44:40 Plan of Treatment [...] Imaging XR, knee, 3 view 2024 025 [email or web address], [address], [place], [address], 06/27/2025 16:08:29 Medication Orders lidocaine (PF) 10 mg/mL (1 %) injection solution 2024 025 [id number], [address] [place] [address], [id number], 06/27/2025 16:08:29 triamcino lone acetonide 40 mg/mL suspensio n for injection 2024 025 [id number], [address] [place] [address], [id number], 06/27/2025 16:08:29 lidocaine (PF) 10 mg/mL (1 %) injection solution 2024 025 [id number], [address] [place] [address], [id number], 04/16/2025 09:42:26 triamcino lone acetonide 40 mg/mL suspensio n for injection 2024 025 [id number], [address] [place] [address], [id number], 04/16/2025 09:42:26 Patient TargetsNo targets recorded. Patient Instructions Encounter Date Encounter Id Patient Instructions Last Modified By Organization Details Last Modified Time 06/27/2025 [id number] Radiographs: 3 views of the Left knee were obtained in the [place] office on 06/27/2025 including AP, lateral (weightbearing), and sunrise. X-rays demonstrated normal bony mineralization. Joint spaces mildlydecreased Laterally. No evidence of acute injury or fracture. Incidental chondrocalcinosis noted in the lateral right knee. X-ray interpretation by: Iraj Davies PA-C [email or web address] Not available 06/27/2025 12:43:08 Reason for Referral None Reported. Results Created Date Observation Date Name Description Value Unit Range Abnormal Flag Note LastModifiedBy Organization Detail LastModifiedTime Result Notes None recorded. Problems Name Problem SNOMED Code Status Onset Date Resolution Date Notes Provider Name and Address Organization Details Recorded Time Effusion of joint of left knee 26189433824390 5 Active 2024 IRAJ DAVIES PA-C [address], [place], [address] , [place] [facility] [place] 12:32:58 Pain of left knee joint 56311117575634 7 Active 2024 Not Available [facility] 08:44:54 Problem Notes None recorded. Procedures Surgical History Date Name Laterality Status Provider Name and Address Organization Details Recorded Time JAC Knee Inj/Asp completed IRAJ DAVIES PA-C [address], [place], [address], [place] [facility] 06/27/2025 12:42:05 LES trigger finger/De Quervain's injection completed Trenton Thakkar [place] [facility] 04/15/2025 13:22:48 section completed Namita Schmitt [place] [facility] 04/15/2025 12:58:26 ligation of fallopian tube completed Namita Schmitt [place] [facility] 04/15/2025 12:58:36 lumbar spinal fusion completed Namita Schmitt [place] [facility] 04/15/2025 12:58:47 operative procedure on wrist completed Namita Schmitt [facility] [place] 04/15/2025 12:59:02 Knee Surgery completed Namita Schmitt [facility], [facility] 04/15/2025 12:59:13 Imaging Results None recorded. Procedure Notes None recorded. Medical Equipment None Reported. Allergies Allergen ID Allergen Name Allergen Category Reaction Reaction Severity Criticality Documentation Date Start Date Code Code System Note Provider Name and Address Organization Details Recorded Time 57399 morphine medicatio n Not available Not available Not available 04/15/2025 7052 RxNorm [address] [facility], [facility] 12:53:53 86780 Product containin g 3-hydroxy -3-methyl glutaryl- coenzyme A reductase inhibitor (product) medicatio n Not available Not available Not available 04/15/2025 31178 009 SNOMED [address] Mayen i [facility], [facility] 12:54:19 06284 Quviviq medicatio n Not available Not available Not available 04/15/2025 01963 03 RxNorm Namita Costak i [facility], [facility], P 12:54:29 Medications Name Sig Start Date [...] Updated DateTime 04/15/2025 167.64 cm 27.1 kg/m2 22693.52 g Namita Schmitt [facility], [facility] 04/15/2025 12:54:48 Date Recorded Body height Body mass index (BMI) Body weight Provider Name and Address Organization Details Last Updated DateTime 06/27/2025 167.64 cm 27.1 kg/m2 06573.52 g Cyndee Sampson [facility], [facility] 06/27/2025 12:47:05 Social History None recorded. [...] available 06/2025 12:58:09 Medical History Condition Response Rheumatoid Arthritis Hypothyroidism Y Osteoporosis Y Gynecological HistoryNo gynecological history recorded. Obstetrics History GPAL:G 0 P 0 0 0 0 Past Encounters Encounter ID Performer Location Encounter Start Date Encounter Closed Date Diagnosis/Indication Diagnosis SNOMED-CT Code Diagnosis ICD10 Code Diagnosis IMO Codes Diagnosis Note [id number] MAGY RANDOLPH [facility] [address] [address] 04/15/2025 11:51:10 04/15/2025 13:29:05 Triggering of digit 653166670 M65.520 [id number] MAGY RANDOLPH [facility] [address] [place] [id number] 06/27/2025 11:51:17 06/27/2025 12:29:56 Pain of left knee joint 7229444489 64873 M25.562 010134 Effusion o f joint of left knee 6528496107 09678 M25.773 [id number] Health Concerns Section Related Observation LastModified by Organization Detai ls LastModified Time None Recorded Concern Status LastModified by Organization Details LastModified Time None Recorded Advance Directives Directive None Recorded Payers Insurance Date Sequence Insurance Name Policy Number Policy Sutton Covered Member ID Sutton Member ID Guarantor Name 06/27/2025 1 [facility] [id number] [facility] [id number] [facility] 04/15/[address] [facility] [id number] [facility] [id number] 1 [facility] Notes Date Note Type Note Provider Name and Address Organization Details Recorded Time 04/15/2025 text/html Patient is a 49-year-old female with recurrent right ring finger triggering. She has been treated in the past and doing orthopedics. She has received injections with good relief. Unfortunate symptoms continue to return. She is frustrated with her ongoing complaints. 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 She called [facility] and could not be seen. She cannot use her hand and is having constant discomfort. Past medical history significant for possible lupus. She has osteoarthritis in her knees. Previous lumbar fusion. Chronic knee pain. IRAJ DAVIES PA-C [address], [place], [address], [place] [facility] 04/15/2025 13:34:52 06/27/2025 text/html ROS as noted in the HPI Patient is a 49-year-old female who presents today with left knee pain. She had a traumatic injury and reports having tears to the medial lateral meniscus treated by Dr. Anne at [facility] in April 2024. Unfortunately she has [...] is getting the attention she needs at [facility]. With her fall yesterday, she presents today for the [place] urgent care. 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 She has a history of lupus. IRAJ DAVIES PA-C [address], [place], [address], [place] [facility] 06/27/2025 12:49:13 OBGyn Episode No OBEpisode recorded.
== END 2025-07-10 10:15 | disposition home or self-care (01) ==
LOC: HO.XRAY 10:14
PROVIDERS: PCP Internal Medicine; Visit Provider Student in an Organized Health Care Education/Training Program
DX: M25.571 Pain in right ankle and joints of right foot (principal); M25.572 Pain in left ankle and joints of left foot; M25.562 Pain in left knee; M25.561 Pain in right knee; M25.532 Pain in left wrist; M25.531 Pain in right wrist; M25.542 Pain in joints of left hand; M25.541 Pain in joints of right hand
CPT/HCPCS: 73110; 73130; 73562; 73630

== ENCOUNTER → 2025-07-10 10:17 | Outpatient (BNV) | payer OTHER, SELFPAY | PROVIDERS: PCP Internal Medicine; Visit Provider Radiology Diagnostic Radiology | DX: M17.0 Bilateral primary osteoarthritis of knee (principal); M25.541 Pain in joints of right hand; M25.542 Pain in joints of left hand; M25.531 Pain in right wrist; M25.532 Pain in left wrist; M77.31 Calcaneal spur, right foot; M77.32 Calcaneal spur, left foot | CPT/HCPCS: 73110; 73130; 73562; 73630 ==

== ENCOUNTER 2025-07-22 13:15 | Outpatient (AMB) | payer OTHER, SELFPAY ==
[2025-07-22 13:28] VITALS: BP 118/98; PULSE 75; RESP 16; TEMP 36.8; O2SAT 97; BMI 27.9
--- NOTE | 2025-07-22 13:28 | MHC.PC.OV ---
Vital Signs 07/22/25 13:28 Height 5 ft 6 in Weight 173 lb BMI 27.9 BP 118/98 H Blood Pressure Location Rt brachial Position Sitting Respiration 16 Pulse 75 Pulse Source Pulse Oximeter Temp 98.2 F Temp Source Oral Pulse Oximetry (%) 97 Oxygen Delivery Method Room Air Intake Visit Reasons: Carpal tunnel Intake Note: Pt is here today for a pre-op Rt ring finger trigger finger release Dr. Kimberley Pratt at [facility] in [place] Suspender Maker Required: No Allergies morphine (MORPHINE) Allergy (Severe, Verified 07/22/25 14:07) ANAPHYLAXIS, hives, redness and itching suvorexant (From Belsomra) Allergy (Severe, Verified 07/22/25 14:07) Facial Swelling daridorexant (From Quviviq) Allergy (Verified 07/22/25 14:07) Facial Swelling barium sulfate Adverse Reaction (Unknown, Verified 07/22/25 14:07) couldn't sleep, weird dreams, sleep walking Lipitor Allergy (Mild, Uncoded 07/22/25 14:07) hives Medication List - Last Reconciled 07/22/25 by Mayela Armijo MD cholecalciferol (vitamin D3) 250 mcg (2 x 125 mcg (5,000 unit)) PO DAILY dextroamphetamine-amphetamine 10 mg (Adderall) 10 mg PO TID lorazepam (Ativan) 1 mg PO BID-TID PRN ondansetron HCl 4 mg PO Q8H PRN pravastatin 20 mg PO BEDTIME triamcinolone acetonide 0.1% 1 appl topical BID 10 days zolpidem (Ambien) Take 1-2 tablet orally bedtime PRN; Tobacco use date assessed: 07/22/25 Dental Screening Dental Screen Date: 07/22/25 Did you have a dental visit in the last 12 months?: Yes Did you have a dental problem in the last 6 months where you did not have access to dental care?: No Was dental information given to patient?: Patient has dentist HPI Carpal tunnel HPI Details 49-year-old lady with history of chronic insomnia, osteoarthritis in knees, generalized anxiety disorder, ADHD, dyslipidemia, polyarthralgia, here today for preoperative examination for release of right ring trigger finger, scheduled for 07/27/2025, requested by Dr. Hurtado. She has been feeling well, no complaints at present time except for recurrent pain and stiffness in knees and fingers fingers . Not on any blood thinner. FOR[facility]LY [facility], [facility] Medical History (Updated 07/22/25 @ 14:11 by Mayela Armijo MD) Mixed dyslipidemia History of weight loss Chronic insomnia Vasomotor symptoms due to menopause History of abnormal uterine bleeding Knee osteoarthritis Condyloma acuminata Flexor tenosynovitis of finger Generalized anxiety disorder Family history of lupus erythematosus Polyarthralgia Eczema Vitamin D deficiency Familial hypercholesterolemia Surgical History (Updated 07/22/25 @ 14:11 by Myaela Armijo MD) History of lumbar fusion History of carpal tunnel surgery Hx of lumbar discectomy History of S/P gastric sleeve procedure History of loop electrical excision procedure (LEEP) History of tonsillectomy Hx of colonoscopy Family History Father Ischemic heart disease Diabetes Mental health disorder Brother Mental health disorder Mother Mental health disorder Diabetes Lupus (systemic lupus erythematosus) History of rheumatoid arthritis Sister Mental health disorder Social History Housing: House Patient Tobacco Use Status: Current someday Tobacco user Cigarettes Per Day: 10 e-Cigarette/Vaping Use: Never Used service: No Current occupational status: employed 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 Depression Screening Interpretation: Positive (Currently followed by psychiatry, sees Yvrose Garcia) Depression Screening Follow-up: Existing condition, In treatment and Community Mental Health Worker F/U Depression Screening Done: Yes Source: Developed by Drs. Rito Jamil, Myah Mora, Sukhdeep Dailey and colleagues, with an educational zaki from [employer]. Thrive Questionnaire Date Thrive assessed: 02/19/25 I am a: Patient What is your living situation today?: I have a steady place to live Within the past 12 months, did the food you bought not last and you didn't have the money to get more?: Never true Within the past 12 months, did you worry whether your food would run out before you got money to buy more?: Never true Do you have trouble paying for medicines?: No Do you have trouble getting transportation to medical appointments?: No Do you have trouble paying your heating and electricity bill?: No Do you have trouble taking care of your child, family member or friend?: No Do you have trouble with day-to-day activities such as bathing, preparing meals, shopping, managing finances, etc.?: No Are you currently unemployed and looking for a job?: No Are you interested in more education?: No Please select the resources that you would like help with: None Currently or been in a relationship where the following occur: No concerns reported THRIVE Score: 0 AUDIT C Alcohol Use Questionnaire (AUDIT-C) 1. How often do you have a drink containing alcohol?: Monthly or less 2. How many drinks containing alcohol do you have on a typical day when you are drinking?: 1 or 2 3. How often do you have six or more drinks on one occasion?: Never Total Score: 1 NITA-7 AMB Questionnaire NITA-7 Date NITA - 7 assessed: 02/19/25 Source: Developed by Drs. Rito Jamil, Myah Mora, Sukhdeep Dailey and colleagues, with an educational zaki from [employer]. Review of Systems Const All systems reviewed & are unremarkable except as noted in HPI and below ENT Reports Normal hearing present Card Denies chest pain, Denies rapid heart rate, Denies irregular heart rhythm and Denies lightheadedness Resp Reports no additional complaints GI Reports as per HPI Reports no additional complaints Musc Details: Polyarthralgia, and intermittent joint swelling mainly in fingers hands wrists, has an appointment to see Dr. Shane in June Neuro Reports Normal hearing present and Denies Sensory deficit (Neuro) Psych Reports as per HPI Endo Reports no additional complaints Nando/Lymph Reports no additional complaints Aller/Immun Reports no additional complaints Physical exam (Primary Care) Vital Signs: Last Vital Signs Temp 98.2 F 07/22/25 13:28 Pulse 75 07/22/25 13:28 Resp 16 07/22/25 13:28 BP 118/98 H 07/22/25 13:28 Pulse Ox 97 07/22/25 13:28 Oxygen Delivery Method Room Air 07/22/25 13:28 BMI result Body Mass Index 27.9 Tobacco/Smoking Status: Tobacco use Status Tobacco use date assessed 07/22/25 07/22/25 13:31 Patient Tobacco Use Status Current someday Tobacco 07/22/25 13:31 e-Cigarette/Vaping Use Never Used 07/22/25 13:31 Depression Screening Interpretation: Positive (Currently followed by psychiatry, jennifer Gacria) Depression Screening Follow-up: Existing condition, In treatment and Community Mental Health Worker F/U Thrive Assessment: Date of Thrive Assessment Date Thrive assessed 02/19/25 07/22/25 13:31 Currently or been in a relationship where the following occur: No concerns reported Const General: no acute distress Nutritional Appearance: overweight Orientation/consciousness: patient oriented x3 HENMT Head: Yes normocephalic General nose exam: Normal external nose present Mouth: moist mucous membranes Eyes General: appearance normal, both eyes and all related structures Neck Other: Supple, no lymphadenopathy, thyroid gland nonpalpable Neck: Yes full ROM Resp Auscultation: clear to auscultation bilaterally Cardio Other: S1-S2 present regular rate and rhythm GI Other: well healed laparoscopic sx scar for gastric sleeve procedure Palpation (GI): Soft to palpation, nontender and no guarding Auscultation: normal bowel sounds Back/Spine/Pelvis Back: No back tenderness Skin General skin exam: no rashes or lesions noted Neuro General: patient oriented x3, gait normal, tone normal, moves all extremities, Normal light touch and pain sensation and no focal motor deficits Cranial nerves: Yes Normal hearing present Sensory Exam: No Sensory deficit (Neuro) Extrem General: Yes full ROM, Yes no clubbing, cyanosis or edema and Yes normal gait Right upper extremity: Extremity exam: right hand Details: tendon exam abnormal (Trigger finger , right ring finger) Psych Appearance: grossly normal and well kempt Mental Status: mental status grossly normal Speech and movement: Normal speech and movement present Affect: normal affect Coding Level of Care Code Est Pt Level 4 (21901) Diagnoses Preoperative examination Z01.818 Generalized anxiety disorder F41.1 ADHD (attention deficit hyperactivity disorder), combined type F90.2 Mixed dyslipidemia E78.2 Knee osteoarthritis M17.9 Chronic insomnia F51.04 Assessment & Plan Assessment & Plan (1) Preoperative examination: Code(s): Z01.818 - Encounter for other preprocedural examination Plan: 49-year-old lady here today for preoperative examination for right ring finger trigger finger release, requested by Dr. Pratt advanced to orthopedics [facility], scheduled for 07/27/2025 under local anesthesia. Preoperative exam is unremarkable, patient has not on any blood. No diabetes, patient cardiac or pulmonary complaints. Patient with a low cardiac risk index for proposed surgery (2) Generalized anxiety disorder: Code(s): F41.1 - Generalized anxiety disorder Category: Medical Plan: Takes lorazepam as needed for acute anxiety attacks (3) ADHD (attention deficit hyperactivity disorder), combined type: Comment: Jennifer Garcia, WALT Code(s): F90.2 - Attention-deficit hyperactivity disorder, combined type Category: Medical Plan: Followed by Psychiatry currently on Adderall mg 1 tablet 3 times (4) Mixed dyslipidemia: Code(s): E78.2 - Mixed hyperlipidemia Category: Medical Plan: Currently on pravastatin 20 mg at bedtime, reinforced importance of adhering to a low-cholesterol diet and getting regular exercise (5) Knee osteoarthritis: Comment: Currently followed at [facility] orth[facility]ics, advised possible knee replacement by Dr. Jackson and Dr. Bryant , patient declined Code(s): M17.9 - Osteoarthritis of knee, unspecified Category: Medical Plan: Now being seen at [facility] (6) Chronic insomnia: Code(s): F51.04 - Psychophysiologic insomnia Category: Medical Plan: Takes zolpidem as needed for insomnia
--- OUTSIDE RECORDS SUMMARY | 2025-07-22 16:55 | XMS_ITS | Continuity of Care Document ---
Author Organization [place] [facility] Rachel Burrows AONE Gerald Address [address] [place] [address] Care Team Providers Care Wood Carver Hand Name Role Phone VALERIE DUPONT Primary Care Provider VALERIE DUPONT Referring Provider Assessment Encounter Date Assessment Date Assessment LastModified by Organization Details LastModified Time 07/17/2025 07/17/2025 We discussed the findings and detail today. She has evidence of a right ring finger trigger finger which is recurrent after multiple steroid injections, at this point she has had over 6 in his finger with another group. I discussed with her that repetitive injections in a short period of time can weaken the tendon and I would not recommend continued injections for treatment. We discussed other treatment options which include A1 cesar release. She would like to proceed with surgery. Risks of surgery were discussed with the patient which include but are not limited to bleeding, infection, injury to nerves, tendons, vessels, pain, stiffness, non-relief of symptoms, recurrence, needing more surgery in the future as well as risks of anesthesia. All questions were answered to the patient's satisfaction. They understood these risks and agreed to proceed, consent was obtained today. We discussed doing this under local only anesthesia versus with sedation if she like to proceed with sedation medication. She is at increased risk for complications from surgery due to her medical comorbidities and therefore will require presurgical clearance. She is asking for pain medication after surgery. We will schedule surgery at her convenience. All of her questions were answered, she is in agreement the plan. elder Not available 07/21/2025 08:06:54 Plan of Treatment Reminders Order Date Submit Date Provider Last Modified By Organization Details Last Modified Time Details Appointments SURGERY 30 TIME TBD by Facilit y 2024 12:45P M Carol saab MD Not available Not available Not available POST-OP 2024 01:45P M Carol saab MD Not available Not available Not available RESULTS 2024 10:45A M Kristian Hansen MD Not available Not available Not available Lab None recorde d. Referral None recorde d. Procedures None recorde d. Surgeries trigger finger release (SURG) 2024 025 [email or web address] Not available 07/21/2025 14:10:26 Imaging XR, hand, 3 or more view 2024 [facility], [address], [place], [address], 07/17/2025 16:29:05 XR, hand, 3 or more view 2024 [facility], [address], [place], [address], 07/17/2025 16:29:05 Medication Orders None recorde d. Patient TargetsNo targets recorded. Patient InstructionsNo instructions recorded. Reason for Referral None Reported. Results Created Date Observation Date Name Description Value Unit Range Abnormal Flag Note LastModifiedBy Organization Detail LastModifiedTime Result Notes None recorded. Problems Name Problem SNOMED Code Status Onset Date Resolution Date Notes Provider Name and Address Organization Details Recorded Time Effusion of joint of left knee 4502195686988 05 Active 2024 EKATERINA DAVISE PA-C [address], [place], [address] , [place] [facility] 12:32:58 Pain of left knee joint 7013300169679 07 Active 2024 Not Available [facility] 08:44:54 Triggering of digit 933419453 Active 2024 Carol Pratt MD [address], [place], [address] , [place] [facility] 10:44:59 Osteoarthr itis of left knee joint 7685104723827 09 Active 2024 Kristian Hansen MD [address], [place], [address] , [place] [facility] 09:27:57 Problem Notes None recorded. Procedures Surgical History Date Name Laterality Status Provider Name and Address Organization Details Recorded Time JAC Knee Inj/Asp completed EKATERINA DAVIES PA-C [address], [place], [address], [place] [facility] 06/27/2025 12:42:05 LES trigger finger/De Quervain's injection completed Trenton Thakkar [facility] 04/15/2025 13:22:48 [facility] [place] 04/15/2025 12:58:26 ligation of fallopian tube completed Namita Schmitt [place] [facility] 04/15/2025 12:58:36 [facility] [place] [facility] 04/15/2025 12:58:47 operative procedure on wrist [facility] [place] [facility] 04/15/2025 12:59:02 [facility] [place] 04/15/2025 12:59:13 Imaging Results None recorded. Procedure Notes None recorded. Medical Equipment None Reported. Allergies Allergen ID Allergen Name Allergen Category Reaction Reaction Severity Criticality Documentation Date Start Date Code Code System Note Provider Name and Address Organization Details Recorded Time 05305 morphine medicatio n Not available Not available Not available 04/15/2025 7052 RxNorm Namita Julissak i [place], [place] - [facility] 12:53:53 06973 Product containin g 3-hydroxy -3-methyl glutaryl- coenzyme A reductase inhibitor (product) medicatio n Not available Not available Not available 04/15/2025 25442 009 SNOMED Namita Solowinsk i [place], [place] [facility] 5 12:54:19 31354 Quviviq medicatio n Not available Not available Not available 04/15/2025 48034 03 RxNorm Namita Mayen i [place], [place] [facility] 5 12:54:29 Medications Name Sig Start Date Stop Date Status Note LastModified by Organization Details LastModified Time clonidine HCl 0.1 mg tablet TAKE 1 TABLET BY MOUTH AT BEDTIME active Not Available Not Available No t Available benzonatate 200 mg capsule TAKE 1 CAPSULE BY MOUTH 2 TO 3 TIMES PER DAY FOR COUGH active Not Available Not Available No t Available ondansetron HCl 4 mg tablet TAKE 1 TABLET BY MOUTH EVERY 8 HOURS NEEDED FOR NAUSEA OR VOMITING active Not Available Not Available No t Available dextroamphe tamine-amph etamine 10 mg tablet TAKE 1 TABLET BY MOUTH THREE TIMES DAILY 4 HOURS APART active Not Available Not Available No t Available lithium carbonate 150 mg capsule TAKE 1 CAPSULE BY MOUTH AT BEDTIME active Not Available Not Available No t Available triamcinolo ne acetonide 0.1 % topical cream APPLY TOPICALLY TO AFFECTED AREA TWO TIMES A DAY FOR 10 DAYS active Not Available Not Available No t Available temazepam 7.5 mg capsule TAKE 1 CAPSULE BY MOUTH AT BEDTIME NEEDED FOR SLEEP active Not Available Not Available No t Available amoxicillin 875 mg tablet TAKE 1 TABLET BY MOUTH TWICE DAILY FOR 7 DAYS 07/14 completed Not Available Not Available Not Available temazepam 15 mg capsule TAKE 1 CAPSULE BY MOUTH AT BEDTIME active Not Available Not Available No t Available triamcinolo ne acetonide 40 mg/mL suspension for injection Take 40 mg by injection route. 2024 active Not Available Not Available Not Avai lable neomycin-po lymyxin-dex ameth 3.5 mg/mL-10,00 0 unit/mL-0.1 % eye drops SHAKE LIQUID AND INSTILL 1 DROP IN BOTH EYES FOUR TIMES DAILY FOR 2 WEEKS THEN STOP 07/14 completed Not Available Not Available Not Available pravastatin 20 mg tablet TAKE 1 TABLET BY MOUTH AT BEDTIME active Not Available Not Available No t Available lorazepam 1 mg tablet TAKE 1 TABLET BY MOUTH 2 TO 3 TIMES A DAY NEEDED FOR ANXIETY OR INSOMNIA active Not Available Not Available No t Available zolpidem 10 mg tablet TAKE 1 TO 2 TABLETS BY MOUTH AT BEDTIME NEEDED FOR INSOMNIA active Not Available Not Available No t Available albuterol sulfate HFA 90 mcg/actuati on aerosol inhaler INHALE 1 PUFF BY MOUTH FOUR TIMES DAILY NEEDED FOR COUGH. active Not Available Not Available No t Available ondansetron 4 mg disintegrat ing tablet DISSOLVE ONE TABLET BY MOUTH THREE TIMES DAILY NEEDED FOR NAUSEA FOR 7 DAYS active Not Available Not Available No t Available oxycodone 5 mg tablet TAKE 1 TABLET BY MOUTH EVERY 4 HOURS FOR 7 DAYS NEEDED active Not Available Not Available No t Available mirtazapine 7.5 mg tablet TAKE 1 TABLET BY MOUTH AT BEDTIME active Not Available Not Available No t Available eszopiclone 3 mg tablet TAKE 1 TABLET BY MOUTH AT BEDTIME active Not Available Not Available No t Available ramelteon 8 mg tablet TAKE 1 TABLET BY MOUTH AT BEDTIME active Not Available Not Available No t Available zolpidem ER 12.5 mg tablet,exte nded release,mul tiphase TAKE 1 TABLET BY MOUTH AT BEDTIME active Not Available Not Available No t Available lidocaine (PF) 10 mg/mL (1 %) injection solution Take 0.5 mL by injection route. 2024 active Not Available Not Available Not Avai lable Belsomra 10 mg tablet TAKE 1 TABLET BY MOUTH AT BEDTIME active Not Available Not Available No t Available BinaxNOW COVID-19 Ag Self Test kit TEST DIRECTED TODAY active Not Available Not Available No t Available Vitals Date Recorded Body height Body mass index (BMI) Body weight Provider Name and Address Organization Details Last Updated DateTime 07/17/2025 167.64 cm 27.1 kg/m2 93445.[address] [facility] 07/17/2025 10:10:51 Date Recorded Body height Body mass index (BMI) Body weight Provider Name and Address Organization Details Last Updated DateTime 07/20/2025 167.64 cm 27.3 kg/m2 [address]956.[address] [place] [facility] 07/20/2025 08:58:24 Social History None recorded. Functional Status Question [...] available 06/2025 12:58:09 Medical History Condition Response Coronary Artery Disease N Gout N Hyperthyroidism N MRSA N Blood Transfusion N Emphysema N Hypothyroidism N Depression N COPD N Pacemaker N Vascular Disease N Gastrointestinal Disease N Anxiety Disorder Y Autoimmune disease Y Arthritis Y Cancer N Stroke N High Cholesterol Y Neurologic Disorder N Liver Disease N Organ Transplant N Rheumatoid Arthritis N Arrhythmia N Fibromyalgia N Kidney Disease N Allergies/Hayfever N Adverse Reaction to Anesthesia N Thyroid Problems N Anemia N Brain Injury N Heart Attack (MS) N Osteopenia N Diabetes N Bleeding Disorder N Seizures/Epilepsy N AIDS/HIV N Congestive Heart Failure (CHF) N Asthma N Amputation N Reflux/GERD N Sleep Apnea N Hepatitis N Aneurysm N Heart Disease N Pulmonary Embolism N Hypertension N Osteoporosis Y Gynecological HistoryNo gynecological history recorded. Obstetrics History GPAL:G 0 P 0 0 0 0 Past Encounters Encounter ID Performer Location Encounter Start Date Encounter Closed Date Diagnosis/Indication Diagnosis SNOMED-CT Code Diagnosis ICD10 Code Diagnosis IMO Codes Diagnosis Note [id number] [facility] [address] [place] [address] 06/27/2025 11:51:17 06/27/2025 12:29:56 Pain of left knee joint 0747549266 35065 M25.562 604445 Effusion o f joint of left knee 1104019839 92307 M25.575 [id number] Carol Pratt MD [facility] [address] [place] [address] 07/17/2025 09:53:27 07/17/2025 11:45:50 Pain of bilateral hands 3730671092 7596535 M79.641 M79.642 [id number] Triggering of digit 2399 71285 M65.857 [id number] Health Concerns Section Related Observation LastModified by Organization Detai ls LastModified Time None Recorded Concern Status LastModified by Organization Details LastModified Time None Recorded Payers Encounter Date Sequence Insurance Name Policy Number Policy Sutton Covered Member ID Sutton Member ID Guarantor Name 07/17/2025 1 [facility] [id number] [facility] [id number] [facility] Notes Date Note Type Note Provider Name and Address Organization Details Recorded Time 07/17/2025 text/html ROS as noted in the HPI This is a 49-year-old [id number] female who presents with right ring finger trigger finger, she has had a cortisone injection on 04/15/2025 by Zafar Davies. She has recurrence of symptoms. She has pain and triggering of the finger with range of motion. She has been seen previously by [facility] and has had what she thinks is 6 injections in the last 10 years in the right ring finger. She was actually signed up for surgery by one of their surgeons for this month however comes to see us for reevaluation. Medical history significant for anxiety, possible lupus, hyperlipidemia. She does smoke cigarettes, 1 pack/day, drinks alcohol occasionally. Denies illicit drug use. Carol Pratt MD [address], [place], [address], [place] [facility] 07/21/2025 08:07:11 07/20/2025 text/html Patient returns for repeat evaluation of her left knee. She had an aspiration cortisone injection on 06/27/2025, she states that the aspirations tend to provide some short-term relief. Ultimately she is overall no better. She tells me that after her surgery in April 2024 the knee would swell up so bad that she could hardly even do physical therapy. She has had multiple cortisone injections. She has had viscosupplementation . She never had an MRI after surgery. She tells me I have arthritis everywhere .Sees a quality assurance supervisor trim. Testing currently going on. Not a confirmed diagnosis of lupus. PRIOR GERARDO:Patient is a 49-year-old female who presents today with left knee pain. She had a traumatic injury and reports having tears to the medial lateral meniscus treated by Dr. Anne at [facility] in April 2024. Unfortunately she has [...] is getting the attention she needs at [facility]. With her fall yesterday, she presents today for the [facility]. 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 She has a history of lupus. Kristian Hansen MD [address], [place], [address], [place] [facility] 07/20/2025 10:19:25 OBGyn Episode No OBEpisode recorded.
--- OUTSIDE RECORDS SUMMARY | 2025-07-22 16:56 | XMS_ITS | Data Portability ---
Author Organization [facility], [facility] Address [address] [place] [address] Care Team Providers Care Architectural Inspector Name Role Phone VALERIE DUPONT Primary Care Provider [phone] Assessment Encounter Date Assessment Date Assessment LastModified [...] osteoarthrits of the left knee. There is lltd-bn-hlda articulation, subchondral sclerosis, and osteophyte formation. There [...] Her Kenan, with a cell phone number [phone]. [email or web address] Not available 12/05/2024 13:51:43 12/29/2024 12/29/2024 [...] therefore cortisone injection performed today. Follow-up [facility] speech recognition surface plate finisher software was used to create portions of [...] satisfaction; surgery to be scheduled with my clinical secretary. angie Not available 05/15/2025 15:15:07 Plan [...] Surgeries tenosyn ovectom y (SURG) 2024 025 [email or web address] [place], [address], [place], [address], 06/19/2025 14:17:12 Imaging None recorde d. Medication Orders oxycodo ne 5 mg tablet 2024 025 [id number], [address] [place] [address], [phone], 12/10/2024 12:58:51 Celebre x 200 mg capsule [address] [id number], [address] [place] [address], [phone], 12/05/2024 13:47:42 pantopr azole 40 mg tablet, delayed release [address] [facility][id number], [address] [place] [address], [phone], 12/05/2024 13:47:42 ondanse bruce 4 mg disinte grating tablet [address] [facility]24259, [address] [place] [address], [phone], 12/05/2024 13:47:42 Patient TargetsNo targets recorded. Patient InstructionsNo instructions recorded. Reason for Referral None Reported. Results Created Date Observation Date Name Description Value Unit Range Abnormal Flag Note LastModifiedBy Organization Detail LastModifiedTime 12/02/19 25 12/02/2024 PROTH ROMBI N TIME (PT) INR 1.0 0.9-1. 1 Not Available [facility] [address] [place] [address], [address], 12/02/2024 12:41:57 12/02/19 25 12/02/2024 PROTH ROMBI N TIME (PT) prothrombin time 10.9 sec 9.2-11 .4 normal Not Available [address], [address], 12/02/2024 12:41:57 12/02/19 25 12/02/2024 PTT, ACTIV ATED APTT 27.2 sec 23.4-3 3.1 normal For patie nts needi ng highe r than usual dose of hepar in to achie ve thera peuti c range use UFH anti Xa level s for monit oring . Not Available [address], [address], 12/02/2024 12:41:58 12/02/19 25 12/02/2024 CBC WITH DIFFE RENTI AL/PL ATELE T WBC 8.1 x10e3 /uL 3.4-10 .8 normal Not Available [facility] ([facility]) [address] [place], [address], 12/03/2024 06:05:44 12/02/19 25 12/02/2024 CBC WITH DIFFE RENTI AL/PL ATELE T RBC 4.87 x10e6 /uL 3.77-5 .28 normal Not Available [facility] ([facility]) [address] [place], [address], 12/03/2024 06:05:44 12/02/19 25 12/02/2024 CBC WITH DIFFE RENTI AL/PL ATELE T hemoglobin 15.4 g/dL 11.1-1 5.9 normal Not Available [facility] ([facility]) [address] [place], [address], 12/03/2024 06:05:44 12/02/19 25 12/02/2024 CBC WITH DIFFE RENTI AL/PL ATELE T hematocrit 46.4 % 34.0-4 6.6 normal Not Available [facility] ([facility]) [address] [place], [address], 12/03/2024 06:05:44 12/02/1912/02/2024 CBC WITH DIFFE RENTI AL/PL ATELE T MCV 95 fL 79-97 normal Not Available [facility] ([facility]) [address] [place], [address], 12/03/2024 06:05:44 12/02/1912/02/2024 CBC WITH DIFFE RENTI AL/PL ATELE T MCH 31.6 pg 26.6-3 3.0 normal Not Available [facility] ([facility]) [address] [place], [address], 12/03/2024 06:05:44 12/02/1912/02/2024 CBC WITH DIFFE RENTI AL/PL ATELE T MCHC 33.2 g/dL 31.5-3 5.7 normal Not Available [facility] ([facility]) [address] [place], [address], 12/03/2024 06:05:44 12/02/19 25 12/02/2024 CBC WITH DIFFE RENTI AL/PL ATELE T RDW 13.1 % 11.7-1 5.4 Not Available [facility] ([facility]) [address] [place], [address], 12/03/2024 06:05:44 12/02/1912/02/2024 CBC WITH DIFFE RENTI AL/PL ATELE T platelets 339 x10e3 /uL 150-45 0 normal Not Available [facility] ([facility]) [address] [place], [address], 12/03/2024 06:05:44 12/02/19 25 12/02/2024 CBC WITH DIFFE RENTI AL/PL ATELE T neutrophils 54 % not estab. normal Not Available [facility] ([facility]) [address] [facility], [place], [address], 12/03/2024 06:05:44 12/02/19 25 12/02/2024 CBC WITH DIFFE RENTI AL/PL ATELE T lymphs 36 % not estab. normal Not Available [facility] ([facility]) [address] [facility], [place], [address], 12/03/2024 06:05:44 12/02/19 25 12/02/2024 CBC WITH DIFFE RENTI AL/PL ATELE T monocytes 7 % not estab. normal Not Available [facility] ([facility]) [address] [facility], [place], [address], 12/03/2024 06:05:44 12/02/19 25 12/02/2024 CBC WITH DIFFE RENTI AL/PL ATELE T eos 3 % not estab. normal Not Available [facility] ([facility]) [address] [facility], [place], [address], 12/03/2024 06:05:44 12/02/19 25 12/02/2024 CBC WITH DIFFE RENTI AL/PL ATELE T basos 0 % not estab. normal Not Available [facility] ([facility]) [address] [facility], [place], [address], 12/03/2024 06:05:44 12/02/19 25 12/02/2024 CBC WITH DIFFE RENTI AL/PL ATELE T immature cells PROPERTY MANAGEMENT COORDINATOR Not Available [facility] [address] [place], [address], 12/03/2024 06:05:44 12/02/19 25 12/02/2024 CBC WITH DIFFE RENTI AL/PL ATELE T neutrophils (absolute) 4.4 x10e3 /uL 1.4-7. 0 normal Not Available [facility] ([facility]) [address] [place], [address], 12/03/2024 06:05:44 12/02/19 25 12/02/2024 CBC WITH DIFFE RENTI AL/PL ATELE T lymphs (absolute) 2.9 x10e3 /uL 0.7-3. 1 normal Not Available [facility] ([facility]) [address] [place], [address], 12/03/2024 06:05:44 12/02/19 25 12/02/2024 CBC WITH DIFFE RENTI AL/PL ATELE T monocytes(ab solute) 0.5 x10e3 /uL 0.1-0. 9 normal Not Available [facility] ([facility]) [address] [place], [address], 12/03/2024 06:05:44 12/02/19 25 12/02/2024 CBC WITH DIFFE RENTI AL/PL ATELE T eos (absolute) 0.2 x10e3 /uL 0.0-0. 4 normal Not Available [facility] ([facility]) [address] [place], [address], 12/03/2024 06:05:44 12/02/19 25 12/02/2024 CBC WITH DIFFE RENTI AL/PL ATELE T baso (absolute) 0.0 x10e3 /uL 0.0-0. 2 normal Not Available [facility] ([facility]) [address] [place], [address], 12/03/2024 06:05:44 12/02/19 25 12/02/2024 CBC WITH DIFFE RENTI AL/PL ATELE T immature granulocytes 0 % not estab. Not Available [facility] ([facility]) [address] [place], [address], 12/03/2024 06:05:44 12/02/19 25 12/02/2024 CBC WITH DIFFE RENTI AL/PL ATELE T immature grans (abs) 0.0 x10e3 /uL 0.0-0. 1 Not Available [facility] ([facility]) [address] [place], [address], 12/03/2024 06:05:44 12/02/1912/02/2024 CBC WITH DIFFE RENTI AL/PL ATELE T NRBC PROPERTY MANAGEMENT COORDINATOR Not Available [facility] ([facility]) [address] [facility] [place], [address], 12/03/2024 06:05:44 12/02/1912/02/2024 CBC WITH DIFFE RENTI AL/PL ATELE T hematology comments: PROPERTY MANAGEMENT COORDINATOR Not Available [facility] [address] [place], [address], 12/03/2024 06:05:44 12/02/19 25 12/03/2024 ELECT ROLYT E PANEL sodium 140 mmol/ L 134-14 4 normal Not Available [facility] ([facility]) [address] [place], [address], 12/03/2024 06:05:45 12/02/1912/03/2024 ELECT ROLYT E PANEL potassium 4.2 mmol/ L 3.5-5. 2 normal Not Available [facility] ([facility]) [address] [place], [address], 12/03/2024 06:05:45 12/02/1912/03/2024 ELECT ROLYT E PANEL chloride 101 mmol/ L 96-106 normal Not Available [facility] ([facility]) [address] [place], [address], 12/03/2024 06:05:45 12/02/1912/03/2024 ELECT ROLYT E PANEL carbon dioxide, total 23 mmol/ L 20-29 normal Not Available [facility] ([facility]) [address] [place], [address], 12/03/2024 06:05:45 12/02/1912/03/2024 BUN+C REAT BUN 8 mg/dL 6-24 normal Not Available [facility] ([facility]) [address] [place], [address], 12/03/2024 06:05:46 12/02/1912/03/2024 BUN+C REAT creatinine 0.84 mg/dL 0.57-1 .00 normal Not Available [facility] ([facility]) [address] [place], [address], 12/03/2024 06:05:46 12/02/1912/03/2024 BUN+C REAT eGFR 86 mL/mi n/1.7 3 >59 normal Not Available [facility] ([facility]) [address] [place], [address], 12/03/2024 06:05:46 12/02/1912/03/2024 BUN+C REAT BUN/creatini ne ratio 10 9-23 normal Not Available [facility] ([facility] [address] [place], [address], 12/03/2024 06:05:46 12/02/1912/03/2024 HEMOG LOBIN A1C hemoglobin A1C 5.8 % 4.8-5. 6 above high normal Predi abete s: 5.7 - 6.4 Diabe girma: >6.4 Glyce joel contr ol for adult s with diabe girma: <7.0 Not Available [facility] ([facility]) [address] [place], [address], 12/03/2024 06:05:47 12/02/1912/03/2024 GLUCO SE glucose 65 mg/dL 70-99 below low normal Not Available [facility] ([facility]) [address] [place], [address], 12/03/2024 06:05:47 12/01/1912/01/2024 XR, knee, 4 or more view [email or web address] ?Encry pted=s hAaTro YD8dLq bEUv6g %2BXZw aYqtaq 0bqfl% 2Fg9IQ a4ajBk vP9nXo QUaueC m3YtLR FvZlgJ JJ8mAn HZtai3 0f4068 AC0Kqb X6EVqa hKiQtr MwF INTERFACE [facility] [address], [place], [address], 12/01/2024 14:49:31 12/01/19 25 12/01/2024 XR, knee, 4 or more view [email or web address] ?Encry pted=s hAaTro YD8dLq bEUv6g %2BXZw aYqtaq 0bqfl% 2Fg9IQ a4ajBk vP9nXo QUaueC m3YtLR FvZlgJ JJ8mAn HZtai3 0y0766 AC0Kqb X6EVqa hKiQtr MwF INTERFACE [facility] [address], [place], [address], 12/01/2024 14:49:33 Result Notes None recorded. Problems Name Problem SNOMED Code Status Onset Date Resolution Date Notes Provider Name and Address Organization Details Recorded Time No complaints 989792528 Active Status : 'A'; Not Available [facility] 4 09:19:12 Pain of left knee joint 2674359245864 07 Active 2023 NEDRA moncada [place] - [facility] 5 14:42:07 Tear of medial meniscus of knee 356700925 Active 2023 Cass Gonzalez PA-C [address], [facility] [place], [address] , [facility] - [facility] 4 09:41:29 Tear of medial meniscus of knee 921545856 Active 2023 DYLAN moncada [place] - [facility] 4 09:52:37 Osteoarthr itis of left knee joint 7459694397382 09 Active 2023 Cass Gonzalez PA-C [address], [place], [address] , [facility] 4 15:21:08 Acute tear of lateral meniscus of left knee 3984185510141 9105 Active 2023 NATHEN MATHEWSBROOK [facility] 4 10:17:30 Notes:Some problems listed i n Document: #[id number] could not be added to this patient's chart. Please review this document and add these problems to the patient's chart manually as needed. Problem Notes None recorded. Procedures Surgical History Date Name Laterality Status Provider Name and Address Organization Details Recorded Time 5 JZKNEE INJ completed Julien Khan PA-C [address], [place], [address], [facility] 05/21/2025 18:05:41 5 Gel-One Knee Injection completed Balaji Whyte PA-C [address] [facility], [place], [address], [facility] 12/29/2024 09:21:33 5 JZ Knee Aspiration completed Balaji Whyte PA-C [address], [place], [address], [facility] 12/29/2024 09:21:51 5 65936 Therapeutic Exercise (1:1) completed Chris Loaiza DPT [address], [place], [address], [facility] 12/02/2024 14:35:44 5 58761: Low complexity PT Eval completed Chris Loaiza DPT [address], [place], [address], [facility] 12/02/2024 14:35:46 4 53533 Therapeutic Exercise (1:1) cancelled Ashli Salinas COMMUNITY DEVELOPMENT AIDE [address], [place], [address], [facility] 06/13/2024 08:45:17 4 01472: Manual therapy cancelled Ashli Salinas PTA [address], [place], [address], [facility] 06/13/2024 08:45:17 4 71640 Therapeutic Exercise (1:1) cancelled Ashli Salinas COMMUNITY DEVELOPMENT AIDE [address], [place], [address], [facility] 06/04/2024 07:09:56 4 41501: Manual therapy cancelled Ashli Salinas PTA [address], [place], [address], [facility] 06/04/2024 07:09:56 4 65183 Therapeutic Exercise (1:1) completed Ashli Salinas PTA [address], [place], [address], [facility] 06/03/2024 14:44:28 4 06231: Manual therapy completed Ashli Salinas PTA [address], [place], [address], [facility] 06/03/2024 14:44:26 4 Knee Kenalog 40mg 1cc Asp & Inj, L/R completed Chase Anne MD [address], [place], [address], [facility] 05/29/2024 10:51:54 4 80955 Therapeutic Exercise (1:1) cancelled Ashli Salinas COMMUNITY DEVELOPMENT AIDE [address], [place], [address], [facility] 05/28/2024 12:58:55 4 27459: Manual therapy cancelled Ashli Salinas, COMMUNITY DEVELOPMENT AIDE [address], [place], [address], [facility] 05/28/2024 12:58:55 4 76986 Therapeutic Exercise (1:1) cancelled Ashli Salinas PTA [address], [place], [address], [facility] 05/26/2024 15:18:04 4 07373: Manual therapy cancelled Ashli Salinas PTA [address], [place], [address], [facility] 05/26/2024 15:18:04 4 75964 Therapeutic Exercise (1:1) completed Ashli Salinas PTA [address], [place], [address], [facility] 05/22/2024 13:52:19 4 83714: Manual therapy completed Ashli Salinas PTA [address], [place], [address], [facility] 05/22/2024 13:52:19 4 37744 Therapeutic Exercise (1:1) cancelled Ashli Salinas PTA [address], [place], [address], [facility] 05/19/2024 15:13:23 4 07498: Manual therapy cancelled Ashli Salinas PTA [address], [place], [address], [facility] 05/19/2024 15:13:23 4 03749 Therapeutic Exercise (1:1) completed Ashli Salinas PTA [address], [place], [address], [facility] 05/15/2024 18:07:31 4 72301: Manual therapy completed Ashli SalinasHALIMA [address], [place], [address], [facility] 05/15/2024 18:07:34 4 83841 Therapeutic Exercise (1:1) completed Chris Loaiza DPT [address] [facility], [place], [address], [facility] 05/14/2024 15:25:07 4 33073: Low complexity PT Eval completed Chris Loaiza DPT [address] [facility], [place], [address], [facility] 05/14/2024 15:27:32 4 Knee Kenalog 40mg 1cc Asp & Inj, L/R completed Chase Anne MD [address] [facility], [place], [address], [facility] 04/11/2024 10:56:12 4 Sports Knee 4&1 completed Cass Gonzalez PA-C [address] [facility], [place], [address], [facility] 02/12/2024 15:26:06 4 Trigger Finger Kenalog Injection completed Edwige Meza PA-C [address] [facility], [place], [address], [facility] 01/31/2024 17:39:25 Imaging Results None recorded. Procedure Notes None recorded. Medical Equipment None Reported. Allergies Allergen ID Allergen Name Allergen Category Reaction Reaction Severity Criticality Documentation Date Start Date Code Code System Note Provider Name and Address Organization Details Recorded Time 435299 Product containin g 3-hydroxy -3-methyl glutaryl- coenzyme A reductase inhibitor (product) medicatio n Not available Not available Not available 01/11/2024 96955 009 SNOMED DYLAN moncada [facility] 4 09:22:06 46426 morphine sulfate medicatio n Not available Not available Not available 12/10/20232009 41082 RxNorm Aller gyRea ction : 'Naus ea/Vo mitin g/Hedy rrhea '; Not Available [facility] 4 15:13:05 73558 acetamino phen / oxycodone medicatio n Not available Not available Not available 12/10/20232009 26814 3 RxNorm Jose Roberto moncada [place] - [facility] 5 08:56:48 Medications Name [...] Updated DateTime 12/05/2024 165.74 cm 29.2 kg/m2 63360.85 g MARTITA WILDE [facility] 12/05/2024 12:59:29 Date Recorded Body height Body mass index (BMI) Body weight Provider Name and Address Organization Details Last Updated DateTime 12/29/2024 165.74 cm 29.2 kg/m2 68063.85 g Jose Roberto Howard [facility] 12/29/2024 08:56:58 Date Recorded Body height Body mass index (BMI) Body weight Provider Name and Address Organization Details Last Updated DateTime 02/03/2025 165.74 cm 29.2 kg/m2 78384.85 g JAXON HARTMAN [facility] 02/03/2025 14:43:02 Date Recorded Body height Provider Name an d Address Organization Details Last Updated DateTime 05/15/2025 165.74 cm Corie Wright [facility] 05/15/2025 14:55:06 Social History None recorded. [...] ICD10 Code Diagnosis IMO Codes Diagnosis Note [id number] Cass Gonzalez PA-C [facility] [address] [place], [place] [address] 01/11/2024 09:00:10 02/06/2024 15:11:14 Pain of left knee joint 1226252898 35388 M25.562 Tear of me dial meniscus of knee 698394037 S83.242A [id number] Edwige Meza PA-C [facility] [address] [place], [place] [address] 01/31/2024 17:07:47 02/22/2024 09:18:58 [id number] Cass Gonzalez PA-C [facility] [address] [place], [place] [address] 02/12/2024 14:42:34 03/06/2024 18:22:56 Osteoarthritis of left knee joint 4469913435 02001 M17.12 [id number] Chase Anne MD [facility] [address] [place], [place] [address] 04/11/2024 09:36:11 05/13/2024 10:20:50 Acute tear of lateral meniscus of left knee 7687405204 3456749 S83.282A [id number] Ashli Borrego PA-C [facility] [address] [place] [address] 05/02/2024 12:56:37 05/21/2024 10:57:48 Postoperative care 414781797 Z48.89 [id number] Chris Loaiza DPT [facility] [address] [place] [address] 05/13/2024 17:35:09 05/13/2024 18:03:23 Tear of lateral meniscus of knee 762000844 S83.282D [id number] Ashli Salinas PTA [facility] [address] [place], [place] [address] 05/15/2024 16:51:31 05/15/2024 17:40:14 Tear of lateral meniscus of knee 119160817 S83.282D [id number] Ashli Salinas PTA [facility] [address] [place] [address] 05/23/2024 15:34:13 05/23/2024 16:23:09 Tear of lateral meniscus of knee 805737702 S83.282D [id number] Chase Anne MD [facility] [address] [place] [address] 05/29/2024 09:51:26 06/23/2024 11:07:24 Acute tear of lateral meniscus of left knee 9216800767 0729640 S83.282A [id number] Ashli HALIMA Salinas [facility] [address] [place] [address] 06/03/2024 11:09:05 06/03/2024 12:11:37 Tear of lateral meniscus of knee 347431534 S83.282D [id number] Chase Anne MD [facility] [address] [place] [address] 11/20/2024 13:41:28 12/10/2024 07:23:09 Osteoarthritis of left knee joint 2209568017 11338 M17.12 Bernard Bryant MD [facility] [address] [place] [address] 12/01/2024 14:04:58 12/11/2024 11:54:09 Pain of left knee joint 6792204981 12400 M25.562 002834 Osteoarthr itis of left knee joint 7029388422 93780 M17.12 [id number] Chris Loaiza DPT [facility] [address] [place] [address] 12/02/2024 10:45:29 12/02/2024 12:12:23 Osteoarthritis of knee 048496389 M17.12 [id number] Nicole Adams APRN [facility] [address] [place] [address] 12/05/2024 12:47:11 12/23/2024 11:55:11 Preprocedural examination done 4105263364 64681 Z01.818 840616 Osteoarthr itis of left knee joint 8431791822 75815 M17.12 5659940 [id number] Balaji Whyte PA-C [facility] [address] [place] [address] 12/29/2024 08:46:49 01/12/2025 07:50:43 Osteoarthritis of left knee joint 5258131871 30485 M17.12 Osteoarthr itis of right knee joint 5852281888 72727 M17.11 [id number] MAGY Diaz [facility] [address] [place] [address] 02/03/2025 14:27:33 02/09/2025 08:24:28 Osteoarthritis of left knee joint 5524190216 95979 M17.12 [id number] MD [facility] [address] [place] [address] 05/15/2025 14:43:53 05/22/2025 12:14:08 Triggering of digit 924332756 M65.30 [id number] Health Concerns Section Related Observation LastModified by Organization Detai ls LastModified Time None Recorded Concern Status LastModified by Organization Details LastModified Time None Recorded Advance Directives Directive None Recorded Payers Insurance Date Sequence Insurance Name Policy Number Policy Sutton Covered Member ID Sutton Member ID Guarantor Name 12/18/[address] [facility] 05/22/2025 1 [facility] [id number] [facility] [id number] [facility] Notes Date Note Type Note Provider Name and Address Organization Details Recorded Time 12/02/2024 text/html Patient is 49 year old female, with chronic history of knee pain and OA. Presents today for first prehab visit for scheduled TKA at [facility] on 12/18/24. Arrives today ambulating with [...] and restore function of L knee Chris oLaiza DPT [address] [facility] [address], [place], [address], [facility] 12/02/2024 14:36:37 05/15/2025 text/html ROS as [...] injection at that time. 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 Denia Mejia MD [address] [facility] [address], [place], [address], [facility] 05/15/2025 16:32:14 OBGyn Episode No OBEpisode recorded.
--- OUTSIDE RECORDS SUMMARY | 2025-07-22 16:56 | XMS_ITS | Data Portability ---
Author Organization [place] [facility] Burrows [place] Address [address] [place] [address] Care Team Providers Care Liner Roll Changer Name Role Phone VALERIE DUPONT Primary Care Provider VALERIE DUPONT Referring Provider [phone] Assessment Encounter Date Assessment Date Assessment LastModified [...] x-rays are needed at the next visit. _ Patient was seen and evaluated by Iraj Davies PA-C in indirect conjunction with Dr. Pratt . The provider agrees with the history, physical examination, recommended tests/diagnostic imaging, and treatment plan [email or web address] Not available 04/15/2025 13:30:13 06/27/2025 06/27/2025 Patient is a 49-year-old female with recurrent knee effusion. We discussed causes of joint effusion. There was calcification in the lateral compartment of the asymptomatic right knee. Chondrocalcinosis/pseu dogout is in the differential. She was eager [...] She does not plan on returning to [facility] and would like to be seen by Dr. Hansen. Patient was recommended to obtain her MRI disc for review at her follow-up and any records from [facility] that would be helpful. Patient was evaluated by Iraj Davies PA-C. IKristian MD, was present in the office or available for consultation. I reviewed the documentation, including history, exam, and test results, and I agree with the assessment and treatment plan as documented. [email or web address] Not available 06/27/2025 12:44:40 07/17/2025 07/17/2025 We discussed the findings and [...] the plan. elder Not available 07/21/2025 08:06:54 07/20/2025 07/20/2025 Persistent left knee pain. History of an arthroscopy at [facility]. I looked at her MRI from 01/14/2024 which shows degenerative changes in the lateral compartment as well as a degenerative appearing lateral meniscus tear. Her recent x-ray showed narrowing of the lateral compartment consistent with osteoarthritis. We reviewed the natural history of osteoarthritis. The patient understands that symptoms may progress over time requiring further intervention. We discussed in detail available treatment options. We discussed activity modification, especially avoiding impact type activities. We discussed the need for an ongoing maintenance flexibility and strengthening program. This should involve the core musculature, the hip, as well as the quadriceps and hamstrings. Intermittent icing 20 minutes off 3 to 4 times a day with the skin protected may be helpful for control of swelling. Xfpb-yoq-fzpemri anti-inflammatory medications with appropriate GI precautions or Tylenol may be helpful in controlling intermittent symptoms of pain. An assistive device such as a cane may be helpful in unloading the joint. Supplements may be considered such as chondroitin and glucosamine sulfate. The literature is unclear as to benefit, however, some patients see improvement with these type of supplements. We also discussed other interventions including therapeutic injections. We discussed varieties of injections including cortisone, viscosupplementation, and PRP. We also discussed the possibility of surgical intervention if symptoms persist. We discussed arthroscopic intervention as well as total knee arthroplasty. A decision for surgery is dependent on a variety of factors including patient characteristics, co-morbidities, expectations, and expected outcome. At this point she is frustrated by her ongoing symptoms, she is terrified of a knee replacement and does not want to consider that. Unfortunately this is likely the trajectory that she is heading in as I doubt that a repeat arthroscopy will be of much benefit. With that said we will go ahead and repeat an MRI. I will see her back to go over the results. She has already tried viscosupplementation and multiple cortisone injections/aspirations , at this point I would hold off on any further injections. She will continue to follow-up with her unarmed security guard. Greater than 30 minutes was spent with the encounter today, including face to face time with the patient, documentation, review of records/imaging if applicable, and coordination of care. PRIOR GERARDO: Patient is a 49-year-old female with recurrent knee effusion. We discussed causes of joint effusion. There was calcification in the lateral compartment of the asymptomatic right knee. Chondrocalcinosis/pseu dogout is in the differential. She was eager [...] She does not plan on returning to [facility] and would like to be seen by Dr. Hansen. Patient was recommended to obtain her MRI disc for review at her follow-up and any records from [facility] that would be helpful. Not available 07/20/2025 09:33:46 Plan of Treatment Reminders Order Date Submit [...] Not available Lab cell count w/ diff, synovia l fluid 2024 025 [email or web address] Not available 07/06/2025 15:22:39 crystal s, synovia l fluid 2024 025 MOOKIE Not available 06/30/2025 09:23:27 culture , synovia l fluid 2024 025 MOOKIE Not available 06/30/2025 09:23:16 gram stain, synovia l fluid 2024 MOOKIE Not available 06/30/2025 09:23:38 Referral None recorde d. Procedures None recorde d. Surgeries trigger finger release (SURG) 2024 [email or web address] Not available 07/21/2025 14:10:26 Imaging MRI, knee, w/o contras t 2024 [email or web address] Not available 07/22/2025 10:52:06 XR, hand, 3 or more view 2024 [facility], [address], [address], [place], [address], 07/17/2025 16:29:05 XR, hand, 3 or more view 2024 [facility], [address], [address], [place], [address], 07/17/2025 16:29:05 XR, knee, 3 view [address] [facility], [address], [place], [address], 06/27/2025 16:08:29 Medication Orders lidocai ne (PF) 10 mg/mL (1 %) injecti on solutio n 2024 [email or web address] [facility][id number], [address], [place], [id number], 07/17/2025 10:08:50 triamci nolone acetoni de 40 mg/mL suspens ion for injecti on 2024 [email or web address] [facility] #28164, [address], [place], [id number], 06/27/2025 16:08:29 lidocai ne (PF) 10 mg/mL (1 %) injecti on solutio n 2024 025 [email or web address] [facility] #[id number], [address], [place], [id number], 04/16/2025 09:42:26 triamci nolone acetoni de 40 mg/mL suspens ion for injecti on 2024 025 [email or web address] [facility] #99145, [address], [place], [id number], 04/16/2025 09:42:26 Patient TargetsNo targets recorded. Patient Instructions Encounter Date Encounter Id Patient Instructions Last Modified By Organization Details Last Modified Time 06/27/2025 [id number] Radiographs: 3 views of the Left knee were obtained in the [facility] office on 06/27/2025 including AP, lateral (weightbearing), and sunrise. X-rays demonstrated normal bony mineralization. Joint spaces mildlydecreased Laterally. No evidence of acute injury or fracture. Incidental chondrocalcinosis noted in the lateral right knee. X-ray interpretation by: Iraj Davies PA-C [email or web address] Not available 06/27/2025 12:43:08 07/20/2025 [id number] Radiographs: 3 v iews of the Left knee were obtained in the [facility] office on 06/27/2025 including AP, lateral (weightbearing), and sunrise. X-rays demonstrated normal bony mineralization. Joint spaces mildlydecreased Laterally. No evidence of acute injury or fracture. Incidental chondrocalcinosis noted in the lateral right knee. X-ray interpretation by: Iraj Davies PA-C Not available 07/20/2025 09:28:36 Reason for Referral None Reported. Results Created Date Observation Date Name Description Value Unit Range Abnormal Flag Note LastModifiedBy Organization Detail LastModifiedTime Result Notes None recorded. Problems Name Problem SNOMED Code Status Onset Date Resolution Date Notes Provider Name and Address Organization Details Recorded Time Effusion of joint of left knee 5284252602799 05 Active 2024 IRAJ DAVIES PA-C [address], [place], [address] , [place] [facility] 5 12:32:58 Pain of left knee joint 7570321832703 07 Active 2024 Not Available [facility] 08:44:54 Triggering of digit 102406272 Active 2024 Carol Pratt MD [address], [place], [address] , [place] [facility] 10:44:59 Osteoarthr itis of left knee joint 3336404460007 09 Active 2024 Kristian Hansen MD [address], [place], [address] , [place] [facility] 09:27:57 Problem Notes None recorded. Procedures Surgical History Date Name Laterality Status Provider Name and Address Organization Details Recorded Time JAC Knee Inj/Asp completed IRAJ DAVIES PA-C [address], [place], [address], [place] [facility] 06/27/2025 12:42:05 LES trigger finger/De Quervain's injection completed Trentno Thakkar [place] [facility] 04/15/2025 13:22:48 section completed [facility] 04/15/2025 12:58:26 ligation of fallopian tube completed Namita Schmitt [place] [facility] 04/15/2025 12:58:36 lumbar spinal fusion completed Namita Schmitt [place] [facility] 04/15/2025 12:58:47 operative procedure on wrist completed Namita Schmitt [place] [facility] 04/15/2025 12:59:02 Knee Surgery completed [facility] [place] [place] [facility] 04/15/2025 12:59:13 Imaging Results None recorded. Procedure Notes None recorded. Medical Equipment None Reported. Allergies Allergen ID Allergen Name Allergen Category Reaction Reaction Severity Criticality Documentation Date Start Date Code Code System Note Provider Name and Address Organization Details Recorded Time 87339 morphine medicatio n Not available Not available Not available 04/15/2025 7052 RxNorm Namita Aguirreinsk i null, [place] [facility] 5 12:53:53 51223 Product containin g 3-hydroxy -3-methyl glutaryl- coenzyme A reductase inhibitor (product) medicatio n Not available Not available Not available 04/15/2025 43912 009 SNOMED Namita Carlainsk i null, [place] [facility] 5 12:54:19 71252 Quviviq medicatio n Not available Not available Not available 04/15/2025 84874 03 RxNorm Namita Aguirreinsk i null, [place] [facility] 12:54:29 Medications Name Sig Start Date [...] Updated DateTime 04/15/2025 167.64 cm 27.1 kg/m2 79432.[address] [place] [facility], 04/15/2025 12:54:48 Date Recorded Body height Body mass index (BMI) Body weight Provider Name and Address Organization Details Last Updated DateTime 06/27/2025 167.64 cm 27.1 kg/m2 83906.52 g Cyndee Sampson [place] [facility] 06/27/2025 12:47:05 Date Recorded Body height Body mass index (BMI) Body weight Provider Name and Address Organization Details Last Updated DateTime 07/17/2025 167.64 cm 27.1 kg/m2 93355.[address] [place] [facility] 07/17/2025 10:10:51 Date Recorded Body height Body mass index (BMI) Body weight Provider Name and Address Organization Details Last Updated DateTime 07/20/2025 167.64 cm 27.3 kg/m2 87029.11 g Iris Shannon [place] [facility] 07/20/2025 08:58:24 Social History None recorded. [...] Not available 06/2025 12:58:19 Sister Hyperlipidem ia [email or web address] Not available 06/2025 12:57:55 Sister Hypertensive disorder [email or web address] Not available 06/2025 12:58:09 Medical History Condition Response Coronary Artery Disease N Gout N Hyperthyroidism N MRSA N Blood Transfusion N Emphysema N Depression N COPD N Hypothyroidism N Pacemaker N Vascular Disease N Gastrointestinal Disease N Anxiety Disorder Y Autoimmune disease Y Arthritis Y Cancer N Stroke N High Cholesterol Y Neurologic Disorder N Liver Disease N Organ Transplant N Rheumatoid Arthritis N Arrhythmia N Fibromyalgia N Kidney Disease N Allergies/Hayfever N Adverse Reaction to Anesthesia N Thyroid Problems N Anemia N Brain Injury N Heart Attack (ND) N Osteopenia N Diabetes N Bleeding Disorder [...] ICD10 Code Diagnosis IMO Codes Diagnosis Note [id number] IRAJ DAVIES PA-C [facility] [address] [place] [address] 9 04/15/2025 11:51:10 04/15/2025 13:29:05 Triggering of digit 256129378 M65.084 2183284 [id number] IRAJ DAVIES PA-C [facility] [address] [place] [address] 06/27/2025 11:51:17 06/27/2025 12:29:56 Pain of left knee joint 6758499288 43755 M25.562 120140 Effusion o f joint of left knee 6992410750 15861 M25.223 [id number] Carol Pratt MD [facility] [address] [facility] [address] [place], [place] [address] 07/17/2025 09:53:27 07/17/2025 11:45:50 Pain of bilateral hands 7072686287 0055182 M79.641 M79.642 16455067 Triggering of digit 2399 24713 M65.404 [id number] MD ROSENDO [place] [address] [facility] [address] [place] [address] 07/20/2025 08:54:25 07/20/2025 09:33:06 Effusion of joint of left knee 7239011762 34727 M25.637 1763375 Pain of le ft knee joint 7290876182 25978 M25.562 285134 Osteoarthr itis of left knee joint 5659899732 07157 M17.12 [id number] Health Concerns Section Related Observation LastModified by Organization Detai ls LastModified Time None Recorded Concern Status LastModified by Organization Details LastModified Time None Recorded Advance Directives Directive None Recorded Payers Insurance Date Sequence Insurance Name Policy Number Policy Sutton Covered Member ID Sutton Member ID Guarantor Name 07/20/2025 1 [facility] [id number] [facility] [id number] [facility] 04/15/2025 1 [facility] [id number] 3 [facility] [id number] 1 [facility] Notes Date Note Type Note Provider Name and Address Organization Details Recorded Time 04/15/2025 text/html Patient is a 49-year-old female with recurrent right ring finger triggering. She has been treated in the past and doing orthopedics. She has received injections with good relief. Unfortunate symptoms continue to return. She is frustrated with her ongoing complaints. 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 She called [facility] and could not be seen. She cannot use her hand and is having constant discomfort. Past medical history significant for possible lupus. She has osteoarthritis in her knees. Previous lumbar fusion. Chronic knee pain. IRAJ DAVIES PA-C [address], [place], [address], [place] [facility] 04/15/2025 13:34:52 06/27/2025 text/html ROS as noted in the HPI Patient is a 49-year-old female who presents today with left knee pain. She had a traumatic injury and reports having tears to the medial lateral meniscus treated by Dr. Anne at [facility] in April 2024. Unfortunately she has [...] is getting the attention she needs at [facility]. With her fall yesterday, she presents today for the [facility]. 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 She has a history of lupus. IRAJ DAVIES PA-C [address], [place], [address], [place] [facility] 06/27/2025 12:49:13 07/17/2025 text/html ROS as noted in the HPI This is a 49-year-old [id number] female who presents with right ring finger [...] Carol Pratt MD [address], [place], [address], [place] [facility] 07/21/2025 08:07:11 07/20/2025 text/html Patient returns [...] me I have arthritis everywhere .Sees a unarmed security guard. Testing currently going on. Not a confirmed diagnosis of lupus. PRIOR GERARDO:Patient is a 49-year-old female who presents today with left knee pain. She had a traumatic injury and reports having tears to the medial lateral meniscus treated by Dr. Anne at [facility] in April 2024. Unfortunately she has [...] is getting the attention she needs at [facility]. With her fall yesterday, she presents today for the [facility]. 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 She has a history of lupus. Kristian Hansen MD [address], [place], [address], [place] [facility] 07/20/2025 10:19:25 OBGyn Episode No OBEpisode recorded.
--- OUTSIDE RECORDS SUMMARY | 2025-07-22 16:56 | XMS_ITS | Continuity of Care Document ---
Author Organization [place] [facility] Rachel Burrows AONE Vanlue Address [address] [place] [address] Care Team Providers Care Traffic Operations Engineer Name Role Phone VALERIE DUPONT Primary Care Provider VALERIE DUPONT Referring Provider [phone] Assessment Encounter Date Assessment Date Assessment LastModified by Organization Details LastModified Time 07/20/2025 07/20/2025 Persistent left knee pain. History of an arthroscopy at [facility]. I looked at her MRI from 01/14/2024 [...] may be helpful for control of swelling. [id number]-[id number] anti-inflammatory medications with appropriate GI precautions or [...] She will continue to follow-up with her button maker. Greater than 30 minutes was spent with [...] She does not plan on returning to [facility] and would like to be seen by Dr. Hansen. Patient was recommended to obtain her MRI disc for review at her follow-up and any records from [facility] that would be helpful. Not available 07/20/2025 09:33:46 Plan of Treatment Reminders Order Date Submit Date Provider Last Modified By Organization Details Last Modified Time Details Appointments [id number] TIME TBD by Facility 2024 12:45P Dana saab MD Not available Not available Not available POST-OP 2024 01:45P Dana saab MD Not available Not available Not available RESULTS 2024 10:45A Dana Hansen MD Not available Not available Not available Lab None recorded. Referral None recorded. Procedures None recorded. Surgeries None recorded. Imaging MRI, knee, w/o contrast 2024 025 [email or web address] Not available 07/22/2025 10:52:06 Medication Orders None recorded. Patient TargetsNo targets recorded. Patient Instructions Encounter Date Encounter Id Patient Instructions Last Modified By Organization Details Last Modified Time 07/20/2025 [id number] Radiographs: 3 v iews of the Left knee were obtained in the [place] office on 06/27/2025 including AP, lateral (weightbearing), [...] Time Effusion of joint of left knee 8340291086317 05 Active 2024 IRAJ DAVIES PA-C [address], [place], [address] , [place] [facility] [place] 5 12:32:58 Pain of left knee joint 2072578835494 07 Active 2024 Not Available [facility] 08:44:54 Triggering of digit 229593333 Active [address], [place], [address] , [place] [facility] [place] 5 10:44:59 Osteoarthr itis of left knee joint 7808143657115 09 Active [address], [place], [address] , [place] [facility] [place] 09:27:57 Problem Notes None recorded. Procedures Surgical History Date Name Laterality Status Provider Name and Address Organization Details Recorded Time JAC Knee Inj/Asp completed IRAJ DAVIES PA-C [address], [place], [address], [place] [facility] [place] 06/27/2025 12:42:05 LES trigger finger/De Quervain's injection completed Trenton Thakkar [facility] [place] 04/15/2025 13:22:48 section completed Namitayayo Schmitt [facility] [place] 04/15/2025 12:58:26 ligation of fallopian tube completed Namitayayo Agu[place] [facility] [place] 04/15/2025 12:58:36 lumbar spinal fusion completed Namitayayo Schmitt [facility] [place] 04/15/2025 12:58:47 operative procedure on wrist completed [facility] [place] 04/15/2025 12:59:02 Knee Surgery completed [facility] [place] 04/15/2025 12:59:13 Imaging Results None recorded. Procedure Notes None recorded. Medical Equipment None Reported. Allergies Allergen ID Allergen Name Allergen Category Reaction Reaction Severity Criticality Documentation Date Start Date Code Code System Note Provider Name and Address Organization Details Recorded Time 46681 morphine medicatio n Not available Not available Not available 04/15/2025 7052 RxNorm Namita Solowinsk i [facility], [facility], P 12:53:53 80489 Product containin g 3-hydroxy -3-methyl glutaryl- coenzyme A reductase inhibitor (product) medicatio n Not available Not available Not available 04/15/2025 38954 009 SNOMED Namita Solowinsk i [facility] 12:54:19 84296 Quviviq medicatio n Not available Not available Not available 04/15/2025 26239 03 RxNorm Namita Solowinsk i [facility], [place] [facility] 12:54:29 Medications Name Sig Start [...] Updated DateTime 07/20/2025 167.64 cm 27.3 kg/m2 [address]6313.[address] [place] [facility] [place] [facility] [place] 07/20/2025 08:58:24 Social History None recorded. [...] Blood Transfusion N Emphysema N Hypothyroidism N COPD N Depression N Pacemaker N Vascular Disease N Gastrointestinal Disease N Anxiety Disorder Y Autoimmune disease Y Arthritis Y Cancer N Stroke N High Cholesterol Y Neurologic Disorder N Liver Disease N Organ Transplant N Arrhythmia N Rheumatoid Arthritis N Fibromyalgia N Kidney Disease N Allergies/Hayfever N Adverse Reaction to Anesthesia N Thyroid Problems N Anemia N Brain Injury N Heart Attack (NM) N Osteopenia N Diabetes N Bleeding Disorder [...] ICD10 Code Diagnosis IMO Codes Diagnosis Note [id number] MAGY RANDOLPH [facility] [address] [place] [address] 06/27/2025 11:51:17 06/27/2025 12:29:56 Pain of left knee joint 6924807110 26351 M25.562 563243 Effusion o f joint of left knee 0902642497 52659 M25.350 [id number] MD ROSENDO Wilkersonfield [address] [place] [address] 07/17/2025 09:53:27 07/17/2025 11:45:50 Pain of bilateral hands 8562237648 1063006 M79.641 M79.642 52215035 Triggering of digit 2399 58161 M65.104 [id number] MD ROSENDO Marshall [address] [place] [address] 07/20/2025 08:54:25 07/20/2025 09:33:06 Effusion of joint of left knee 3013752230 92860 M25.352 5211340 Pain of le ft knee joint 1490035260 44995 M25.562 441377 Osteoarthr itis of left knee joint 7732248252 35257 M17.12 [id number] Health Concerns Section Related Observation LastModified by Organization Detai ls LastModified Time None Recorded Concern Status LastModified by Organization Details LastModified Time None Recorded Payers Encounter Date Sequence Insurance Name Policy Number Policy Sutton Covered Member ID Sutton Member ID Guarantor Name 07/20/2025 1 [facility] [id number] Tarsha Mackenzie [id number] Tarsha Mackenzie Notes Date Note Type Note Provider Name and Address Organization Details Recorded Time 07/20/2025 text/html Patient returns for repeat evaluation [...] me I have arthritis everywhere .Sees a button maker. Testing currently going on. Not a confirmed diagnosis of lupus. PRIOR GERARDO:Patient is a 49-year-old female who presents today with left knee pain. She had a traumatic injury and reports having tears to the medial lateral meniscus treated by Dr. Anne at [facility] in April 2024. Unfortunately she has [...] is getting the attention she needs at [facility]. With her fall yesterday, she presents today for the [place] urgent care. 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 She has a history of lupus. Kristian Hansen MD [address], [place], [address], [place] [facility] [place] 07/20/2025 10:19:25 OBGyn Episode No OBEpisode recorded.
--- OUTSIDE RECORDS SUMMARY | 2025-07-22 16:56 | XMS_ITS | Clinical Summary ---
Author Organization [facility] Address [address] [place] [address] Phone Care Team Providers Care Sales Assistants And Salespersons Name Role Phone Mayela Armijo MD Primary [...] Description 12/07/2025 2:30 PM EST Office Visit [facility] Plastic Surgery [address] [place] [address] Agapito Bowling MD [address] [place] [address], [address] [address] Health Maintenance Due Date Last Done Comments [...] VACCINE (#1) 2025 COVID-19 VACCINE ( - 2024-2 6 season) 2025 HEPATITIS A VACCINES Aged Out [...] topic Medical Devices Not on file Insurance [facility] PPO PHCS Care Teams Sales Assistants And Salespersons Relationship Specialty Start Date End Date Mayela Armijo MD [facility] [place] [id number] PCP - General Internal Medicine 06/25/25 Additional Source Comments The information contained in this document represents components of the legal health record. It is not the complete legal health record.[facility]
== END 2025-07-22 14:57 | disposition home or self-care (01) ==
LOC: HO.HMCC 13:16
PROVIDERS: PCP Internal Medicine; Visit Provider Internal Medicine
DX: Z01.818 Encounter for other preprocedural examination (principal); F41.1 Generalized anxiety disorder; F90.2 Attention-deficit hyperactivity disorder, combined type; E78.2 Mixed hyperlipidemia; M17.9 Osteoarthritis of knee, unspecified; F51.04 Psychophysiologic insomnia

== ENCOUNTER 2025-08-17 10:11 | Outpatient (AMB) | payer OTHER, SELFPAY ==
--- NOTE | 2025-08-17 10:14 | MHC.OFFVISPS ---
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 Required: No Allergies morphine (MORPHINE) Allergy (Severe, Verified 07/22/25 14:07) ANAPHYLAXIS, hives, redness and itching suvorexant (From Belsomra) Allergy (Severe, Verified 07/22/25 14:07) Facial Swelling daridorexant (From Quviviq) Allergy (Verified 07/22/25 14:07) Facial Swelling barium sulfate Adverse Reaction (Unknown, Verified 07/22/25 14:07) couldn't sleep, weird dreams, sleep walking Lipitor Allergy (Mild, Uncoded 07/22/25 14:07) hives Medication List - Last Reconciled 08/17/25 by Yvrose Franco APRN cholecalciferol (vitamin D3) 250 mcg (2 x 125 mcg (5,000 unit)) PO DAILY dextroamphetamine-amphetamine 20 mg (Adderall) 10 mg (1/2 x 20 mg) PO TID lorazepam (Ativan) 1 mg PO BID-TID PRN ondansetron HCl 4 mg PO Q8H PRN pravastatin 20 mg PO BEDTIME triamcinolone acetonide 0.1% 1 appl topical BID 10 days zolpidem (Ambien) Take 1-2 tablet orally bedtime PRN; HPI- Psychiatric Chief Complaint: follow up HPI Narrative: Pt reports sleep improved with curent medications; she has been struggling with medical issues: trigger finger surgery and severe arthrtisi in left knee. she is also having family issues - conflict with daughter and pt caring for 5 yr old grandaughter. pt conitnue to struggle with sleep. can not sleep without medications;Pt states insurenace is covvering the ambien despite high dose-they approved it for severe insomnia; pt states ambien 20 mg daily is the only thing that helps. NO SI or HI. failed trials of meds fro sleep; Belsomra: had allergic reaction to belsomra; lips and face swelling with rash; Benadryl: took benadryl which helped but she had sleep paralysis Trazodone-ineffective Clonidine-ineffective Lunesta- ineffective Temazepam was ineffective buspar- ineffective rozerem- ineffective mirtazepine-ineffective amitriptyline-ineffective lithium - ineffective Doxepin- ineffective Ambien CR-ineffective Past Psychiatric History: outpatient during childhood- psychiatry and therapy; no IPLOC Subjective Subjective Medication Compliance: Yes Side effects from medications: No Review of Systems Medical Review of Systems: unchanged Mental Status Exam Mental Status Exam Patient Appearance: Well Grooomed Patient Orientation: Person, Place, Time and Situation Level of Consciousness: Awake and Appropriate Patient Behavior: Appropriate and Cooperative Mood Description: Appropriate and Anxious Affect Description: Appropriate and Anxious Patient Cognition Impaired: No Ability to Follow Directions: Good Speech Pattern: Clear Memory Description: Intact Hallucinations: None Delusions: Not Present Thought Process: Intact and Goal Oriented Thought Content: positive for Intact and positive for Goal Oriented Judgement: Good Assessment and Plan Assessment & Plan (1) Anxiety about health: Status: Resolved Code(s): R45.89 - Other symptoms and signs involving emotional state (2) ADHD (attention deficit hyperactivity disorder), combined type: Status: Acute Code(s): F90.2 - Attention-deficit hyperactivity disorder, combined type (3) Insomnia: Status: Resolved Qualifiers: Insomnia type: primary Qualified Code(s): F51.01 - Primary insomnia Code(s): G47.00 - Insomnia, unspecified Plan ambien 10 mg take 1-2 at bedtime prn sleep continue adderall 10mg BID contine ativan 1mg BID - tid prn anxiety/insomnia continue vit d weekly return in 6 months refer to outpt/community psychiatry Orders: Orders TSH reflex Free T4 Today E05.90 - Thyrotoxicosis, unspecified without thyrotoxic crisis or storm Counseling and coordination of Care Pt. Self Management counseling: Exercise, Maintenance-social rhythm, Mod caffeine/ETOH intake, Nutrition education and improvement, Sleep hygiene and Behavior activation Medication management counseling: Effectiveness, Side effects, Dosing range, Duration, Drug interaction and Adherence Diagnosis and Prognosis Counseling: Accuracy of diagnosis, Prognosis over time, Impact of diagnosis on life functions, Impact of family relationship, Problematic behaviors secondary to diagnosis and Adequacy of current interventions Details: I spent 30 minutes reviewing the record, seeing the patient and documenting in the medical record. Counseling provided to the patient/caregiver as outlined below. Addressed patient/caregiver concerns regarding current medication regime including effective adherence. Addressed patient/caregiver concerns regarding diagnosis and prognosis including accuracy of diagnosis, prognosis over time, impact of diagnosis. Addressed patient/caregiver concerns regarding impact of recent stressors. [facility] Medical History (Updated 08/17/25 @ 10:31 by Yvrose Franco APRN) Mixed dyslipidemia History of weight loss Chronic insomnia Vasomotor symptoms due to menopause History of abnormal uterine bleeding Knee osteoarthritis Condyloma acuminata Flexor tenosynovitis of finger Generalized anxiety disorder Family history of lupus erythematosus Polyarthralgia Eczema Vitamin D deficiency Familial hypercholesterolemia Surgical History (Updated 07/22/25 @ 14:11 by Mayela Armijo MD) History of lumbar fusion History of carpal tunnel surgery Hx of lumbar discectomy History of S/P gastric sleeve procedure History of loop electrical excision procedure (LEEP) History of tonsillectomy Hx of colonoscopy Family History Father Ischemic heart disease Diabetes Mental health disorder Brother Mental health disorder Mother Mental health disorder Diabetes Lupus (systemic lupus erythematosus) History of rheumatoid arthritis Sister Mental health disorder Social History Housing: House Patient Tobacco Use Status: Current someday Tobacco user Cigarettes Per Day: 10 e-Cigarette/Vaping Use: Never Used service: No Current occupational status: employed Current occupation: [employer] Current occupational exposures/hazards: Yes Cognitive needs: No Hearing needs: No Vision needs: No Social History: lives with ; has 2 adult children and one 4 yo granddaughter Substance History: none Trauma History: yes Coding Level of Care Code Est Pt Level 4 (82356) Diagnoses Anxiety about health R45.89 ADHD (attention deficit hyperactivity disorder), combined type F90.2 Primary insomnia F51.01 Insomnia type: primary
--- OUTSIDE RECORDS SUMMARY | 2025-08-17 11:57 | XMS_ITS | Encounter Summary ---
Author Organization [employer] Address [address] [place] [address] Care Team Providers Care Aircraft Structure Mechanic Name Role Phone Physician, No Pcp Primary Care Provider Unavaila ble Encounter Details Date Type Department Care Team (Late st Contact Info) Description 06/27/[address] [facility] Main Lab [address] [place] [address] Iraj Davies PA [address] [facility] [address] [place] [address] Effusion, left knee Social History Tobacco Use Types Packs/Day Years Used Date Smoking Tobacco: Never Assessed Comments Unknown Sex and Gender Information Value Date Recorded Sex Assigned at Not on file Legal Sex Female 5:44 PM EDT Gender Identity Not on file Sexual Orientation Not on file documented as of this encounter Plan of Treatment Not on file documented as of this encounter Procedures Procedure [...] 47.0(H) <25.0 % 06/27/2025 6:53 PM EDT [facility] ([facility] Fluid Lymphocytes 27.0 <75.0 % 06/27/2025 6:53 PM EDT [facility] Fluid Monocytes/Macrop hages 23.0 <70.0 % 06/27/2025 6:53 PM EDT [facility] Fluid Lining Cells 3.0 % 06/27/2025 6:53 PM EDT [facility] Synovial Fluid Structure of left knee region / Unknown 06/27/2025 12:00 PM EDT 06/27/2025 5:56 PM EDT us Iraj [facility] BODY FLUIDS AND STOOLS OR DERABLES Final Result Performing Organization Address City/[facility]/ZIP Co de Phone Number [facility] [address] [place] [address], [place] [phone] * Culture body fluid with gram stain (06/27/2025 12:00 PM EDT) Fluid Culture No Growth aerobically/a naerobically after 14 days incubation. 07/11/2025 9:21 AM EDT [facility] Gram Stain Result Moderate WBCs present 07/11/2025 9:21 AM EDT [facility] Gram Stain Result No organisms seen 07/11/2025 9:21 AM EDT [facility] Synovial Fluid Structure of left knee region / Unknown 06/27/2025 12:00 PM EDT 06/27/2025 5:56 PM EDT us Iraj [facility] MICROBIOLOGY - GENERAL OR DERABLES Final Result [facility] [address] [place] [address], [place] [phone] * Crystal identification, body fluid (06/27/2025 12:00 PM EDT) Crystals, Fluid Absent Absent 06/27/2025 6:34 PM EDT [facility] Synovial Fluid Structure of left knee region / Unknown 06/27/2025 12:00 PM EDT 06/27/2025 5:56 PM EDT us Iraj [facility] BODY FLUIDS AND STOOLS OR DERABLES Final Result Performing Organization Address City/[facility]/ZIP Co de Phone Number [facility] [address] [place] [address], [place] [phone] * (ABNORMAL) Cell count with reflex differential, body fluid (06/27/2025 12:00 PM EDT) Body Fluid Source Synovial 06/27/2025 6:16 PM EDT [facility] Body Fluid Clarity Slightly Hazy 06/27/2025 6:16 PM EDT [facility] Body Fluid Color Yellow 06/27/2025 6:16 PM EDT [facility] Body Fluid RBC 3,244(H) 0 - 1 /mm3 LAB HEMETOLOGY METHOD 06/27/2025 6:16 PM EDT [facility] Body Fluid Total Nucleated Cells 867(H) <150 /mm3 LAB HEMETOLOGY METHOD 06/27/2025 6:16 PM EDT [facility] Synovial Fluid Structure of left knee region / Unknown 06/27/2025 12:00 PM EDT 06/27/2025 5:56 PM EDT us Iraj [facility] BODY FLUIDS AND STOOLS OR DERABLES Final Result [facility] [address] [place] [address], [place] [phone] documented in this encounter Visit Diagnoses Diagnosis Effusion, left knee documented in this encounter Care Teams Aircraft Structure Mechanic Relationship Specialty Start Date End Date Physician, No Pcp PCP - General 06/27/25 documented as of this encounter
--- OUTSIDE RECORDS SUMMARY | 2025-08-17 11:57 | XMS_ITS | Clinical Summary ---
Author Organization [facility] Address [address] [facility] [address] [facility] [address] [place] [address] Phone Care Team Providers Care Die Casting Supervisor Name Role Phone Mayela Armijo MD Primary [...] Description 12/07/2025 2:30 PM EST Office Visit [facility] Plastic Surgery [address] [place] [address] Agapito Bowling MD [address] [place] [address], [address] [address] Health Maintenance Due Date Last Done Comments [...] topic Medical Devices Not on file Insurance [facility] PPO PHCS Care Teams Die Casting Supervisor Relationship Specialty Start Date End Date Mayela Armijo MD [facility] [place] [address] PCP - General Internal Medicine 06/25/25 Additional Source Comments The information contained in this document represents components of the legal health record. It is not the complete legal health record.[facility]
--- OUTSIDE RECORDS SUMMARY | 2025-08-17 11:57 | XMS_ITS | Data Portability ---
Author Organization GAMALIEL Rich Lion [facility], [facility] Address [address] [place] [address] Care Team Providers [employer] Salesperson Name Role Phone VALERIE DUPONT Primary Care [...] osteoarthrits of the left knee. There is xjqz-pg-yxbl articulation, subchondral sclerosis, and osteophyte formation. There [...] Her Kenan, with a cell phone number [phone]. [email or web address] Not available 12/05/2024 13:51:43 12/29/2024 12/29/2024 [...] surgery therefore cortisone injection performed today. 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 [email or web address] Not available 05/15/2025 15:15:07 Plan of Treatment Reminders Order Date Submit Date Provider Last Modified By Organization Details Last Modified Time Details Appointments None recorded. Lab None recorded. Referral None recorded. Procedures None recorded. Surgeries tenosynovec deejay (SURG) 2024 025 [place], [address], [place], [address], 11:46:38 Imaging None recorded. Medication Orders oxycodone 5 mg tablet 2024 025 [facility][id number], [address] [place] [address], [id number], 12:58:51 Celebrex 200 mg capsule [address] [facility][id number], [address] [place] [address], [id number], 5 13:47:42 pantoprazol e 40 mg tablet,nurys yed release [address] [facility]05570, [address] [place] [address], [id number], 5 13:47:42 ondansetron 4 mg disintegrat ing tablet [address] [facility] #80941, [address] [place] [address], [id number], 5 13:47:42 Patient TargetsNo targets recorded. Patient InstructionsNo instructions recorded. Reason for Referral None Reported. Results Created Date Observation Date Name Description Value Unit Range Abnormal Flag Note LastModifiedBy Organization Detail LastModifiedTime 12/02/1912/02/2024 PROTH ROMBI N TIME (PT) INR 1.0 0.9-1. 1 Not Available [address], [address], 12/02/2024 12:41:57 12/02/19 25 12/02/2024 PROTH ROMBI N TIME (PT) prothrombin time 10.9 sec 9.2-11 .4 normal Not Available [address], [address], 12/02/2024 12:41:57 12/02/1912/02/2024 PTT, ACTIV ATED APTT 27.2 sec 23.4-3 3.1 normal For patie nts needi ng highe r than usual dose of hepar in to achie ve thera peuti c range use UFH anti Xa level s for monit oring . Not Available [facility] [address] [place] [address], [address], 12/02/2024 12:41:58 12/02/1912/02/2024 CBC WITH DIFFE RENTI AL/PL ATELE T WBC 8.1 x10e3 /uL 3.4-10 .8 normal Not Available [facility] ([facility]) [address] [place], [address], 12/03/2024 06:05:44 12/02/1912/02/2024 CBC WITH DIFFE RENTI AL/PL ATELE T RBC 4.87 x10e6 /uL 3.77-5 .28 normal Not Available [facility] ([facility]) [address] [place], [address], 12/03/2024 06:05:44 12/02/19 25 12/02/2024 CBC WITH DIFFE RENTI AL/PL ATELE T hemoglobin 15.4 g/dL 11.1-1 5.9 normal Not Available [facility] ([facility]) [address] [place], [address], 12/03/2024 06:05:44 12/02/1912/02/2024 CBC WITH DIFFE RENTI AL/PL ATELE T hematocrit 46.4 % 34.0-4 6.6 normal Not Available [facility] ([facility]) [address] [place], [address], 12/03/2024 06:05:44 12/02/19 25 12/02/2024 CBC WITH DIFFE RENTI AL/PL ATELE T MCV 95 fL 79-97 normal Not Available [facility] ([facility]) [address] [place], [address], 12/03/2024 06:05:44 12/02/19 25 12/02/2024 CBC WITH DIFFE RENTI AL/PL ATELE T MCH 31.6 pg 26.6-3 3.0 normal Not Available [facility] ([facility]) [address] [place], [address], 12/03/2024 06:05:44 12/02/19 25 12/02/2024 CBC WITH DIFFE RENTI AL/PL ATELE T MCHC 33.2 g/dL 31.5-3 5.7 normal Not Available [facility] ([facility]) [address] [place], [address], 12/03/2024 06:05:44 12/02/19 25 12/02/2024 CBC WITH DIFFE RENTI AL/PL ATELE T RDW 13.1 % 11.7-1 5.4 Not Available [facility] ([facility]) [address] [place], [address], 12/03/2024 06:05:44 12/02/19 25 12/02/2024 CBC WITH DIFFE RENTI AL/PL ATELE T platelets 339 x10e3 /uL 150-45 0 normal Not Available [facility] ([facility]) [address] [place], [address], 12/03/2024 06:05:44 12/02/19 25 12/02/2024 CBC WITH DIFFE RENTI AL/PL ATELE T neutrophils 54 % not estab. normal Not Available [facility] ([facility]) [address] [place], [address], 12/03/2024 06:05:44 12/02/19 25 12/02/2024 CBC WITH DIFFE RENTI AL/PL ATELE T lymphs 36 % not estab. normal Not Available [facility] ([facility]) [address] [place], [address], 12/03/2024 06:05:44 12/02/19 25 12/02/2024 CBC WITH DIFFE RENTI AL/PL ATELE T monocytes 7 % not estab. normal Not Available [facility] ([facility]) [address] [place], [address], 12/03/2024 06:05:44 12/02/19 25 12/02/2024 CBC WITH DIFFE RENTI AL/PL ATELE T eos 3 % not estab. normal Not Available [facility] ([facility]) [address] [place], [address], 12/03/2024 06:05:44 12/02/19 25 12/02/2024 CBC WITH DIFFE RENTI AL/PL ATELE T basos 0 % not estab. 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 0 normal Not Available [facility] ([facility]) [address] [place], [address], 12/03/2024 06:05:44 12/02/19 25 12/02/2024 CBC WITH DIFFE RENTI AL/PL ATELE T lymphs (absolute) 2.9 x10e3 /uL 0.7-3. 1 normal Not Available [facility] ([facility]) [address] [facility], [place], [address], 12/03/2024 06:05:44 12/02/19 25 12/02/2024 CBC WITH DIFFE RENTI AL/PL ATELE T monocytes(ab solute) 0.5 x10e3 /uL 0.1-0. 9 normal Not Available [facility] ([facility]) [address] [facility], [place], [address], 12/03/2024 06:05:44 12/02/19 25 12/02/2024 CBC WITH DIFFE RENTI AL/PL ATELE T eos (absolute) 0.2 x10e3 /uL 0.0-0. 4 normal Not Available [facility] ([facility]) [address] [facility], [place], [address], 12/03/2024 06:05:44 12/02/19 25 12/02/2024 CBC WITH DIFFE RENTI AL/PL ATELE T baso (absolute) 0.0 x10e3 /uL 0.0-0. 2 normal Not Available [facility] ([facility]) [address] [place], [address], 12/03/2024 06:05:44 12/02/19 25 12/02/2024 CBC WITH DIFFE RENTI AL/PL ATELE T immature granulocytes 0 % not estab. Not Available [facility] ([facility]) [address] [place], [address], 12/03/2024 06:05:44 12/02/19 25 12/02/2024 CBC WITH DIFFE RENTI AL/PL ATELE T immature grans (abs) 0.0 x10e3 /uL 0.0-0. 1 Not Available [facility] ([facility]) [address] [facility], [place], [address], 12/03/2024 06:05:44 12/02/19 25 12/02/2024 CBC WITH DIFFE RENTI AL/PL ATELE T NRBC UTILITY BILL COLLECTOR Not Available [facility] ([facility]) [address] [facility], [place], [address], 12/03/2024 06:05:44 12/02/1912/02/2024 CBC WITH DIFFE ABBEY ZAPATA/PL ATELE T hematology comments: UTILITY BILL COLLECTOR Not Available [facility] ([facility]) [address] [facility], [place], [address], 12/03/2024 06:05:44 12/02/1912/03/2024 ELECT ROLYT E PANEL sodium 140 mmol/ L 134-14 4 normal Not Available [facility] ([facility]) [address] [place], [address], 12/03/2024 06:05:45 12/02/1912/03/2024 ELECT ROLYT E PANEL potassium 4.2 mmol/ L 3.5-5. 2 normal Not Available [facility] ([facility]) [address] [place], [address], 12/03/2024 06:05:45 12/02/19 25 12/03/2024 ELECT ROLYT E PANEL chloride 101 mmol/ L 96-106 normal Not Available [facility] ([facility]) [address] [place], [address], 12/03/2024 06:05:45 12/02/1912/03/2024 ELECT ROLYT E PANEL carbon dioxide, total 23 mmol/ L 20-29 normal Not Available [facility] ([facility]) [address] [place], [address], 12/03/2024 06:05:45 12/02/1912/03/2024 BUN+C REAT BUN 8 mg/dL 6-24 normal Not Available [facility] ([facility]) [address] [place], [address], 12/03/2024 06:05:46 12/02/1912/03/2024 BUN+C REAT creatinine 0.84 mg/dL 0.57-1 .00 normal Not Available [facility] ([facility]) [address] [place], [address], 12/03/2024 06:05:46 12/02/19 25 12/03/2024 BUN+C REAT eGFR 86 mL/mi n/1.7 3 >59 normal Not Available [facility] ([facility]) [address] [place], [address], 12/03/2024 06:05:46 12/02/1912/03/2024 BUN+C REAT BUN/creatini ne ratio 10 9-23 normal Not Available [facility] ([facility]) [address] [place], [address], 12/03/2024 06:05:46 12/02/1912/03/2024 HEMOG LOBIN A1C hemoglobin A1C 5.8 % 4.8-5. 6 above high normal Predi abete s: 5.7 - 6.4 Diabe girma: >6.4 Glyce joel contr ol for adult s with diabe girma: <7.0 Not Available [facility] ([facility]) [address] [place], [address], 12/03/2024 06:05:47 12/02/1912/03/2024 GLUCO SE glucose 65 mg/dL 70-99 below low normal Not Available [facility] ([facility]) [address] [place], [address], 12/03/2024 06:05:47 12/01/1912/01/2024 XR, knee, 4 or more view [email or web address] ?Encry pted=s hAaTro YD8dLq bEUv6g %2BXZw aYqtaq 0bqfl% 2Fg9IQ a4ajBk vP9nXo QUaueC m3YtLR FvZlgJ JJ8mAn HZtai3 3v7600 AC0Kqb X6EVqa hKiQtr MwF INTERFACE [facility] [address], [place], [address], 12/01/2024 14:49:31 12/01/19 25 12/01/2024 XR, knee, 4 or more view [email or web address] ?Encry pted=s hAaTro YD8dLq bEUv6g %2BXZw aYqtaq 0bqfl% 2Fg9IQ a4ajBk vP9nXo QUaueC m3YtLR FvZlgJ JJ8mAn HZtai3 0r9872 AC0Kqb X6EVqa hKiQtr MwF INTERFACE [facility] [address], [place], [address], 12/01/2024 14:49:33 Result Notes None recorded. Problems Name Problem SNOMED Code Status Onset Date Resolution Date Notes Provider Name and Address Organization Details Recorded Time No complaints 268749491 Active Status : 'A'; Not Available [facility] 4 09:19:12 Pain of left knee joint 6290356156788 07 Active 2023 NEDRA moncada [place] - [facility] 5 14:42:07 Tear of medial meniscus of knee 030836563 Active 2023 Cass Gonzalez PA-C [address], [place], [address] , [facility] - [facility] 4 09:41:29 Tear of medial meniscus of knee 598235533 Active 2023 DYLAN moncada [place] - [facility] 4 09:52:37 Osteoarthr itis of left knee joint 9293453117609 09 Active 2023 Cass Gonzalez PA-C [address], [place], [address] , [facility] 4 15:21:08 Acute tear of lateral meniscus of left knee 5768427326998 9105 Active 2023 NATHEN BERUMEN [facility] 4 10:17:30 Notes:Some problems listed i n Document: #[id number] could not be added to this patient's chart. Please review this document and add these problems to the patient's chart manually as needed. Problem Notes None recorded. Procedures Surgical History Date Name Laterality Status Provider Name and Address Organization Details Recorded Time 5 JZKNEE INJ completed Julien Khan PA-C [address] [facility], [place], [address], [facility] 05/21/2025 18:05:41 5 Gel-One Knee Injection completed Balaji Whyte PA-C [address], [place], [address], [facility] 12/29/2024 09:21:33 5 JZ Knee Aspiration completed Balaji Whyte PA-C [address], [place], [address], [facility] 12/29/2024 09:21:51 5 05574 Therapeutic Exercise (1:1) completed Chris Loaiza DPT [address], [place], [address], [facility] 12/02/2024 14:35:44 5 94128: Low complexity PT Eval completed Chris Loaiza DPT [address], [place], [address], [facility] 12/02/2024 14:35:46 4 35588 Therapeutic Exercise (1:1) cancelled Ashli Salinas PTA [address], [place], [address], [facility] 06/13/2024 08:45:17 4 58433: Manual therapy cancelled Ashli Salinas PTA [address], [place], [address], [facility] 06/13/2024 08:45:17 4 32107 Therapeutic Exercise (1:1) cancelled Ashli Salinas PTA [address], [place], [address], [facility] 06/04/2024 07:09:56 4 79293: Manual therapy cancelled Ashli Salinas PTA [address], [place], [address], [facility] 06/04/2024 07:09:56 4 29620 Therapeutic Exercise (1:1) completed Ashli Salinas PTA [address], [place], [address], [facility] 06/03/2024 14:44:28 4 75877: Manual therapy completed Ashli Salinas PTA [address], [place], [address], [facility] 06/03/2024 14:44:26 4 Knee Kenalog 40mg 1cc Asp & Inj, L/R completed Chase Anne MD [address], [place], [address], [facility] 05/29/2024 10:51:54 4 46909 Therapeutic Exercise (1:1) cancelled Ashli Salinas PTA [address], [place], [address], [facility] 05/28/2024 12:58:55 4 21217: Manual therapy cancelled Ashli Salinas PTA [address], [place], [address], [facility] 05/28/2024 12:58:55 4 72895 Therapeutic Exercise (1:1) cancelled Ashli Salinas PTA [address], [place], [address], [facility] 05/26/2024 15:18:04 4 84738: Manual therapy cancelled Ashli HALIMA Salinas [address], [place], [address], [facility] 05/26/2024 15:18:04 4 55576 Therapeutic Exercise (1:1) completed Ashli Salinas PTA [address], [place], [address], [facility] 05/22/2024 13:52:19 4 66970: Manual therapy completed Ashli Salinas PTA [address], [place], [address], [facility] 05/22/2024 13:52:19 4 59199 Therapeutic Exercise (1:1) cancelled Ashli Salinas PTA [address], [place], [address], [facility] 05/19/2024 15:13:23 4 83460: Manual therapy cancelled Ashli Salinas PTA [address], [place], [address], [facility] 05/19/2024 15:13:23 4 64196 Therapeutic Exercise (1:1) completed Ashli Salinas PTA [address], [place], [address], [facility] 05/15/2024 18:07:31 4 77129: Manual therapy completed Ashli Salinas PTA [address], [place], [address], [facility] 05/15/2024 18:07:34 4 56364 Therapeutic Exercise (1:1) completed Chris Loaiza DPT [address], [place], [address], [facility] 05/14/2024 15:25:07 4 67159: Low complexity PT Eval completed Chris Loaiza DPT [address], [place], [address], [facility] 05/14/2024 15:27:32 4 Knee Kenalog 40mg 1cc Asp & Inj, L/R completed Chase Anne MD [address], [place], [address], [facility] 04/11/2024 10:56:12 4 Sports Knee 4&1 completed Cass Gonzalez PA-C [address] [facility], [place], [address], [facility] 02/12/2024 15:26:06 4 Trigger Finger Kenalog Injection completed Edwige Meza PA-C [address], [place], [address], [facility] 01/31/2024 17:39:25 Imaging Results None recorded. Procedure Notes None recorded. Medical Equipment None Reported. Allergies Allergen ID Allergen Name Allergen Category Reaction Reaction Severity Criticality Documentation Date Start Date Code Code System Note Provider Name and Address Organization Details Recorded Time 226814 Product containin g 3-hydroxy -3-methyl glutaryl- coenzyme A reductase inhibitor (product) medicatio n Not available Not available Not available 01/11/2024 09373 009 SNOMED DYLAN moncada [facility] 4 09:22:06 51539 morphine sulfate medicatio n Not available Not available Not available 12/10/20232009 60514 RxNorm Aller gyRea ction : 'Naus ea/Vo mitin g/Hedy rrhea '; Not Available [facility] 4 15:13:05 20446 acetamino phen / oxycodone medicatio n Not available Not available Not available 12/10/20232009 10569 3 RxNorm Jose Roberto moncada [facility] 5 08:56:48 Medications Name Sig Start Date [...] active Not Available Not Available Not Avai labalayna Ambien 08/27 completed Not Available Not Available Not Available Belsomra 10 mg tablet TAKE 1 TABLET BY MOUTH AT BEDTIME 12/01 completed Not Available Not Available Not Available Vitals Date Recorded Body height Body mass index (BMI) Body weight Provider Name and Address Organization Details Last Updated DateTime 12/05/2024 165.74 cm 29.2 kg/m2 18005.85 g MARTITA WILDE [facility] 12/05/2024 12:59:29 Date Recorded Body height Body mass index (BMI) Body weight Provider Name and Address Organization Details Last Updated DateTime 12/29/2024 165.74 cm 29.2 kg/m2 57827.85 g Jose Roberto Howard [facility] 12/29/2024 08:56:58 Date Recorded Body height Body mass index (BMI) Body weight Provider Name and Address Organization Details Last Updated DateTime 02/03/2025 165.74 cm 29.2 kg/m2 88267.85 g JAXON HARTMAN [facility] 02/03/2025 14:43:02 Date Recorded Body height Provider Name an d Address Organization Details Last Updated DateTime 05/15/2025 165.74 cm Corie Wright [facility] 05/15/2025 14:55:06 Social History None recorded. [...] ICD10 Code Diagnosis IMO Codes Diagnosis Note [id number] Cass Gonzalez [place] [address] 01/11/2024 09:00:10 02/06/2024 15:11:14 Pain of left knee joint 4887180075 18539 M25.562 Tear of me dial meniscus of knee 254626411 S83.242A [id number] Edwige Meza PA-C [facility] [address] [place] [address] 01/31/2024 17:07:47 02/22/2024 09:18:58 [id number] Cass Gonzalez PA-C [facility] [address] [place] [address] 02/12/2024 14:42:34 03/06/2024 18:22:56 Osteoarthritis of left knee joint 1888494712 43915 M17.12 [id number] Chase Anne MD [facility] [address] [place] [address] 04/11/2024 09:36:11 05/13/2024 10:20:50 Acute tear of lateral meniscus of left knee 9057799266 2943464 S83.282A [id number] Ashli Borrego PA-C [facility] [address] [place] [address] 05/02/2024 12:56:37 05/21/2024 10:57:48 Postoperative care 763313808 Z48.89 [id number] Chris Loaiza , DPT [facility] [address] [place] [address] 05/13/2024 17:35:09 05/13/2024 18:03:23 Tear of lateral meniscus of knee 202440918 S83.282D [id number] Ashli Salinas [employer] [facility] [address] [place] [address] 05/15/2024 16:51:31 05/15/2024 17:40:14 Tear of lateral meniscus of knee 601514110 S83.282D [id number] Ashli Salinas [employer] [facility] [address] [place] [address] 05/23/2024 15:34:13 05/23/2024 16:23:09 Tear of lateral meniscus of knee 783608525 S83.282D [id number] Chase Anne MD [facility] [address] [place] [address] 05/29/2024 09:51:26 06/23/2024 11:07:24 Acute tear of lateral meniscus of left knee 6977978966 5887699 S83.282A [id number] Ashli Salinas PTA [facility] [address] [place] [address] 06/03/2024 11:09:05 06/03/2024 12:11:37 Tear of lateral meniscus of knee 239296627 S83.282D [id number] Cahse Anne MD [facility] [address] [place] [address] 11/20/2024 13:41:28 12/10/2024 07:23:09 Osteoarthritis of left knee joint 1160830960 37016 M17.12 Bernard Bryant MD [facility] [address] [place] [address] 12/01/2024 14:04:58 12/11/2024 11:54:09 Pain of left knee joint 0426459651 03916 M25.562 179657 Osteoarthr itis of left knee joint 3813089539 57328 M17.12 [id number] MUKESH MarinT [facility] [address] [place] [address] 12/02/2024 10:45:29 12/02/2024 12:12:23 Osteoarthritis of knee 293679958 M17.12 [id number] Nicole Adams APRN [facility] [address] [place] [address] 12/05/2024 12:47:11 12/23/2024 11:55:11 Preprocedural examination done 0705976024 52631 Z01.818 685331 Osteoarthr itis of left knee joint 7151433383 62063 M17.12 [id number] MAGY Diaz - [facility] [address] [place] [address] 12/29/2024 08:46:49 01/12/2025 07:50:43 Osteoarthritis of left knee joint 9117101901 63788 M17.12 Osteoarthr itis of right knee joint 4081757278 62629 M17.11 [id number] Balaji Whyte PA-C [facility] [address] [place] [address] 02/03/2025 14:27:33 02/09/2025 08:24:28 Osteoarthritis of left knee joint 9954585324 20621 M17.12 [id number] MD [facility] [address] [place] [address] 05/15/2025 14:43:53 05/22/2025 12:14:08 Triggering of digit 479539261 M65.30 [id number] Health Concerns Section Related Observation LastModified by Organization Detai ls LastModified Time None Recorded Concern Status LastModified by Organization Details LastModified Time None Recorded Advance Directives Directive None Recorded Payers Insurance Date Sequence Insurance Name Policy Number Policy Sutton Covered Member ID Sutton Member ID Guarantor Name 12/18/2024 PAYMENT PLAN [facility] 07/30/2025 1 [facility] [id number] 23 [facility] [id number] [facility] Notes Date Note Type Note Provider Name and Address Organization Details Recorded Time 12/02/2024 text/html Patient is 49 year old female, with chronic history of knee pain and OA. Presents today for first prehab visit for scheduled TKA at [facility] on 12/18/24. Arrives today ambulating with [...] of L knee Chris Loaiza DPT [address], [place], [address], [facility] 12/02/2024 14:36:37 05/15/2025 text/html ROS as noted [...] injection at that time. 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 Denia Mejia MD [address] [place] [address] [address], [place], [address], [facility] 05/15/2025 16:32:14 OBGyn Episode No OBEpisode recorded.
--- OUTSIDE RECORDS SUMMARY | 2025-08-17 11:57 | XMS_ITS | Clinical Summary ---
Author Organization [facility] Address [address] [place] [address] Phone Care Team Providers Care Almond Blancher Name Role Phone Physician, No Pcp Primary Care Provider Unavaila ble Encounters Date Type Department Care Team Description 06/27/2025 Lab Requisition [facility] Lab [address] [place] [address] Iraj Davies PA Effusion, left [...] Last Done Comments Breast Cancer Screening 1976 Colorectal Cancer Screening: Colonoscopy 1976 DTaP,Tdap,and Td Vaccines (1 - Tdap) 1995 Hepatitis B Vaccines (1 of 3 - 19+ 3-dose series) 1995 Cervical Cancer Screening: P ap Smear 1997 Depression Screening 10/08/2024 COVID-19 Vaccine ( - 2023-2 5 season) 2025 Influenza Vaccine (#1) 2025 HIV Screening 06/27/2025 Hepatitis C Screening 06/27/2025 [...] Fluid Source Synovial 06/27/2025 6:16 PM EDT [facility] Body Fluid Clarity Slightly Hazy 06/27/2025 6:16 PM EDT [facility] Body Fluid Color Yellow 06/27/2025 6:16 PM EDT [facility] Body Fluid RBC 3,244(H) 0 - 1 /mm3 LAB HEMETOLOGY METHOD 06/27/2025 6:16 PM EDT [facility] Body Fluid Total Nucleated Cells 867(H) <150 /mm3 LAB HEMETOLOGY METHOD 06/27/2025 6:16 PM EDT [facility] Synovial Fluid Structure of left knee region / Unknown 06/27/2025 12:00 PM EDT 06/27/2025 5:56 PM EDT us [facility]j [facility] BODY FLUIDS AND STOOLS OR DERABLES Final Result [facility] [address] [place] [address], [place] [phone] * Culture body fluid with gram stain (06/27/2025 12:00 PM EDT) Fluid Culture No Growth aerobically/a naerobically after 14 days incubation. 07/11/2025 9:21 AM EDT [facility] Gram Stain Result Moderate WBCs present 07/11/2025 9:21 AM EDT [facility] Gram Stain Result No organisms seen 07/11/2025 9:21 AM EDT [facility] Synovial Fluid Structure of left knee region / Unknown 06/27/2025 12:00 PM EDT 06/27/2025 5:56 PM EDT us Iraj [facility] MICROBIOLOGY - GENERAL OR DERABLES Final Result Performing Organization Address City/[facility]/ZIP Co de Phone Number [facility] [address] [place] [address], [place] [phone] * (ABNORMAL) Differential body fluid (06/27/2025 12:00 PM EDT) Fluid Neutrophils 47.0(H) <25.0 % 06/27/2025 6:53 PM EDT [facility] Fluid Lymphocytes 27.0 <75.0 % 06/27/2025 6:53 PM EDT [facility] Fluid Monocytes/Macrop hages 23.0 <70.0 % 06/27/2025 6:53 PM EDT [facility] Fluid Lining Cells 3.0 % 06/27/2025 6:53 PM EDT [facility] Synovial Fluid Structure of left knee region / Unknown 06/27/2025 12:00 PM EDT 06/27/2025 5:56 PM EDT us Iraj [facility] BODY FLUIDS AND STOOLS OR DERABLES Final Result Performing Organization Address City/[facility]/ZIP Co de Phone Number [facility] [address] [place] [address], [place] [phone] * Crystal identification, body fluid (06/27/2025 12:00 PM EDT) Crystals, Fluid Absent Absent 06/27/2025 6:34 PM EDT [facility] Synovial Fluid Structure of left knee region / Unknown 06/27/2025 12:00 PM EDT 06/27/2025 5:56 PM EDT us Iraj [facility] BODY FLUIDS AND STOOLS OR DERABLES Final Result Performing Organization Address City/[facility]/ZIP Co de Phone Number [facility] [address] [place] [address], [place] [phone] from Last 3 Months Insurance [employer] [id number] Care Teams Almond Blancher Relationship Specialty Start Date End Date Physician, No Pcp PCP - General 06/27/25
== END 2025-08-17 10:41 | disposition home or self-care (01) ==
LOC: HO.HOP 10:11
PROVIDERS: PCP Internal Medicine; Visit Provider Clinical Nurse Specialist Psychiatric/Mental Health
DX: R45.89 Other symptoms and signs involving emotional state (principal); F90.2 Attention-deficit hyperactivity disorder, combined type; F51.01 Primary insomnia
CPT/HCPCS: 99214

== ENCOUNTER 2025-08-17 10:11 | Outpatient (REF) | payer OTHER, SELFPAY ==
--- OUTSIDE RECORDS SUMMARY | 2025-08-17 12:49 | XMS_ITS | Data Portability ---
Author Organization [facility], [facility] Address [address] [place] [address] Care Team Providers Care Lending Activities Supervisor Name Role Phone VALERIE DUPONT Primary Care Provider [phone] Assessment Encounter Date Assessment Date Assessment LastModified [...] osteoarthrits of the left knee. There is kqsb-im-mclp articulation, subchondral sclerosis, and osteophyte formation. There [...] Her Kenan, with a cell phone number [phone]. [email or web address] Not available 12/05/2024 13:51:43 12/29/2024 12/29/2024 [...] therefore cortisone injection performed today. 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 [email or web address] Not available 05/15/2025 15:15:07 Plan of Treatment Reminders Order Date Submit Date Provider Last Modified By Organization Details Last Modified Time Details Appointments None recorded. Lab None recorded. Referral None recorded. Procedures None recorded. Surgeries tenosynovec deejay (SURG) 2024 025 [email or web address] [facility], [address], [place], [address], 11:46:38 Imaging None recorded. Medication Orders oxycodone 5 mg tablet 2024 025 MOOKIE [id number], [address] [place] [address], [id number], 12:58:51 Celebrex 200 mg capsule [address] [facility]303, [address] [place] [address], [id number], 5 13:47:42 pantoprazol e 40 mg tablet,nurys yed release [address] [facility]80550, [address] [place] [address], [id number], 5 13:47:42 ondansetron 4 mg disintegrat ing tablet [address] [facility]70108, [address] [place] [address], [id number], 5 13:47:42 Patient TargetsNo targets recorded. Patient InstructionsNo instructions recorded. Reason for Referral None Reported. Results Created Date Observation Date Name Description Value Unit Range Abnormal Flag Note LastModifiedBy Organization Detail LastModifiedTime 12/02/1912/02/2024 PROTH ROMBI N TIME (PT) INR 1.0 0.9-1. 1 Not Available [address], [address], 12/02/2024 12:41:57 12/02/19 25 12/02/2024 PROTH ROMBI N TIME (PT) prothrombin time 10.9 sec 9.2-11 .4 normal Not Available [address], [address], 12/02/2024 12:41:57 12/02/1912/02/2024 PTT, ACTIV ATED APTT 27.2 sec 23.4-3 3.1 normal For patie nts needi ng highe r than usual dose of hepar in to achie ve thera peuti c range use UFH anti Xa level s for monit oring . Not Available [facility] [address] [place] [address], [address], 12/02/2024 12:41:58 12/02/1912/02/2024 CBC WITH DIFFE RENTI AL/PL ATELE T WBC 8.1 x10e3 /uL 3.4-10 .8 normal Not Available [facility] ([facility]) [address] [place], [address], 12/03/2024 06:05:44 12/02/1912/02/2024 CBC WITH DIFFE RENTI AL/PL ATELE T RBC 4.87 x10e6 /uL 3.77-5 .28 normal Not Available [facility] ([facility]) [address] [place], [address], 12/03/2024 06:05:44 12/02/19 25 12/02/2024 CBC WITH DIFFE RENTI AL/PL ATELE T hemoglobin 15.4 g/dL 11.1-1 5.9 normal Not Available [facility] ([facility]) [address] [place], [address], 12/03/2024 06:05:44 12/02/1912/02/2024 CBC WITH DIFFE RENTI AL/PL ATELE T hematocrit 46.4 % 34.0-4 6.6 normal Not Available [facility] ([facility]) [address] [place], [address], 12/03/2024 06:05:44 12/02/19 25 12/02/2024 CBC WITH DIFFE RENTI AL/PL ATELE T MCV 95 fL 79-97 normal Not Available [facility] ([facility]) [address] [place], [address], 12/03/2024 06:05:44 12/02/19 25 12/02/2024 CBC WITH DIFFE RENTI AL/PL ATELE T MCH 31.6 pg 26.6-3 3.0 normal Not Available [facility] ([facility]) [address] [place], [address], 12/03/2024 06:05:44 12/02/19 25 12/02/2024 CBC WITH DIFFE RENTI AL/PL ATELE T MCHC 33.2 g/dL 31.5-3 5.7 normal Not Available [facility] ([facility]) [address] [place], [address], 12/03/2024 06:05:44 12/02/19 25 12/02/2024 CBC WITH DIFFE RENTI AL/PL ATELE T RDW 13.1 % 11.7-1 5.4 Not Available [facility] ([facility]) [address] [place], [address], 12/03/2024 06:05:44 12/02/19 25 12/02/2024 CBC WITH DIFFE RENTI AL/PL ATELE T platelets 339 x10e3 /uL 150-45 0 normal Not Available [facility] ([facility]) [address] [place], [address], 12/03/2024 06:05:44 12/02/19 25 12/02/2024 CBC WITH DIFFE RENTI AL/PL ATELE T neutrophils 54 % not estab. normal Not Available [facility] ([facility]) [address] [place], [address], 12/03/2024 06:05:44 12/02/19 25 12/02/2024 CBC WITH DIFFE RENTI AL/PL ATELE T lymphs 36 % not estab. normal Not Available [facility] ([facility]) [address] [place], [address], 12/03/2024 06:05:44 12/02/19 25 12/02/2024 CBC WITH DIFFE RENTI AL/PL ATELE T monocytes 7 % not estab. normal Not Available [facility] ([facility]) [address] [place], [address], 12/03/2024 06:05:44 12/02/19 25 12/02/2024 CBC WITH DIFFE RENTI AL/PL ATELE T eos 3 % not estab. normal Not Available [facility] ([facility]) [address] [place], [address], 12/03/2024 06:05:44 12/02/19 25 12/02/2024 CBC WITH DIFFE RENTI AL/PL ATELE T basos 0 % not estab. 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 0 normal Not Available [facility] ([facility]) [address] [place], [address], 12/03/2024 06:05:44 12/02/19 25 12/02/2024 CBC WITH DIFFE RENTI AL/PL ATELE T lymphs (absolute) 2.9 x10e3 /uL 0.7-3. 1 normal Not Available [facility] ([facility]) [address] [facility], [place], [address], 12/03/2024 06:05:44 12/02/19 25 12/02/2024 CBC WITH DIFFE RENTI AL/PL ATELE T monocytes(ab solute) 0.5 x10e3 /uL 0.1-0. 9 normal Not Available [facility] ([facility]) [address] [facility], [place], [address], 12/03/2024 06:05:44 12/02/19 25 12/02/2024 CBC WITH DIFFE RENTI AL/PL ATELE T eos (absolute) 0.2 x10e3 /uL 0.0-0. 4 normal Not Available [facility] ([facility]) [address] [facility], [place], [address], 12/03/2024 06:05:44 12/02/19 25 12/02/2024 CBC WITH DIFFE RENTI AL/PL ATELE T baso (absolute) 0.0 x10e3 /uL 0.0-0. 2 normal Not Available [facility] ([facility]) [address] [place], [address], 12/03/2024 06:05:44 12/02/19 25 12/02/2024 CBC WITH DIFFE RENTI AL/PL ATELE T immature granulocytes 0 % not estab. Not Available [facility] ([facility]) [address] [place], [address], 12/03/2024 06:05:44 12/02/19 25 12/02/2024 CBC WITH DIFFE RENTI AL/PL ATELE T immature grans (abs) 0.0 x10e3 /uL 0.0-0. 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 2 normal Not Available [facility] ([facility]) [address] [place], [address], 12/03/2024 06:05:45 12/02/19 25 12/03/2024 ELECT ROLYT E PANEL chloride 101 mmol/ L 96-106 normal Not Available [facility] ([facility]) [address] [place], [address], 12/03/2024 06:05:45 12/02/1912/03/2024 ELECT ROLYT E PANEL carbon dioxide, total 23 mmol/ L 20-29 normal Not Available [facility] ([facility]) [address] [place], [address], 12/03/2024 06:05:45 12/02/1912/03/2024 BUN+C REAT BUN 8 mg/dL 6-24 normal Not Available [facility] ([facility]) [address] [place], [address], 12/03/2024 06:05:46 12/02/1912/03/2024 BUN+C REAT creatinine 0.84 mg/dL 0.57-1 .00 normal Not Available [facility] ([facility]) [address] [place], [address], 12/03/2024 06:05:46 12/02/19 25 12/03/2024 BUN+C REAT eGFR 86 mL/mi n/1.7 3 >59 normal Not Available [facility] ([facility]) [address] [place], [address], 12/03/2024 06:05:46 12/02/1912/03/2024 BUN+C REAT BUN/creatini ne ratio 10 9-23 normal Not Available [facility] ([facility]) [address] [place], [address], 12/03/2024 06:05:46 12/02/1912/03/2024 HEMOG LOBIN A1C hemoglobin A1C 5.8 % 4.8-5. 6 above high normal Predi abete s: 5.7 - 6.4 Diabe girma: >6.4 Glyce joel contr ol for adult s with diabe girma: <7.0 Not Available [facility] ([facility]) [address] [place], [address], 12/03/2024 06:05:47 12/02/1912/03/2024 GLUCO SE glucose 65 mg/dL 70-99 below low normal Not Available [facility] ([facility]) [address] [place], [address], 12/03/2024 06:05:47 12/01/1912/01/2024 XR, knee, 4 or more view [email or web address] ?Encry pted=s hAaTro YD8dLq bEUv6g %2BXZw aYqtaq 0bqfl% 2Fg9IQ a4ajBk vP9nXo QUaueC m3YtLR FvZlgJ JJ8mAn HZtai3 5r9550 AC0Kqb X6EVqa hKiQtr MwF INTERFACE [facility] [address], [place], [address], 12/01/2024 14:49:31 12/01/19 25 12/01/2024 XR, knee, 4 or more view [email or web address] ?Encry pted=s hAaTro YD8dLq bEUv6g %2BXZw aYqtaq 0bqfl% 2Fg9IQ a4ajBk vP9nXo QUaueC m3YtLR FvZlgJ JJ8mAn HZtai3 1m7229 AC0Kqb X6EVqa hKiQtr MwF INTERFACE [facility] [address], [place], [address], 12/01/2024 14:49:33 Result Notes None recorded. Problems Name Problem SNOMED Code Status Onset Date Resolution Date Notes Provider Name and Address Organization Details Recorded Time No complaints 040525924 Active Status : 'A'; Not Available [facility] 4 09:19:12 Pain of left knee joint 2585751164820 07 Active 2023 NEDRA moncada [place] - [facility] 5 14:42:07 Tear of medial meniscus of knee 675805715 Active 2023 Cass Gonzalez PA-C [address], [place], [address] , [facility] - [facility] 4 09:41:29 Tear of medial meniscus of knee 041045480 Active 2023 DYLAN moncada [place] - [facility] 4 09:52:37 Osteoarthr itis of left knee joint 5536905213739 09 Active 2023 Cass Gonzalez PA-C [address], [place], [address] , [facility] 4 15:21:08 Acute tear of lateral meniscus of left knee 2431940812657 9105 Active 2023 NATHEN BERUMEN [facility] 4 10:17:30 Notes:Some problems listed i n Document: #[id number] could not be added to this patient's chart. Please review this document and add these problems to the patient's chart manually as needed. Problem Notes None recorded. Procedures Surgical History Date Name Laterality Status Provider Name and Address Organization Details Recorded Time 5 JZKNEE INJ completed Julien Khan PA-C [address] [facility], [place], [address], [facility] 05/21/2025 18:05:41 5 Gel-One Knee Injection completed Balaji Whyte PA-C [address], [place], [address], [facility] 12/29/2024 09:21:33 5 JZ Knee Aspiration completed Balaji Whyte PA-C [address], [place], [address], [facility] 12/29/2024 09:21:51 5 18988 Therapeutic Exercise (1:1) completed Chris Loaiza DPT [address], [place], [address], [facility] 12/02/2024 14:35:44 5 29409: Low complexity PT Eval completed Chris Loaiza DPT [address], [place], [address], [facility] 12/02/2024 14:35:46 4 58842 Therapeutic Exercise (1:1) cancelled Ashli Salinas PTA [address], [place], [address], [facility] 06/13/2024 08:45:17 4 75251: Manual therapy cancelled Ashli Salinas PTA [address], [place], [address], [facility] 06/13/2024 08:45:17 4 18687 Therapeutic Exercise (1:1) cancelled Ashli Salinas PTA [address], [place], [address], [facility] 06/04/2024 07:09:56 4 08963: Manual therapy cancelled Ashli Salinas PTA [address], [place], [address], [facility] 06/04/2024 07:09:56 4 71252 Therapeutic Exercise (1:1) completed Ashli Salinas PTA [address], [place], [address], [facility] 06/03/2024 14:44:28 4 97611: Manual therapy completed Ashli Salinas PTA [address], [place], [address], [facility] 06/03/2024 14:44:26 4 Knee Kenalog 40mg 1cc Asp & Inj, L/R completed Chase Anne MD [address], [place], [address], [facility] 05/29/2024 10:51:54 4 96399 Therapeutic Exercise (1:1) cancelled Ashli Salinas PTA [address], [place], [address], [facility] 05/28/2024 12:58:55 4 29235: Manual therapy cancelled Ashli Salinas PTA [address], [place], [address], [facility] 05/28/2024 12:58:55 4 73403 Therapeutic Exercise (1:1) cancelled Ashli Salinas PTA [address], [place], [address], [facility] 05/26/2024 15:18:04 4 66929: Manual therapy cancelled Ashli HALIMA Salinas [address], [place], [address], [facility] 05/26/2024 15:18:04 4 23397 Therapeutic Exercise (1:1) completed Ashli Salinas PTA [address], [place], [address], [facility] 05/22/2024 13:52:19 4 20748: Manual therapy completed Ashli Salinas PTA [address], [place], [address], [facility] 05/22/2024 13:52:19 4 60397 Therapeutic Exercise (1:1) cancelled Ashli Salinas PTA [address], [place], [address], [facility] 05/19/2024 15:13:23 4 17253: Manual therapy cancelled Ashli Salinas PTA [address], [place], [address], [facility] 05/19/2024 15:13:23 4 25625 Therapeutic Exercise (1:1) completed Ashli Salinas PTA [address], [place], [address], [facility] 05/15/2024 18:07:31 4 99399: Manual therapy completed Ashli Salinas PTA [address], [place], [address], [facility] 05/15/2024 18:07:34 4 88515 Therapeutic Exercise (1:1) completed Chris Loaiza DPT [address], [place], [address], [facility] 05/14/2024 15:25:07 4 92003: Low complexity PT Eval completed Chris Loaiza DPT [address], [place], [address], [facility] 05/14/2024 15:27:32 4 Knee Kenalog 40mg 1cc Asp & Inj, L/R completed Chase Anne MD [address], [place], [address], [facility] 04/11/2024 10:56:12 4 Sports Knee 4&1 completed Cass Gonzalez PA-C [address] [facility], [place], [address], [facility] 02/12/2024 15:26:06 4 Trigger Finger Kenalog Injection completed Edwige Meza PA-C [address], [place], [address], [facility] 01/31/2024 17:39:25 Imaging Results None recorded. Procedure Notes None recorded. Medical Equipment None Reported. Allergies Allergen ID Allergen Name Allergen Category Reaction Reaction Severity Criticality Documentation Date Start Date Code Code System Note Provider Name and Address Organization Details Recorded Time 488869 Product containin g 3-hydroxy -3-methyl glutaryl- coenzyme A reductase inhibitor (product) medicatio n Not available Not available Not available 01/11/2024 14924 009 SNOMED DYLAN moncada [facility] 4 09:22:06 34358 morphine sulfate medicatio n Not available Not available Not available 12/10/20232009 70749 RxNorm Aller gyRea ction : 'Naus ea/Vo mitin g/Hedy rrhea '; Not Available [facility] 4 15:13:05 15893 acetamino phen / oxycodone medicatio n Not available Not available Not available 12/10/20232009 06605 3 RxNorm Jose Roberto moncada [facility] 5 08:56:48 Medications Name Sig Start [...] Updated DateTime 12/05/2024 165.74 cm 29.2 kg/m2 74995.85 g MARTITA WILDE [facility] 12/05/2024 12:59:29 Date Recorded Body height Body mass index (BMI) Body weight Provider Name and Address Organization Details Last Updated DateTime 12/29/2024 165.74 cm 29.2 kg/m2 23529.85 g Jose Roberto Howard [facility] 12/29/2024 08:56:58 Date Recorded Body height Body mass index (BMI) Body weight Provider Name and Address Organization Details Last Updated DateTime 02/03/2025 165.74 cm 29.2 kg/m2 48005.85 g JAXON HARTMAN [facility] 02/03/2025 14:43:02 Date Recorded Body height Provider Name an d Address Organization Details Last Updated DateTime 05/15/2025 165.74 cm Corie Wright [facility] 05/15/2025 14:55:06 Social History None recorded. [...] ICD10 Code Diagnosis IMO Codes Diagnosis Note [id number] Cass Gonzalez [place] [address] 01/11/2024 09:00:10 02/06/2024 15:11:14 Pain of left knee joint 3990091777 27178 M25.562 Tear of me dial meniscus of knee 360642028 S83.242A [id number] Edwige Meza PA-C [facility] [address] [place] [address] 01/31/2024 17:07:47 02/22/2024 09:18:58 [id number] Cass Gonzalez PA-C [facility] [address] [place] [address] 02/12/2024 14:42:34 03/06/2024 18:22:56 Osteoarthritis of left knee joint 3123525208 31361 M17.12 [id number] Chase Anne MD [facility] [address] [place] [address] 04/11/2024 09:36:11 05/13/2024 10:20:50 Acute tear of lateral meniscus of left knee 5433813114 1986487 S83.282A [id number] Ashli Borrego PA-C [facility] [address] [place] [address] 05/02/2024 12:56:37 05/21/2024 10:57:48 Postoperative care 862417430 Z48.89 [id number] Chris Loaiza , DPT [facility] [address] [place] [address] 05/13/2024 17:35:09 05/13/2024 18:03:23 Tear of lateral meniscus of knee 070604499 S83.282D [id number] Ashli Salinas 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 [facility] [address] [place] [address] 05/15/2024 16:51:31 05/15/2024 17:40:14 Tear of lateral meniscus of knee 572893847 S83.282D [id number] 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 [facility] [address] [place] [address] 05/23/2024 15:34:13 05/23/2024 16:23:09 Tear of lateral meniscus of knee 642600766 S83.282D [id number] Chase Anne MD [facility] [address] [place] [address] 05/29/2024 09:51:26 06/23/2024 11:07:24 Acute tear of lateral meniscus of left knee 3113774170 2659663 S83.282A [id number] Ashli Salinas PTA [facility] [address] [place] [address] 06/03/2024 11:09:05 06/03/2024 12:11:37 Tear of lateral meniscus of knee 444195824 S83.282D [id number] Chase Anne MD [facility] [address] [place] [address] 11/20/2024 13:41:28 12/10/2024 07:23:09 Osteoarthritis of left knee joint 8345268551 24469 M17.12 Bernard Bryant MD [facility] [address] [place] [address] 12/01/2024 14:04:58 12/11/2024 11:54:09 Pain of left knee joint 0488360337 00007 M25.562 561025 Osteoarthr itis of left knee joint 3235227374 30339 M17.12 [id number] MUKESH MarinT [facility] [address] [place] [address] 12/02/2024 10:45:29 12/02/2024 12:12:23 Osteoarthritis of knee 905800961 M17.12 [id number] Nicole Adams APRN [facility] [address] [place] [address] 12/05/2024 12:47:11 12/23/2024 11:55:11 Preprocedural examination done 7937048943 59995 Z01.818 167928 Osteoarthr itis of left knee joint 8246920900 54602 M17.12 7922726 [id number] MAGY Diaz - [facility] [address] [place] [address] 12/29/2024 08:46:49 01/12/2025 07:50:43 Osteoarthritis of left knee joint 0352628292 21699 M17.12 Osteoarthr itis of right knee joint 5799743498 34175 M17.11 [id number] Balaji Whyte PA-C [facility] [address] [place] [address] 02/03/2025 14:27:33 02/09/2025 08:24:28 Osteoarthritis of left knee joint 4485661938 98512 M17.12 [id number] MD [facility] [address] [place] [address] 05/15/2025 14:43:53 05/22/2025 12:14:08 Triggering of digit 330737470 M65.30 [id number] Health Concerns Section Related Observation LastModified by Organization Detai ls LastModified Time None Recorded Concern Status LastModified by Organization Details LastModified Time None Recorded Advance Directives Directive None Recorded Payers Insurance Date Sequence Insurance Name Policy Number Policy Sutton Covered Member ID Sutton Member ID Guarantor Name 12/18/2024 PAYMENT PLAN [facility] 07/30/2025 1 [facility] [id number] 23 [facility] [id number] [facility] Notes Date Note Type Note Provider Name and Address Organization Details Recorded Time 12/02/2024 text/html Patient is 49 year old female, with chronic history of knee pain and OA. Presents today for first prehab visit for scheduled TKA at [facility] on 12/18/24. Arrives today ambulating with [...] Loaiza DPT [address], [place], [address], [facility] 12/02/2024 14:36:37 05/15/2025 text/html [...] injection at that time. 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 Denia Mejia MD [address] [place] [address] [address], [place], [address], [facility] 05/15/2025 16:32:14 OBGyn Episode No OBEpisode recorded.
[2025-08-17 13:13] LABS: Ferritin 101 ng/mL (10-250)
[2025-08-17 13:24] LABS: Folate 8.2 ng/mL (> or = 4.0); Vitamin B12 338 pg/mL (200-900)
== END 2025-08-17 10:12 | disposition home or self-care (01) ==
LOC: HO.LAB 10:11
PROVIDERS: Absent Provider Physician Assistant Medical; PCP Internal Medicine; Visit Provider Clinical Nurse Specialist Psychiatric/Mental Health
DX: R45.89 Other symptoms and signs involving emotional state (principal); G47.19 Other hypersomnia; G47.9 Sleep disorder, unspecified; I73.00 Raynaud's syndrome without gangrene; R53.83 Other fatigue; E05.90 Thyrotoxicosis, unspecified without thyrotoxic crisis or storm; F90.2 Attention-deficit hyperactivity disorder, combined type; F51.01 Primary insomnia; G47.00 Insomnia, unspecified; Z13.21 Encounter for screening for nutritional disorder; Z13.6 Encounter for screening for cardiovascular disorders
CPT/HCPCS: 36415; 82306; 82607; 82728; 82746; 83090; 83921; 84207; 84425; 84443